=== PATIENT | female | born 1950 | race Caucasian/White ===

== ENCOUNTER 2016-06-01 10:36 | Emergency (ER) | payer MEDICARE, OTHER ==
[~2016-06-01] VITALS: Ht 154.9 cm; Wt 149.7 kg
[~2016-06-01 10:36] MED LIST: AC80CT PO; ASPI-198 PO; FAMO10TA71 PO; FURO20TA4 PO; GUAI118L76 PO; LRT10T PO; MULT-608 PO; NAPR220C11 PO; OMEG-12 PO; OSTEO BI-FLEX1 EACH PO; VALS1TAB48 PO
[2016-06-01 11:42] LABS: BASOPHILS % (AUTO) 0 % (0-10); EOSINOPHILS # (AUTO) 0.1 10^3/uL (0.0-0.3); EOSINOPHILS % (AUTO) 1 % (0-10); LYMPHOCYTES # (AUTO) 2.7 X 10^3 (1.0-4.0); LYMPHOCYTES % (AUTO) 28 % (12-44); MEAN CORPUSCULAR HEMOGLOBIN 30 PG (25-34); MEAN CORPUSCULAR HGB CONC 33 G/DL (32-36); MEAN CORPUSCULAR VOLUME 91 FL (80-99); MEAN PLATELET VOLUME 10.8 FL (7.4-10.4); MONOCYTES # (AUTO) 1.1 X 10^3 (0.0-1.0); MONOCYTES % (AUTO) 12 % (0-12); NEUTROPHILS # (AUTO) 5.7 X 10^3 (1.8-7.8); NEUTROPHILS % (AUTO) 59 % (42-75); PLATELET COUNT 255 10^3/uL (130-400); RED BLOOD COUNT 4.04 10^6/uL (4.35-5.85); RED CELL DISTRIBUTION WIDTH 13.8 % (10.0-14.5); WHITE BLOOD COUNT 9.7 10^3/uL (4.3-11.0)
[2016-06-01 11:53] LABS: BILIRUBIN,TOTAL 0.4 MG/DL (0.1-1.0); CALCIUM 9.2 MG/DL (8.5-10.1); CREATININE SERUM 1.14 MG/DL (0.60-1.30); TOTAL PROTEIN 7.9 G/DL (6.4-8.2)
--- NOTE | 2016-06-01 12:12 | Diagnostic Imaging Report ---
INDICATION: Cough, congestion, fever, diaphoresis. DISCUSSION: Two views of the chest were obtained, comparison 06/23/2011. Mild accentuated thoracic kyphosis is stable. Age-related degenerative changes are noted throughout the thoracic spine. Stable normal heart size. Mild S-shaped scoliosis of the thoracic spine is stable. No focal consolidation, pleural fluid, or pneumothorax. The lungs remain mildly hyperinflated. IMPRESSION: 1. No acute cardiopulmonary process. Dictated by: Dictated on workstation # [id number]
[2016-06-01] MEDS ORDERED: methylPREDNISolone 125 MG (Solu-MEDROL) VIAL IV STA (12:21)
[2016-06-01] MEDS ORDERED: LEVO500T2 PO (12:25)
[2016-06-01] MEDS ORDERED: D-ME118S7 PO (12:25)
[2016-06-01] MEDS ORDERED: METH4TAB PO (12:25)
[2016-06-01] MEDS ORDERED: ALB0.5V IH (12:25)
--- NOTE | 2016-06-01 12:26 | ED Respiratory ---
General Chief Complaint: Cough/Cold/Flu Symptoms Stated Complaint: COUGHING BLOOD Nursing Triage Note: COUGH SINCE 05/25, GRADUALLY WORSENING. C/O DYSPSNEA WITH LYING SUPINE. STATES SHE HAD FEVER EARLIER TODAY AND COUGHED UP BRIGHT RED BLOOD TODAY. Source: patient History of Present Illness Time seen by provider: 10:55 Initial Comments C/O PRODUCTIVE COUGH WITH COLORED SPUTUM--HAD BLOOD TINGED SPUTUM TODAY STATES IT HURTS TO BREATHE AND FEELS SHORT OF BREATH WHEN LYING DOWN HAS HAD SUBJECTIVE FEVER OFF AND ON FOR 4-5 DAYS C/O SWEATS AND CHILLS C/O BILATERAL EAR PAIN HAS HAD NASAL CONGESTION AND BLOODY SINUS DRAINAGE C/O SORE THROAT STATES SHE HAS COUGHED SO HARD SHE VOMITS ALL FAMILY MEMBERS ILL WITH SAME, BUT NOT THIS BAD PCP: DR. CRUZ Allergies and Home Medications Allergies Coded Allergies: No Known Allergies (Unverified Allergy, Unknown, 06/01/16) latex (Verified Allergy, Unknown, 06/01/16) Home Medications Acetaminophen 80 Mg/Tab Tablet 2 TAB PO Q6HR PRN (Reported) Albuterol Sulfate 2.5 Mg/0.5 Ml Vial.neb #1 2.5 MG IH Q4H Prescribed by: JACKIE JOSHUA on 06/01/16 1225 Aspirin/Calcium Carbonate/Mag 325 Mg Tablet 325 MG PO (Reported) D-Methorphan Hb/Prometh HCl 118 Ml Syrup #120 1-2 TSP PO Q4H Prescribed by: JACKIE JOSHUA on 06/01/16 1225 Famotidine 10 Mg Tablet 1 EACH PO BID (Reported) Furosemide 20 Mg Tablet 1 EACH PO DAILY (Reported) Gluc/Brian-Msm#1/C/Luis/Dmitry/Bor 1 Each Tablet 2 EACH PO DAILY (Reported) Hctz/Valsartan 1 Tab Tablet 1 EACH PO DAILY (Reported) Levofloxacin 500 Mg Tablet #10 500 MG PO DAILY Prescribed by: JACKIE JOSHUA on 06/01/16 1225 Loratadine 10 Mg Box 1 EACH PO DAILY (Reported) Methylprednisolone 4 Mg Tab.ds.pk #1 4 MG PO UD Prescribed by: JACKIE JOSHUA on 06/01/16 1225 Multivitamins 1 Tab Tablet 1 TAB PO (Reported) Naproxen Sodium 220 Mg Capsule 220 MG PO DAILY (Reported) [place]-3/Dha/Epa/Fish Oil 1 Each Capsule.dr 1 EACH PO (Reported) Constitutional: see HPI chills diaphoresis fever EENTM: ear pain nose congestion see HPI throat pain Respiratory: see HPI cough dyspnea on exertion hemoptysis orthopnea phlegm short of breath wheezing Cardiovascular: see HPI chest pain edema (CHRONIC /STABLE)No palpitations, No vascular heart diseas Gastrointestinal: see HPI vomiting Genitourinary: no symptoms reported Musculoskeletal: no symptoms reported Skin: no symptoms reported Psychiatric/Neurological: No Symptoms Reported Hematologic/Lymphatic: No Symptoms Reported Immunological/Allergic: no symptoms reported Past Mmtjzch-Xykmgi-Ojvvry Hx Patient Social History Alcohol Use: Denies Use Recreational Drug Use: No Smoking Status: Never a Smoker 2nd Hand Smoke Exposure: Yes Recent Foreign Travel: No Contact w/Someone Who Travel: No Recent Infectious Disease Expo: No Recent Hopitalizations: No Physical Abuse Screen: No Sexual Abuse: No Immunizations Up To Date Date of Influenza Vaccine: Feb 29, 2016 Surgeries HX Surgeries: Yes (D&C) Surgeries: Orthopedic Respiratory Hx Respiratory Disorders: Yes (CPAP HS) Respiratory Disorders: Sleep Apnea Cardiovascular Hx Cardiac Disorders: Yes Cardiac Disorders: Chronic Edema/Swelling, Hypertension Neurological Hx Neurological Disorders: Yes Reproductive System Hx Reproductive Disorders: No Sexually Transmitted Disease: No Genitourinary Hx Genitourinary Disorders: Yes (INCONTINENCE) Gastrointestinal Hx Gastrointestinal Disorders: Yes (DIVERTICULITIS) Gastrointestinal Disorders: Diverticulosis Musculoskeletal Hx Musculoskeletal Disorders: Yes (ARTHRITIS IN KNEES) Musculoskeletal Disorders: Arthritis Endocrine Hx Endocrine Disorders: No HEENT HX ENT Disorders: No Cancer Hx Cancer: No Psychosocial Hx Psychiatric Problems: No Integumentary HX Skin/Integumentary Disorder: No Blood Transfusions Hx Blood Disorders: No Physical Exam Vital Signs Vital Sign - Last 12Hours 06/01/16 06/01/16 10:52 12:36 Pulse 84 Resp 22 B/P 136/99 Pulse Ox 97 O2 Delivery Room Air Capillary Refill : Less Than 3 Seconds General Appearance: WD/WN no apparent distress obese HEENT: PERRL/EOMI other (NASAL MUCOSAL EDEMA. NO SINUS TENDERNESS. 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 nml as tested no motor/sensory deficits alert normal mood/affect oriented x 3 Skin: normal color warm/dry Progress/Results/Core Measures Results/Orders Lab Results Laboratory Tests Test 06/01/16 11:20 06/01/16 12:10 Range/Units Alanine Aminotransferase (ALT/SGPT) 20 0-55 U/L Albumin 4.0 3.2-4.5 G/DL Alkaline Phosphatase 73 40-136 U/L Anion Gap 10 5-14 MMOL/L Aspartate Amino Transf (AST/SGOT) 20 5-34 U/L BUN/Creatinine Ratio 17 Basophils # (Auto) 0.0 0.0-0.1 10^3/uL Basophils (%) (Auto) 0 0-10 % Blood Urea Nitrogen 19 H 7-18 MG/DL Calcium Level 9.2 8.5-10.1 MG/DL Carbon Dioxide Level 23 21-32 MMOL/L Chloride Level 105 98-107 MMOL/L Creatinine 1.14 0.60-1.30 MG/DL Eosinophils # (Auto) 0.1 0.0-0.3 10^3/uL Eosinophils (%) (Auto) 1 0-10 % Estimat Glomerular Filtration Rate 48 Glucose Level 122 H 70-105 MG/DL Hematocrit 37 35-52 % Hemoglobin 12.2 11.5-16.0 G/DL Lymphocytes # (Auto) 2.7 1.0-4.0 X 10^3 Lymphocytes (%) (Auto) 28 12-44 % Mean Corpuscular Hemoglobin 30 25-34 PG Mean Corpuscular Hemoglobin Concent 33 32-36 G/DL Mean Corpuscular Volume 91 80-99 FL Mean Platelet Volume 10.8 H 7.4-10.4 FL Monocytes # (Auto) 1.1 H 0.0-1.0 X 10^3 Monocytes (%) (Auto) 12 0-12 % Neutrophils # (Auto) 5.7 1.8-7.8 X 10^3 Neutrophils (%) (Auto) 59 42-75 % Platelet Count 255 130-400 10^3/uL Potassium Level 4.0 3.6-5.0 MMOL/L Red Blood Count 4.04 L 4.35-5.85 10^6/uL Red Cell Distribution Width 13.8 10.0-14.5 % Sodium Level 138 135-145 MMOL/L Total Bilirubin 0.4 0.1-1.0 MG/DL Total Protein 7.9 6.4-8.2 G/DL White Blood Count 9.7 4.3-11.0 10^3/uL Lactic Acid Level 1.6 0.5-2.0 MMOL/L Micro Results Microbiology 06/01/16 Blood Culture - Preliminary, Resulted No growth 06/01/16 Blood Culture - Preliminary, Resulted No growth 06/01/16 Gram Stain - Final, Resulted 06/01/16 Sputum Culture - Preliminary, Resulted Staphylococcus Aureus 06/01/16 Influenza Types A,B Antigen (ME[facility]I) - Final, Complete My Orders Orders-JACKIE JOSHUA DO Influenza A And B Antigens (06/01/16 11:12) Saline Lock/Iv-Start (06/01/16 11:36) Monitor-Rhythm Ecg Trace Only (06/01/16 11:36) Cbc With Automated Diff (06/01/16 11:36) Comprehensive Metabolic Panel (06/01/16 11:36) Blood Culture (06/01/16 11:36) Chest Pa/Lat (2 View) (06/01/16 11:36) Lactic Acid Analyzer (06/01/16 11:36) Albuterol/Ipra Inhalation Soln (Duoneb I (06/01/16 12:30) Dexamethasone Injection (Decadron Inject (06/01/16 12:30) Rt Request For Service (06/01/16 12:21) Ceftriaxone Injection (Rocephin Injectio (06/01/16 12:30) Methylprednisolone Sod Succ (Solu-Medrol (06/01/16 12:21) Svn Sm Volume Nebulizer Rt-Rfs (06/01/16 12:21) Breathing Machine Home Use-Dme (06/01/16 12:25) Sputum Culture (06/01/16 12:50) Vital Signs/I&O Vital Sign - Last 12Hours 06/01/16 06/01/16 06/01/16 10:52 12:36 13:05 Pulse 84 70 Resp 22 18 B/P 136/99 Pulse Ox 97 93 95 O2 Delivery Room Air Blood Pressure Mean: 111 Diagnostic Imaging Comments CXR--NO ACUTE PROCESS, PER RADIOLOGIST REPORT @ 1215 Reviewed: Reviewed by Me Departure Impression Impression: Primary Impression: Bronchitis Additional Impression: Sinusitis Disposition: HOME, SELF-CARE Condition: Stable Departure-Patient Inst. Referrals: HERNAN CRUZ MD (PCP/Family) Primary Care Physician Patient Instructions: Acute Bronchitis, Adult (DC), Sinusitis, Adult (DC) Add. Discharge Instructions: LOTS OF CLEAR LIQUIDS TYLENOL AND MOTRIN NEEDED FOR PAIN OR FEVER FOLLOW UP WITH YOUR DR IN 3-4 DAYS IF NO BETTER RETURN TO ER IF WORSE All discharge instructions reviewed with patient and/or family. Voiced understanding. Scripts Methylprednisolone (Medrol)4 Mg Tab.ds.pk4 Mg PO UD #1 PKG Prov:JACKIE JOSHUA DO 06/01/16 D-Methorphan Hb/Prometh HCl (Promethazine-Dm Syrup)118 Ml Syrup1-2 Tsp PO Q4H Cough #120 ML Prov:JACKIE JOSHUA DO 06/01/16 Levofloxacin (Levaquin)500 Mg [id number] Mg PO DAILY INFECTION #10 TAB Prov:JACKIE JOSHUA DO 06/01/16 Albuterol Sulfate 2.5 Mg/0.5 Ml Vial.neb2.5 Mg IH Q4H BREATHING #1 INHALER Prov:JACKIE JOSHUA DO 06/01/16 JACKIE JOSHUA DO Jun 01, 2016 12:25
[2016-06-01] MEDS ORDERED: RT-ALBUTEROL/IPRATROPIUM 3 ML (DUONEB) VIAL INH ONE (12:30)
[2016-06-01] MEDS ORDERED: cefTRIAXone INJECTION 1,000 MG in NORMAL SALINE (BAXTER MINI) 50 ML IV ONE (12:30)
[2016-06-01] MEDS ORDERED: DEXAMETHASONE 4 MG/ML SDV (DECADRON) IH ONE (12:30)
[2016-06-01 13:05] VITALS: BP 131/62
== END 2016-06-01 13:51 | disposition home or self-care (01) ==
LOC: EDUNIT# 10:36 → ER 10:38
DX: J20.9 Acute bronchitis, unspecified (principal); J01.90 Acute sinusitis, unspecified; I10 Essential (primary) hypertension; Z79.899 Other long term (current) drug therapy
CPT/HCPCS: 36415; 71020; 80053; 83605; 85025; 87040; 87070; 87186; 87205; 87804

== ENCOUNTER → 2016-08-03 | Outpatient (CLI) | payer MEDICARE, OTHER ==
[~2016-08-03] MED LIST changes: +ALB0.5V IH; +D-ME118S7 PO; +LEVO500T2 PO; +METH4TAB PO
--- NOTE | 2016-08-04 20:01 | Diagnostic Imaging Report ---
Digital mammogram bilateral screening The study was compared to the prior exams of 05/28/15, 05/10/14, and 05/09/13. At this time, there are no current complaints. The current study was also evaluated with a Computer Aided Detection (CAD) system. FINDINGS: There are scattered fibroglandular densities in both breasts which could obscure a lesion. Overall, there does not appear to have been any significant change when compared to the prior exam. No primary or secondary sign of malignancy is noted. IMPRESSION: There is no radiographic evidence for malignancy. ACR BI-RADS Category 1: Negative. Result letter will be mailed to the patient. Note: At least 10% of breast cancer is not imaged by mammography. Dictated by: Dictated on workstation # [id number]
== END ==
LOC: RAD 09:37
PROVIDERS: ATTEND Internal Medicine
DX: Z12.31 Encounter for screening mammogram for malignant neoplasm of breast (principal)
CPT/HCPCS: 77067

== ENCOUNTER 2016-12-03 13:43 | Inpatient (IN) | payer MEDICARE, OTHER ==
[~2016-12-03] VITALS: Ht 157.5 cm; Wt 141.5 kg
[2016-12-03] MEDS ORDERED: ONDANSETRON 4 MG (ZOFRAN) ORAL DISSOLVE TAB SL STA (15:20)
[2016-12-03 15:42] LABS: BASOPHILS % (AUTO) 0 % (0-10); EOSINOPHILS % (AUTO) 0 % (0-10); LYMPHOCYTES # (AUTO) 1.6 X 10^3 (1.0-4.0); LYMPHOCYTES % (AUTO) 12 % (12-44); MEAN CORPUSCULAR HEMOGLOBIN 30 PG (25-34); MEAN CORPUSCULAR HGB CONC 33 G/DL (32-36); MEAN CORPUSCULAR VOLUME 93 FL (80-99); MEAN PLATELET VOLUME 10.5 FL (7.4-10.4); MONOCYTES # (AUTO) 0.5 X 10^3 (0.0-1.0); MONOCYTES % (AUTO) 4 % (0-12); NEUTROPHILS # (AUTO) 11.1 X 10^3 (1.8-7.8); NEUTROPHILS % (AUTO) 83 % (42-75); PLATELET COUNT 283 10^3/uL (130-400); RED BLOOD COUNT 4.05 10^6/uL (4.35-5.85); RED CELL DISTRIBUTION WIDTH 14.1 % (10.0-14.5); WHITE BLOOD COUNT 13.3 10^3/uL (4.3-11.0)
[2016-12-03 16:02] LABS: ALBUMIN 4.1 GM/DL (3.2-4.5); BILIRUBIN,TOTAL 0.5 MG/DL (0.1-1.0); CALCIUM 9.8 MG/DL (8.5-10.1); CREATININE SERUM 1.07 MG/DL (0.60-1.30); POTASSIUM 4.5 MMOL/L (3.6-5.0); TOTAL PROTEIN 8.2 GM/DL (6.4-8.2)
[2016-12-03 16:22] LABS: BILIRUBIN,URINE NEGATIVE (NEGATIVE); KETONES,URINE NEGATIVE (NEGATIVE); LEUKOCYTE ESTERASE ,URINE NEGATIVE (NEGATIVE); NITRITE,URINE NEGATIVE (NEGATIVE); PH,URINE 6 (5-9); PROTEIN,URINE NEGATIVE (NEGATIVE); UROBILINOGEN,URINE NORMAL (NORMAL)
[2016-12-03] MEDS ORDERED: NS 100 ML (IVPB) BAG IV ONE (16:30)
[2016-12-03] MEDS ORDERED: IOHEXOL 350 MG/ML 100 ML (OMNIPAQUE 350) VIAL IV ONE (16:30)
[2016-12-03 16:35] LABS: WBC,URINE RARE /HPF
[2016-12-03] MEDS: CATHETER FLUSH 10 ML SYR IV PRN (16:35)
[2016-12-03] MEDS ORDERED: LACTATED RINGERS 1,000 ML IV ONE ×3 (17:11→20:58)
--- NOTE | 2016-12-03 17:12 | Diagnostic Imaging Report ---
PROCEDURE: CT abdomen and pelvis with contrast. TECHNIQUE: Multiple contiguous axial images were obtained through the abdomen and pelvis after administration of intravenous contrast. INDICATION: Abdominal pain. Nausea. CONTRAST: 100 mL of Omnipaque 350 is administered intravenously. FINDINGS: The lung bases demonstrate small posteromedial fat-containing diaphragmatic hernia with no pulmonary consolidation. Minimal scarring in the left lung base is seen. The liver demonstrates a 7 mm right hepatic lobe nonspecific hypodensity too small to accurately characterize. Calcified gallstone is seen with no evidence of cholecystitis. The spleen, the adrenal glands, and the pancreas appear unremarkable. The kidneys have symmetric enhancement and contrast excretion. There is no hydronephrosis. The abdominal aorta is normal in caliber. No paraaortic significantly enlarged lymph nodes are seen. There is a supraumbilical hernia containing a small bowel loop associated with stranding in the fat and stranding in the adjacent small bowel mesentery concerning for hernia strangulation. The abdominal wall defect at the level of the hernia is 3.4 x 3.6 cm in size. There is no bowel obstruction. There is diverticulosis with no evidence of diverticulitis. There is a short outpouching seen from the cecum which could represent a particularly short appendix or a diverticulum. There is no significant free fluid or fluid collection in the abdomen or pelvis. The uterus and adnexa appear grossly unremarkable. There is mild thickening of the urinary bladder wall which may relate to cystitis. Correlate clinically. The osseous structures demonstrate degenerative changes with left convexity scoliosis. IMPRESSION: 1. There is periumbilical hernia containing small bowel loops with fatty stranding and thickening in the wall of the small bowel concerning for strangulation. Mild fatty stranding in the mesentery also extends to the adjacent mesentery in both a non-herniating bowel loop. 2. Diverticulosis. No evidence of diverticulitis. 3. Cholelithiasis. Findings were discussed with ER nurse practitioner, Nicole Alonzo at time of dictation. Dictated by: Dictated on workstation # [id number]
--- NOTE | 2016-12-03 17:31 | Consultation ---
History of Present Illness History of Present Illness Patient Consulted On(ernestina/time) 12/03/16 17:26 Time Seen by Provider: 17:03 History of Present Illness Pt is a 66 yo female who had increasing abdominal pain. She states she has been seeing Dr. Greene "a while for this"; but it has never been this bad. She describes 10 out of 10 pain, that is sharp and crampy. Located around umbilical region and radiating to the LLQ. Associated with nausea and vomiting. She does not think she had a fever at home. She tried to take a sip of milk at 11am but vomited that right back up. Pt states that moving, bending over or picking stuff up makes the pain worse. She denies chest pain and does not have more SOB than normal. She does have CPAP at home. Allergies and Home Medications Allergies Coded Allergies: No Known Allergies (Unverified Allergy, Unknown, 06/01/16) latex (Verified Allergy, Unknown, 06/01/16) Home Medications Acetaminophen 80 Mg/Tab Tablet, 2 TAB PO Q6HR PRN, (Reported) Albuterol Sulfate 2.5 Mg/0.5 Ml Vial.neb, 2.5 MG IH Q4H, #1 Prescribed by: JACKIE JOSHUA on 06/01/16 1225 Aspirin/Calcium Carbonate/Mag 325 Mg Tablet, 325 MG PO, (Reported) D-Methorphan Hb/Prometh HCl 118 Ml Syrup, 1-2 TSP PO Q4H, #120 Prescribed by: JACKIE JOSHUA on 06/01/16 1225 Famotidine 10 Mg Tablet, 1 EACH PO BID, (Reported) Furosemide 20 Mg Tablet, 1 EACH PO DAILY, (Reported) Gluc/Brian-Msm#1/C/Luis/Dmitry/Bor 1 Each Tablet, 2 EACH PO DAILY, (Reported) Hctz/Valsartan 1 Tab Tablet, 1 EACH PO DAILY, (Reported) Levofloxacin 500 Mg Tablet, 500 MG PO DAILY, #10 Prescribed by: JACKIE JOSHUA on 06/01/16 1225 Loratadine 10 Mg Box, 1 EACH PO DAILY, (Reported) Methylprednisolone 4 Mg Tab.ds.pk, 4 MG PO UD, #1 Prescribed by: JACKIE JOSHUA on 06/01/16 1225 Multivitamins 1 Tab Tablet, 1 TAB PO, (Reported) Naproxen Sodium 220 Mg Capsule, 220 MG PO DAILY, (Reported) [place]-3/Dha/Epa/Fish Oil 1 Each Capsule.dr, 1 EACH PO, (Reported) Past Wmuobcz-Djaxup-Epvxig Hx Patient Social History Alcohol Use: Denies Use Recreational Drug Use: No Smoking Status: Never a Smoker 2nd Hand Smoke Exposure: Yes Recent Foreign Travel: No Contact w/Someone Who Travel: No Recent Infectious Disease Expo: No Recent Hopitalizations: No Immunizations Up To Date Date of Influenza Vaccine: Feb 29, 2016 Surgeries HX Surgeries: Yes (D&C) Surgeries: Orthopedic Respiratory Hx Respiratory Disorders: Yes (CPAP HS) Respiratory Disorders: Sleep Apnea Cardiovascular Hx Cardiac Disorders: Yes Cardiac Disorders: Chronic Edema/Swelling, Hypertension Neurological Hx Neurological Disorders: No Reproductive System Hx Reproductive Disorders: No Sexually Transmitted Disease: No Genitourinary Hx Genitourinary Disorders: Yes (INCONTINENCE) Gastrointestinal Hx Gastrointestinal Disorders: Yes (DIVERTICULITIS) Gastrointestinal Disorders: Diverticulosis Musculoskeletal Hx Musculoskeletal Disorders: Yes (ARTHRITIS IN KNEES) Musculoskeletal Disorders: Arthritis Endocrine Hx Endocrine Disorders: No HEENT HX ENT Disorders: No Cancer Hx Cancer: No Psychosocial Hx Psychiatric Problems: No Integumentary HX Skin/Integumentary Disorder: No Blood Transfusions Hx Blood Disorders: No Family Medical History Significant Family History: Heart Disease (Father has pacemaker), Cancer ( mother of ovarian cancer), Hypertension (parents and sisters) Review of Systems-General Constitutional: chills, diaphoresis, weakness EENTM: No blurred vision, No epistaxis, No hearing loss, No mouth swelling, No throat swelling Respiratory: No cough, dyspnea on exertion, No hemoptysis, No phlegm, short of breath Cardiovascular: No chest pain, edema, No Hx of Intervention Gastrointestinal: abdominal pain, constipation, No hematemesis, No melena, nausea, vomiting Genitourinary: No dysuria, No frequency, No hematuria : No Musculoskeletal: gout, joint pain, joint swelling, muscle stiffness, muscle cramps Skin: dryness, other (chronic ulcers on lower extremities) Psychiatric/Neurological: Denies Anxiety, Denies Depressed, Denies Pre- Existing Deficit, Denies Seizure, Denies Tremors Other pt denies any heat or cold intolerance, no abnormal bruising or bleeding Physical Exam-General Problems Physical Exam Vital Signs Vital Sign - Last 12Hours 12/03/16 14:49 Temp 97.8 Pulse 74 Resp 18 B/P (MAP) 145/84 Pulse Ox 96 Capillary Refill : Less Than 3 Seconds General Appearance: WD/WN, moderate distress, obese Eyes: Bilateral Eye EOMI, Bilateral Eye PERRL HEENT: pharynx normal, No scleral icterus (R), No scleral icterus (L), No pale conjunctivae (R), No pale conjunctivae (L) Neck: non-tender, full range of motion, supple, normal inspection Respiratory: chest non-tender, lungs clear, normal breath sounds, no respiratory distress, no accessory muscle use Cardiovascular: regular rate, rhythm, no gallop, no murmur, systolic murmur ( grade II/) Gastrointestinal: soft, no organomegaly, hernia (incarcerated ventral hernia) Rectal: deferred Back: no CVA tenderness, no vertebral tenderness Extremities: no calf tenderness, other (venous stasis changes bilateral lower extremity, decreased range of motion, ulcer on right leg) Neurologic/Psychiatric: director of front office II-XII nml as tested, no motor/sensory deficits, normal mood/affect, oriented x 3 Skin: normal color (except legs as noted above), warm/dry Lymphatic: no adenopathy (neck, axilla or groin.) Data Review Labs Laboratory Tests 12/03/16 15:25: White Blood Count 13.3H, Red Blood Count 4.05L, Hemoglobin 12.3, Hematocrit 38, Mean Corpuscular Volume 93, Mean Corpuscular Hemoglobin 30, Mean Corpuscular Hemoglobin Concent 33, Red Cell Distribution Width 14.1, Platelet Count 283, Mean Platelet Volume 10.5H, Neutrophils (%) (Auto) 83H, Lymphocytes (%) (Auto) 12, Monocytes (%) (Auto) 4, Eosinophils (%) (Auto) 0, Basophils (%) (Auto) 0, Neutrophils # (Auto) 11.1H, Lymphocytes # (Auto) 1.6, Monocytes # (Auto) 0.5, Eosinophils # (Auto) 0.0, Basophils # (Auto) 0.0, Sodium Level 141, Potassium Level 4.5, Chloride Level 105, Carbon Dioxide Level 26, Anion Gap 10, Blood Urea Nitrogen 25H, Creatinine 1.07, Estimat Glomerular Filtration Rate 51, BUN/ Creatinine Ratio 23, Glucose Level 126H, Calcium Level 9.8, Total Bilirubin 0.5 , Aspartate Amino Transf (AST/SGOT) 17, Alanine Aminotransferase (ALT/SGPT) 18, Alkaline Phosphatase 88, Total Protein 8.2, Albumin 4.1, Amylase Level 52, Lipase 48 12/03/16 16:12: Urine Color YELLOW, Urine Clarity SLIGHTLY CLOUDY, Urine pH 6, Urine Specific [place] 1.015L, Urine Protein NEGATIVE, Urine Glucose (UA) NEGATIVE, Urine Ketones NEGATIVE, Urine Nitrite NEGATIVE, Urine Bilirubin NEGATIVE, Urine Urobilinogen NORMAL, Urine Leukocyte Esterase NEGATIVE, Urine RBC (Auto) 1+H, Urine RBC 0-2, Urine WBC RARE, Urine Squamous Epithelial Cells 5-10, Urine Crystals NONE, Urine Bacteria FEWH, Urine Casts NONE, Urine Mucus NEGATIVE, Urine Culture Indicated NO Assessment/Plan Assessment/Plan Assessment/Plan 1. Incarcerated Ventral Herniarraphy, R/O strangulated 2. Morbid Obesity 3. Sleep apnea 4. 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 To OR for laparoscopic ventral herniarraphy, possible mesh, possible open. Discussed the risks and complications with pt; including but not limited to pain, bleeding , infection, scar, damage to bowel and need for further procedure. All questions answered to her satisfaction. Will keep her overnight and discharge her in the morning. ANGIE HENDRICKSON DO Dec 03, 2016 17:31
--- NOTE | 2016-12-03 17:45 | ED Abdominal Pain ---
General Chief Complaint: Abdominal/GI Problems Stated Complaint: CHILLS/SWEATS/N/V/SOB Nursing Triage Note: AMB TO ROOM C/O ABD PAIN ON AND OFF FOR A MONTH DR CRUZ THINKS SHE MAY HAVE HERNIA. Sepsis Screen: No Definite Risk History of Present Illness Time Seen By Provider: 14:40 Initial Comments Evaluation for willam-umbilical and left lower quadrant pain. This is been intermittent over the last month, she has seen Dr. Cruz for this and there were concerns over possible hernia. Earlier this morning her pain became worse and she presented to the emergency room for evaluation. She reports having a small cup of milk at 1100, but she vomited immediately after. She has otherwise been nothing by mouth since 2200 yesterday Timing/Duration: Getting Worse, Intermittent Severity/Quality: Moderate Location: LLQ, Periumbilical Radiation: No Radiation Activities at Onset: None Modifying Factors: Improves With Lying down, Improves With Resting Associated Symptoms: Nausea/Vomiting Allergies and Home Medications Allergies Coded Allergies: latex (Verified Allergy, Unknown, 12/03/16) Home Medications Acetaminophen 80 Mg/Tab Tablet, 2 TAB PO Q6HR PRN, (Reported) Albuterol Sulfate 2.5 Mg/0.5 Ml Vial.neb, 2.5 MG IH Q4H, #1 Prescribed by: JACKIE JOSHUA on 06/01/16 1225 Aspirin/Calcium Carbonate/Mag 325 Mg Tablet, 325 MG PO, (Reported) D-Methorphan Hb/Prometh HCl 118 Ml Syrup, 1-2 TSP PO Q4H, #120 Prescribed by: JACKIE JOSHUA on 06/01/16 1225 Famotidine 10 Mg Tablet, 1 EACH PO BID, (Reported) Furosemide 20 Mg Tablet, 1 EACH PO DAILY, (Reported) Gluc/Brian-Msm#1/C/Luis/Dmitry/Bor 1 Each Tablet, 2 EACH PO DAILY, (Reported) Hctz/Valsartan 1 Tab Tablet, 1 EACH PO DAILY, (Reported) Levofloxacin 500 Mg Tablet, 500 MG PO DAILY, #10 Prescribed by: JACKIE JOSHUA on 06/01/16 1225 Loratadine 10 Mg Box, 1 EACH PO DAILY, (Reported) Methylprednisolone 4 Mg Tab.ds.pk, 4 MG PO UD, #1 Prescribed by: JACKIE JOSHUA on 06/01/16 1225 Multivitamins 1 Tab Tablet, 1 TAB PO, (Reported) Naproxen Sodium 220 Mg Capsule, 220 MG PO DAILY, (Reported) Spivey-3/Dha/Epa/Fish Oil 1 Each Capsule.dr, 1 EACH PO, (Reported) Review of Systems Constitutional: no symptoms reported, see HPI EENTM: No Symptoms Reported, See HPI Respiratory: No Symptoms Reported, See HPI Cardiovascular: No Symptoms Reported, See HPI Gastrointestinal: See HPI, Abdominal Pain, Nausea, Poor Appetite, Poor Fluid Intake, Vomiting, Other (hernia) Genitourinary: No Symptoms Reported, See HPI Musculoskeletal: no symptoms reported, see HPI Skin: no symptoms reported, see HPI Psychiatric/Neurological: No Symptoms Reported, See HPI Endocrine: No Symptoms Reported, See HPI Hematologic/Lymphatic: No Symptoms Reported, See HPI All Other Systems Reviewed Negative Unless Noted: Yes Past Ybhywkv-Qdxovk-Hyvlrf Hx Patient Social History Alcohol Use: Denies Use Recreational Drug Use: No Smoking Status: Never a Smoker 2nd Hand Smoke Exposure: Yes Recent Foreign Travel: No Contact w/Someone Who Travel: No Recent Infectious Disease Expo: No Recent Hopitalizations: No Immunizations Up To Date Date of Influenza Vaccine: Feb 29, 2016 Surgeries HX Surgeries: Yes (D&C) Surgeries: Orthopedic Respiratory Hx Respiratory Disorders: Yes (CPAP HS) Respiratory Disorders: Sleep Apnea Cardiovascular Hx Cardiac Disorders: Yes Cardiac Disorders: Chronic Edema/Swelling, Hypertension Neurological Hx Neurological Disorders: Yes Reproductive System Hx Reproductive Disorders: No Sexually Transmitted Disease: No Genitourinary Hx Genitourinary Disorders: Yes (INCONTINENCE) Gastrointestinal Hx Gastrointestinal Disorders: Yes (DIVERTICULITIS) Gastrointestinal Disorders: Diverticulosis Musculoskeletal Hx Musculoskeletal Disorders: Yes (ARTHRITIS IN KNEES) Musculoskeletal Disorders: Arthritis Endocrine Hx Endocrine Disorders: No HEENT HX ENT Disorders: No Cancer Hx Cancer: No Psychosocial Hx Psychiatric Problems: No Integumentary HX Skin/Integumentary Disorder: No Blood Transfusions Hx Blood Disorders: No Reviewed Nursing Assessment Reviewed/Agree w Nursing PMH: Yes Physical Exam Vital Signs VS - Last 72 Hours, by Label 12/03/16 14:49 Temp 97.8 Pulse 74 Resp 18 B/P (MAP) 145/84 Pulse Ox 96 Capillary Refill : Less Than 3 Seconds General Appearance: WD/WN, no apparent distress HEENT: PERRL/EOMI, normal ENT inspection, TMs normal, pharynx normal Neck: non-tender, full range of motion, supple, normal inspection Respiratory: chest non-tender, lungs clear, normal breath sounds Cardiovascular: normal peripheral pulses, regular rate, rhythm, no JVD, systolic murmur, other (2+ pitting edema bilateral lower extremities) Gastrointestinal: soft, abnormal bowel sounds (hypoactive), distended, tenderness (periumbilical and left lower quadrant), other (marked abdominal obesity) Extremities: no calf tenderness, inflammation, pedal edema, slow capillary refill Neurologic/Psychiatric: no motor/sensory deficits, alert, normal mood/affect, oriented x 3 Skin: normal color, warm/dry, other (he has a tick bite on the left anterior shoulder, no erythema, tenderness or induration. Patient reports it was been present for approximately one month. ) Lymphatic: no adenopathy Progress/Results/Core Measures Results/Orders Lab Results Laboratory Tests Test 12/03/16 15:25 12/03/16 16:12 Range/Units White Blood Count 13.3 H 4.3-11.0 10^3/uL Red Blood Count 4.05 L 4.35-5.85 10^6/uL Hemoglobin 12.3 11.5-16.0 G/DL Hematocrit 38 35-52 % Mean Corpuscular Volume 93 80-99 FL Mean Corpuscular Hemoglobin 30 25-34 PG Mean Corpuscular Hemoglobin Concent 33 32-36 G/DL Red Cell Distribution Width 14.1 10.0-14.5 % Platelet Count 283 130-400 10^3/uL Mean Platelet Volume 10.5 H 7.4-10.4 FL Neutrophils (%) (Auto) 83 H 42-75 % Lymphocytes (%) (Auto) 12 12-44 % Monocytes (%) (Auto) 4 0-12 % Eosinophils (%) (Auto) 0 0-10 % Basophils (%) (Auto) 0 0-10 % Neutrophils # (Auto) 11.1 H 1.8-7.8 X 10^3 Lymphocytes # (Auto) 1.6 1.0-4.0 X 10^3 Monocytes # (Auto) 0.5 0.0-1.0 X 10^3 Eosinophils # (Auto) 0.0 0.0-0.3 10^3/uL Basophils # (Auto) 0.0 0.0-0.1 10^3/uL Sodium Level 141 135-145 MMOL/L Potassium Level 4.5 3.6-5.0 MMOL/L Chloride Level 105 98-107 MMOL/L Carbon Dioxide Level 26 21-32 MMOL/L Anion Gap 10 5-14 MMOL/L Blood Urea Nitrogen 25 H 7-18 MG/DL Creatinine 1.07 0.60-1.30 MG/DL Estimat Glomerular Filtration Rate 51 BUN/Creatinine Ratio 23 Glucose Level 126 H 70-105 MG/DL Calcium Level 9.8 8.5-10.1 MG/DL Total Bilirubin 0.5 0.1-1.0 MG/DL Aspartate Amino Transf (AST/SGOT) 17 5-34 U/L Alanine Aminotransferase (ALT/SGPT) 18 0-55 U/L Alkaline Phosphatase 88 40-136 U/L Total Protein 8.2 6.4-8.2 GM/DL Albumin 4.1 3.2-4.5 GM/DL Amylase Level 52 25-125 U/L Lipase 48 8-78 U/L Urine Color YELLOW Urine Clarity SLIGHTLY CLOUDY Urine pH 6 5-9 Urine Specific [place] 1.015 L 1.016-1.022 Urine Protein NEGATIVE NEGATIVE Urine Glucose (UA) NEGATIVE NEGATIVE Urine Ketones NEGATIVE NEGATIVE Urine Nitrite NEGATIVE NEGATIVE Urine Bilirubin NEGATIVE NEGATIVE Urine Urobilinogen NORMAL NORMAL MG/DL Urine Leukocyte Esterase NEGATIVE NEGATIVE Urine RBC (Auto) 1+ H NEGATIVE Urine RBC 0-2 /HPF Urine WBC RARE /HPF Urine Squamous Epithelial Cells 5-10 /HPF Urine Crystals NONE /LPF Urine Bacteria FEW H /HPF Urine Casts NONE /LPF Urine Mucus NEGATIVE /LPF Urine Culture Indicated NO My Orders Orders - NICOLE MCGARRY Amylase (12/03/16 14:58) Cbc With Automated Diff (12/03/16 14:58) Comprehensive Metabolic Panel (12/03/16 14:58) Lipase (12/03/16 14:58) Ua Culture If Indicated (12/03/16 14:58) Tramadol Tablet (Ultram Tablet) (12/03/16 15:20) Ondansetron Oral Dissolve Tab (Zofran (12/03/16 15:20) Ct Abdomen/Pelvis W (12/03/16 16:15) Iohexol Injection (Omnipaque 350 Mg/Ml 1 (12/03/16 16:30) Sodium Chloride Flush (Catheter Flush Sy (12/03/16 16:30) Ns (Ivpb) (Sodium Chloride 0.9% Ivpb Bag (12/03/16 16:30) Saline Lock/Iv-Start (12/03/16 17:11) Lactated Ringers (Lr 1000 Ml Iv Solution (12/03/16 17:11) Ekg Tracing (12/03/16 17:11) Medications Given in ED Current Medications Medications Dose Ordered Sig/Leann Route Start Time Stop Time Status Last Admin Dose Admin Iohexol 100 ml ONCE ONCE IV 12/03/16 16:30 12/03/16 16:31 DC 12/03/16 16:35 100 ML Lactated Ringer's 1,000 ml @ 0 mls/hr Q0M ONCE IV 12/03/16 17:11 12/03/16 17:13 DC 12/03/16 17:30 1,000 MLS/HR Sodium Chloride 10 ml NEEDED PRN IV 12/03/16 16:30 12/03/16 16:35 10 ML Sodium Chloride 100 ml ONCE ONCE IV 12/03/16 16:30 12/03/16 16:31 DC 12/03/16 16:35 80 ML Vital Signs/I&O Vital Sign - Last 12Hours 12/03/16 14:49 Temp 97.8 Pulse 74 Resp 18 B/P (MAP) 145/84 Pulse Ox 96 Blood Pressure Mean: 104 Progress Note : Time: 14:40 Progress Note Initial evaluation completed. Recommended lab workup and reevaluation. 1520 patient complaining of abdominal pain and nausea, tramadol 50 mg by mouth for pain and Zofran 4 mg by mouth for nausea 1615 WBC elevated at 13.3, all other labs essentially normal. Discussed this result with the patient with recommendation for CT of abdomen and pelvis. We'll reevaluate after these have been completed. 1655 consult by phone with Dr. Chino regarding patient's CT findings. Will come to the emergency department for evaluation of patient. [address] Chino, recommended surgical repair of the strangulate hernia. Agent agreed with this treatment plan will obtain EKG and start lactated Ringer's 1 L IV. ECG Initial ECG Impression Date: Dec 03, 2016 Initial ECG Impression Time: 17:25 Initial ECG Rate: 79 Initial ECG Rhythm: Normal Sinus Initial ECG Intervals: Normal Initial ECG Intervals DE 152, QRS the 100, QTc 412, QTc 473. [place] P 40, QRS 36, T 64. Initial ECG Impression: Normal Initial ECG Comparisson: Unchanged Comment EKG reviewed with Dr. Marcos agreed with interpretation. Diagnostic Imaging Diagonstic Imaging: CT Plain Films/CT/US/NM/MRI: abdomen, pelvis Comments NAME: ALLA COULTER [facility] REC#: [id number] PT STATUS: REG ER : 1950 PHYSICIAN: NICOLE MCGARRY ADMIT DATE: 12/03/16/ER Draft Date of Exam:12/03/16 CT ABDOMEN/PELVIS W PROCEDURE: CT abdomen and pelvis with contrast. TECHNIQUE: Multiple contiguous axial images were obtained through the abdomen and pelvis after administration of intravenous contrast. INDICATION: Abdominal pain. Nausea. CONTRAST: 100 mL of Omnipaque 350 is administered intravenously. FINDINGS: The lung bases demonstrate small posteromedial fat-containing diaphragmatic hernia with no pulmonary consolidation. Minimal scarring in the left lung base is seen. The liver demonstrates a 7 mm right hepatic lobe nonspecific hypodensity too small to accurately characterize. Calcified gallstone is seen with no evidence of cholecystitis. The spleen, the adrenal glands, and the pancreas appear unremarkable. The kidneys have symmetric enhancement and contrast excretion. There is no hydronephrosis. The abdominal aorta is normal in caliber. No paraaortic significantly enlarged lymph nodes are seen. There is a supraumbilical hernia containing a small bowel loop associated with stranding in the fat and stranding in the adjacent small bowel mesentery concerning for hernia strangulation. The abdominal wall defect at the level of the hernia is 3.4 x 3.6 cm in size. There is no bowel obstruction. There is diverticulosis with no evidence of diverticulitis. There is a short outpouching seen from the cecum which could represent a particularly short appendix or a diverticulum. There is no significant free fluid or fluid collection in the abdomen or pelvis. The uterus and adnexa appear grossly unremarkable. There is mild thickening of the urinary bladder wall which may relate to cystitis. Correlate clinically. The osseous structures demonstrate degenerative changes with left convexity scoliosis. IMPRESSION: 1. There is periumbilical hernia containing small bowel loops with fatty stranding and thickening in the wall of the small bowel concerning for strangulation. Mild fatty stranding in the mesentery also extends to the adjacent mesentery in the non-herniating bowel loop. 2. Diverticulosis. No evidence of diverticulitis. 3. Cholelithiasis. Findings were discussed with ER nurse practitioner, Nicole Mcgarry at time of dictation. Dictated on workstation # [id number] Dict: 12/03/16 1652 Trans: 12/03/16 1711 [facility] [id number] Reviewed: Reviewed by Me (and discussed with Dr. Chino.), Discussed w/ Radiologist Departure Impression Impression: Primary Impression: Strangulated umbilical hernia Additional Impression: Abdominal wall pain Disposition: ADMITTED INPATIENT Condition: Stable Decision to Admit Reason: Admit from ER (General) Decision to Admit/Date: Dec 03, 2016 Time/Decision to Admit Time: 17:00 Departure-Patient Inst. Referrals: HERNAN CRUZ MD (PCP/Family) Primary Care Physician Copy Copies To 1: HERNAN CRUZ MD, AMY ARNP Dec 03, 2016 17:45
[2016-12-03 18:28] VITALS: BP 173/77
[2016-12-03] MEDS ORDERED: ONDANSETRON 4 MG/2 ML (SDV) Z0FRAN ONE ×2 (18:56→20:39)
[2016-12-03] MEDS ORDERED: LIDOCAINE 2% 20 ML (XYLOCAINE) VIAL ONE (18:56)
[2016-12-03] MEDS ORDERED: proPOfol 200 MG/20 ML (DIPRIVAN) VIAL IV ONE (18:56)
[2016-12-03] MEDS ORDERED: LIDOCAINE 1% INJ 20 ML (XYLOCAINE) VIAL ONE (18:56)
[2016-12-03] MEDS ORDERED: DEXAMETHASONE PF 10 MG/ML (DECADRON) VIAL ONE (18:56)
[2016-12-03] MEDS ORDERED: SUCCINYLCHOLINE INJ 100 MG/5 ML SYR ONE (18:56)
[2016-12-03] MEDS ORDERED: fentaNYL INJECTION 100 MCG/2 ML AMP ONE (18:57)
[2016-12-03] MEDS ORDERED: MIDAZOLAM 2 MG/2 ML (VERSED) VIAL ONE (18:57)
[2016-12-03] MEDS ORDERED: LACTATED RINGERS 1,000 ML IV PRN (19:16)
[2016-12-03] MEDS ORDERED: ceFAZolin 1,000 MG (ANCEF) VIAL IV ONE (20:00)
[2016-12-03] MEDS ORDERED: HYDROmorphone (DILAUDID) 2 MG/ML VIAL ONE (20:38)
[2016-12-03] MEDS ORDERED: morphine INJ 10 MG/ML 1ML (SYR OR VIAL) ONE (20:39)
[2016-12-03] MEDS ORDERED: GLYCOPYRROLATE 0.2 MG/ML (ROBINUL) 2 ML VIAL ONE (20:58)
[2016-12-03] MEDS ORDERED: DESFLURANE (SUPRANE) 15 ML INHAL SOLN ONE (20:58)
[2016-12-03] MEDS ORDERED: NEOSTIGMINE (BLOXIVERZ ) 1 MG/1ML 10 ML VIAL ONE (20:58)
--- NOTE | 2016-12-03 21:09 | Progress Note-Post Operative ---
Post-Operative Progess Note Surgeon (s)/Oven Loader (s) Surgeon ANGIE HENDRICKSON DO Oven Loader: Xi Pre-Operative Diagnosis Incarcerated Ventral Hernia, Sleep Apnea, MO,HTN Post-Operative Diagnosis Strangulated Ventral Hernia small bowel Sleep apnea MO HTN Procedure & Operative Findings Date of Procedure 12/03/16 Procedure Performed/Findings 1. Small Bowel Resection 2. Ventral Herniarraphy with mesh placement, open with laparoscopic assistance Anesthesia Type GET Estimated Blood Loss Estimated blood loss (mL): 50ml Specimens/Packing Specimens Removed Portion of small intestine Hernia Sac ANGIE HENDRICKSON DO Dec 03, 2016 21:09
[2016-12-03] MEDS ORDERED: ONDANSETRON 4 MG/2 ML (SDV) Z0FRAN IVP PRN ×2 (21:15→21:30)
[2016-12-03] MEDS ORDERED: MEPERIDINE (DEMEROL) INJ 50 MG/ML IVP PRN (21:30)
[2016-12-03] MEDS: morphine INJ 10 MG/ML 1ML (SYR OR VIAL) IVP PRN ×4 (21:30→22:44)
[2016-12-03] MEDS ORDERED: PROMETHAZINE INJ 25 MG/ML (PHENERGAN) AMP IVP PRN (21:30)
[2016-12-03] MEDS ORDERED: HYDROmorphone (DILAUDID) 2 MG/ML VIAL IVP PRN (21:30)
[2016-12-03] MEDS ORDERED: morphine INJ 4 MG/ML 1 ML (VIAL/SYRINGE) ONE (22:36)
[2016-12-03 22:37] VITALS: BP 166/72
[2016-12-03] MEDS: LACTATED RINGERS 1,000 ML IV SCH (22:38)
[2016-12-03] MEDS: ceFAZolin 2 GM/50 ML NS 50 ML IV SCH (22:44)
[2016-12-04] VITALS (8 sets, daily range): BP systolic 106–151; BP diastolic 54–67
[2016-12-04] MEDS ORDERED: morphine INJ 4 MG/ML 1 ML (VIAL/SYRINGE) ONE (00:26)
[2016-12-04] MEDS: morphine INJ 10 MG/ML 1ML (SYR OR VIAL) IVP PRN ×5 (00:33→15:06)
[2016-12-04] MEDS: ceFAZolin 2 GM/50 ML NS 50 ML IV SCH (04:59)
[2016-12-04] MEDS: LACTATED RINGERS 1,000 ML IV SCH (05:50)
[2016-12-04] MEDS: CATHETER FLUSH 10 ML SYR IV PRN (08:40)
[2016-12-04] MEDS: PANTOPRAZOLE 40 MG/10 ML (PROTONIX) VIAL IVP SCH (08:40)
--- NOTE | 2016-12-04 10:03 | Progress Note ---
Subjective Time Seen by Provider: 09:56 Subjective/Events-last exam Patient resting in bed. Even respirations. No distress. Patient reports some pain. She states she feels her stomach rumbling but denies any BM or flatus. She states that at about 5 am she thought she was going to pass flatus but ended up belching. Objective Exam Vital Signs Date Time Temp Pulse Resp B/P (MAP) Pulse Ox O2 Delivery O2 Flow Rate FiO2 12/04/16 07:32 98.2 63 20 106/54 98 NIV CPAP 12/04/16 06:41 Nasal Cannula 2.00 12/04/16 04:10 97.7 60 18 119/60 95 Nasal Cannula 2.00 12/04/16 02:53 58 20 151/67 95 NIV CPAP 12/04/16 00:18 97.4 58 18 149/66 93 Nasal Cannula 2.00 12/03/16 22:37 97.0 54 18 166/72 97 Simple Mask 2.00 12/03/16 18:28 97.5 86 22 173/77 98 Room Air 12/03/16 17:57 97.8 74 18 96 12/03/16 14:49 97.8 74 18 145/84 96 I & O 12/04/16 06:59 Intake Total 3250 ml Output Total 200 ml Balance 3050 ml Capillary Refill : Less Than 3 Seconds General Appearance: No Apparent Distress, Obese Neck: Full Range of Motion, Non Tender Respiratory: Chest Non Tender, No Accessory Muscle Use, No Respiratory Distress Cardiovascular: Regular Rate, Rhythm Gastrointestinal: soft, tenderness (generalized abd pain. ), other (marked abdominal obesity. Midline incision with patricia. Wound edges well aligned. No drainage noted. No dehinsence. ) Extremity: No Calf Tenderness, Pedal Edema (+1) Neurologic/Psychiatric: Alert, Oriented x3, Normal Mood/Affect Skin: Normal Color, Warm/Dry Results Lab Laboratory Tests 12/03/16 15:25: White Blood Count 13.3H, Red Blood Count 4.05L, Hemoglobin 12.3, Hematocrit 38, Mean Corpuscular Volume 93, Mean Corpuscular Hemoglobin 30, Mean Corpuscular Hemoglobin Concent 33, Red Cell Distribution Width 14.1, Platelet Count 283, Mean Platelet Volume 10.5H, Neutrophils (%) (Auto) 83H, Lymphocytes (%) (Auto) 12, Monocytes (%) (Auto) 4, Eosinophils (%) (Auto) 0, Basophils (%) (Auto) 0, Neutrophils # (Auto) 11.1H, Lymphocytes # (Auto) 1.6, Monocytes # (Auto) 0.5, Eosinophils # (Auto) 0.0, Basophils # (Auto) 0.0, Sodium Level 141, Potassium Level 4.5, Chloride Level 105, Carbon Dioxide Level 26, Anion Gap 10, Blood Urea Nitrogen 25H, Creatinine 1.07, Estimat Glomerular Filtration Rate 51, BUN/ Creatinine Ratio 23, Glucose Level 126H, Calcium Level 9.8, Total Bilirubin 0.5 , Aspartate Amino Transf (AST/SGOT) 17, Alanine Aminotransferase (ALT/SGPT) 18, Alkaline Phosphatase 88, Total Protein 8.2, Albumin 4.1, Amylase Level 52, Lipase 48 12/03/16 16:12: Urine Color YELLOW, Urine Clarity SLIGHTLY CLOUDY, Urine pH 6, Urine Specific [place] 1.015L, Urine Protein NEGATIVE, Urine Glucose (UA) NEGATIVE, Urine Ketones NEGATIVE, Urine Nitrite NEGATIVE, Urine Bilirubin NEGATIVE, Urine Urobilinogen NORMAL, Urine Leukocyte Esterase NEGATIVE, Urine RBC (Auto) 1+H, Urine RBC 0-2, Urine WBC RARE, Urine Squamous Epithelial Cells 5-10, Urine Crystals NONE, Urine Bacteria FEWH, Urine Casts NONE, Urine Mucus NEGATIVE, Urine Culture Indicated NO Assessment/Plan Assessment/Plan Assessment/Plan 1. S/P Small Bowel Resection, Ventral Herniarraphy with mesh placement, open with laparoscopic assistance 2. Morbid Obesity 3. Sleep apnea 4. HTN Pain control. Patient on clear liquids. Waiting for flatus or bowel movement. Physical Therapy. Will continue to monitor patient. Layne- patient pain controlled. Tolerating some liquids. Not getting up much yet. Denies n/v fever sweats chills shortness of breath or chest pain. general no acute distress heart reg lungs nonlabored abdomen soft incisions c/d/i ext nontender normal mood affect alert and oriented s/p small bowel resection open/laparoscopic assisted ventral hernia repair tolerating clears pain control IS increase activity dvt prophylaxis scd and ambulation PT to assist with ambulation await bowel function Clinical Quality Measures DVT/VTE Risk/Contraindication: Risk Factor Score Per Nursin RFS Level Per Nursing on Admit: 4+=Very High NWAGJONATHAN JANSEN APRN Dec 04, 2016 10:03 JAYE LAYNE DO Dec 04, 2016 17:00
--- NOTE | 2016-12-04 10:26 | Discharge Inst-Simple/Standard ---
SUSANNAJONATHAN Luong APRN 12/04/16 1026: Discharge Inst-Standard Discharge Medications New, Converted or Re-Newed RX: RX on Chart Patient Instructions/Follow Up Plan of Care/Instructions/FU: Follow up with Lulú in 2 weeks. Follow up with PCP in one week. Take medication as directed Start with clear liquid diet and advance as tolerated. Activity as Tolerated: No Discharge Diet: Liquid Diet Other Inst to Patient Follow up Appt: Make appointment for 2 weeks. Instructions: No lifting greater than 10 pounds. No strenuous activity. May shower in 24 hours, no tub bath or soaking. Use incentive spirometer at home as directed. No Smoking Skin/Wound Care: May remove bandages. Keep incisions clean and dry. Symptoms to Report: Appetite Changes, Extremity Discoloration, Numbness/Tingling, Swelling Increased , Bleeding Excessive, Eyesight Changes, Pain Increased, Urine Color Change, Constipation(Persistent), Fever over 101 degree F, Pain/Pressure in chest, Urinating Difficulty, Cough Up/Vomit Blood, Heart Beat Irreg/Pounding, Pain/ Pressure in jaw, Vaginal Bleeding Increase, Cramps in feet or legs, Lightheadedness, Pain/Pressure in shoulder, Diarrhea(Persistent), Memory Changes Suddenly, Questions/Concerns, Weight gain consecutive days, Dizziness/ Fainting, Nausea/Vomiting, Shortness of Breath, Weight gain over 2 pounds If questions or concerns contact your physician Or seek help at emergency department. Planned Outpatient Orders/Ref. Pneu Vac Indicated: Yes ANGIE HENDRICKSON DO 12/07/16 1408: Discharge Inst-Standard Discharge Medications New, Converted or Re-Newed RX: RX Given to Pt/Family Patient Instructions/Follow Up Discharge Diet: Regular Diet JONATHAN MULLINS APRN Dec 04, 2016 10:26 ANGIE HENDRICKSON DO Dec 07, 2016 14:08
[2016-12-04] MEDS ORDERED: DOCU-143 PO ×2 (10:32)
[2016-12-04] MEDS ORDERED: HYDR-3812 PO ×2 (10:32)
--- NOTE | 2016-12-04 11:34 | Physical Therapy Evaluation ---
PT Evaluation-General Medical Diagnosis Admission Date Dec 03, 2016 at 18:09 Medical Diagnosis: small bowel obstruction Onset Date: Dec 03, 2016 Therapy Diagnosis Therapy Diagnosis: abn gait; weakness Height/Weight Height (Feet): 5 Height (Inches): 2.00 Weight (Pounds): 312 Weight (Ounces): 0.0 Precautions Precautions/Isolations: Fall Prevention, Standard Precautions Referral Physician: Lulú Reason for Referral: Evaluation/Treatment (ambulation) Medical History Pertinent Medical History: Arthritis, HTN Additional Medical History obesity Current History Admitted with fever and chills; found to have SBO; post surgery with bowel resection. Reviewed History: Yes Social History Home: Single Level Current Living Status: Other Family (elderly father) Entry Into Home: Stairs With Railing PT Steps Into Home: 3 Prior/Core FIM Prior Level of Function Functional [place] Measure 0=Not Assessed/NA 4=Minimal Assistance 1=Total Assistance 5=Supervision or Setup 2=Maximal Assistance 6=Modified [place] 3=Moderate Assistance 7=Complete [place] Pt ambulates with B canes due to arthritis in her knees. Able to care for herself. PT Evaluation-Current Subjective Reports she is sore where her incision is. Agrees to get out of bed. Objective Patient Orientation: Person, Place, Time, Situation Problem Solving: Good ROM/Strength ROM Lower Extremities WFL Strenght Lower Extremities WFL Integumentary/Posture Integumentary abdominal incision, covered; Bowel Incontinence: No Bladder Incontinence: No Posture normal/symmetrical; tends to bend forward in standing due to incisional soreness but able to come to full uprighrt. Neuromuscular (Tone, Coordination, Reflexes) intact Sensory Vision: Wears Glasses Hearing: Functional Hand Dominance: Right Sensation Right Lower Extremit: Intact Sensation Left Lower Extremity: Intact Transfers Functional [place] Measure 0=Not Assessed/NA 4=Minimal Assistance 1=Total Assistance 5=Supervision or Setup 2=Maximal Assistance 6=Modified [place] 3=Moderate Assistance 7=Complete [place] Transfers (B, C, W/C) (FIM): 3 Supine to/from Sit: 3 Sit to/from Stand: 4 Needs asssit to lift trunk up from bed due to abdominal soreness; able to stand with light lift and skilled cues for sequencing. Gait Mode of Locomotion: Walk Anticipated Mode of Locomotion: Walk Gait (FIM): 2 Distance (FIM): 1=up to 49 ft Distance: 45 ft Gait Level of Assist: 4 (CGA-SBA) Gait Assistive Device: FWW Comments/Gait Description slow gait with decreased step length. Balance Sitting Static: Normal Standing Static: Fair Standing Dynamic: Fair Treatment GAit outside of room and into the restroom. Toileted; needed max chad tiwth willam care. ABle to stand at sink to wash her hands. Up in chair post treatment with needs met. Assessment/Needs Presents post Small bowel resection with residual abdominal soreness. She will beneift from skilled PT intervention to promote gait and transfers to progress her to returning home as soon as she is mod indep and able to care for herself. Eval of moderate intensity; pt comorbidities: lives with elderly dad who is unable to assist with her care, HTN, morbid obesity and recent surgery. Exam: assist with bed mobility, assist with transfers and assist with gait. Evolving due to surgery yesterday. 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 Supervisor [employer] Goals Time Frame: Dec 11, 2016 Transfers (B,C,W/C) (FIM): 6 Gait (FIM): 6 Gait distance (FIM): 3=150 ft Gait Assistive Device: FWW PT Plan Problem List Problem List: Activity Tolerance, Functional Strength, Safety, Gait, Transfer, Bed Mobility Treatment/Plan Treatment Plan: Continue Plan of Care Treatment Plan: Bed Mobility, Education, Functional Activity Delfino, Functional Strength, Gait, Safety, Therapeutic Exercise, Transfers Treatment Duration: Dec 11, 2016 Frequency: 6 times per week Estimated Hrs Per Day: .5 hour per day (/prn) Patient and/or Family Agrees t: Yes Safety Risks/Education Patient Education: Transfer Techniques, Safety Issues Teaching Recipient: Patient Teaching Methods: Demonstration, Discussion Response to Teaching: Reinforcement Needed Time/GCodes Time In: 1050 Time Out: 1125 Total Billed Treatment Time: 35 Total Billed Treatment visit EVM 15 FA 20 NEAL HARLEY PT Dec 04, 2016 11:34
--- NOTE | 2016-12-04 11:57 | Anesthesia-General Post-Op ---
General Patient Condition Mental Status/LOC: Same as Preop Cardiovascular: Satisfactory Nausea/Vomiting: Absent Respiratory: Satisfactory Pain: Controlled Complications: Absent Post Op Complications Complications None Follow Up Care/Instructions Patient Instructions None needed. Anesthesia/Patient Condition Patient Condition Patient is doing well, no complaints, stable vital signs, no apparent adverse anesthesia problems. No complications reported per nursing. NANY RICO CRNA Dec 04, 2016 11:57
[2016-12-04] MEDS: HYDROcodone/APAP 5 MG/325 MG (LORTAB) TAB PO PRN (17:09)
[2016-12-05] VITALS: BP 122/58
[2016-12-05] MEDS: HYDROcodone/APAP 5 MG/325 MG (LORTAB) TAB PO PRN ×5 (00:37→22:29)
[2016-12-05 04:00] VITALS: BP 109/56
--- NOTE | 2016-12-05 07:02 | Progress Note ---
Subjective Date Seen by Provider: Dec 05, 2016 Time Seen by Provider: 06:58 Subjective/Events-last exam Pain better controlled. No flatus or bm. Using incentive spirometer. Had one emesis yesterday after lunch. No nausea at this time. Denies fever sweats chills shortness of breath or chest pain. Objective Exam Vital Signs Date Time Temp Pulse Resp B/P (MAP) Pulse Ox O2 Delivery O2 Flow Rate FiO2 12/05/16 04:00 97.3 60 22 109/56 95 NIV CPAP 12/05/16 00:00 98.3 54 22 122/58 95 NIV CPAP 12/04/16 19:26 98.6 69 18 119/56 95 Room Air 12/04/16 17:44 99.2 12/04/16 16:17 99.2 51 18 143/63 96 Room Air 12/04/16 15:40 97.4 12/04/16 15:06 97.4 12/04/16 12:00 97.4 70 20 118/57 92 Room Air 12/04/16 09:00 97.4 70 20 118/57 92 Room Air 2.00 2.00 12/04/16 07:32 98.2 63 20 106/54 98 NIV CPAP I & O 12/05/16 07:00 Intake Total 2328 ml Output Total 500 ml Balance 1828 ml Capillary Refill : Less Than 3 Seconds General Appearance: No Apparent Distress, Obese Neck: Full Range of Motion, Non Tender Respiratory: Chest Non Tender, No Accessory Muscle Use, No Respiratory Distress Cardiovascular: Regular Rate, Rhythm Gastrointestinal: soft, tenderness (incisional), other (marked abdominal obesity. Midline incision with patricia. Wound edges well aligned. No drainage noted. No erythema) Extremity: No Calf Tenderness Neurologic/Psychiatric: Alert, Oriented x3, Normal Mood/Affect Skin: Normal Color, Warm/Dry Assessment/Plan Assessment/Plan Assessment/Plan 1. S/P Small Bowel Resection, Ventral Herniarraphy with mesh placement, open with laparoscopic assistance 2. Morbid Obesity 3. Sleep apnea 4. HTN pain control IS increase activity dvt prophylaxis scd and ambulation PT to assist with ambulation await bowel function and then can dc home Clinical Quality Measures DVT/VTE Risk/Contraindication: Risk Factor Score Per Nursin RFS Level Per Nursing on Admit: 4+=Very High JAYE FELTON DO Dec 05, 2016 07:02
[2016-12-05] MEDS: PANTOPRAZOLE 40 MG/10 ML (PROTONIX) VIAL IVP SCH (07:57)
[2016-12-05] MEDS: morphine INJ 10 MG/ML 1ML (SYR OR VIAL) IVP PRN (07:58)
[2016-12-05 08:00] VITALS: BP 103/58
[2016-12-05 12:00] VITALS: BP 122/56
--- NOTE | 2016-12-05 12:03 | Physical Therapy Daily Note ---
PT Daily Note-Current Subjective Pt sitting in recliner upon arrival. Pt agrees to walk for PT. Pain Numeric Pain Scale: 5-Moderate Pain Location: Incisional Location Body Site: Abdomen Pain Description: Ache, Tightness Mental Status Patient Orientation: Person, Place, Time, Situation Attachments: Other-See Comments (Ab Brace/Support) Transfers Functional [place] Measure 0=Not Assessed/NA 4=Minimal Assistance 1=Total Assistance 5=Supervision or Setup 2=Maximal Assistance 6=Modified [place] 3=Moderate Assistance 7=Complete IndependenceIRFPAI Quality Coding Scale 6 Independent with activity with or without an assistive device 5 Patient requires set up or clean up by helper. Patient completes activity by themselves 4 Supervision or touching assist (CGA). [place] provide cues , steadying assist 3 The helper provides less than half the effort to complete the activity 2 The helper provides more than half the effort to complete the activity 1 Dependent. The helper does all the effort to complete an activity 7 Patient refused to complete or attempt activity 9 The patient did not perform the activity before the current illness or injury 88 Not attempted due to Medical conditions or safety concerns Scootin Sit to/from Stand: 4 Weight Bearing Weight Bearing Restriction: Full Weight Bearing Location Restriction: LE Bilateral Gait Training Distance (FIM): 3=150 ft Distance: 150' Gait Level of Assist: 4 Gait Persons Needed: 1 Gait Assistive Device: FWW Pt walks slow but steady, no LOB. Pt little anxious about knees giving out while ambulating though. Treatments Pt transfers to standing from recliner using FWW at CGA-Min A. Pt ambulates in hallway using FWW at CGA. Pt returns to room to use restroom for possible BM. Pt wants to continue to try for BM so Pt is left on toilet with call light and nursing notified of pt's location. Pt has all needs met at end of tx. Assessment Current Status: Good Progress Pt is walking farther and transferring better today. PT Trim Sawyer Goals Trim Sawyer Goals PT Trim Sawyer Goals Time Frame: Dec 11, 2016 Transfers (B,C,W/C) (FIM): 6 Gait (FIM): 6 Gait distance (FIM): 3=150 ft Gait Assistive Device: FWW PT Plan Problem List Problem List: Activity Tolerance, Functional Strength, Safety, Balance, Gait, Transfer Treatment/Plan Treatment Plan: Continue Plan of Care Treatment Plan: Bed Mobility, Education, Functional Activity Delfino, Functional Strength, Gait, Safety, Therapeutic Exercise, Transfers Treatment Duration: Dec 11, 2016 Frequency: 6 times per week Estimated Hrs Per Day: .5 hour per day (/prn) Patient and/or Family Agrees t: Yes Safety Risks/Education Patient Education: Gait Training, Transfer Techniques, Correct Positioning, Safety Issues Teaching Recipient: Patient Teaching Methods: Discussion Response to Teaching: Verbalize Understanding Time/GCodes Time In: 1010 Time Out: 1035 Total Billed Treatment Time: 25 Total Billed Treatment visit, GT (15m) & FA (10m) NAHOMY GUILLEN [employer] Dec 05, 2016 12:03
[2016-12-05 16:59] VITALS: BP 139/71
[2016-12-05 20:06] VITALS: BP 132/60
--- NOTE | 2016-12-05 22:41 | OPERATIVE REPORT ---
PROCEDURE PHYSICIAN: ANGIE CHINO DATE OF PROCEDURE: 12/03/2016 PREOPERATIVE DIAGNOSES: 1. Incarcerated ventral hernia. 2. Morbid obesity. 3. Sleep apnea. 4. Hypertension. POSTOPERATIVE DIAGNOSES: 1. Ischemic necrotic small bowel. 2. Incarcerated ventral hernia. 3. Morbid obesity. 4. Sleep apnea. 5. Hypertension. PROCEDURES: 1. Small bowel resection with primary anastomosis. 2. Ventral hernia repair with mesh placement. SURGEON: Dr. Chino TRANSPORTATION DISPATCH MANAGER: Dr. Layne. ANESTHESIA: General endotracheal tube. SPECIMEN: 1. Hernia sac. 2. Portion of bowel. BLOOD LOSS: Less than 50 mL FLUIDS: Per anesthesia. POSTOPERATIVE CONDITION: Stable. INDICATION FOR THE PROCEDURE: The patient is a 66-year-old female who came in with complaints of abdominal pain stating she had been told she had a hernia and if it ever got bad to come in. She had an elevated white count and had severe pain. CAT scan was performed which showed incarcerated that was worrisome for strangulation. FINDINGS: The patient had an approximately 12 to 14 inch piece of ischemic small bowel and at least a 5 cm ventral hernia. PROCEDURE NOTE: After informed consent was obtained, the patient was brought to the operating room, placed on the table in supine position. She was sterilely prepped and draped in normal fashion. Local lidocaine used to infiltrate the skin left upper quadrant and then made an incision with a number 11 blade, carried down through skin into subcutaneous tissue, then deepened down the subcutaneous tissue with Bovie electrocautery down to the fascia. The fascia incised with Bovie electrocautery. Then bluntly dissected the muscle out of the way. Encounter the peritoneum, grasped this with a hemostat and then cut the peritoneum with Metzenbaum scissors. Then placed an 11 mm trocar port under direct visualization, created pneumoperitoneum and placed 2 more ports in normal fashion. One left lower quadrant and one in the right mid abdomen out towards the flank area. Upon entering noted adhesions, all look like omentum stuck to the abdominal wall in the hernia sac but just below this and in the abdominal cavity was a piece of what looked like necrotic bowel. Using LigaSure and a grasper started taking the omentum out of the hernia sac making sure there was no more bowel in there because there had been bowel seen on the CAT scan. No bowel was left in the hernia sac just omentum. Removed all this omentum by gently pulling it out as well as using the LigaSure to clamp, coagulate and transecting, and come across this to be able to pull this out. The necrotic bowel must have fallen out once we created the pneumoperitoneum. At this point, because we knew we were going to have to resect this portion of small bowel, made a small incision from about 2 inches above the umbilicus to about 1 inch below with a number 15 blade, carried down through skin into subcutaneous tissue and deepened down through the subcutaneous tissue with Bovie electrocautery down to the fascia and then around the hernia sac then cut the hernia sac off and then opened the fascia little more. I had previously grasped the portion of bowel with the grasper and then used a grasper to push up to the opening. Able to now visualize the necrotic bowel. Pulled all of the necrotic bowel through the abdominal incision and then placed hemostat through the mesentery to a portion of good intestine. Used a JORGE A 55, clamped across the superior and then used another one to clamp across the distal end, transected and fired and then cut the small intestine off of the mesentery with the LigaSure clamping, coagulating and transecting. In a stepwise fashion come all the way across the mesentery. This piece of intestine was then passed off the table. Placed blue towels to protect the incision and then cut off corners of the small intestine and placed JORGE A 55 one piece on either side and then connected the antimesenteric port of the small intestine. Clamped and fired thereby transecting creating a [id number] functional anastomosis. Used a 3-0 silk suture to throw a crotch stitch. Then used a TA 55 to come across the open enterotomy, clamped and fired and then cut this off with a knife to close the anastomosis. Then used a 3-0 Silk pop-off to close the mesenteric defect. I copiously irrigated this with normal saline. Opened the fascia a little bit more to be able to drop this back in and we dropped it back in. I then elected to place a 4 x 4 inch x 6 inches 3-D echo Ventralight mesh into the abdomen and then closed the fascia with a number 1 Double-stranded PDS suture running from the superior portion to the inferior portion and tying to itself. Then created pneumoperitoneum. Placed a Deepak-Analisa needle into the abdomen and grasped one end of the mesh to pull this up to the abdominal wall and then insufflated the balloon. This mesh was then aligned in the north to south cephalad to caudad position and then started tacking with secure strap at the 3, 6, 9 and 12 o'clock positions and then in between this in 1 cm increments and then in the middle up to hold the mesh up. Then removed the balloon. Mesh appeared to be in good place. Irrigated the abdomen with a little bit of saline and then suctioned this out. The anastomosis had pinked up nicely. We felt a good anastomosis in between. The anastomosis looked good, it was pinking up and at this point then removed the 11 mm trocar port and closed this with a [id number] 0 Vicryl by using the Deepak-Robbins to close from the outside, watched it close. I able to grasp the suture through the [id number], this closed nicely. No leaking from the midline or from this incision and then the 2 small 5 mm ports were removed. All incisions were then copiously irrigated with normal saline, dried and then hemostasis obtained. Closed all incisions, the 2 small 5 mm incisions, the left lower quadrant incision, the midline incision with patricia. The patient was then transferred to the ICU for recovery in stable condition. Sponge, needle and instrument counts correct at the end of the case. Dr. Layne assisted in the case. He helped place ports, made incisions, identify anatomy, help with the anastomosis and with closing of the incisions. Job ID: [id number] Dictated Date: 12/03/2016 22:23:23 Apron Cleaner Date: 12/05/2016 21:29:07 / davide
[2016-12-06] VITALS: BP 130/60
[2016-12-06] MEDS: HYDROcodone/APAP 5 MG/325 MG (LORTAB) TAB PO PRN ×3 (06:51→18:49)
[2016-12-06 07:07] LABS: MEAN PLATELET VOLUME 11.2 FL (7.4-10.4); RED BLOOD COUNT 3.53 10^6/uL (4.35-5.85); RED CELL DISTRIBUTION WIDTH 14.1 % (10.0-14.5)
[2016-12-06 07:48] LABS: ANION GAP 10 MMOL/L (5-14); BLOOD UREA NITROGEN 20 MG/DL (7-18); BUN/CREATININE RATIO 24; CALCIUM 9.2 MG/DL (8.5-10.1); CARBON DIOXIDE 25 MMOL/L (21-32); CHLORIDE 103 MMOL/L (98-107); CREATININE SERUM 0.85 MG/DL (0.60-1.30); GFR ESTIMATED > 60; GLUCOSE 108 MG/DL (70-105); POTASSIUM 3.9 MMOL/L (3.6-5.0); SODIUM 138 MMOL/L (135-145)
[2016-12-06 08:00] VITALS: BP 105/52
[2016-12-06] MEDS: PANTOPRAZOLE 40 MG/10 ML (PROTONIX) VIAL IVP SCH (08:40)
[2016-12-06] MEDS: CATHETER FLUSH 10 ML SYR IV PRN (08:40)
[2016-12-06] MEDS: MUPIROCIN 2% OINT 22 GM (BACTROBAN) TUBE NSEACH SCH ×2 (10:02→20:27)
--- NOTE | 2016-12-06 13:01 | Progress Note ---
Subjective Date Seen by Provider: Dec 06, 2016 Time Seen by Provider: 11:08 Subjective/Events-last exam patient sitting in chair. She states her pain is better controlled. She states she does have significant difficulty getting up out of chair and out of bed. She is able to walk minimal distances she states. Patient has not had any flatus or bowel movement at this time but feels rumbling like she needs to go. She denies any fever sweats chills shortness of breath or chest pain. Objective Exam Vital Signs Date Time Temp Pulse Resp B/P (MAP) Pulse Ox O2 Delivery O2 Flow Rate FiO2 12/06/16 09:06 Room Air 12/06/16 08:00 98.1 75 20 105/52 94 NIV CPAP 12/06/16 00:00 99.8 76 20 130/60 94 NIV CPAP 12/05/16 21:00 Room Air 12/05/16 20:06 98.6 79 16 132/60 94 Room Air 12/05/16 16:59 97.3 71 16 139/71 100 Room Air 12/05/16 14:45 Room Air I & O 12/06/16 07:00 Intake Total 1810 ml Output Total 2600 ml Balance -790 ml Capillary Refill : Less Than 3 Seconds General Appearance: No Apparent Distress, Obese Neck: Full Range of Motion, Non Tender Respiratory: Chest Non Tender, No Accessory Muscle Use, No Respiratory Distress Cardiovascular: Regular Rate, Rhythm Gastrointestinal: soft, tenderness (incisional), other (marked abdominal obesity. Midline incision with patricia. Wound edges well aligned. No drainage noted. No erythema) Extremity: No Calf Tenderness Neurologic/Psychiatric: Alert, Oriented x3, Normal Mood/Affect Skin: Normal Color, Warm/Dry Results Lab Laboratory Tests 12/06/16 06:23: White Blood Count 10.0, Red Blood Count 3.53L, Hemoglobin 10.5L, Hematocrit 33L , Mean Corpuscular Volume 94, Mean Corpuscular Hemoglobin 30, Mean Corpuscular Hemoglobin Concent 32, Red Cell Distribution Width 14.1, Platelet Count 267, Mean Platelet Volume 11.2H, Sodium Level 138, Potassium Level 3.9, Chloride Level 103, Carbon Dioxide Level 25, Anion Gap 10, Blood Urea Nitrogen 20H, Creatinine 0.85, Estimat Glomerular Filtration Rate > 60, BUN/Creatinine Ratio 24, Glucose Level 108H, Calcium Level 9.2 Microbiology 12/03/16 MRSA Screen - Final, Complete Assessment/Plan Assessment/Plan Assessment/Plan 1. S/P Small Bowel Resection, Ventral Herniarraphy with mesh placement, open with laparoscopic assistance 2. Morbid Obesity 3. Sleep apnea 4. HTN pain control IS increase activity dvt prophylaxis scd and ambulation PT to assist with ambulation await bowel function patient requesting inpatient rehabilitation we'll ask for inpatient rehabilitation evaluation Clinical Quality Measures DVT/VTE Risk/Contraindication: Risk Factor Score Per Nursin RFS Level Per Nursing on Admit: 4+=Very High JAYE FELTON DO Dec 06, 2016 13:01
[2016-12-06 16:59] VITALS: BP 114/66
[2016-12-07 00:15] VITALS: BP 120/56
[2016-12-07] MEDS: HYDROcodone/APAP 5 MG/325 MG (LORTAB) TAB PO PRN ×5 (00:30→22:26)
[2016-12-07 08:00] VITALS: BP 141/84
[2016-12-07] MEDS: MUPIROCIN 2% OINT 22 GM (BACTROBAN) TUBE NSEACH SCH ×2 (09:23→20:13)
[2016-12-07] MEDS: PANTOPRAZOLE 40 MG/10 ML (PROTONIX) VIAL IVP SCH (09:23)
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
--- NOTE | 2016-12-07 10:55 | Physical Therapy Daily Note ---
PT Daily Note-Current Subjective Patient states she continues to be unable to pass gas. Agrees to PT. Patient states she has been up with nursing in hallway to increase bowel sounds. Pain Numeric Pain Scale: 3 Location: Incisional, Lower Location Body Site: Abdomen Pain Description: Pressure, Acute Mental Status Patient Orientation: Normal For Age Transfers Functional [place] Measure 0=Not Assessed/NA 4=Minimal Assistance 1=Total Assistance 5=Supervision or Setup 2=Maximal Assistance 6=Modified [place] 3=Moderate Assistance 7=Complete IndependenceIRFPAI Quality Coding Scale 6 Independent with activity with or without an assistive device 5 Patient requires set up or clean up by helper. Patient completes activity by themselves 4 Supervision or touching assist (CGA). [place] provide cues , steadying assist 3 The helper provides less than half the effort to complete the activity 2 The helper provides more than half the effort to complete the activity 1 Dependent. The helper does all the effort to complete an activity 7 Patient refused to complete or attempt activity 9 The patient did not perform the activity before the current illness or injury 88 Not attempted due to Medical conditions or safety concerns Transfers (B, C, W/C) (FIM): 5 Scootin Sit to/from Stand: 5 Gait Training Gait (FIM): 5 Distance (FIM): 3=150 ft Distance: 175' Gait Level of Assist: 5 Gait Assistive Device: FWW very slow, reciprocal pattern with slight hip flexed posture in FWW (patient uses bilateral canes with ambulation PLOF) Exercises Seated Therapy Exercises: Ankle pumps, Long arc quads, Hip flexion Seated Reps: 15 Assessment Patient tolerated treatment well and remains up in recliner. Patient is improving with treatment plan. Exercises and gait utilized to facilitate improvement in functional mobility to return to home at maximum LOF safely. PT Rn Perioperative Goals Rn Perioperative Goals PT Rn Perioperative Goals Time Frame: Dec 11, 2016 Transfers (B,C,W/C) (FIM): 6 Gait (FIM): 6 Gait distance (FIM): 3=150 ft Gait Assistive Device: FWW PT Plan Treatment/Plan Treatment Plan: Continue Plan of Care Treatment Plan: Bed Mobility, Education, Functional Activity Delfino, Functional Strength, Gait, Safety, Therapeutic Exercise, Transfers Treatment Duration: Dec 11, 2016 Frequency: 6 times per week Estimated Hrs Per Day: .5 hour per day (/prn) Patient and/or Family Agrees t: Yes Time/GCodes Time In: 1016 Time Out: 1039 Total Billed Treatment Time: 23 Total Billed Treatment 1 visit EX 8 min GT 15 min ZULAY TRAN PT Dec 07, 2016 10:55
--- NOTE | 2016-12-07 13:46 | Occupational Therapy Eval ---
OT Evaluation-General/PLF Medical Diagnosis Admission Date Dec 03, 2016 at 18:09 Medical Diagnosis: small bowel obstruction Onset Date: Dec 03, 2016 Therapy Diagnosis Therapy Diagnosis: decreased self care skills Height/Weight Height (Feet): 5 Height (Inches): 2.00 Weight (Pounds): 312 Weight (Ounces): 0.0 Precautions Precautions/Isolations: Fall Prevention, Standard Precautions Safety Interventions: None Weight Bear Status Weight Bearing Restriction: Full Weight Bearing Location Restriction: LE Bilateral Referral Physician: Lulú Medical History Pertinent Medical History: Arthritis, HTN Additional Medical History sleep apnea, chronic edema, diverticulitis, Current History Admitted with fever and chills; found to have SBO; post surgery with bowel resection. Reviewed History: Yes Social History Home: Single Level Current Living Status: Other Family (elderly father) Entry Into Home: Stairs With Railing Steps Into Home: 3 ADL-Prior Level of Function ADL PLOF Comments Pt reports being independent with self care and mobility prior to admission. Pt states she has arthritis in knees and has some difficulty donning socks, so she often just wears slip on shoes. Uses two canes for ambulation. Pt states she lives with her elderly father so she needs to be independent when she goes home. DME/Equipment: Bath Chair, Grab Bars, Shower, Tall Toilet Drive Self: Yes OT Current Status Subjective Pt sitting in chair, agrees to therapy. Pt reports 5/10 abdominal pain. Mental Status/Objective Patient Orientation: Person, Place, Time, Situation Current Glasses/Contacts: Yes Hand Dominance: Right Upper Extremity ROM Grossly WFL Upper Extremity Coordination Intact ADL-Treatment ADL-Current Pt sit to stand from chair with supervision. Pt performed gait in room with FWW , slow pace but no LOB noted. Transfer to [facility] over toilet with supervision. Pt able to pull pants down/up, but pt states she is unable to complete thorough hygiene; requires assist for this. Pt stood at sink to wash hands without assistance. Pt completed oral care with mouth wash while standing at sink. Pt returned to chair, sitting with needs met and family present after session. Functional [place] Measure 0=Not Assessed/NA 4=Minimal Assistance 1=Total Assistance 5=Supervision or Setup 2=Maximal Assistance 6=Modified [place] 3=Moderate Assistance 7=Complete IndependenceIRFPAI Quality Coding Scale 6 Independent with activity with or without an assistive device 5 Patient requires set up or clean up by helper. Patient completes activity by themselves 4 Supervision or touching assist (CGA). [place] provide cues , steadying assist 3 The helper provides less than half the effort to complete the activity 2 The helper provides more than half the effort to complete the activity 1 Dependent. The helper does all the effort to complete an activity 7 Patient refused to complete or attempt activity 9 The patient did not perform the activity before the current illness or injury 88 Not attempted due to Medical conditions or safety concerns Grooming (FIM): 5 Toilet/Commode Transfer (FIM): 5 Education OT Patient Education: Rehab process Teaching Recipient: Patient Teaching Methods: Discussion Response to Teaching: Verbalize Understanding OT Short Term Goals Short Term Goals 1=Demonstrate adherence to instructed precautions during ADL tasks. 2=Patient will verbalize/demonstrate understanding of assistive devices/ modifications for ADL. 3=Patient will improve strength/tolerance for activity to enable patient to perform ADL's. OT Data Analysis Assistant Goals Mcc Goals Time Frame: Dec 14, 2016 Grooming(FIM): 6 Bathing(FIM): 5 Upper Body Dressing(FIM): 6 Toileting(FIM): 6 Toilet/Commode Transfer(FIM): 6 Additional Goals: 1-Demonstrate ADL Tasks, 2-Verbalize Understanding, 3- ImproveStrength/Delfino 1=Demonstrate adherence to instructed precautions during ADL tasks. 2=Patient will verbalize/demonstrate understanding of assistive devices/ modifications for ADL. 3=Patient will improve strength/tolerance for activity to enable patient to perform ADL's. OT Education/Plan Problem List/Assessment Assessment: Decreased Activ Tolerance, Decreased UE Strength, Dependent Transfers, Impaired Self-Care Skills Pt to benefit from skilled OT intervention for ADL training, transfers, adaptive equipment education as needed and home safety education to maximize level of function and allow safe return home. Discharge Recommendations Plan/Recommendations: Continue POC Treatment Plan/Plan of Care Treatment,Training & Education: Yes Patient would benefit from OT for education, treatment and training to promote independence in ADL's, mobility, safety and/or upper extremity function for ADL' s. Plan of Care: ADL Retraining, Functional Mobility, UE Funct Exercise/Act Treatment Duration: Dec 14, 2016 Frequency: 5 times per week Estimated Hrs Per Day: .25 hour per day Rehab Potential: Good Time/GCodes Start Time: 13:05 Stop Time: 13:34 Total Time Billed (hr/min): 29 Billed Treatment Time 1 visit, EVL(15minutes), ADL(14minutes) MARILIN SOTO OT Dec 07, 2016 13:46
--- NOTE | 2016-12-07 14:00 | Progress Note ---
Subjective Time Seen by Provider: 13:41 Subjective/Events-last exam Pt seen and examined, states she finally had very small BM. Hungry and wants more than clears. States her arthritis is flaring up, can't walk very far; but did walk a little. Review of Systems General: No Chills, No Night Sweats Cardiovascular: No: Chest Pain Gastrointestinal: Abdominal Pain, No: Nausea, Vomiting Objective Exam Vital Signs Date Time Temp Pulse Resp B/P (MAP) Pulse Ox O2 Delivery O2 Flow Rate FiO2 12/07/16 11:05 Nasal Cannula 2.00 12/07/16 08:45 95 Room Air 12/07/16 08:00 98.6 83 20 141/84 95 Room Air 12/07/16 00:15 98.9 79 20 120/56 96 NIV CPAP 12/06/16 21:00 Room Air 12/06/16 16:59 98.5 89 20 114/66 99 NIV CPAP I & O 12/07/16 07:00 Intake Total 1800 ml Output Total 700 ml Balance 1100 ml Capillary Refill : Less Than 3 Seconds General Appearance: No Apparent Distress, Obese Neck: Non Tender Respiratory: Lungs Clear, No Accessory Muscle Use, No Respiratory Distress Cardiovascular: Regular Rate, Rhythm Gastrointestinal: soft, tenderness (incisional), other (marked abdominal obesity. Midline incision with patricia. Wound edges well aligned. No drainage noted. No erythema) Extremity: No Calf Tenderness Skin: Other (has rash at site of tape on abdomen, looks like it is due to the tape - it is in shape of square.) Results Lab Microbiology 12/03/16 MRSA Screen - Final, Complete Assessment/Plan Assessment/Plan Assessment/Plan 1. S/P Small Bowel Resection, Ventral Herniarraphy with mesh placement, open with laparoscopic assistance 2. Morbid Obesity 3. Sleep apnea 4. HTN Continue pain control, start regular diet Encourage IS and ambulation (with assist if needed) dvt prophylaxis scd and ambulation SW trying to get patient either inpatient rehabilitation or SNF placement Clinical Quality Measures DVT/VTE Risk/Contraindication: Risk Factor Score Per Nursin RFS Level Per Nursing on Admit: 4+=Very High ANGIE HENDRICKSON DO Dec 07, 2016 14:00
--- NOTE | 2016-12-07 14:04 | Discharge Inst-Skilled Nursing ---
Discharge Inst-Skilled NF Chief Complaint Weakness Patient Instructions Patient Problems: S/P Small Bowel resection Morbid obesity Sleep apnea Goal: Return home Consult/Follow Up/Orders Skilled NF Admit to: [facility] Certification (SNF) I certify that SNF services are required to be given on an inpatient basis because of the above named patient's need for care home care on a continuing basis for the conditions(s) for which he/she was receiving inpatient hospital services prior to his/her transfer to the SNF. Fdc Facility Order: Nursing Services, Case Management Coordinator-Evaluate & Treat, Physical Therapy-Evaluate & Treat Discharge Diet: Regular Diet Daily Activity as Tolerated: Yes New & Resume Previous Orders Jeovany Chino Dec 07, 2016 14:03 Pneu Vac Indicated: Yes JEOVANY CHINO DO Dec 07, 2016 14:04
[2016-12-07 15:50] VITALS: BP 122/82
[2016-12-08 00:12] VITALS: BP 118/75
[2016-12-08] MEDS: HYDROcodone/APAP 5 MG/325 MG (LORTAB) TAB PO PRN ×3 (02:45→11:30)
--- OUTSIDE RECORDS SUMMARY | 2016-12-08 04:18 | XMS REPORT | Continuity of Care Document ---
Author Author [facility] Organization [facility] Address Unknown Phone Unavailable Allergies Active Description Code Type Severity Reaction Onset Reported/Identified Relationship to Patient Clinical Status Yes No Known Allergies [id number] Drug Allergy Unknown N/A 06/01/2016 Yes latex [id number] Drug Allergy Unknown N/A 12/03/2016 Medications Problems [...] 06/01/2016 JACKIE JOSHUA DO Ot Z79.899 OTHER LONGTERM (CURRENT) DRUG THERAPY 06/03/2016 JACKIE JOSHUA DO Ot I10 ESSENTIAL (PRIMARY) HYPERTENSION 06/03/2016 JACKIE JOSHUA DO Ot J01.90 ACUTE SINUSITIS, UNSPECIFIED 06/03/2016 JACKIE JOSHUA DO Ot J20.9 ACUTE BRONCHITIS, UNSPECIFIED 06/03/2016 JACKIE JOSHUA DO Ot R04.2 HEMOPTYSIS 06/03/2016 JACKIE JOSHUA DO Ot 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 06/07/2016 JACKIE JOSHUA DO Ot I10 ESSENTIAL (PRIMARY) HYPERTENSION 06/07/2016 JACKIE JOSHUA DO Ot J01.90 ACUTE SINUSITIS, UNSPECIFIED 06/07/2016 JACKIE JOSHUA DO Ot J20.9 ACUTE BRONCHITIS, UNSPECIFIED 06/07/2016 JACKIE JOSHUA DO Ot R04.2 HEMOPTYSIS 06/07/2016 JACKIE JOSHUA DO Ot Z79.899 OTHER LONGTERM (CURRENT) DRUG THERAPY 08/03/2016 Ot V76.12 OTH [...] V72.63 PRE-PROCEDURAL LABORATORY EXAMINATION 08/03/2016 Ot V72.81 [id number] CARDIOVASCULAR 08/03/2016 Ot V74.8 SCREEN-BACTERIAL DIS NEC [...] Procedures Code Description Performed By Performed On [id number] EXCISION OF SMALL INTESTINE, OPEN APPROA 12/03/2016 [id number] SUPPLEMENT ABDOMINAL WALL WITH SYNTH SUB 12/03/2016 Results Test Result Range Influenza virus A and B antigen detection - 06/01/16 11:20 FLU RESULT NEGATIVE FOR INFLUENZA A AND B ANTIGENS BY [facility] Complete blood count (CBC) with automated white [...] PLUS NORMAL ARTURO NRG Bacterial sputum culture [id number] NR Bacterial susceptibility panel - 06/01/16 12:30 [...] Status Pt. Type Provider Facility Loc./Unit Complaint [id number] 06/01/2016 10:38:00 2016 13:51:00 DIS Emergency JOSIANE JACKIE BENITEZ [facility] ER COUGHING BLOOD [id number] 05/10/2014 12:44:00 2013 23:59:59 CLS Outpatient OSMEL HILTON DO [facility] RAD ROUTINE [id number] 02/12/2014 20:14:00 2013 07:45:00 DIS Outpatient RICHARD RODRIGUEZ [facility] SLEEP SLEEP APNEA [id number] 05/09/2013 10:43:00 2012 23:59:59 CLS Outpatient OSMEL HILTNO DO [facility] RAD SCREENING [id number] 10/03/2012 21:09:00 2012 07:05:00 DIS Outpatient TOM, SHERLYN J RPA-C [facility] SLEEP LOBITO [id number] 12/03/2016 18:09:00 ACT Inpatient KAIDANIEL BENITEZANGIE [facility] 4TH CHILLS/SWEATS/N/V/SOB [id number] 08/03/2016 09:37:00 ACT Outpatient HERNAN CRUZ MD [facility] RAD SCREENING [id number] 06/21/2015 10:44:00 ACT Outpatient HERNAN CRUZ MD [facility] CARD [place] [id number] 05/28/2015 14:42:00 ACT Outpatient OSMEL HILTON DO [facility] RAD ROUTINE MAMMOGRAM SCREENING [id number] 05/28/2015 14:42:00 Document Registration [id number] 05/18/2012 10:18:00 Document Registration [id number] 09/30/2011 09:37:00 Document Registration [id number] 07/21/2011 05:46:00 Document Registration [id number] 07/20/2011 11:58:00 Document Registration [id number] 07/13/2011 08:22:00 Document Registration [id number] 06/23/2011 16:21:00 Document Registration [id number] 05/12/2011 08:42:00 Document Registration [id number] 04/14/2011 11:14:00 Document Registration [id number] 05/09/2010 10:04:00 Document Registration
--- OUTSIDE RECORDS SUMMARY | 2016-12-08 04:42 | XMS REPORT | Continuity of Care Document ---
Author Author [facility] Organization [facility] Address Unknown Phone Unavailable Allergies Active Description Code Type Severity Reaction Onset Reported/Identified Relationship to Patient Clinical Status Yes No Known Allergies [id number] Drug Allergy Unknown N/A 06/01/2016 Yes latex [id number] Drug Allergy Unknown N/A 12/03/2016 Medications Problems [...] 06/01/2016 JACKIE JOSHUA DO Ot Z79.899 OTHER FCI (CURRENT) DRUG THERAPY 06/03/2016 JACKIE JOSHUA DO Ot I10 ESSENTIAL (PRIMARY) HYPERTENSION 06/03/2016 JACKIE JOSHUA DO Ot J01.90 ACUTE SINUSITIS, UNSPECIFIED 06/03/2016 JACKIE JOSHUA DO Ot J20.9 ACUTE BRONCHITIS, UNSPECIFIED 06/03/2016 JACKIE JOSHUA DO Ot R04.2 HEMOPTYSIS 06/03/2016 JACKIE JOSHUA DO Ot 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 06/07/2016 JACKIE JOSHUA DO Ot I10 ESSENTIAL (PRIMARY) HYPERTENSION 06/07/2016 JACKIE JOSHUA DO Ot J01.90 ACUTE SINUSITIS, UNSPECIFIED 06/07/2016 JACKIE JOSHUA DO Ot J20.9 ACUTE BRONCHITIS, UNSPECIFIED 06/07/2016 JACKIE JOSHUA DO Ot R04.2 HEMOPTYSIS 06/07/2016 JACKIE JOSHUA DO Ot Z79.899 OTHER FCI (CURRENT) DRUG THERAPY 08/03/2016 Ot V76.12 OTH [...] V72.63 PRE-PROCEDURAL LABORATORY EXAMINATION 08/03/2016 Ot V72.81 [id number] CARDIOVASCULAR 08/03/2016 Ot V74.8 SCREEN-BACTERIAL DIS NEC 08/03/2016 Ot 574.20 CHOLELITHIASIS NOS 08/03/2016 Ot 789.00 ABDOMINAL PAIN, UNSPECIFIED SITE 08/03/2016 Ot V76.12 OTH SCREEN MAMMO-MALIGN NEOPLASM OF [place]ET[place] 08/03/2016 OSMEL HILTON DO Ot V76.12 OTH SCREEN MAMMO-MALIGN NEOPLASM OF [place] 08/03/2016 OSMEL HILTNO DO Ot 611.71 MASTODYNIA 08/03/2016 OSMEL HILTON [...] Procedures Code Description Performed By Performed On [id number] EXCISION OF SMALL INTESTINE, OPEN APPROA 12/03/2016 [id number] SUPPLEMENT ABDOMINAL WALL WITH SYNTH SUB 12/03/2016 Results Test Result Range Influenza virus A and B antigen detection - 06/01/16 11:20 FLU RESULT NEGATIVE FOR INFLUENZA A AND B ANTIGENS BY [facility] Complete blood count (CBC) with automated white [...] PLUS NORMAL ARTURO NRG Bacterial sputum culture [id number] NR Bacterial susceptibility panel - 06/01/16 12:30 [...] Status Pt. Type Provider Facility Loc./Unit Complaint [id number] 06/01/2016 10:38:00 2016 13:51:00 DIS Emergency JOSIANE JACKIE BENITEZ [facility] ER COUGHING BLOOD [id number] 05/10/2014 12:44:00 2013 23:59:59 CLS Outpatient OSMEL HILTON DO [facility] RAD ROUTINE [id number] 02/12/2014 20:14:00 2013 07:45:00 DIS Outpatient RICHARD RODRIGUEZ [facility] SLEEP SLEEP APNEA [id number] 05/09/2013 10:43:00 2012 23:59:59 CLS Outpatient OSMEL HILTON DO [facility] RAD SCREENING [id number] 10/03/2012 21:09:00 2012 07:05:00 DIS Outpatient TOM, SHERLYN J RPA-C [facility] SLEEP LOBITO [id number] 12/03/2016 18:09:00 ACT Inpatient KAIDANIEL BENITEZANGIE [facility] 4TH CHILLS/SWEATS/N/V/SOB [id number] 08/03/2016 09:37:00 ACT Outpatient HERNAN CRUZ MD [facility] RAD SCREENING [id number] 06/21/2015 10:44:00 ACT Outpatient HERNAN CRUZ MD [facility] CARD [place] [id number] 05/28/2015 14:42:00 ACT Outpatient OSMEL HILTON DO [facility] RAD ROUTINE MAMMOGRAM SCREENING [id number] 05/28/2015 14:42:00 Document Registration [id number] 05/18/2012 10:18:00 Document Registration [id number] 09/30/2011 09:37:00 Document Registration [id number] 07/21/2011 05:46:00 Document Registration [id number] 07/20/2011 11:58:00 Document Registration [id number] 07/13/2011 08:22:00 Document Registration [id number] 06/23/2011 16:21:00 Document Registration [id number] 05/12/2011 08:42:00 Document Registration [id number] 04/14/2011 11:14:00 Document Registration [id number] 05/09/2010 10:04:00 Document Registration
[2016-12-08 08:00] VITALS: BP 118/75
[2016-12-08] MEDS: MUPIROCIN 2% OINT 22 GM (BACTROBAN) TUBE NSEACH SCH (08:59)
[2016-12-08] MEDS ORDERED: PANTOPRAZOLE 40 MG (PROTONIX) TAB PO SCH (09:00)
--- NOTE | 2016-12-08 09:27 | Physical Therapy Progress Note ---
Therapy Progress Note PT in to see patient. Patient reports she is transferring to [place] for continued care/therapies to safely return to home. Patient declined PT due to energy conservation. PT respects patient request. DC at this time to [place]. 1 visit ZULAY TRAN PT Dec 08, 2016 09:27
[2016-12-08 13:30] VITALS: BP 118/75
--- OUTSIDE RECORDS SUMMARY | 2016-12-09 09:27 | XMS REPORT | Continuity of Care Document ---
Author Author [facility] Organization [facility] Address Unknown Phone Unavailable Allergies Active Description Code Type Severity Reaction Onset Reported/Identified Relationship to Patient Clinical Status Yes No Known Allergies [id number] Drug Allergy Unknown N/A 06/01/2016 Yes latex [id number] Drug Allergy Unknown N/A 12/03/2016 Medications Problems [...] OSMEL HILTON DO Ot V76.12 06/21/2015 OSMEL HILOTN DO Ot 611.71 06/21/2015 OSMEL HILTON DO [...] 06/01/2016 JACKIE JOSHUA DO Ot Z79.899 OTHER LONG-TERM (CURRENT) DRUG THERAPY 06/03/2016 JACKIE JOSHUA DO Ot I10 ESSENTIAL (PRIMARY) HYPERTENSION 06/03/2016 JACKIE JOSHUA DO Ot J01.90 ACUTE SINUSITIS, UNSPECIFIED 06/03/2016 JACKIE JOSHUA DO Ot J20.9 ACUTE BRONCHITIS, UNSPECIFIED 06/03/2016 JACKIE JOSHUA DO Ot R04.2 HEMOPTYSIS 06/03/2016 JACKIE JOSHUA DO Ot 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 06/07/2016 JACKIE JOSHUA DO Ot I10 ESSENTIAL (PRIMARY) HYPERTENSION 06/07/2016 JACKIE JOSHUA DO Ot J01.90 ACUTE SINUSITIS, UNSPECIFIED 06/07/2016 JACKIE JOSHUA DO Ot J20.9 ACUTE BRONCHITIS, UNSPECIFIED 06/07/2016 JACKIE JOSHUA DO Ot R04.2 HEMOPTYSIS 06/07/2016 JACKIE JOSHUA DO Ot Z79.899 OTHER LONG-TERM (CURRENT) DRUG THERAPY 08/03/2016 Ot V76.12 OTH [...] V72.63 PRE-PROCEDURAL LABORATORY EXAMINATION 08/03/2016 Ot V72.81 [id number] CARDIOVASCULAR 08/03/2016 Ot V74.8 SCREEN-BACTERIAL DIS NEC 08/03/2016 Ot 574.20 CHOLELITHIASIS NOS 08/03/2016 Ot 789.00 ABDOMINAL PAIN, UNSPECIFIED SITE 08/03/2016 Ot V76.12 OTH SCREEN MAMMO-MALIGN NEOPLASM OF [place] 08/03/2016 OMSEL HILTON DO Ot V76.12 OTH SCREEN MAMMO-MALIGN [...] Procedures Code Description Performed By Performed On [id number] EXCISION OF SMALL INTESTINE, OPEN APPROA 12/03/2016 [id number] SUPPLEMENT ABDOMINAL WALL WITH SYNTH SUB 12/03/2016 Results Test Result Range Influenza virus A and B antigen detection - 06/01/16 11:20 FLU RESULT NEGATIVE FOR INFLUENZA A AND B ANTIGENS BY [facility] Complete blood count (CBC) with automated [...] PLUS NORMAL ARTURO NRG Bacterial sputum culture [id number] NR Bacterial susceptibility panel - 06/01/16 12:30 [...] Status Pt. Type Provider Facility Loc./Unit Complaint [id number] 06/01/2016 10:38:00 2016 13:51:00 DIS Emergency JOSIANE JACKIE BENITEZ [facility] ER COUGHING BLOOD [id number] 05/10/2014 12:44:00 2013 23:59:59 CLS Outpatient OSMEL HILTON DO [facility] RAD ROUTINE [id number] 02/12/2014 20:14:00 2013 07:45:00 DIS Outpatient RICHARD RODRIGUEZ [facility] SLEEP SLEEP APNEA [id number] 05/09/2013 10:43:00 2012 23:59:59 CLS Outpatient OSMEL HILTON DO [facility] RAD SCREENING [id number] 10/03/2012 21:09:00 2012 07:05:00 DIS Outpatient TOM, SHERLYN J RPA-C [facility] SLEEP LOBITO [id number] 12/03/2016 18:09:00 ACT Inpatient KAIDANIEL BENITEZANGIE [facility] 4TH CHILLS/SWEATS/N/V/SOB [id number] 08/03/2016 09:37:00 ACT Outpatient HERNAN CRUZ MD [facility] RAD SCREENING [id number] 06/21/2015 10:44:00 ACT Outpatient HERNAN CRUZ MD [facility] CARD [place] [id number] 05/28/2015 14:42:00 ACT Outpatient OSMEL HILTON DO [facility] RAD ROUTINE MAMMOGRAM SCREENING [id number] 05/28/2015 14:42:00 Document Registration [id number] 05/18/2012 10:18:00 Document Registration [id number] 09/30/2011 09:37:00 Document Registration [id number] 07/21/2011 05:46:00 Document Registration [id number] 07/20/2011 11:58:00 Document Registration [id number] 07/13/2011 08:22:00 Document Registration [id number] 06/23/2011 16:21:00 Document Registration [id number] 05/12/2011 08:42:00 Document Registration [id number] 04/14/2011 11:14:00 Document Registration [id number] 05/09/2010 10:04:00 Document Registration
--- NOTE | 2016-12-09 14:05 | Physician Query Clarification ---
PQ-Further Specificity Admission/Discharge Admission Date: Dec 04, 2016 at 08:46 Discharge Date: Dec 08, 2016 at 13:01 The medical record reflects the following clinical scenario: History/Risk Factors: MOB Clinical Findings: Ventral hernia, ischemic small bowel, PATH: small bowel with acute serositis, serosal adhesions and ischemic changes Treatment: repair ventral hernia and excision small intestine Question: Can you further specify the ischemic small bowel per the clinical indicators above? Please document below. 1.Acute focal ischemic small bowel 2. Acute diffuse ischemic small bowel 3. Chronic ischemic small bowel 4. Other, with explanation of the clinical findings. 5. Clinically undetermined, no explanation for the clinical findings. PHYSICIAN RESPONSE Can you specify per above: 1 In responding to this query, please exercise your independent professional judgment. The purpose of this communication is to more accurately reflect the complexity of your patients condition. The fact that a question is asked does not imply that any particular answer is desired or expected. Thank you for your timely response to this clarification. Requestors name: Kirsten THIS PHYSICIAN QUERY FORM IS A PERMANENT PART OF THE MEDICAL RECORD KIRSTEN TUTTLE Dec 09, 2016 14:05 ANGIE HENDRICKSON DO Dec 16, 2016 11:45
== END 2016-12-08 13:01 | DRG 329 ==
LOC: EDUNIT# 13:43 → ER 13:45 → SDC 17:36 → UNDOADMIN 18:09 → 4TH 18:09 → ICU 12-04 20:11 → UNDODISIN 12-08 13:01
PROVIDERS: ADMIT Surgery; ATTEND Surgery
PROC: 0DB80ZZ Excision of Small Intestine, Open Approach (ICD-10-PCS; 2016-12-03)
PROC: 0WUF0JZ Supplement Abdominal Wall with Synthetic Substitute, Open Approach (ICD-10-PCS; principal; 2016-12-03 19:16)
DX: K43.6 Other and unspecified ventral hernia with obstruction, without gangrene (principal); K55.011 Focal (segmental) acute (reversible) ischemia of small intestine; E66.01 Morbid (severe) obesity due to excess calories; Z68.43 Body mass index [BMI] 50.0-59.9, adult; L97.919 Non-pressure chronic ulcer of unspecified part of right lower leg with unspecified severity; L97.929 Non-pressure chronic ulcer of unspecified part of left lower leg with unspecified severity; G47.30 Sleep apnea, unspecified; I10 Essential (primary) hypertension; R60.0 Localized edema; R32 Unspecified urinary incontinence; K57.90 Diverticulosis of intestine, part unspecified, without perforation or abscess without bleeding; M17.0 Bilateral primary osteoarthritis of knee; M10.9 Gout, unspecified; I87.8 Other specified disorders of veins
CPT/HCPCS: 36415; 74177; 80048; 80053; 81000; 82150; 83690; 85025; 85027; 87081; 88302; 88307; 93005; 94664; 96360

== ENCOUNTER 2016-12-15 04:37 | Emergency (ER) | payer MEDICARE, OTHER ==
[~2016-12-15] VITALS: Ht 157.5 cm; Wt 141.5 kg
[~2016-12-15 04:37] MED LIST changes: +DOCU-143 PO; +HYDR-3812 PO
--- NOTE | 2016-12-15 04:56 | ED GI ---
General Chief Complaint: Abdominal/GI Problems Stated Complaint: NO BOWEL SOUNDS Nursing Triage Note: BROUGHT IN BY [facility] FOR C/O CONSTIPATION, DECREASED BOWEL SOUNDS PER [facility] STAFF. S/P BOWEL RESECTION Sepsis Screen: No Definite Risk Source of Information: Patient, EMS Exam Limitations: No Limitations History of Present Illness Time Seen By Provider: 04:49 Initial Comments Patient presents the ER from [facility] where she was receiving rehabilitation by EMS. She is here with a chief complaint of the nursing reports she had no bowel sounds and is had difficulty having a bowel movement in the 6 days since discharge from the hospital. The patient approximately 12 days ago was seen for a small bowel incarceration and small bowel resection and subsequent lead done by Dr. Hendrickson, General Surgery. A mesh was placed at the time and the patient was allowed to go to rehabilitation 6 days ago. Since she was at rehabilitation she says she has had nothing but tiny low bits of watery stool. She is been put on Colace once a day. She has been taking hydrocodone as needed for her abdominal pain. Tonight she says she was having some abdominal pain while trying to readjust herself in bed she felt a popping tearing sensation in her area of her ventral hernia repair with mesh. She states her pain is under control she received hydrocodone proximately 2:00 this morning. Prior to that her pain was controlled mostly with Tylenol. She is not having any nausea fevers chills or diaphoresis. She denies diabetes. She states that she was told to keep the oksana in until after seen the surgeon in follow-up but she was never told when the follow-up appointment was going to be. Allergies and Home Medications Allergies Coded Allergies: latex (Verified Allergy, Unknown, 12/03/16) Home Medications Albuterol Sulfate 2.5 Mg/0.5 Ml Vial.neb, 2.5 MG IH Q4H, #1 Prescribed by: JACKIE JOSHUA on 06/01/16 1225 Docusate Sodium 100 Mg Capsule, 100 MG PO DAILY, #60 Prescribed by: JONATHAN ROSADO on 12/04/16 1032 Famotidine 10 Mg Tablet, 1 EACH PO BID, (Reported) Furosemide 20 Mg Tablet, 1 EACH PO DAILY, (Reported) Gluc/Brian-Msm#1/C/Luis/Dmitry/Bor 1 Each Tablet, 2 EACH PO DAILY, (Reported) Hctz/Valsartan 1 Tab Tablet, 1 EACH PO DAILY, (Reported) Hydrocodone/Acetaminophen 1 Each Tablet, 1 EA PO Q4-6HR PRN for PAIN-MODERATE TO SEVERE, #30 Ref 0 Prescribed by: JONATHAN MASON NWAGW on 12/04/16 1032 Loratadine 10 Mg Box, 1 EACH PO DAILY, (Reported) Multivitamins 1 Tab Tablet, 1 TAB PO, (Reported) Na Phos,M-B/Na Phos,Di-Ba 133 Ml Enema, 133 ML RC DAILY for 7 Days, #7 Ref 0 Prescribed by: JENNI GAMEZ on 12/15/16 0620 [place]-3/Dha/Epa/Fish Oil 1 Each Capsule.dr, 1 EACH PO, (Reported) Polyethylene Glycol 3350 17 Gm Powd.pack, 17 GM PO TID for 7 Days, #1 Ref 0 Prescribed by: JENNI GAMEZ on 12/15/16 0620 Review of Systems Constitutional: No chills, No diaphoresis, No fever, No malaise Respiratory: Denies Cough, Denies Shortness of Air Cardiovascular: Denies Chest Pain, Denies Edema Gastrointestinal: See HPI, Denies Abdomen Distended, Abdominal Pain, Constipated, Denies Diarrhea, Denies Nausea, Denies Poor Appetite, Denies Vomiting Genitourinary: Denies Burning, Denies Discharge Musculoskeletal: back pain, No joint pain Skin: see HPI, No pruritus, No rash Psychiatric/Neurological: Denies Headache, Denies Numbness Past Ksdoroz-Tbtnox-Adywea Hx Patient Social History Alcohol Use: Denies Use Recreational Drug Use: No Smoking Status: Never a Smoker 2nd Hand Smoke Exposure: No Recent Foreign Travel: No Contact w/Someone Who Travel: No Recent Infectious Disease Expo: No Recent Hopitalizations: Yes Immunizations Up To Date Tetanus Booster (TDap): Unknown Date of Influenza Vaccine: Feb 29, 2016 Seasonal Allergies Seasonal Allergies: No Surgeries HX Surgeries: Yes (D&C) Surgeries: Bowel Surgery, Orthopedic Respiratory Hx Respiratory Disorders: Yes (CPAP HS) Respiratory Disorders: Sleep Apnea Cardiovascular Hx Cardiac Disorders: Yes Cardiac Disorders: Chronic Edema/Swelling, Hypertension Neurological Hx Neurological Disorders: No Reproductive System : No Hx Reproductive Disorders: No Sexually Transmitted Disease: No 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 Genitourinary Hx Genitourinary Disorders: Yes (INCONTINENCE) Gastrointestinal Hx Gastrointestinal Disorders: Yes (DIVERTICULITIS) Gastrointestinal Disorders: Obstructive Bowel, Diverticulosis Musculoskeletal Hx Musculoskeletal Disorders: Yes (ARTHRITIS IN KNEES) Musculoskeletal Disorders: Arthritis Endocrine Hx Endocrine Disorders: No HEENT HX ENT Disorders: No Cancer Hx Cancer: No Psychosocial Hx Psychiatric Problems: No Integumentary HX Skin/Integumentary Disorder: No Blood Transfusions Hx Blood Disorders: No Family Medical History Significant Family History: Heart Disease, Cancer, Hypertension Family Medial History: Arthritis 19 FATHER 19 MOTHER G8 SISTER Cardiovascular disease 19 FATHER Neoplasm 19 MOTHER Physical Exam Vital Signs VS - Last 72 Hours, by Label 12/15/16 04:45 Temp 99.3 Pulse 79 Resp 18 B/P (MAP) 144/86 Pulse Ox 94 O2 Delivery Room Air Capillary Refill : Less Than 3 Seconds General Appearance: WD/WN, no apparent distress, obese HEENT: PERRL/EOMI, pharynx normal Respiratory: lungs clear, normal breath sounds Cardiovascular: normal peripheral pulses, regular rate, rhythm Gastrointestinal: normal bowel sounds, soft, tenderness (over healing wounds.) Extremities: no pedal edema, normal capillary refill Neurologic/Psychiatric: alert, oriented x 3 Skin: other (Oksana of her laparoscopic and open surgical wounds with skin intact dry and well approximated. There is increased pinkness and stretching at the site where the oksana penetrate the skin. There is no drainage or palpable seroma. The tenderness is only mild to palpation.) Suture Removal/Wound Recheck : Suture Removal/Wound Recheck: Oksana removed by MD Suarez 18 oksana Progress/Results/Core Measures Results/Orders Lab Results Laboratory Tests Test 12/15/16 04:50 Range/Units White Blood Count 9.9 4.3-11.0 10^3/uL Red Blood Count 3.57 L 4.35-5.85 10^6/uL Hemoglobin 10.5 L 11.5-16.0 G/DL Hematocrit 33 L 35-52 % Mean Corpuscular Volume 92 80-99 FL Mean Corpuscular Hemoglobin 29 25-34 PG Mean Corpuscular Hemoglobin Concent 32 32-36 G/DL Red Cell Distribution Width 13.2 10.0-14.5 % Platelet Count 369 130-400 10^3/uL Mean Platelet Volume 10.0 7.4-10.4 FL Neutrophils (%) (Auto) 61 42-75 % Lymphocytes (%) (Auto) 25 12-44 % Monocytes (%) (Auto) 10 0-12 % Eosinophils (%) (Auto) 4 0-10 % Basophils (%) (Auto) 1 0-10 % Neutrophils # (Auto) 6.0 1.8-7.8 X 10^3 Lymphocytes # (Auto) 2.4 1.0-4.0 X 10^3 Monocytes # (Auto) 1.0 0.0-1.0 X 10^3 Eosinophils # (Auto) 0.4 H 0.0-0.3 10^3/uL Basophils # (Auto) 0.1 0.0-0.1 10^3/uL Sodium Level 139 135-145 MMOL/L Potassium Level 4.0 3.6-5.0 MMOL/L Chloride Level 103 98-107 MMOL/L Carbon Dioxide Level 24 21-32 MMOL/L Anion Gap 12 5-14 MMOL/L Blood Urea Nitrogen 15 7-18 MG/DL Creatinine 0.97 0.60-1.30 MG/DL Estimat Glomerular Filtration Rate 57 BUN/Creatinine Ratio 15 Glucose Level 111 H 70-105 MG/DL Calcium Level 9.6 8.5-10.1 MG/DL Total Bilirubin 0.4 0.1-1.0 MG/DL Aspartate Amino Transf (AST/SGOT) 20 5-34 U/L Alanine Aminotransferase (ALT/SGPT) 16 0-55 U/L Alkaline Phosphatase 73 40-136 U/L Total Protein 7.8 6.4-8.2 GM/DL Albumin 3.7 3.2-4.5 GM/DL My Orders Orders - JENNI GAMEZ Ct Abdomen/Pelvis Wo (12/15/16 04:56) Saline Lock/Iv-Start (12/15/16 04:56) Cbc With Automated Diff (12/15/16 04:56) Comprehensive Metabolic Panel (12/15/16 04:56) Vital Signs/I&O Vital Sign - Last 12Hours 12/15/16 04:45 Temp 99.3 Pulse 79 Resp 18 B/P (MAP) 144/86 Pulse Ox 94 O2 Delivery Room Air Blood Pressure Mean: 105 Progress Note #1: Time: 05:36 Progress Note [place] are now in 12 days they're pink raised and the skin is well approximated dry and intact at the wounds. We will remove 18 oksana today. We' ll get CAT scans she felt a popping sensation just to make sure the anastomosis looks okay. We'll obtain some basic lab white count and kidney function. If everything else in the abdomen looks okay would let her follow up outpatient with surgeon. Progress Note #2: Time: 06:15 Progress Note Reviewed the stat read read and feel that this is most likely in the periumbilical space a seroma as it is not terribly red or painful. There is no drainage or discharge. Skin is well approximated and there is no evidence of infection on lab. She is doing well and there is no evidence of an acute abdomen given she has bowel sounds heard well over the epigastric region. We will allow her to go back with a aggressive bowel regimen and insists she has follow-up this week with her general surgeon and in one to 2 weeks with the PCP. Diagnostic Imaging Diagonstic Imaging: CT Plain Films/CT/US/NM/MRI: abdomen (pelvis without contrast) Comments There is a small fat-containing ventral hernia with what appears to be mesh underlying it. There is a small pocket of probably postsurgical repair. There is no air in the peritoneum nor is there any free fluid or fat stranding around the anastomosis. The anastomosis appears to be intact without any evidence of leaking or obstruction. Stat read reads postoperative changes noted within the mid abdomen with infiltration of the mesenteric fat and free fluid/mesenteric edema. There are few prominent small bowel loops noted in the left pelvis which may be postoperative however additional follow-up is recommended to assess stability. There is also heterogenous thickening in the anterior abdominal wall at the periumbilical collection in the subcutaneous fat measuring 5.4 C by 4 cm with associated air-fluid level noted. This may reflect postoperative change, infectious process/abscess, loop of herniated bowel. Reviewed: Reviewed [place] Hawk Study, Reviewed by Me Departure Impression Impression: Primary Impression: Abdominal wall pain Additional Impression: Constipation due to opioid therapy Disposition: 01 HOME, SELF-CARE Condition: Stable Departure-Patient Inst. Decision time for Depature: 06:17 Referrals: HERNAN CRUZ MD (PCP/Family) Primary Care Physician Patient Instructions: Constipation, Adult (DC) Add. Discharge Instructions: You described constipation secondary to opiate use. Is okay to continue use opiates, however if your pain is mild you may try something like ibuprofen or Tylenol. You May also try applying heat to the site where you're having discomfort. Until you have copious loose stools I would recommend you take MiraLAX 3 times daily by mouth and a fleets enema daily. Follow up with your PCP in the next 1-2 weeks to help manage this. You should also follow up with the surgeon this week. If you're having new or worsening symptoms such as increasing pain, nausea and vomiting, constipation that will not resolve or fever he should return to the ER or see your primary care physician which ever is appropriate. All discharge instructions reviewed with patient and/or family. Voiced understanding. Scripts Mickey Harmon/Doyle Harmon (Fleet Enema) 133 Ml Enema 133 ML RC DAILY for 7 Days, #7 EA 0 Refills Prov: JENNI GAMEZ 12/15/16 Polyethylene Glycol 3350 (Miralax) 17 Gm Powd.pack 17 GM PO TID for 7 Days, #1 EACH 0 Refills Prov: JENNI GAMEZ 12/15/16 Copy Copies To 1: ANGIE HENDRICKSON DO; HERNAN CRUZ MD Copies To 2: HERNAN CRUZ MD, TITUS J Dec 15, 2016 04:56
[2016-12-15 05:03] LABS: BASOPHILS # (AUTO) 0.1 10^3/uL (0.0-0.1); BASOPHILS % (AUTO) 1 % (0-10); EOSINOPHILS # (AUTO) 0.4 10^3/uL (0.0-0.3); EOSINOPHILS % (AUTO) 4 % (0-10); LYMPHOCYTES # (AUTO) 2.4 X 10^3 (1.0-4.0); LYMPHOCYTES % (AUTO) 25 % (12-44); MEAN CORPUSCULAR HEMOGLOBIN 29 PG (25-34); MEAN CORPUSCULAR HGB CONC 32 G/DL (32-36); MEAN CORPUSCULAR VOLUME 92 FL (80-99); MONOCYTES % (AUTO) 10 % (0-12); NEUTROPHILS % (AUTO) 61 % (42-75); PLATELET COUNT 369 10^3/uL (130-400); RED BLOOD COUNT 3.57 10^6/uL (4.35-5.85); RED CELL DISTRIBUTION WIDTH 13.2 % (10.0-14.5); WHITE BLOOD COUNT 9.9 10^3/uL (4.3-11.0)
[2016-12-15 05:18] LABS: ALBUMIN 3.7 GM/DL (3.2-4.5); BILIRUBIN,TOTAL 0.4 MG/DL (0.1-1.0); CALCIUM 9.6 MG/DL (8.5-10.1); CREATININE SERUM 0.97 MG/DL (0.60-1.30); TOTAL PROTEIN 7.8 GM/DL (6.4-8.2)
[2016-12-15] MEDS ORDERED: NA P133E22 RC (06:20)
[2016-12-15] MEDS ORDERED: POLY17PO6 PO (06:20)
--- NOTE | 2016-12-15 07:37 | Diagnostic Imaging Report ---
PROCEDURE: CT abdomen and pelvis without contrast. TECHNIQUE: Multiple contiguous axial images were obtained through the abdomen and pelvis without the use of intravenous contrast. INDICATION: No bowel sounds COMPARISON STUDY: CT scan from November the . FINDINGS: Minimal atelectasis is present in the left lung base. Mild calcification of the mitral valve annulus is present. Mild fatty infiltration of the liver with liver being upper normal in size. A gallstone is present within the gallbladder without duct dilatation or visible inflammatory changes. The spleen, pancreas, adrenal glands, and kidneys appear normal. Postoperative changes are seen with a bowel anastomosis near the umbilicus. Recent midline incision is present with a 5.5 x 3.8 x 6 cm fluid collection in the deep subcutaneous tissues just above the abdominal wall. Some air is present within this. There is a very thin wall around this. This could be a postoperative hematoma or early abscess formation. Less likely this would be herniation. In the left midabdomen there are some slightly prominent small bowel loops probably due to the recent surgery. Urinary bladder appears normal. The uterus is atrophied. No loculated intra-abdominal fluid collections are present. There is no free air. Some diverticula are present. IMPRESSION: 1. Postoperative changes are seen in the abdomen with bowel anastomosis. Mild inflammatory changes are present. 2. There is a fluid collection in the deep subcutaneous tissues with air within this. This could be postoperative changes. Early abscess is also a possibility. 3. Diverticulosis. 4. Cholelithiasis. 5. Fatty infiltration of the liver. Dictated by: Dictated on workstation # [id number]
[2016-12-15 08:20] VITALS: BP 144/86
== END 2016-12-15 08:20 | disposition home or self-care (01) ==
LOC: EDUNIT# 04:37 → ER 04:39
DX: K59.03 Drug induced constipation (principal); T40.2X5A Adverse effect of other opioids, initial encounter; G47.30 Sleep apnea, unspecified; I10 Essential (primary) hypertension; M17.0 Bilateral primary osteoarthritis of knee; Z87.19 Personal history of other diseases of the digestive system; Z82.49 Family history of ischemic heart disease and other diseases of the circulatory system
CPT/HCPCS: 36415; 74176; 80053; 85025

== ENCOUNTER → 2017-03-11 | Outpatient (CLI) | payer MEDICARE, OTHER ==
[~2017-03-11] MED LIST changes: +CATHETER FLUSH 10 ML SYR IV PRN; +IOHEXOL 350 MG/ML 100 ML (OMNIPAQUE 350) VIAL IV ONE; +NA P133E22 RC; +NS 100 ML (IVPB) BAG IV ONE; +POLY17PO6 PO
[2017-03-11 11:46] LABS: CREATININE SERUM 1.04 MG/DL (0.60-1.30)
--- NOTE | 2017-03-11 13:35 | Diagnostic Imaging Report ---
PROCEDURE: CT abdomen and pelvis with contrast. TECHNIQUE: Multiple contiguous axial images were obtained through the abdomen and pelvis after administration of intravenous contrast. INDICATION: Abdominal pain. History of bowel resection. CONTRAST: 100 mL of Omnipaque 350 administered intravenously. COMPARISON: 12/15/2016. FINDINGS: The lung bases demonstrate minimal left basilar atelectasis. The liver is fairly homogeneous with no focal lesion seen. There is a calcified gallstone with no evidence of cholecystitis. The stone is 7 mm in size. The spleen is not enlarged. The adrenal glands and the pancreas appear unremarkable. Tiny hiatal hernia is seen. There are numerous diverticula noted in the sigmoid colon. No evidence of diverticulitis. There is no bowel obstruction. The periumbilical region demonstrates a nonopacified bowel loop adjacent to the region with no obvious hernia recurrence seen. Slight soft tissue thickening in the periumbilical region is favored to be related to scarring. This could be better evaluated with a study performed with oral contrast if needed. The kidneys have symmetric enhancement and contrast excretion. There is no hydronephrosis. The urinary bladder appears unremarkable. The uterus and adnexa appear grossly unremarkable. No significant free fluid or fluid collection in the abdomen or pelvis. Osseous structures demonstrate prominent degenerative changes and mild scoliotic curvature in the thoracolumbar spine. IMPRESSION: 1. Diverticulosis. No diverticulitis. 2. Suggestion of prior hernia repair in the periumbilical region with soft tissue thickening in the periumbilical area presumably related to scarring. Dictated by: Dictated on workstation # [id number]
== END ==
LOC: RAD 10:54
PROVIDERS: ATTEND Surgery
DX: K57.30 Diverticulosis of large intestine without perforation or abscess without bleeding (principal)
CPT/HCPCS: 36415; 74177; 82565; 84520

== ENCOUNTER → 2017-09-24 | Outpatient (CLI) | payer MEDICARE, OTHER ==
[~2017-09-24] MED LIST changes: +ACHD5005 PO; -CATHETER FLUSH 10 ML SYR IV PRN; -HYDR-3812 PO; -IOHEXOL 350 MG/ML 100 ML (OMNIPAQUE 350) VIAL IV ONE; -NS 100 ML (IVPB) BAG IV ONE
--- NOTE | 2017-09-24 18:03 | Diagnostic Imaging Report ---
INDICATION: Routine screening. COMPARISON: Prior study of 08/13/2016 and 05/28/2015. TECHNIQUE: Bilateral 3D digital tomographic views were obtained with twidoxia and reviewed on a [employer] workstation. In addition, CAD (computer-aided detection) was utilized. FINDINGS: Scattered fibroglandular densities are identified, bilaterally, primarily in the retroareolar regions. Benign calcifications are identified in the right breast. There are benign nodules in the right breast. No spiculated mass or malignant appearing microcalcifications are seen. The axillae are unremarkable. IMPRESSION: BI-RADS category 2 No mammographic features suspicious for malignancy are identified. ACR BI-RADS Category 2: Benign findings. Result letter will be mailed to the patient. Note: At least 10% of breast cancer is not imaged by mammography. Dictated by: Dictated on workstation # [id number]
== END ==
LOC: RAD 11:16
PROVIDERS: ATTEND Nurse Practitioner
DX: Z12.31 Encounter for screening mammogram for malignant neoplasm of breast (principal)
CPT/HCPCS: 77067

== ENCOUNTER → 2017-11-05 | Outpatient (RCR) | payer MEDICARE, OTHER | END | disposition home or self-care (01) | LOC: CR3 10-06 16:57 | PROVIDERS: ATTEND Internal Medicine | DX: Z29.8 Encounter for other specified prophylactic measures (principal) ==

== ENCOUNTER → 2017-12-10 | Outpatient (RCR) | payer MEDICARE, OTHER | END | disposition home or self-care (01) | LOC: CR3 11-10 15:11 | PROVIDERS: ATTEND Internal Medicine | DX: Z29.8 Encounter for other specified prophylactic measures (principal) ==

== ENCOUNTER 2017-12-24 17:02 | Outpatient (RCR) | payer MEDICARE, OTHER | END 2018-01-12 | disposition home or self-care (01) | LOC: CR3 17:02 | PROVIDERS: ATTEND Internal Medicine | DX: Z29.8 Encounter for other specified prophylactic measures (principal) ==

== ENCOUNTER 2018-03-02 14:08 | Outpatient (RCR) | payer MEDICARE, OTHER | END 2018-03-04 | disposition home or self-care (01) | LOC: CR3 14:08 | PROVIDERS: ATTEND Internal Medicine | DX: Z29.8 Encounter for other specified prophylactic measures (principal) ==

== ENCOUNTER 2018-03-28 17:00 | Outpatient (RCR) | payer MEDICARE, OTHER | END 2018-04-27 | disposition home or self-care (01) | LOC: CR3 17:00 | PROVIDERS: ATTEND Internal Medicine | DX: Z29.8 Encounter for other specified prophylactic measures (principal) ==

== ENCOUNTER → 2018-09-26 | Outpatient (CLI) | payer MEDICARE, OTHER ==
--- NOTE | 2018-09-26 12:15 | Diagnostic Imaging Report ---
INDICATION: Screening. COMPARISON: 09/24/2017, 08/03/2016, and 05/28/2015. TECHNIQUE: Bilateral CC and MLO 3D mammography was performed. The current study was also evaluated with a Computer Aided Detection (CAD) system. FINDINGS: There are scattered fibroglandular densities bilaterally. There are a few benign type calcifications. There is no dominant mass, spiculated lesion, or suspicious calcifications identified. The skin, nipples, and axillae are unremarkable. IMPRESSION: Benign findings. ACR BI-RADS Category 2: Benign findings. Result letter will be mailed to the patient. Note: At least 10% of breast cancer is not imaged by mammography. Dictated by: Dictated on workstation # [id number]
== END ==
LOC: RAD 08:40
PROVIDERS: ATTEND Nurse Practitioner
DX: Z12.31 Encounter for screening mammogram for malignant neoplasm of breast (principal)
CPT/HCPCS: 77067

== ENCOUNTER → 2019-01-31 | Outpatient (CLI) | payer MEDICARE, OTHER ==
[~2019-01-31] MED LIST changes: -D-ME118S7 PO; +HOLD METFORMIN - RECEIVED CONTRAST 20 ML VIAL IV SCH; +IOHEXOL 350 MG/ML 100 ML (OMNIPAQUE 350) VIAL IV ONE; +NS 100 ML (IVPB) BAG IV ONE; +PROM118S4 PO
--- NOTE | 2019-01-31 09:47 | Diagnostic Imaging Report ---
PROCEDURE: CT abdomen and pelvis with contrast. TECHNIQUE: Multiple contiguous axial images were obtained through the abdomen and pelvis after administration of intravenous contrast. Auto Exposure Controls were utilized during the CT exam to meet ALARA standards for radiation dose reduction. INDICATION: Abdominal hernia evaluation. Constipation. COMPARISON: 03/11/2017. FINDINGS: The heart is unremarkable. The included lung bases are clear. A small Bochdalek hernia is seen on the left. There has been interval periumbilical hernia recurrence containing fat and a loop of small bowel. No evidence of bowel obstruction or strangulation is seen. The bowel loops are nondilated. Diverticulosis is seen without evidence of acute diverticulitis. There is no free fluid or free air. There is hepatic steatosis. Too small to characterize foci of hypo-attenuation are seen scattered in the liver, similar to the prior exam. No enhancing hepatic lesions are seen. The portal vein is patent. A small gallstone is seen in the gallbladder lumen. No CT evidence of acute cholecystitis. No intra or extrahepatic biliary dilation. The spleen, pancreas, adrenal glands, and kidneys have a normal appearance. There is no pathologically enlarged mesenteric or retroperitoneal adenopathy. There is scattered calcified aortic and iliac atherosclerotic plaque without aneurysm. There is grade 1 anterolisthesis of L4 on L5 with a left-sided pars defect at L4. The ureters and bladder are grossly normal. There is no free air, loculated collection, or adenopathy in the pelvis. IMPRESSION: 1. Recurrence of a periumbilical hernia which contains fat and a loop of small bowel. No evidence of bowel obstruction or strangulation. 2. Hepatic steatosis. 3. Cholelithiasis without CT evidence of acute cholecystitis. 4. Grade 1 anterolisthesis of L4 on L5 with a left-sided pars defect at L4. Dictated by: Dictated on workstation # [id number]
== END ==
LOC: RAD 08:22
PROVIDERS: ATTEND Internal Medicine
DX: K42.9 Umbilical hernia without obstruction or gangrene (principal); K76.0 Fatty (change of) liver, not elsewhere classified; K80.20 Calculus of gallbladder without cholecystitis without obstruction; M43.16 Spondylolisthesis, lumbar region
CPT/HCPCS: 74177

== ENCOUNTER 2019-02-09 05:41 | Outpatient (CLI) | payer MEDICARE, OTHER ==
[~2019-02-09] VITALS: Ht 157.5 cm; Wt 138.3 kg
[~2019-02-09 05:41] MED LIST changes: -HOLD METFORMIN - RECEIVED CONTRAST 20 ML VIAL IV SCH; -IOHEXOL 350 MG/ML 100 ML (OMNIPAQUE 350) VIAL IV ONE; -NS 100 ML (IVPB) BAG IV ONE
[2019-02-09] MEDS ORDERED: LOSA1TAB20 PO (08:38)
[2019-02-09] MEDS ORDERED: FAMO20TA5 PO (08:38)
[2019-02-09] MEDS ORDERED: MULT-974 PO (08:44)
[2019-02-09] MEDS ORDERED: OMEG100032 PO (08:44)
[2019-02-09] MEDS ORDERED: GLUC-174 PO (08:44)
[2019-02-09] MEDS ORDERED: LORA10TA7 PO (08:44)
== END 2019-02-09 08:50 | disposition home or self-care (01) ==
LOC: PREOP 05:41
PROVIDERS: ATTEND Surgery
DX: Z01.818 Encounter for other preprocedural examination (principal)

== ENCOUNTER 2019-02-15 08:59 | Inpatient (IN) | payer MEDICARE, OTHER ==
--- NOTE | 2019-02-09 15:06 | NUR ---
MED REC WAS UPDATED IN PREOP, I COMPARED THE PRESCRIPTION MEDICATION REPORTED WITH THE EXT MED HX AND FOUND NO DISCREPANCIES. OTC MEDS REPORTED: OSTEO BI FLEX 2 DAILY MTV DAILY FISH OIL DAILY LORATADINE DAILY I DID NOT CALL AND RE-INTERVIEW THE PATIENT AT THIS TIME.
[~2019-02-15] VITALS: Ht 157 cm; Wt 139.0 kg
[2019-02-15] VITALS (11 sets, daily range): BP systolic 140–153; BP diastolic 70–87
[~2019-02-15 08:59] MED LIST changes: +FAMO20TA5 PO; +GLUC-174 PO; +LORA10TA7 PO; +LOSA1TAB20 PO; +MULT-974 PO; +OMEG100032 PO
[2019-02-15] MEDS ORDERED: BUP/EPI 0.25% 1:200,000 (MARCAINE) 10 ML VIAL IJ ONE (09:03)
[2019-02-15] MEDS: LACTATED RINGERS 1,000 ML IV PRN ×2 (09:40→11:08)
[2019-02-15] MEDS ORDERED: FAMOTIDINE 20MG/2ML IV (PEPCID) ONE (09:40)
[2019-02-15] MEDS ORDERED: ceFAZolin 2 GM/50 ML NS 50 ML ONE (09:41)
[2019-02-15] MEDS ORDERED: fentaNYL INJECTION 100 MCG/2 ML AMP ONE (09:45)
[2019-02-15] MEDS ORDERED: ONDANSETRON 4 MG/2 ML (SDV) Z0FRAN ONE ×2 (09:45→12:59)
[2019-02-15] MEDS ORDERED: DEXAMETHASONE 10 MG/ML (DECADRON) 1 ML VIAL ONE (09:45)
[2019-02-15] MEDS ORDERED: SEVOFLURANE (ULTANE) 15 ML INHAL SOLN ONE ×7 (09:45→12:16)
[2019-02-15] MEDS ORDERED: LIDOCAINE PF 2% 5 ML (XYLOCAINE) VIAL ONE (09:45)
[2019-02-15] MEDS ORDERED: MIDAZOLAM 2 MG/2 ML (VERSED) VIAL ONE (09:45)
[2019-02-15] MEDS ORDERED: proPOfol 200 MG/20 ML (DIPRIVAN) VIAL IV ONE (09:45)
[2019-02-15] MEDS ORDERED: ROCURONIUM 10 MG/ML 5 ML SYRINGE IV ONE (09:45)
[2019-02-15] MEDS ORDERED: SUCCINYLCHOLINE INJ 100 MG/5 ML SYR ONE ×2 (09:47→10:07)
[2019-02-15] MEDS ORDERED: NEOSTIGMINE 3 MG/3 ML VIAL ONE (09:52)
[2019-02-15] MEDS ORDERED: GLYCOPYRROLATE 0.2 MG/ML (ROBINUL) 2 ML VIAL ONE (09:52)
[2019-02-15 09:54] LABS: BASOPHILS % (AUTO) 0 % (0-10); EOSINOPHILS # (AUTO) 0.1 10^3/uL (0.0-0.3); EOSINOPHILS % (AUTO) 1 % (0-10); HEMATOCRIT 37 % (35-52); HEMOGLOBIN 11.9 G/DL (11.5-16.0); LYMPHOCYTES # (AUTO) 1.4 X 10^3 (1.0-4.0); LYMPHOCYTES % (AUTO) 18 % (12-44); MEAN CORPUSCULAR HEMOGLOBIN 30 PG (25-34); MEAN CORPUSCULAR HGB CONC 33 G/DL (32-36); MEAN CORPUSCULAR VOLUME 91 FL (80-99); MEAN PLATELET VOLUME 10.7 FL (7.4-10.4); MONOCYTES # (AUTO) 0.7 X 10^3 (0.0-1.0); MONOCYTES % (AUTO) 9 % (0-12); NEUTROPHILS # (AUTO) 5.6 X 10^3 (1.8-7.8); NEUTROPHILS % (AUTO) 71 % (42-75); PLATELET COUNT 257 10^3/uL (130-400); RED CELL DISTRIBUTION WIDTH 13.3 % (10.0-14.5); WHITE BLOOD COUNT 7.8 10^3/uL (4.3-11.0)
[2019-02-15] MEDS ORDERED: FAMOTIDINE 20MG/2ML IV (PEPCID) IVP ONE (10:00)
[2019-02-15] MEDS ORDERED: ceFAZolin 2 GM/50 ML NS 50 ML IV ONE (10:15)
--- NOTE | 2019-02-15 10:16 | Progress Note-Pre Operative ---
Pre-Operative Progress Note H&P Reviewed The H&P was reviewed, patient examined and no changes noted. Time Seen by Provider: 10:15 Date H&P Reviewed: Feb 15, 2019 Time H&P Reviewed: 10:14 Pre-Operative Diagnosis: Incarcerated Incisional/Ventral Hernia - recurrent ANGIE HENDRICKSON DO Feb 15, 2019 10:16
[2019-02-15] MEDS ORDERED: ASPI-586 PO (10:24)
[2019-02-15] MEDS ORDERED: ACET-2267 PO (10:24)
[2019-02-15] MEDS ORDERED: ACET325C5 PO (10:24)
[2019-02-15] MEDS ORDERED: FLUT9.9S NS (10:24)
[2019-02-15] MEDS ORDERED: LACTATED RINGERS 1,000 ML IV ONE (12:16)
--- NOTE | 2019-02-15 12:26 | Progress Note-Post Operative ---
Post-Operative Progess Note Surgeon (s)/Line Controller (s) Surgeon ANGIE HENDRICKSON DO Line Controller: Xi Pre-Operative Diagnosis Incarcerated Incisional/Ventral Hernia - recurrent Post-Operative Diagnosis same Procedure & Operative Findings Date of Procedure 02/15/19 Procedure Performed/Findings Open Ventral Herniarraphy with mesh placement, lap placement of mesh REmoval of old mesh Anesthesia Type GET Estimated Blood Loss Estimated blood loss (mL): scant Specimens/Packing Specimens Removed hernia sac and old mesh ANGIE HENDRICKSON DO Feb 15, 2019 12:26
[2019-02-15] MEDS ORDERED: morphine INJ 10 MG/ML 1ML (SYR OR VIAL) IVP PRN (12:30)
[2019-02-15] MEDS ORDERED: morphine INJ 10 MG/ML 1ML (SYR OR VIAL) ONE (12:45)
[2019-02-15] MEDS ORDERED: KETOROLAC 30 MG/ML VIAL ONE (12:59)
[2019-02-15] MEDS ORDERED: MEPERIDINE (DEMEROL) INJ 50 MG/ML IVP ONE (13:00)
[2019-02-15] MEDS ORDERED: HYDROmorphone 2 MG/ML VIAL (DILAUDID) IV ONE (13:00)
[2019-02-15] MEDS ORDERED: ONDANSETRON 4 MG/2 ML (SDV) Z0FRAN IVP PRN (13:00)
[2019-02-15] MEDS ORDERED: KETOROLAC 30 MG/ML VIAL IVP ONE (13:00)
[2019-02-15] MEDS ORDERED: morphine INJ 10 MG/ML 1ML (SYR OR VIAL) IVP ONE (13:00)
[2019-02-15] MEDS ORDERED: morphine INJ 4 MG/ML 1 ML (VIAL/SYRINGE) IV PRN (13:30)
[2019-02-15] MEDS: fentaNYL INJECTION 100 MCG/2 ML AMP IVP ONE (13:32)
--- NOTE | 2019-02-15 14:34 | Anesthesia-General Post-Op ---
General Patient Condition Mental Status/LOC: Same as Preop Cardiovascular: Satisfactory Nausea/Vomiting: Absent Respiratory: Satisfactory Pain: Controlled Complications: Absent Post Op Complications Complications None Follow Up Care/Instructions Patient Instructions None needed. Anesthesia/Patient Condition Patient Condition Patient is doing well, no complaints, stable vital signs, no apparent adverse anesthesia problems. No complications reported per nursing. YAMEL ANTONIO CRNA Feb 15, 2019 14:34
[2019-02-15] MEDS: ACETAMINOPHEN 500 MG TAB (TYLENOL) PO SCH ×2 (14:48→19:37)
[2019-02-15] MEDS: LACTATED RINGERS 1,000 ML IV SCH ×2 (14:49→22:40)
[2019-02-15] MEDS: ENOXAPARIN 60 MG/0.6 ML (LOVENOX) SYR SC SCH (15:52)
[2019-02-15 16:32] LABS: CALCIUM 9.2 MG/DL (8.5-10.1); CREATININE SERUM 1.05 MG/DL (0.60-1.30); POTASSIUM 4.2 MMOL/L (3.6-5.0)
--- NOTE | 2019-02-15 22:15 | OPERATIVE REPORT ---
DATE OF SERVICE: PREOPERATIVE DIAGNOSIS: Incarcerated incisional ventral hernia, recurrent, mesh failure. POSTOPERATIVE DIAGNOSIS: Incarcerated incisional ventral hernia, recurrent, mesh failure. PROCEDURES: 1. Laparoscopic-assisted open ventral incisional herniorrhaphy with mesh placement. 2. Removal of mesh. SURGEON: Angie Chino DO CASINO ATTENDANT: Dr. Layne. ANESTHESIA: General endotracheal tube. SPECIMEN: Hernia sac and old mesh. BLOOD LOSS: Scant. FLUIDS: Per anesthesia. POSTOPERATIVE CONDITION: Stable. INDICATION FOR PROCEDURE: The patient is a 68-year-old female who unfortunately gained about 70 pounds, this was after her last hernia repair. Prior to the first hernia repair she had lost about 80 pounds. She started having abdominal pain and noticed a bulge in her umbilicus. She had a CT performed and had found incarcerated recurrent ventral incisional hernia with intestine stuck in the opening. She was very concerned because she had similar symptoms with her first hernia repair and at that time they found bowel within the incarcerated hernia. FINDINGS: The patient had incarcerated hernia and mesh had pulled away from the opening. A picture was taken. PROCEDURE NOTE: After informed consent was obtained, the patient was brought to the operating room, placed on the table in the supine position. She was sterilely prepped and draped in normal fashion. Local lidocaine was used to infiltrate the skin in left upper quadrant, made incision with #11 blade, carried down through skin and subcutaneous tissue, deepened down to subcutaneous tissue with Bovie electrocautery down to fascia. Fascia incised with Bovie electrocautery, bluntly spread the muscle apart, went through the posterior fascia bluntly and then made an incision with Bovie electrocautery, and able to bluntly enter the abdomen, swept a finger around, placed 11 mm trocar port under direct visualization. Created pneumoperitoneum and then placed 2 more ports, one in the left lower quadrant and one in the right mid abdomen under direct visualization using local lidocaine, 11 blade for stab incision and VersaStep system, all done under direct visualization. After all ports were placed we started taking down the adhesions, took picture of these adhesions. Once the patient actually relaxed with anesthesia, most of the intestine fell out of the hernia. There were still some adhesions of the omentum stuck in the hernia and small bowel stuck on abdominal wall. This was carefully taken down with the LigaSure. Once all this was freed up, able to see the hernia defect, took a picture of this and then elected to open so that we would be able to close the hernia defect. While we opened, we removed the hernia sac as well as then cut out the old mesh with Bovie electrocautery, able to peel it away from the abdominal wall as well as used Bovie electrocautery and went through. The old mesh was completely removed. We measured the defect. The defect measured 4 cm x 4 cm. We elected to place a 15 x 20 Phasix mesh, put 2-0 Vicryl sutures on the superior and inferior portion, put the mesh into the abdominal cavity and then closed the hernia defect with a #1 double stranded PDS suture running from superior portion to inferior portion tying to itself, then recreated pneumoperitoneum. Placed the camera back in, made stab incision at 20 cm, brought the pneumoperitoneum down to only 8 mm and able to grasp the superior and inferior sutures and bring them through the abdominal wall held with hemostat, unfolded the mesh and then started tacking using 2 SecureStrap tackers to completely tack all the way around the outside of the edge and then in the middle. Mesh stayed up very nicely, took a picture of this and then closed the left upper quadrant incision with a 0 Vicryl [id number] suture using the Tyree to do the [id number] suture and the camera to watch. Once this was done, then copiously irrigated all incisions with normal saline. Closed the 2 small 5-mm incisions with patricia as well as closed the left upper quadrant incision, the midline incision with patricia. Area was cleaned and dried, pressure dressing placed as well as an abdominal binder. The patient tolerated the procedure well. Sponge, instrument and needle count correct at the end of the case. Dr. Layne assisted in this case helping to make incisions, close incisions, identify anatomy and help tacking. Job ID: [id number] DocumentID: [id number] Dictated Date: 02/15/2019 12:43:55 Radiophone Operator Date: 02/15/2019 20:54:41 Dictated By: ANGIE CHINO DO MTDPaxton
[2019-02-16] VITALS (8 sets, daily range): BP systolic 113–175; BP diastolic 70–95
[2019-02-16] MEDS: LACTATED RINGERS 1,000 ML IV SCH ×3 (05:12→20:31)
[2019-02-16] MEDS: ENOXAPARIN 60 MG/0.6 ML (LOVENOX) SYR SC SCH ×2 (05:12→16:44)
[2019-02-16] MEDS: ACETAMINOPHEN 500 MG TAB (TYLENOL) PO SCH ×3 (05:14→19:49)
--- NOTE | 2019-02-16 09:26 | Progress Note - Surgery ---
Subjective Time Seen by a Provider: 09:18 Subjective/Events-last exam Pt seen and examined, states she is getting "stopped up" and wants to restart her allergy meds. Denies flatus or BM, is getting up to urinate. Complains of some knee pain and states the abdominal incision hurts more than last time. She is also hungry and wants to get more than liquids. Review of Systems General: No Chills, No Night Sweats Pulmonary: No Dyspnea, No Cough Cardiovascular: No: Chest Pain, Palpitations Gastrointestinal: No: Nausea, Vomiting Objective Exam Vital Signs Date Time Temp Pulse Resp B/P (MAP) Pulse Ox O2 Delivery O2 Flow Rate FiO2 02/16/19 04:47 36.8 67 20 119/72 (88) 95 NIV CPAP 02/16/19 00:08 36.9 76 20 113/70 (84) 92 Room Air 02/15/19 21:00 Room Air 02/15/19 16:19 Room Air 02/15/19 16:00 Room Air 02/15/19 14:55 Room Air 02/15/19 14:15 Room Air 02/15/19 14:10 36.4 16 145/76 (99) 96 Room Air 02/15/19 14:00 16 142/74 (96) 96 02/15/19 13:50 16 140/70 (93) 100 OxyMask 3 02/15/19 13:40 Room Air 02/15/19 13:40 16 146/72 (96) 100 OxyMask 3 02/15/19 13:30 16 142/87 (105) 100 OxyMask 5 02/15/19 13:25 OxyMask 5 02/15/19 13:20 16 142/87 (105) 100 OxyMask 5 02/15/19 13:10 16 149/79 (102) 100 OxyMask 5 02/15/19 13:10 16 148/70 (96) 23 5 02/15/19 13:10 OxyMask 10 02/15/19 13:00 16 153/76 (101) 100 OxyMask 13 02/15/19 12:55 OxyMask 10 02/15/19 12:50 20 145/85 (105) 100 OxyMask 10 02/15/19 12:40 36.1 20 140/85 (103) 100 OxyMask 10 02/15/19 12:40 OxyMask 10 I & O 02/16/19 07:00 Intake Total 2320 ml Balance 2320 ml Capillary Refill : General Appearance: Anxious, Obese HEENT: PERRL/EOMI Respiratory: Chest Non Tender, Lungs Clear, Normal Breath Sounds Gastrointestinal: soft, tenderness (at midline incision), other (incision clean, dry and intact) Results Lab Laboratory Tests 02/15/19 09:43: White Blood Count 7.8, Red Blood Count 4.02L, Hemoglobin 11.9, Hematocrit 37, Mean Corpuscular Volume 91, Mean Corpuscular Hemoglobin 30, Mean Corpuscular Hemoglobin Concent 33, Red Cell Distribution Width 13.3, Platelet Count 257, Mean Platelet Volume 10.7H, Neutrophils (%) (Auto) 71, Lymphocytes (%) (Auto) 18, Monocytes (%) (Auto) 9, Eosinophils (%) (Auto) 1, Basophils (%) (Auto) 0, Neutrophils # (Auto) 5.6, Lymphocytes # (Auto) 1.4, Monocytes # (Auto) 0.7, Eosinophils # (Auto) 0.1, Basophils # (Auto) 0.0 02/15/19 16:05: Sodium Level 138, Potassium Level 4.2, Chloride Level 104, Carbon Dioxide Level 27, Anion Gap 7, Blood Urea Nitrogen 23H, Creatinine 1.05, Estimat Glomerular Filtration Rate 52, BUN/Creatinine Ratio 22, Glucose Level 134H, Calcium Level 9.2 Assessment/Plan Assessment/Plan Assessment/Plan S/P Open Ventral Hernia repair Plan is to increase diet, restart home meds, encourage ambulation and IS use. Will add oral pain med. Clinical Quality Measures DVT/VTE Risk/Contraindication: Risk Factor Score Per Nursin RFS Level Per Nursing on Admit: 4+=Very High ANGIE HENDRICKSON DO Feb 16, 2019 09:26
[2019-02-16] MEDS: HYDROcodone/APAP 10 MG/325 MG (LORTAB) TAB PO PRN ×2 (12:19→18:55)
[2019-02-16] MEDS ORDERED: ENOXAPARIN 40 MG/0.4 ML (LOVENOX) SYR SC SCH (12:30)
[2019-02-16] MEDS: LORATADINE (CLARITIN) 10 MG TAB PO SCH (19:48)
[2019-02-16] MEDS: LOSARTAN 50 MG (COZAAR) TAB PO SCH (19:48)
[2019-02-16] MEDS: HYDROCHLOROTHIAZIDE 12.5 MG (HCTZ) CAP PO SCH (19:48)
[2019-02-16] MEDS: FAMOTIDINE 20 MG (PEPCID) TABLET PO SCH (19:48)
[2019-02-17] MEDS: HYDROcodone/APAP 10 MG/325 MG (LORTAB) TAB PO PRN ×3 (03:00→21:08)
[2019-02-17] MEDS: LACTATED RINGERS 1,000 ML IV SCH ×3 (03:38→20:26)
[2019-02-17] MEDS: ACETAMINOPHEN 500 MG TAB (TYLENOL) PO SCH ×3 (03:39→21:08)
[2019-02-17 04:00] VITALS: BP 140/77
[2019-02-17] MEDS: ENOXAPARIN 60 MG/0.6 ML (LOVENOX) SYR SC SCH ×2 (05:20→17:56)
[2019-02-17] MEDS: OMEGA 3 (FISH OIL) 1000 MG CAP PO SCH (07:23)
[2019-02-17] MEDS: MULTIVIT W/MINERALS TAB (THERAGRAN M) PO SCH (07:23)
[2019-02-17 08:00] VITALS: BP 173/98
[2019-02-17] MEDS: FAMOTIDINE 20 MG (PEPCID) TABLET PO SCH ×2 (09:57→21:08)
[2019-02-17] MEDS: LOSARTAN 50 MG (COZAAR) TAB PO SCH (09:57)
[2019-02-17] MEDS: HYDROCHLOROTHIAZIDE 12.5 MG (HCTZ) CAP PO SCH (09:57)
[2019-02-17] MEDS: LORATADINE (CLARITIN) 10 MG TAB PO SCH (09:57)
--- NOTE | 2019-02-17 11:09 | Progress Note - Surgery ---
Subjective Time Seen by a Provider: 09:52 Subjective/Events-last exam Pt seen and examined, worried that she cannot move around very well and no one can help her at home. She just started on soft diet this am, no nausea or emesis. States she has not had a BM, very minimal flatus. Events of last night noted. Review of Systems General: Chills, Malaise Pulmonary: No Dyspnea, No Cough Cardiovascular: No: Chest Pain, Palpitations Gastrointestinal: Abdominal Pain (mostly at incision) Objective Exam Vital Signs Date Time Temp Pulse Resp B/P (MAP) Pulse Ox O2 Delivery O2 Flow Rate FiO2 02/17/19 08:00 37.0 86 20 173/98 (123) 97 Room Air 02/17/19 04:00 37.3 73 20 140/77 (98) 95 NIV CPAP 02/16/19 23:47 37.2 86 20 140/94 (109) 96 NIV CPAP 02/16/19 21:00 Room Air 02/16/19 20:00 37.2 94 18 175/92 (119) 96 Room Air 02/16/19 16:30 142/78 (99) 02/16/19 16:00 36.3 78 20 172/95 (120) 97 Room Air 02/16/19 12:00 37.6 70 19 148/89 (108) 97 Room Air I & O 02/17/19 07:00 Intake Total 2590 ml Balance 2590 ml Capillary Refill : General Appearance: Anxious, Obese HEENT: PERRL/EOMI Respiratory: Chest Non Tender, Lungs Clear, Normal Breath Sounds Gastrointestinal: soft, tenderness (at midline incision), other (incision clean, dry and intact) Results Lab Microbiology 02/15/19 MRSA Screen - Final, Complete MRSA not isolated Assessment/Plan Assessment/Plan Assessment/Plan S/P Open Ventral Hernia repair Plan is to increase diet, restart home meds, Pt told she must ambulate and use IS. Cont oral pain med. Will have PT/OT work with her and try and increase her strength so she can go home sometime this weekend. Clinical Quality Measures DVT/VTE Risk/Contraindication: Risk Factor Score Per Nursin RFS Level Per Nursing on Admit: 4+=Very High ANGIE HENDRICKSON DO Feb 17, 2019 11:09
[2019-02-17] MEDS ORDERED: HYDR-3820 PO (11:13)
--- NOTE | 2019-02-17 11:15 | Discharge Inst-Surgical ---
Discharge Inst-Surgical Depart Medication/Instructions New, Converted or Re-Newed RX: RX Given to Pt/Family Patient Instructions Follow up Appt: Make appointment for 1 week. [phone] Instructions: No lifting greater than 20 pounds. No strenuous activity. May shower in 24 hours, no tub bath or soaking. Use incentive spirometer at home as directed. No Smoking Skin/Wound Care: May remove bandages in am. You need to leave the Dermabond on incision it will fall off on it's own. Symptoms to Report: Appetite Changes, Extremity Discoloration, Numbness/Tingling, Swelling Increased, Bleeding Excessive, Eyesight Changes, Pain Increased, Urine Color Change, Constipation(Persistent), Fever over 101 degree F, Pain/Pressure in chest, Urinating Difficulty, Cough Up/Vomit Blood, Heart Beat Irreg/Pounding, Pain/Pressure in jaw, Cramps in feet or legs, Lightheadedness, Pain/Pressure in shoulder, Diarrhea(Persistent), Memory Changes Suddenly, Questions/Concerns, Weight gain consecutive days, Dizziness/Fainting, Nausea/Vomiting, Shortness of Breath, Weight gain over 2 pounds If questions or concerns contact your physician Or seek help at emergency department. Activity Activity as Tolerated: Yes Wear abdominal binder if it helps. Activity Instructions: Avoid Stress to Incision Driving Instructions: No Driving/Refer to Dr. Gutierrez Discharge Diet: No Restrictions Diet After 24 Hours: Clear Liquid if Nauseous If Any Problems/Questions/Issu: Contact Your Physician, Go to Emergency Room Skin/Wound Care Infection Signs and Symptoms: Increased Redness, Foul Odor of Wound, Increased Drainage, Skin Itchy or Has a Rash, Increased Swelling, Temperature Above 101 F Bathing Instructions: Shower Stitches/[place]/Dermabond Dis: Care of ANGIE Chan DO Feb 17, 2019 11:15
[2019-02-17 12:05] VITALS: BP 173/98
--- NOTE | 2019-02-17 12:49 | Physical Therapy Evaluation ---
PT Evaluation-General Medical Diagnosis Admission Date Feb 15, 2019 at 12:26 Medical Diagnosis: recurrent ventral hernia Onset Date: Feb 15, 2019 Therapy Diagnosis Therapy Diagnosis: debility Height/Weight Height (Feet): 5 Height (Inches): 2.00 Weight (Pounds): 305 Weight (Ounces): 0.0 Precautions Precautions/Isolations: Fall Prevention, Standard Precautions Referral Physician: Lulú Reason for Referral: Evaluation/Treatment Medical History Pertinent Medical History: Arthritis, HTN Additional Medical History morbid obesity Current History s/p ventral hernia repair Reviewed History: Yes Social History Home: Single Level Current Living Status: Other Family Entry Into Home: Ramp Prior/Core FIM Prior Level of Function Therapy Code Descriptions/Definitions Functional [place] Measure: 0=Not Assessed/NA 4=Minimal Assistance 1=Total Assistance 5=Supervision or Setup 2=Maximal Assistance 6=Modified [place] 3=Moderate Assistance 7=Complete [place] Therapy Quality Codes: 6 Independent with activity with or without an assistive device 5 Patient requires set up or clean up by helper. Patient completes activity by themselves 4 Supervision or touching assist (CGA). [place] provide cues , steadying assist 3 The helper provides less than half the effort to complete the activity 2 The helper provides more than half the effort to complete the activity 1 Dependent. The helper does all the effort to complete an activity 7 Patient refused to complete or attempt activity 9 The patient did not perform the activity before the current illness or injury 88 Not attempted due to Medical conditions or safety concerns Functional Abilities and Goals: Independent: Patient completed the activities by him/herself, with or without an assistive device, with no assistance from a helper. Needed Some Help: Patient needed partial assistance from another person to complete activities. Dependent: A helper completed the activities for the patient. Unknown: Not Applicable: Bed Mobility: 6 Transfers (B,C,W/C) (FIM): 6 Gait: 6 Indoor Mobility (Ambulation): Independent Stairs: Not [place] Prior Devices Use: Walker PT Evaluation-Current Subjective Patient agrees to PT. She reports she is up with nursing in hallway ambulating yesterday. Patient also states she is not ready to go home because her father is demanding and she will have to wait on him. Pain Numeric Pain Scale: 8 Location: Lower Location Body Site: Abdomen Pain Description: Acute Objective Patient Orientation: Normal For Age Problem Solving: Fair ROM/Strength ROM Lower Extremities bilateral LE WFL Strength Lower Extremities 4/5 grossly bilateral LE Integumentary/Posture Integumentary refer to nursing notes Bowel Incontinence: No Bladder Incontinence: No Posture trunk flexed posture due to pain Neuromuscular (Tone, Coordination, Reflexes) grossly intact Sensory Vision: Wears Glasses Hearing: Functional Sensation Right Lower Extremit: Intact Sensation Left Lower Extremity: Intact Transfers Therapy Code Descriptions/Definitions Functional [place] Measure: 0=Not Assessed/NA 4=Minimal Assistance 1=Total Assistance 5=Supervision or Setup 2=Maximal Assistance 6=Modified [place] 3=Moderate Assistance 7=Complete [place] Transfers (B, C, W/C) (FIM): 6 Scootin Rollin Supine to/from Sit: 6 Sit to/from Stand: 6 Gait Mode of Locomotion: Walk Anticipated Mode of Locomotion: Walk Gait (FIM): 6 Distance (FIM): 3=150 ft Distance: 250' Gait Level of Assist: 6 Gait Assistive Device: FWW Comments/Gait Description slow, steady, functional (patient has been instructed to ambulate PRN in hallway modified independent with FWW) Balance Sitting Static: Normal Sitting Dynamic: Normal Standing Static: Normal Standing Dynamic: Normal Assessment/Needs 68 y.o. female, will be seen short term by skilled PT to address functional mobility to ensure safe return to home. Rehab Potential: Fair PT Short Term Goals Short Term Goals Time Frame: Feb 21, 2019 Transfers (B,C,W/C) (FIM): 6 Gait (FIM): 6 Distance (FIM): 3=150 ft Gait Level of Assist: 6 Gait Assistive Device: FWW PT Plan Problem List Problem List: Other (self motivation) Treatment/Plan Treatment Plan: Continue Plan of Care Treatment Plan: Education, Functional Activity Delfino, Functional Strength, Gait, Safety, Therapeutic Exercise Treatment Duration: Feb 21, 2019 Frequency: 5 times per week Estimated Hrs Per Day: .25 hour per day Patient and/or Family Agrees t: Yes Time/GCodes Time In: 1140 Time Out: 1158 Total Billed Treatment Time: 18 Total Billed Treatment 1 visit EVModC 18 min ZULAY TRAN PT Feb 17, 2019 12:49
--- NOTE | 2019-02-17 14:55 | NUR ---
Pastoral care visit.
[2019-02-17 16:00] VITALS: BP 170/97
[2019-02-18] VITALS: BP 162/85
[2019-02-18] MEDS: LACTATED RINGERS 1,000 ML IV SCH ×3 (04:26→23:46)
[2019-02-18] MEDS: ACETAMINOPHEN 500 MG TAB (TYLENOL) PO SCH ×4 (04:30→21:24)
[2019-02-18] MEDS: ENOXAPARIN 60 MG/0.6 ML (LOVENOX) SYR SC SCH ×2 (05:44→17:33)
[2019-02-18] MEDS: OMEGA 3 (FISH OIL) 1000 MG CAP PO SCH (05:53)
[2019-02-18] MEDS: HYDROcodone/APAP 10 MG/325 MG (LORTAB) TAB PO PRN ×3 (05:53→21:30)
[2019-02-18] MEDS: MULTIVIT W/MINERALS TAB (THERAGRAN M) PO SCH (05:53)
--- NOTE | 2019-02-18 06:56 | Progress Note ---
Subjective Date Seen by a Provider: Feb 18, 2019 Time Seen by a Provider: 06:00 Subjective/Events-last exam doing ok. ambulating slightly better. difficult ambulation due to morbid obesity. passing flatus. tolerating diet. pain controlled. Objective Exam Vital Signs Date Time Temp Pulse Resp B/P (MAP) Pulse Ox O2 Delivery O2 Flow Rate FiO2 02/18/19 00:00 36.6 87 16 162/85 (110) 97 Room Air 02/17/19 21:00 Room Air 02/17/19 16:00 37.4 95 18 170/97 (121) 93 Room Air 02/17/19 12:05 37.0 86 20 173/98 97 Room Air 3.00 02/17/19 09:00 Room Air 02/17/19 08:00 37.0 86 20 173/98 (123) 97 Room Air I & O 02/18/19 07:00 Intake Total 2268 ml Balance 2268 ml Capillary Refill : General Appearance: No Apparent Distress HEENT: PERRL/EOMI Neck: Full Range of Motion Respiratory: Decreased Breath Sounds Cardiovascular: Regular Rate, Rhythm Gastrointestinal: normal bowel sounds, soft, other (wound clean/dry) Extremity: Normal Capillary Refill Neurologic/Psychiatric: Alert, Oriented x3 Skin: Normal Color Lymphatic: No Adenopathy Results Lab Microbiology 02/15/19 MRSA Screen - Final, Complete MRSA not isolated Assessment/Plan Assessment/Plan Assess & Plan/Chief Complaint s/p repair recurrent ventral abd inc hernia with mesh. increase ambulation. OOB to chair. miralax for constipation. Clinical Quality Measures DVT/VTE Risk/Contraindication: Risk Factor Score Per Nursin RFS Level Per Nursing on Admit: 4+=Very High MARIA D THRASHER MD Feb 18, 2019 06:56
[2019-02-18 08:00] VITALS: BP 156/92
[2019-02-18] MEDS: LOSARTAN 50 MG (COZAAR) TAB PO SCH (08:20)
[2019-02-18] MEDS: FAMOTIDINE 20 MG (PEPCID) TABLET PO SCH ×2 (08:20→21:21)
[2019-02-18] MEDS: LORATADINE (CLARITIN) 10 MG TAB PO SCH (08:21)
[2019-02-18] MEDS: HYDROCHLOROTHIAZIDE 12.5 MG (HCTZ) CAP PO SCH (08:21)
[2019-02-18] MEDS: POLYETHYLENE GLYCOL 17 GM (MIRALAX) PACK PO PRN ×2 (08:22→21:22)
--- NOTE | 2019-02-18 09:31 | Consultation-Cardiology ---
HPI-Cardiology Cardiology Consultation Date of Consultation 02/18/19 Date of Admission Time Seen by Provider: 06:00 Indication: Chest pain HPI 68-year-old lady with history of hypertension, family history of heart disease, underwent ventral hernia surgery, 2 days ago had an episode of chest pain described it as dull in nature in the left side radiating to the neck. No shortness of breath. No syncope or near syncopal episodes. No claudications Home Medications & Allergies Allergies: Coded Allergies: latex (Verified Allergy, Unknown, 02/15/19) Home Medication List Reviewed: Yes KPA-[id number]-Kdypow Hx Patient Social History Marital Status: Alcohol Use: Denies Use Recreational Drug Use: No Smoking Status: Never a Smoker 2nd Hand Smoke Exposure: No Recent Foreign Travel: No Recent Infectious Disease Expo: No Recent Hopitalizations: No Immunizations Up To Date Tetanus Booster (TDap): Unknown Date of Influenza Vaccine: Feb 28, 2018 Past Medical History Discussed below Family Medical History Significant Family History: Heart Disease, Cancer, Hypertension Family History: Arthritis 19 FATHER 19 MOTHER G8 SISTER Cardiovascular disease 19 FATHER Neoplasm 19 MOTHER Review of Systems-General Review of Systems Constitutional: no symptoms reported, see HPI EENTM: see HPI, no symptoms reported Respiratory: no symptoms reported, see HPI Cardiovascular: see HPI, chest pain; No edema, No Hx of Intervention, No palpitations, No syncope, No vascular heart diseas, No other Gastrointestinal: see HPI, abdominal pain Genitourinary: no symptoms reported, see HPI Musculoskeletal: no symptoms reported, see HPI Skin: no symptoms reported, see HPI Psychiatric/Neurological: No Symptoms Reported, See HPI Physical Exam Physical Exam Vital Signs Vital Signs - First Documented 02/15/19 09:15 Temp 37.1 Pulse 85 Resp 18 B/P (MAP) 152/82 (105) Pulse Ox 94 O2 Delivery Room Air Capillary Refill : Height, Weight, BMI Height: 5'2.00" Weight: 305lbs. 0.0oz. [id number]; 56.39 BMI Method:Stated General Appearance: No Apparent Distress Eyes: Bilateral Eye Normal Inspection, Bilateral Eye PERRL, Bilateral Eye EOMI HEENT: PERRL/EOMI Neck: Full Range of Motion Respiratory: Decreased Breath Sounds Cardiovascular: Regular Rate, Rhythm, Normal Peripheral Pulses, Systolic Murmur Gastrointestinal: Normal Bowel Sounds, No Organomegaly, No Pulsatile Mass, Non Tender, Soft Back: Normal Inspection, No CVA Tenderness, No Vertebral Tenderness Extremity: Normal Capillary Refill Neurologic/Psychiatric: Alert, Oriented x3 Skin: Normal Color Lymphatic: No Adenopathy A/P-Cardiology Admission Diagnosis Chest pain Palpitation Hypertension Ventral hernia repair Assessment/Plan Chest pain nonspecific etiology, atypical in presentation, EKG did not show any acute abnormality, currently chest pain-free. Continue to monitor, will need for stress test as an outpatient Hypertension, poor control, add low-dose beta blockers and monitor tolerance and response Palpitation, feeling irregular heartbeat, adding low-dose beta blockers, monitor tolerance and response Status post ventral hernia repair surgery done in February [address] Chino. Managed by surgical team. Clinical Quality Measures DVT/VTE Risk/Contraindication: Risk Factor Score Per Nursin RFS Level Per Nursing on Admit: 4+=Very High EDWARD SWENSON MD Feb 18, 2019 09:31
--- NOTE | 2019-02-18 10:07 | Physical Therapy Daily Note ---
PT Daily Note-Current Subjective Patient reports she has been up in hallway ambulating. Mental Status Patient Orientation: Normal For Age Transfers Therapy Code Descriptions/Definitions Functional [place] Measure: 0=Not Assessed/NA 4=Minimal Assistance 1=Total Assistance 5=Supervision or Setup 2=Maximal Assistance 6=Modified [place] 3=Moderate Assistance 7=Complete [place] Therapy Quality Codes: 6 Independent with activity with or without an assistive device 5 Patient requires set up or clean up by helper. Patient completes activity by themselves 4 Supervision or touching assist (CGA). [place] provide cues , steadying assist 3 The helper provides less than half the effort to complete the activity 2 The helper provides more than half the effort to complete the activity 1 Dependent. The helper does all the effort to complete an activity 7 Patient refused to complete or attempt activity 9 The patient did not perform the activity before the current illness or injury 88 Not attempted due to Medical conditions or safety concerns Transfers (B, C, W/C) (FIM): 6 Scootin Sit to/from Stand: 6 Gait Training Gait (FIM): 6 Distance (FIM): 3=150 ft Distance: 250' Gait Level of Assist: 6 Gait Assistive Device: FWW very slow, functional gait sequence Assessment Current Status: Excellent Progress PT Short Term Goals Short Term Goals Time Frame: Feb 21, 2019 Transfers (B,C,W/C) (FIM): 6 Gait (FIM): 6 Distance (FIM): 3=150 ft Gait Level of Assist: 6 Gait Assistive Device: FWW PT Plan Treatment/Plan Treatment Plan: Continue Plan of Care Treatment Plan: Education, Functional Activity Delfino, Functional Strength, Gait, Safety, Therapeutic Exercise Treatment Duration: Feb 21, 2019 Frequency: 5 times per week Estimated Hrs Per Day: .25 hour per day Patient and/or Family Agrees t: Yes Time/GCodes Time In: 920 Time Out: 934 Total Billed Treatment Time: 14 Total Billed Treatment 1 visit FA 14 min ZULAY TRAN PT Feb 18, 2019 10:07
--- NOTE | 2019-02-18 14:09 | NUR ---
REPORT GIVEN TO PRADEEP REN
--- NOTE | 2019-02-18 14:10 | NUR ---
Report received from Aury FERNÁNDEZ. Patient sitting in chair in room, call light within reach. Will assume care of patient at this time.
[2019-02-18 16:00] VITALS: BP 154/87
[2019-02-19 00:33] VITALS: BP 170/91
[2019-02-19] MEDS: ACETAMINOPHEN 500 MG TAB (TYLENOL) PO SCH ×2 (05:28→13:19)
[2019-02-19] MEDS: OMEGA 3 (FISH OIL) 1000 MG CAP PO SCH (06:06)
[2019-02-19] MEDS: HYDROcodone/APAP 10 MG/325 MG (LORTAB) TAB PO PRN ×2 (06:06→14:46)
[2019-02-19] MEDS: MULTIVIT W/MINERALS TAB (THERAGRAN M) PO SCH (06:06)
[2019-02-19] MEDS: ENOXAPARIN 60 MG/0.6 ML (LOVENOX) SYR SC SCH (06:06)
[2019-02-19] MEDS: LACTATED RINGERS 1,000 ML IV SCH (06:07)
[2019-02-19 08:00] VITALS: BP 130/78
[2019-02-19] MEDS: LORATADINE (CLARITIN) 10 MG TAB PO SCH (09:58)
[2019-02-19] MEDS: HYDROCHLOROTHIAZIDE 12.5 MG (HCTZ) CAP PO SCH (09:59)
[2019-02-19] MEDS: LOSARTAN 50 MG (COZAAR) TAB PO SCH (09:59)
[2019-02-19] MEDS: FAMOTIDINE 20 MG (PEPCID) TABLET PO SCH (09:59)
--- NOTE | 2019-02-19 10:20 | Cardiology Progress Note ---
Subjective Date Seen by Provider: Feb 19, 2019 Time Seen by Provider: 10:19 Subjective/Events-last exam Patient is sitting in a chair, feeling better. No new complaint. Denied any chest pain or shortness of breath. No palpitation Review of Systems General: No Chills, No Night Sweats, No Fatigue, No Malaise, No Appetite, No Other HEENT: No Head Aches, No Visual Changes, No Eye Pain, No Ear Pain, No Dysphasia, No Sinus Congestion, No Post Nasal Drip, No Sore Throat, No Other Pulmonary: No Dyspnea, No Cough, No Pleuritic Chest Pain, No Other Cardiovascular: No: Chest Pain, Palpitations, Orthopnea, Paroxysmal Noc. Dyspnea, Edema, Lt Headedness, Other Objective-Cardiology Exam Last Set of Vital Signs Vital Signs 02/17/19 02/19/19 02/19/19 12:05 08:00 08:04 Temp 36.5 Pulse 81 Resp 18 B/P (MAP) 130/78 (95) Pulse Ox 97 O2 Delivery Room Air O2 Flow Rate 3.00 Capillary Refill : I&O Intake and Output 02/19/19 00:00 Intake Total 2310 ml Balance 2310 ml Intake Oral 2310 ml # Voids 5 General: Alert, Oriented X3, Cooperative HEENT: Atraumatic, PERRLA Neck: Supple, No JVD, No Thyromegaly Lungs: Clear to Auscultation, Normal Air Movement Heart: Regular Rate, Normal S1, Normal S2, No Murmurs Abdomen: Normal Bowel Sounds, Soft, No Tenderness, No Hepatosplenomegaly, No Masses Extremities: No Clubbing, No Cyanosis, No Edema, Normal Pulses, No Tenderness/Swelling Skin: No Rashes, No Breakdown, No Significant Lesion Neuro: Normal Gait, Normal Speech, Strength at 5/5 X4 Ext, Normal Tone, Sens ation Intact Psych/Mental Status: Mental Status NL, Mood NL A/P-Cardiology Admission Diagnosis Chest pain Palpitation Hypertension Ventral hernia repair Assessment/Plan Chest pain nonspecific etiology, atypical in presentation, EKG did not show any acute abnormality, currently chest pain-free. Continue to monitor, will need for stress test as an outpatient Hypertension, better control at this time. Continue to monitor blood pressure, continue on current medication Palpitation, feeling irregular heartbeat, adding low-dose beta blockers, monitor tolerance and response Status post ventral hernia repair surgery done in February [address] Chino. Managed by surgical team. Clinical Quality Measures DVT/VTE Risk/Contraindication: Risk Factor Score Per Nursin RFS Level Per Nursing on Admit: 4+=Very High EDWARD SWENSON MD Feb 19, 2019 10:20
--- NOTE | 2019-02-19 11:18 | Progress Note ---
Subjective Date Seen by a Provider: Feb 19, 2019 Time Seen by a Provider: 10:30 Subjective/Events-last exam Patient seen with Dr. Beth. Patient reports doing ok. Still complains of episodes of abdominal pain. No N/V. Tolerating diet. Passing gas but no BM yet. No fever/chills. Ambulating. Objective Exam Vital Signs Date Time Temp Pulse Resp B/P (MAP) Pulse Ox O2 Delivery O2 Flow Rate FiO2 02/19/19 08:04 Room Air 02/19/19 08:00 36.5 81 18 130/78 (95) 97 Room Air 02/19/19 00:33 36.0 75 20 170/91 (117) 95 Room Air 02/18/19 19:50 Room Air 02/18/19 16:00 36.9 74 18 154/87 (109) 95 Room Air I & O 02/19/19 07:00 Intake Total 2310 ml Balance 2310 ml Capillary Refill : General Appearance: No Apparent Distress, WD/WN, Obese Neck: Normal Inspection, Supple Respiratory: Normal Breath Sounds, No Accessory Muscle Use, No Respiratory Distress Cardiovascular: Regular Rate, Rhythm, No Edema Gastrointestinal: normal bowel sounds, soft, tenderness Extremity: Normal Capillary Refill, Normal Inspection, Normal Range of Motion Neurologic/Psychiatric: Alert, Oriented x3 Skin: Normal Color, Warm/Dry, Other (Incisions C/D/I) Results Lab Microbiology 02/15/19 MRSA Screen - Final, Complete MRSA not isolated Assessment/Plan Assessment/Plan Assess & Plan/Chief Complaint s/p repair recurrent ventral abd inc hernia with mesh. increase ambulation. OOB to chair. Continue miralax for constipation. Advance to regular diet. May DC home and to continue miralax and stool softners. Clinical Quality Measures DVT/VTE Risk/Contraindication: Risk Factor Score Per Nursin RFS Level Per Nursing on Admit: 4+=Very High BREN AHUMADA PLASTIC SEWER Feb 19, 2019 11:18
== END 2019-02-19 16:00 | disposition home or self-care (01) | DRG 354 ==
LOC: SDC 08:59 → 4TH 12:26 → UNDODISIN 02-17 12:05
PROVIDERS: ADMIT Surgery; ATTEND Surgery
PROC: 0WPF0JZ Removal of Synthetic Substitute from Abdominal Wall, Open Approach (ICD-10-PCS; 2019-02-15)
PROC: 0WUF0JZ Supplement Abdominal Wall with Synthetic Substitute, Open Approach (ICD-10-PCS; principal; 2019-02-15 10:24)
DX: K43.0 Incisional hernia with obstruction, without gangrene (principal); E66.01 Morbid (severe) obesity due to excess calories; Z68.43 Body mass index [BMI] 50.0-59.9, adult; I10 Essential (primary) hypertension; K59.00 Constipation, unspecified; R07.89 Other chest pain
CPT/HCPCS: 36415; 80048; 85025; 87081; 88302; 94664

== ENCOUNTER → 2020-10-16 | Outpatient (CLI) | payer MEDICARE, OTHER ==
[~2020-10-16] MED LIST changes: +ACET-2267 PO; +ACET325C7 PO; +ACHYD1T PO; +ASPI-586 PO; +FLUT9.9S NS; -PROM118S4 PO; +PROM118S5 PO
== END ==
LOC: WOUNDCARE 14:08
PROVIDERS: ATTEND Surgery
DX: I89.0 Lymphedema, not elsewhere classified (principal); I87.332 Chronic venous hypertension (idiopathic) with ulcer and inflammation of left lower extremity; L97.222 Non-pressure chronic ulcer of left calf with fat layer exposed; I70.242 Atherosclerosis of native arteries of left leg with ulceration of calf; E66.01 Morbid (severe) obesity due to excess calories; R73.09 Other abnormal glucose; Z68.44 Body mass index [BMI] 60.0-69.9, adult
CPT/HCPCS: 99214

== ENCOUNTER → 2020-10-16 | Outpatient (CLI) | payer MEDICARE, OTHER ==
[2020-10-16 16:38] LABS: POTASSIUM 4.3 MMOL/L (3.6-5.0)
[2020-10-16 16:39] LABS: CALCIUM 10.2 MG/DL (8.5-10.1)
[2020-10-16 16:40] LABS: BASOPHILS # (AUTO) 0.1 10^3/uL (0.0-0.1); BASOPHILS % (AUTO) 1 % (0-10); EOSINOPHILS # (AUTO) 0.1 10^3/uL (0.0-0.3); EOSINOPHILS % (AUTO) 1 % (0-10); HEMATOCRIT 37 % (35-52); HEMOGLOBIN 11.8 g/dL (11.5-16.0); LYMPHOCYTES % (AUTO) 20 % (12-44); MEAN CORPUSCULAR HEMOGLOBIN 30 pg (25-34); MEAN CORPUSCULAR HGB CONC 32 g/dL (32-36); MEAN CORPUSCULAR VOLUME 94 fL (80-99); MEAN PLATELET VOLUME 10.7 fL (9.0-12.2); MONOCYTES # (AUTO) 0.8 10^3/uL (0.0-1.0); MONOCYTES % (AUTO) 8 % (0-12); NEUTROPHILS # (AUTO) 6.8 10^3/uL (1.8-7.8); NEUTROPHILS % (AUTO) 70 % (42-75); PLATELET COUNT 275 10^3/uL (130-400); TOTAL PROTEIN 8.4 GM/DL (6.4-8.2); WHITE BLOOD COUNT 9.8 10^3/uL (4.3-11.0)
[2020-10-16 16:42] LABS: BILIRUBIN,TOTAL 0.3 MG/DL (0.1-1.0)
[2020-10-16 16:44] LABS: CREATININE SERUM 0.95 MG/DL (0.60-1.30)
== END ==
LOC: LAB 15:53
PROVIDERS: ATTEND Surgery
DX: L97.222 Non-pressure chronic ulcer of left calf with fat layer exposed (principal); R73.09 Other abnormal glucose
CPT/HCPCS: 36415; 80053; 83036; 85025

== ENCOUNTER → 2020-10-24 | Outpatient (CLI) | payer MEDICARE, OTHER | LOC: WOUNDCARE 14:31 | PROVIDERS: ATTEND Surgery | DX: I89.0 Lymphedema, not elsewhere classified (principal); E66.01 Morbid (severe) obesity due to excess calories; I87.332 Chronic venous hypertension (idiopathic) with ulcer and inflammation of left lower extremity; L97.222 Non-pressure chronic ulcer of left calf with fat layer exposed; I96 Gangrene, not elsewhere classified | CPT/HCPCS: 99213 ==

== ENCOUNTER → 2020-11-08 | Outpatient (CLI) | payer MEDICARE, OTHER | LOC: WOUNDCARE 13:03 | PROVIDERS: ATTEND Orthopaedic Surgery Hand Surgery | DX: I89.0 Lymphedema, not elsewhere classified (principal); E66.01 Morbid (severe) obesity due to excess calories; I87.332 Chronic venous hypertension (idiopathic) with ulcer and inflammation of left lower extremity; L97.222 Non-pressure chronic ulcer of left calf with fat layer exposed; I96 Gangrene, not elsewhere classified | CPT/HCPCS: 11042; 97597; G0463 ==

== ENCOUNTER → 2020-11-14 | Outpatient (CLI) | payer MEDICARE, OTHER | LOC: WOUNDCARE 12:53 | PROVIDERS: ATTEND Surgery | DX: I89.0 Lymphedema, not elsewhere classified (principal); E66.01 Morbid (severe) obesity due to excess calories; I87.332 Chronic venous hypertension (idiopathic) with ulcer and inflammation of left lower extremity; L97.222 Non-pressure chronic ulcer of left calf with fat layer exposed; I70.242 Atherosclerosis of native arteries of left leg with ulceration of calf; I96 Gangrene, not elsewhere classified | CPT/HCPCS: 99213 ==

== ENCOUNTER → 2020-11-21 | Outpatient (CLI) | payer MEDICARE, OTHER | LOC: WOUNDCARE 14:42 | PROVIDERS: ATTEND Surgery | DX: I89.0 Lymphedema, not elsewhere classified (principal); I96 Gangrene, not elsewhere classified; I87.331 Chronic venous hypertension (idiopathic) with ulcer and inflammation of right lower extremity; L97.222 Non-pressure chronic ulcer of left calf with fat layer exposed; I70.242 Atherosclerosis of native arteries of left leg with ulceration of calf; E66.01 Morbid (severe) obesity due to excess calories; Z68.44 Body mass index [BMI] 60.0-69.9, adult | CPT/HCPCS: 99213 ==

== ENCOUNTER → 2020-12-05 | Outpatient (CLI) | payer MEDICARE, OTHER | LOC: WOUNDCARE 14:36 | PROVIDERS: ATTEND Surgery | DX: I89.0 Lymphedema, not elsewhere classified (principal); E66.01 Morbid (severe) obesity due to excess calories; I87.332 Chronic venous hypertension (idiopathic) with ulcer and inflammation of left lower extremity; L97.222 Non-pressure chronic ulcer of left calf with fat layer exposed; I70.242 Atherosclerosis of native arteries of left leg with ulceration of calf; I96 Gangrene, not elsewhere classified | CPT/HCPCS: 99213 ==

== ENCOUNTER → 2020-12-13 | Outpatient (CLI) | payer MEDICARE, OTHER | LOC: WOUNDCARE 10:05 | PROVIDERS: ATTEND Surgery | DX: I89.0 Lymphedema, not elsewhere classified (principal); E66.01 Morbid (severe) obesity due to excess calories; I87.332 Chronic venous hypertension (idiopathic) with ulcer and inflammation of left lower extremity; L97.222 Non-pressure chronic ulcer of left calf with fat layer exposed; I70.242 Atherosclerosis of native arteries of left leg with ulceration of calf; I96 Gangrene, not elsewhere classified | CPT/HCPCS: 99213 ==

== ENCOUNTER → 2020-12-19 | Outpatient (CLI) | payer MEDICARE, OTHER | LOC: WOUNDCARE 14:31 | PROVIDERS: ATTEND Surgery | DX: I89.0 Lymphedema, not elsewhere classified (principal); L97.222 Non-pressure chronic ulcer of left calf with fat layer exposed; I87.332 Chronic venous hypertension (idiopathic) with ulcer and inflammation of left lower extremity; I70.242 Atherosclerosis of native arteries of left leg with ulceration of calf; E66.01 Morbid (severe) obesity due to excess calories; Z68.44 Body mass index [BMI] 60.0-69.9, adult | CPT/HCPCS: 11042; A6197; G0463 ==

== ENCOUNTER → 2020-12-26 | Outpatient (CLI) | payer MEDICARE, OTHER | LOC: WOUNDCARE 14:37 | PROVIDERS: ATTEND Surgery | DX: I89.0 Lymphedema, not elsewhere classified (principal); E66.01 Morbid (severe) obesity due to excess calories; I87.332 Chronic venous hypertension (idiopathic) with ulcer and inflammation of left lower extremity; L97.222 Non-pressure chronic ulcer of left calf with fat layer exposed; I96 Gangrene, not elsewhere classified | CPT/HCPCS: 11042; G0463 ==

== ENCOUNTER → 2021-01-03 | Outpatient (CLI) | payer MEDICARE, OTHER | LOC: WOUNDCARE 13:43 | PROVIDERS: ATTEND Orthopaedic Surgery Hand Surgery | DX: I89.0 Lymphedema, not elsewhere classified (principal); E66.01 Morbid (severe) obesity due to excess calories; I87.332 Chronic venous hypertension (idiopathic) with ulcer and inflammation of left lower extremity; L97.222 Non-pressure chronic ulcer of left calf with fat layer exposed; I96 Gangrene, not elsewhere classified | CPT/HCPCS: 11042; G0463 ==

== ENCOUNTER → 2021-01-16 | Outpatient (CLI) | payer MEDICARE, OTHER | LOC: WOUNDCARE 13:32 | PROVIDERS: ATTEND Surgery | DX: I89.0 Lymphedema, not elsewhere classified (principal); I87.332 Chronic venous hypertension (idiopathic) with ulcer and inflammation of left lower extremity; E66.01 Morbid (severe) obesity due to excess calories; L97.222 Non-pressure chronic ulcer of left calf with fat layer exposed; Z68.44 Body mass index [BMI] 60.0-69.9, adult | CPT/HCPCS: 99212 ==

== ENCOUNTER 2021-01-31 14:26 | Outpatient (RCR) | payer MEDICARE, OTHER | END 2021-02-07 10:15 | disposition home or self-care (01) | PROVIDERS: ATTEND Family Medicine | DX: I89.0 Lymphedema, not elsewhere classified (principal); R53.1 Weakness; I10 Essential (primary) hypertension; E66.01 Morbid (severe) obesity due to excess calories; I87.332 Chronic venous hypertension (idiopathic) with ulcer and inflammation of left lower extremity; L97.222 Non-pressure chronic ulcer of left calf with fat layer exposed; I70.242 Atherosclerosis of native arteries of left leg with ulceration of calf ==

== ENCOUNTER 2021-02-05 14:23 | Emergency (ER) | payer MEDICARE, OTHER ==
[~2021-02-05] VITALS: Ht 157.5 cm; Wt 145.0 kg
--- NOTE | 2021-02-05 14:43 | ED Abdominal Pain ---
General Stated Complaint: ABD PAIN,HERNIA Source of Information: Patient Exam Limitations: No Limitations History of Present Illness Date Seen by Provider: Feb 05, 2021 Time Seen by Provider: 14:40 Initial Comments To ER with right-sided periumbilical abdominal pain associated with a bulge at that location. History of strangulated ventral hernia. No vomiting. Pain is rated at 6 out of 10. States that she has been passing flatus today. History of ventral hernia surgical repair with [place] [address] Hendrickson. Timing/Duration: 1-2 Days Severity/Quality: Moderate Location: Generalized Abdomen Radiation: No Radiation Activities at Onset: None Associated Symptoms: Denies Symptoms Allergies and Home Medications Allergies Coded Allergies: latex (Verified Allergy, Unknown, 02/15/19) Patient Home Medication List Home Medication List Reviewed: Yes Acetaminophen (Tylenol) 325 Mg Capsule, 650 MG PO PRN, (Reported) Entered as Reported by: JAYDON OLVERA on 02/15/19 1024 Acetaminophen (Tylenol Extra Strength) 500 Mg Tablet, 500 MG PO PRN, (Reported) Entered as Reported by: JAYDON OLVERA on 02/15/19 1024 Aspirin (Aspir 81) 81 Mg Tablet.dr, 324 MG PO DAILY, (Reported) Entered as Reported by: JAYDON OLVERA on 02/15/19 1024 Famotidine (Famotidine) 20 Mg Tablet, 20 MG PO BID, (Reported) Entered as Reported by: ADAM MURILLO on 02/09/19 0838 Fluticasone Propionate (Flonase Allergy Relief) 9.9 Ml Center Sandwich.susp, 2 SPRAY NS DAILY, (Reported) Entered as Reported by: JAYDON OLVERA on 02/15/19 1024 Gluc/Brian-MSM#1/C/Luis/Dmitry/Bor (Osteo Bi-Flex Caplet) 1 Each Tablet, 1 TAB PO BID, (Reported) Entered as Reported by: ADAM MURILLO on 02/09/19 0844 Hydrocodone Bit/Acetaminophen (HYDROcodone/APAP 10/325 TABLET) 1 Each Tablet, 1 EA PO Q6HR PRN for PAIN-MODERATE Prescribed by: ANGIE HENDRICKSON on 02/17/19 1113 Loratadine (Loratadine) 10 Mg Tablet, 10 MG PO DAILY, (Reported) Entered as Reported by: ADAM MURILLO on 9/12/19 0844 Losartan/Hydrochlorothiazide (Losartan-Hctz 50-12.5 mg Tab) 1 Each Tablet, 1 TAB PO DAILY, (Reported) Entered as Reported by: ADAM MURILLO on 02/09/19837 Multivitamin (Multi-Vitamin Daily) 1 Each Tablet, 1 TAB PO DAILY, (Reported) Entered as Reported by: ADAM MURILLO on 02/09/19843 Parkman-3/Dha/Epa/Fish Oil (Fish Oil 1,000 mg Softgel) 1,000 Mg Capsule, 1,000 MG PO DAILY, (Reported) Entered as Reported by: ADAM MURILLO on 02/09/19843 Review of Systems Review of Systems Constitutional: see HPI EENTM: No Symptoms Reported Respiratory: No Symptoms Reported Cardiovascular: No Symptoms Reported Gastrointestinal: See HPI, Abdominal Pain; Denies Constipated, Denies Diarrhea, Denies Nausea Genitourinary: No Symptoms Reported Musculoskeletal: no symptoms reported Skin: no symptoms reported Psychiatric/Neurological: No Symptoms Reported Endocrine: No Symptoms Reported Hematologic/Lymphatic: No Symptoms Reported Past Uukgafm-Iictfu-Rnsgek Hx Immunizations Up To Date Tetanus Booster (TDap): Unknown Seasonal Allergies Seasonal Allergies: No Past Medical History Surgeries: Yes (D&C, hernia sx) Bowel Surgery, Orthopedic Respiratory: Yes Sleep Apnea Currently Using CPAP: Yes Cardiac: Yes Chronic Edema/Swelling, Hypertension Neurological: No Reproductive Disorders: No 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 History: 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 Sexually Transmitted Disease: No Genitourinary: No Gastrointestinal: Yes (DIVERTICULITIS) Abdominal Hernia, Obstructive Bowel, Diverticulosis Musculoskeletal: Yes (ARTHRITIS IN KNEES) Arthritis Endocrine: No HEENT: No Cancer: No Psychosocial: No Integumentary: No Blood Disorders: Yes (DVT'S) Family Medical History Arthritis 19 FATHER 19 MOTHER G8 SISTER Cardiovascular disease 19 FATHER Neoplasm 19 MOTHER Heart Disease, Cancer, Hypertension Physical Exam Vital Signs Vital Signs - First Documented 02/05/21 14:30 Temp 36.2 Pulse 90 Resp 20 B/P (MAP) 164/84 (110) Capillary Refill : Height/Weight/BMI Height: 5'2.00" Weight: 305lbs. 0.0oz. 138.564569wj; 56.39 BMI Method:Stated General Appearance: WD/WN, no apparent distress, obese Neck: non-tender, full range of motion Respiratory: no respiratory distress, no accessory muscle use Gastrointestinal: normal bowel sounds, soft, tenderness Extremities: normal range of motion, non-tender Neurologic/Psychiatric: alert, normal mood/affect, oriented x 3 Skin: normal color, warm/dry Progress/Results/Core Measures Results/Orders Lab Results Laboratory Tests Test 02/05/21 14:50 02/05/21 15:20 Range/Units White Blood Count 8.1 4.3-11.0 10^3/uL Red Blood Count 3.90 3.80-5.11 10^6/uL Hemoglobin 12.0 11.5-16.0 g/dL Hematocrit 37 35-52 % Mean Corpuscular Volume 94 80-99 fL Mean Corpuscular Hemoglobin 31 25-34 pg Mean Corpuscular Hemoglobin Concent 33 32-36 g/dL Red Cell Distribution Width 13.5 10.0-14.5 % Platelet Count 280 130-400 10^3/uL Mean Platelet Volume 10.0 9.0-12.2 fL Immature Granulocyte % (Auto) 0 % Neutrophils (%) (Auto) 71 42-75 % Lymphocytes (%) (Auto) 21 12-44 % Monocytes (%) (Auto) 7 0-12 % Eosinophils (%) (Auto) 1 0-10 % Basophils (%) (Auto) 1 0-10 % Neutrophils # (Auto) 5.7 1.8-7.8 X 10^3 Lymphocytes # (Auto) 1.7 1.0-4.0 X 10^3 Monocytes # (Auto) 0.6 0.0-1.0 X 10^3 Eosinophils # (Auto) 0.1 0.0-0.3 10^3/uL Basophils # (Auto) 0.1 0.0-0.1 10^3/uL Immature Granulocyte # (Auto) 0.0 0.0-0.1 10^3/uL Sodium Level 138 135-145 MMOL/L Potassium Level 4.3 3.6-5.0 MMOL/L Chloride Level 103 98-107 MMOL/L Carbon Dioxide Level 24 21-32 MMOL/L Anion Gap 11 5-14 MMOL/L Blood Urea Nitrogen 23 H 7-18 MG/DL Creatinine 1.00 0.60-1.30 MG/DL Estimat Glomerular Filtration Rate 55 BUN/Creatinine Ratio 23 Glucose Level 123 H 70-105 MG/DL Calcium Level 9.8 8.5-10.1 MG/DL Corrected Calcium 9.7 8.5-10.1 MG/DL Total Bilirubin 0.6 0.1-1.0 MG/DL Aspartate Amino Transf (AST/SGOT) 18 5-34 U/L Alanine Aminotransferase (ALT/SGPT) 17 0-55 U/L Alkaline Phosphatase 92 40-136 U/L Total Protein 8.4 H 6.4-8.2 GM/DL Albumin 4.1 3.2-4.5 GM/DL Urine Color YELLOW Urine Clarity CLEAR Urine pH 6.5 5-9 Urine Specific [place] 1.020 1.016-1.022 Urine Protein NEGATIVE NEGATIVE Urine Glucose (UA) NEGATIVE NEGATIVE Urine Ketones NEGATIVE NEGATIVE Urine Nitrite NEGATIVE NEGATIVE Urine Bilirubin NEGATIVE NEGATIVE Urine Urobilinogen 0.2 < = 1.0 MG/DL Urine Leukocyte Esterase 1+ H NEGATIVE Urine RBC (Auto) 1+ H NEGATIVE Urine RBC 2-5 H /HPF Urine WBC 5-10 H /HPF Urine Squamous Epithelial Cells 10-25 H /HPF Urine Crystals NONE /LPF Urine Bacteria MODERATE H /HPF Urine Casts NONE /LPF Urine Mucus NEGATIVE /LPF Urine Culture Indicated YES My Orders Orders - SOLA EATON APRN Cbc With Automated Diff (02/05/21 14:31) Comprehensive Metabolic Panel (02/05/21 14:31) Ua Culture If Indicated (02/05/21 14:31) Ed Iv/Invasive Line Start (02/05/21 14:31) Ct Abdomen/Pelvis W (02/05/21 15:27) Iohexol Injection (Omnipaque 350 Mg/Ml 1 (02/05/21 15:45) Received Contrast (Hold Metformin- Contr (02/05/21 15:45) Sodium Chloride Flush (Catheter Flush Sy (02/05/21 15:45) Ns (Ivpb) (Sodium Chloride 0.9% Ivpb Bag (02/05/21 15:45) Diatrizoate Meglum/Sodium 37% (Gastrogra (02/05/21 15:45) Urine Culture (02/05/21 15:20) Fentanyl Inj (Sublimaze Injection) (02/05/21 16:30) Medications Given in ED Current Medications Medications Dose Ordered Sig/Leann Route Start Time Stop Time Status Last Admin Dose Admin Diatrizoate Meglum/ Diatrizoate Sod 120 ml ONCE ONCE PO 02/05/21 15:45 02/05/21 15:46 DC 02/05/21 15:57 40 ML Fentanyl Citrate 50 mcg ONCE ONCE IVP 02/05/21 16:30 02/05/21 16:31 DC 02/05/21 16:41 50 MCG Iohexol 100 ml ONCE ONCE IV 02/05/21 15:45 02/05/21 15:46 DC 02/05/21 15:57 100 ML Sodium Chloride 10 ml NEEDED PRN IV 02/05/21 15:45 02/05/21 15:57 10 ML Sodium Chloride 100 ml ONCE ONCE IV 02/05/21 15:45 02/05/21 15:46 DC 02/05/21 15:57 80 ML Vital Signs/I&O 02/05/21 14:30 Temp 36.2 Pulse 90 Resp 20 B/P (MAP) 164/84 (110) Departure Communication (Admissions) 1629-spoke with Dr. Hendrickson about CT findings of possible early obstruction though not complete, there is contrast in the colon so this is not a complete obstruction. Recommends clear liquid diet, go home and follow-up outpatient. No vomiting here, pain is controlled. NAME: ALLA COULTER [facility] REC#: [id number] PT STATUS: REG ER : 1950 PHYSICIAN: SOLA EATON APRN ADMIT DATE: 02/05/21/ER Draft Date of Exam:02/05/21 CT ABDOMEN/PELVIS W PROCEDURE: CT abdomen and pelvis with contrast. TECHNIQUE: Multiple contiguous axial images were obtained through the abdomen and pelvis after administration of intravenous contrast. Auto Exposure Controls were utilized during the CT exam to meet ALARA standards for radiation dose reduction. All CT scans use one or more of the following dose optimizing techniques: automated exposure control, MA and/or KvP adjustment based on patient size and exam type or iterative reconstruction. DATE: February 05, 2021. COMPARISON: CT abdomen and pelvis January 31, 2019. INDICATION: 70-year-old female, abdominal pain. FINDINGS: There is a small fat-containing left posterior diaphragmatic hernia. There is very mild atelectasis in the lung bases. The heart is not enlarged. There is no pericardial effusion. There is diffuse fatty infiltration of the liver. The liver is normal in size and contour. There is a 4 mm low-attenuation lesion in the right lobe of the liver on axial image 19, too small to characterize. The main, right and left portal veins are patent. There is cholelithiasis without evidence of acute cholecystitis. The main pancreatic duct is not abnormally dilated. Unremarkable appearance of the pancreatic parenchyma. The spleen is normal in size. The adrenal glands are unremarkable. Unremarkable appearance of the renal parenchyma. The urinary collecting systems are not distended. There is no identified renal or ureteral stone. The urinary bladder is underdistended and grossly unremarkable in appearance. There is diverticulosis without evidence of acute diverticulitis. There is no evidence to suggest acute appendicitis. There is no free intraperitoneal air. There is an anterior abdominal wall periumbilical hernia containing segment of small bowel with mild dilation of the small bowel segment up to 3.5 cm in diameter within the abdominal cavity. There is narrowing of the small bowel caliber at its superior injury site into the hernia and less notable narrowing at the more inferior aspect of the hernia as the bowel exits the hernia. There is contrast extension into the colon. There is no free intraperineal air. There is no drainable fluid collection. There is a small amount of fluid within the hernia and stranding in the region of the hernia. There are atherosclerotic calcifications. There is no identified abnormally enlarged lymph node in the abdomen or pelvis meeting CT size criteria for adenopathy. 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 There are multilevel degenerative changes of the spine. There is scoliosis. There is grade 1 anterolisthesis of L4 on L5. IMPRESSION: CT abdomen and pelvis: 1. Anterior abdominal wall hernia near the level of the umbilicus with small bowel extending into the hernia defect. There is narrowing of the bowel lumen as it enters the hernia and mild dilation of the small bowel just proximal to the hernia. There is also a small amount of fluid within the hernia sac and mild inflammatory stranding. Findings may relate to a low-grade small bowel obstruction relating to the hernia. There is passage of contrast into the colon and lack of a complete obstruction. 2. Diffuse fatty infiltration of the liver. 3. Cholelithiasis without evidence of acute cholecystitis. Dictated on workstation # [id number] Dict: 02/05/21 1602 Trans: 02/05/21 1614 [id number] Interpreted by: SHARAD EVANS MD Electronically signed by: [id number] 100 mcg of fentanyl I was able to reduce the ventral hernia. Abdominal binder was placed and she was discharged home. Impression Primary Impression: Recurrent ventral hernia Disposition: HOME, SELF-CARE Condition: Stable Departure-Patient Inst. Decision time for Depature: 16:24 Referrals: ANNA NAVA MD (PCP/Family) Primary Care Physician ANGIE HENDRICKSON DO Patient Instructions: No Instuctions Given Add. Discharge Instructions: 1. Clear liquid diet for 24 hours. Return to ER for any worsening. See Dr Hendrickson tomorrow at 2:45 pm. Copy Copies To 1: ANNA NAVA MD; ANGIE HENDRICKSON PETER J BLEACHER OPERATOR Feb 05, 2021 14:42
[2021-02-05 15:04] LABS: BASOPHILS # (AUTO) 0.1 10^3/uL (0.0-0.1); BASOPHILS % (AUTO) 1 % (0-10); EOSINOPHILS # (AUTO) 0.1 10^3/uL (0.0-0.3); EOSINOPHILS % (AUTO) 1 % (0-10); HEMATOCRIT 37 % (35-52); LYMPHOCYTES # (AUTO) 1.7 X 10^3 (1.0-4.0); LYMPHOCYTES % (AUTO) 21 % (12-44); MEAN CORPUSCULAR HEMOGLOBIN 31 pg (25-34); MEAN CORPUSCULAR HGB CONC 33 g/dL (32-36); MEAN CORPUSCULAR VOLUME 94 fL (80-99); MONOCYTES # (AUTO) 0.6 X 10^3 (0.0-1.0); MONOCYTES % (AUTO) 7 % (0-12); NEUTROPHILS # (AUTO) 5.7 X 10^3 (1.8-7.8); NEUTROPHILS % (AUTO) 71 % (42-75); PLATELET COUNT 280 10^3/uL (130-400); WHITE BLOOD COUNT 8.1 10^3/uL (4.3-11.0)
[2021-02-05 15:15] LABS: ALBUMIN 4.1 GM/DL (3.2-4.5); POTASSIUM 4.3 MMOL/L (3.6-5.0)
[2021-02-05 15:16] LABS: CALCIUM 9.8 MG/DL (8.5-10.1)
[2021-02-05 15:17] LABS: TOTAL PROTEIN 8.4 GM/DL (6.4-8.2)
[2021-02-05 15:19] LABS: BILIRUBIN,TOTAL 0.6 MG/DL (0.1-1.0)
[2021-02-05 15:34] LABS: BILIRUBIN,URINE NEGATIVE (NEGATIVE); CLARITY,URINE CLEAR; COLOR,URINE YELLOW; GLUCOSE, URINE (UA) NEGATIVE (NEGATIVE); KETONES,URINE NEGATIVE (NEGATIVE); LEUKOCYTE ESTERASE ,URINE 1+ (NEGATIVE); NITRITE,URINE NEGATIVE (NEGATIVE); PH,URINE 6.5 (5-9); PROTEIN,URINE NEGATIVE (NEGATIVE)
[2021-02-05 15:42] LABS: BACTERIA,URINE MODERATE /HPF
[2021-02-05] MEDS ORDERED: CATHETER FLUSH 10 ML SYR IV PRN (15:45)
[2021-02-05] MEDS ORDERED: IOHEXOL 350 MG/ML 100 ML (OMNIPAQUE 350) VIAL IV ONE (15:45)
[2021-02-05] MEDS ORDERED: NS 100 ML (IVPB) BAG IV ONE (15:45)
[2021-02-05] MEDS ORDERED: HOLD METFORMIN - RECEIVED CONTRAST 20 ML VIAL IV SCH (15:45)
[2021-02-05] MEDS ORDERED: DIATRIZOATE MEGLUM/SODIUM 37% 120 ML (GASTROGRAFIN) PO ONE (15:45)
--- NOTE | 2021-02-05 16:14 | Diagnostic Imaging Report ---
PROCEDURE: CT abdomen and pelvis with contrast. TECHNIQUE: Multiple contiguous axial images were obtained through the abdomen and pelvis after administration of intravenous contrast. Auto Exposure Controls were utilized during the CT exam to meet ALARA standards for radiation dose reduction. All CT scans use one or more of the following dose optimizing techniques: automated exposure control, MA and/or KvP adjustment based on patient size and exam type or iterative reconstruction. DATE: February 05, 2021. COMPARISON: CT abdomen and pelvis January 31, 2019. INDICATION: 70-year-old female, abdominal pain. FINDINGS: There is a small fat-containing left posterior diaphragmatic hernia. There is very mild atelectasis in the lung bases. The heart is not enlarged. There is no pericardial effusion. There is diffuse fatty infiltration of the liver. The liver is normal in size and contour. There is a 4 mm low-attenuation lesion in the right lobe of the liver on axial image 19, too small to characterize. The main, right and left portal veins are patent. There is cholelithiasis without evidence of acute cholecystitis. The main pancreatic duct is not abnormally dilated. Unremarkable appearance of the pancreatic parenchyma. The spleen is normal in size. The adrenal glands are unremarkable. Unremarkable appearance of the renal parenchyma. The urinary collecting systems are not distended. There is no identified renal or ureteral stone. The urinary bladder is underdistended and grossly unremarkable in appearance. There is diverticulosis without evidence of acute diverticulitis. There is no evidence to suggest acute appendicitis. There is no free intraperitoneal air. There is an anterior abdominal wall periumbilical hernia containing segment of small bowel with mild dilation of the small bowel segment up to 3.5 cm in diameter within the abdominal cavity. There is narrowing of the small bowel caliber at its superior injury site into the hernia and less notable narrowing at the more inferior aspect of the hernia as the bowel exits the hernia. There is contrast extension into the colon. There is no free intraperineal air. There is no drainable fluid collection. There is a small amount of fluid within the hernia and stranding in the region of the hernia. There are atherosclerotic calcifications. There is no identified abnormally enlarged lymph node in the abdomen or pelvis meeting CT size criteria for adenopathy. 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 There are multilevel degenerative changes of the spine. There is scoliosis. There is grade 1 anterolisthesis of L4 on L5. IMPRESSION: CT abdomen and pelvis: 1. Anterior abdominal wall hernia near the level of the umbilicus with small bowel extending into the hernia defect. There is narrowing of the bowel lumen as it enters the hernia and mild dilation of the small bowel just proximal to the hernia. There is also a small amount of fluid within the hernia sac and mild inflammatory stranding. Findings may relate to a low-grade small bowel obstruction relating to the hernia. There is passage of contrast into the colon and lack of a complete obstruction. 2. Diffuse fatty infiltration of the liver. 3. Cholelithiasis without evidence of acute cholecystitis. Dictated by: Dictated on workstation # [id number]
[2021-02-05] MEDS ORDERED: fentaNYL INJ 100 MCG/2 ML AMP IVP ONE ×2 (16:30→17:15)
[2021-02-05 17:20] VITALS: BP 187/95
== END 2021-02-05 17:29 | disposition home or self-care (01) ==
LOC: EDUNIT# 14:23 → ER 14:25
DX: K43.2 Incisional hernia without obstruction or gangrene (principal); I10 Essential (primary) hypertension; G47.30 Sleep apnea, unspecified; E66.9 Obesity, unspecified; Z68.43 Body mass index [BMI] 50.0-59.9, adult; Z99.89 Dependence on other enabling machines and devices; Z79.899 Other long term (current) drug therapy
CPT/HCPCS: 36415; 74177; 80053; 81000; 85025; 87088; 96374

== ENCOUNTER 2021-02-12 05:36 | Outpatient (CLI) | payer MEDICARE, OTHER ==
[~2021-02-12] VITALS: Ht 152 cm; Wt 145.0 kg
[2021-02-12] MEDS ORDERED: FURO20TA4 PO (15:00)
[2021-02-12] MEDS ORDERED: MAGN400T39 PO (15:00)
== END 2021-02-12 15:26 | disposition home or self-care (01) ==
LOC: PREOP 05:36
PROVIDERS: ATTEND Surgery
DX: Z01.818 Encounter for other preprocedural examination (principal)

== ENCOUNTER 2021-02-19 08:08 | Day surgery (SDC) | payer MEDICARE, OTHER ==
[~2021-02-19] VITALS: Ht 152 cm; Wt 145.0 kg
[2021-02-19] VITALS (14 sets, daily range): BP systolic 132–162; BP diastolic 62–93
[~2021-02-19 08:08] MED LIST changes: +MAGN400T39 PO
[2021-02-19] MEDS ORDERED: fentaNYL INJ 100 MCG/2 ML AMP ONE (08:41)
[2021-02-19] MEDS ORDERED: MIDAZOLAM 2 MG/2 ML (VERSED) VIAL ONE (08:41)
[2021-02-19] MEDS ORDERED: ceFAZolin 2 GM IV Premixed 0 ML ONE (08:47)
[2021-02-19] MEDS ORDERED: LIDOCAINE/EPI 1%-1:200,000 (XYLOCAINE) 30 ML VIAL ONE (08:57)
[2021-02-19] MEDS: LACTATED RINGERS 1,000 ML IV PRN ×2 (09:00→11:03)
[2021-02-19] MEDS ORDERED: ceFAZolin 2 GM IV Premixed 50 ML IV ONE (09:00)
[2021-02-19] MEDS ORDERED: CLINDAMYCIN 900 MG/50 ML IVPB 50 ML IV ONE ×2 (09:30→09:45)
--- NOTE | 2021-02-19 09:30 | Progress Note-Pre Operative ---
Pre-Operative Progress Note H&P Reviewed The H&P was reviewed, patient examined and no changes noted. Time Seen by Provider: 09:28 Date H&P Reviewed: Feb 19, 2021 Time H&P Reviewed: : Pre-Operative Diagnosis: Incarcerated Recurrent Incisional/Ventral hernia ANGIE HENDRICKSON DO Feb 19, 2021 09:30
[2021-02-19] MEDS ORDERED: LIDOCAINE PF 2% 5 ML (XYLOCAINE) VIAL ONE (10:08)
[2021-02-19] MEDS ORDERED: SEVOFLURANE (ULTANE) 15 ML INHAL SOLN ONE ×2 (10:09→11:04)
[2021-02-19] MEDS ORDERED: proPOfol 200 MG/20 ML (DIPRIVAN) VIAL IV ONE (10:09)
[2021-02-19] MEDS ORDERED: ROCURONIUM 10 MG/ML 5 ML SYRINGE IV ONE (10:09)
[2021-02-19] MEDS ORDERED: SUCCINYLCHOLINE INJ 100 MG/5 ML SYR/VIAL ONE (10:09)
--- NOTE | 2021-02-19 11:24 | Progress Note-Post Operative ---
Post-Operative Progess Note Surgeon (s)/Sulfuric Acid Plant Supervisor (s) Surgeon ANGIE HENDRICKSON DO Sulfuric Acid Plant Supervisor: Xi Pre-Operative Diagnosis Incarcerated Recurrent Incisional/Ventral hernia Post-Operative Diagnosis Same with incarcerated small bowel Procedure & Operative Findings Date of Procedure 02/19/21 Procedure Performed/Findings PROCEDURE: Laparoscopic Ventral/Incisional hernia repair with mesh. COMPLICATIONS: None. INDICATIONS: The patient is a 70, female with a recurrent ventral/incisional hernia, which has continued to increase in size and cause discomfort. The patient was explained the risk and benefits of the procedure and wished to proceed with the procedure. Consent was signed on the chart. DESCRIPTION OF PROCEDURE: The patient was taken into the operating suite, prepped and draped in sterile fashion. Surgical pause was performed. Local anesthetic was infiltrated in left upper quadrant. A #11 blade scalpel was used to make a small skin incision. Cautery was used to dissect down to the fascia, which was then scored and divided the muscle, went through the posterior sheath and a balloon trocar was inserted into the abdomen. The abdomen was then insufflated. She had adhesions in the midline from previous surgery and then could see small bowel stuck in the hernia defect. A 5 mm trocar was placed in the right lower quadrant and then another 5 mm trocar was placed in left lower quadrant. Started by carefully reducing the small bowel from the hernia; it came out with a little bit of fluid but the bowel did not look compromised at all. It was stuck on the edge of defect and was carefully taken down with Ligasure. Able to get it completely off and then took down the rest of the adhesions with the ligasure. It looked like the previous mesh had split and the defect had opened up again. Appeared to have good scar-plate and did not think we could get it closed without opening; but, felt like the 6 inch ventra-light mesh would cover the area well and therefore not need to close the defect. Echo Ventralight mesh was then inserted in the abdomen grabbed through a stab incision that came out through middle of the defect. The balloon was inflated on the mesh. Circumferential tacks were placed with a SecureStrap Tacker. The balloon was then removed and inner crown was created as well. The mesh was tacked with pressure being decreased. The 12 mm fascial defect was then closed using 0 Vicryl figure of eight stitch. The abdomen was then desufflated, the trocars were removed. The skin was then closed using 4-0 Monocryl in a running subcuticular fashion. The abdomen was washed and dried and Skin Affix was placed over the incisions. The patient tolerated procedure well without any complications. She was taken to recovery room in stable condition. Dr. Layne assisted on this case helping to make incisions, close incisions, identify anatomy and hold anatomy out of the way. Anesthesia Type GET Estimated Blood Loss Estimated blood loss (mL): Scant Specimens/Packing Specimens Removed none ANGIE HENDRICKSON DO Feb 19, 2021 11:24
--- NOTE | 2021-02-19 11:26 | Anesthesia-General Post-Op ---
General Patient Condition Mental Status/LOC: Same as Preop Cardiovascular: Satisfactory Nausea/Vomiting: Absent Respiratory: Satisfactory Pain: Controlled Complications: Absent Post Op Complications Complications None Follow Up Care/Instructions Patient Instructions None needed. Anesthesia/Patient Condition Patient Condition Patient is doing well, no complaints, stable vital signs, no apparent adverse anesthesia problems. No complications reported per nursing. NANY RICO CRNA Feb 19, 2021 11:26
[2021-02-19] MEDS ORDERED: morphine INJ 10 MG/ML 1ML (SYR OR VIAL) IVP ONE (11:30)
[2021-02-19] MEDS ORDERED: MEPERIDINE (DEMEROL) INJ 50 MG/ML IVP ONE (11:30)
[2021-02-19] MEDS ORDERED: fentaNYL INJ 100 MCG/2 ML AMP IVP ONE (11:30)
[2021-02-19] MEDS ORDERED: ONDANSETRON 4 MG/2 ML (SDV) Z0FRAN IVP PRN ×2 (11:30→13:15)
[2021-02-19] MEDS ORDERED: morphine INJ 10 MG/ML 1ML (SYR OR VIAL) ONE (11:34)
[2021-02-19] MEDS ORDERED: HYDROcodone/APAP 5 MG/325 MG (LORTAB) TAB ONE (12:24)
[2021-02-19] MEDS ORDERED: HYDROcodone/APAP 5 MG/325 MG (LORTAB) TAB PO ONE (12:30)
[2021-02-19] MEDS ORDERED: morphine INJ 4 MG/ML 1 ML (VIAL/SYRINGE) IVP PRN (13:15)
[2021-02-19] MEDS ORDERED: LACTATED RINGERS 1,000 ML IV SCH (13:15)
[2021-02-19] MEDS: KETOROLAC 30 MG/ML VIAL IVP PRN (19:53)
[2021-02-20] VITALS: BP 129/80
[2021-02-20 04:00] VITALS: BP 134/81
[2021-02-20] MEDS: KETOROLAC 30 MG/ML VIAL IVP PRN ×2 (07:52→13:45)
[2021-02-20 08:05] VITALS: BP 123/60
--- NOTE | 2021-02-20 08:08 | Progress Note - Surgery ---
LIZ GARCIA 02/20/21 0808: Subjective Date Seen by a Provider: Feb 20, 2021 Time Seen by a Provider: 07:25 Subjective/Events-last exam Patient is a 70 y/o female 1 day s/p ventral hernia repair. Patient reports her pain is at a 12/10 this morning. She says it is sharp stabbing pain in her abd omen. Patient also reports chest pain, shoulder pain, and a headache. She says she asked for pain medicine sometime around 0500 but hadn't received it yet. Patient has not had a bowel movement. Review of Systems General: No Chills, No Fatigue HEENT: Head Aches; No Visual Changes Pulmonary: No Dyspnea, No Cough Cardiovascular: Chest Pain (Left sided); No: Palpitations Gastrointestinal: Nausea, Abdominal Pain; No: Vomiting Musculoskeletal: neck pain, shoulder pain Neurological: No: Weakness, Confusion Focused Exam Respiratory: Lungs Clear, Normal Breath Sounds, No Accessory Muscle Use, No Respiratory Distress Cardiovascular: Regular Rate, Rhythm, No Murmur, Normal Peripheral Pulses Capillary Refill: Less Than 3 Seconds Peripheral Pulses: 2+ Radial Pulses (R), 2+ Radial Pulses (L) Skin: normal color, warm/dry Objective Exam Vital Signs Date Time Temp Pulse Resp B/P (MAP) Pulse Ox O2 Delivery O2 Flow Rate FiO2 02/20/21 04:00 36.4 84 20 134/81 (98) 92 Room Air 02/20/21 00:00 36.0 73 22 129/80 (96) 98 Room Air 02/19/21 19:45 Room Air 02/19/21 19:32 36.6 66 20 132/62 (85) 98 Room Air 02/19/21 15:53 36.4 67 20 135/62 (86) 96 Room Air 02/19/21 15:00 Room Air 02/19/21 14:40 36.0 72 20 149/82 96 Room Air 02/19/21 14:10 35.9 66 20 150/84 98 Room Air 02/19/21 13:40 35.9 73 20 156/93 98 Room Air 02/19/21 13:10 35.9 67 20 150/87 95 Room Air 02/19/21 12:40 35.9 71 20 143/87 95 Room Air 02/19/21 12:10 35.9 70 18 132/72 98 Room Air 02/19/21 12:10 36.4 20 148/82 (104) 100 Room Air 02/19/21 12:10 Room Air 02/19/21 12:05 Room Air 02/19/21 12:00 22 147/83 (104) 100 OxyMask 4 02/19/21 11:50 OxyMask 5 02/19/21 11:50 16 144/83 (103) 100 OxyMask 5 02/19/21 11:40 14 142/78 (99) 100 OxyMask 5 02/19/21 11:35 OxyMask 5 02/19/21 11:30 16 151/83 (105) 100 OxyMask 5 02/19/21 11:23 OxyMask 6 02/19/21 11:23 36.5 16 162/88 (112) 97 OxyMask 6 02/19/21 09:00 36.4 86 22 149/78 (101) 97 Room Air I & O 02/20/21 07:00 Intake Total 2070 ml Balance 2070 ml Capillary Refill : Less Than 3 Seconds General Appearance: Anxious, Moderate Distress (Pain reports pain), Obese HEENT: PERRL/EOMI Neck: Other (Submandibular tenderness, no palpable lymph nodes) Respiratory: Lungs Clear, Normal Breath Sounds, No Accessory Muscle Use, No R espiratory Distress Cardiovascular: Regular Rate, Rhythm, No Murmur, Normal Peripheral Pulses Peripheral Pulses: 2+ Radial Pulses (R), 2+ Radial Pulses (L) Gastrointestinal: tenderness (Sharp stabbing pain) Extremity: Normal Capillary Refill Neurologic/Psychiatric: Alert, Oriented x3 Skin: Normal Color, Warm/Dry Lymphatic: No Adenopathy (head and neck) Assessment/Plan Assessment/Plan Assessment/Plan 1. s/p Ventral hernia repair 1. Monitor pain and provide pain medicine as needed. Encourage ICS and ambulation as tolerated. JEOVANY CHINO DO 02/20/21 1159: Subjective Time Seen by a Provider: 11:14 Subjective/Events-last exam Pt seen and examined, states min-mod abdominal pain and is still having some of the same chest pain as yesterday. She is tolerating liquids and asking to eat more. Review of Systems General: No Chills, No Fatigue HEENT: Head Aches Pulmonary: No Dyspnea, No Cough Cardiovascular: Chest Pain (Left sided); No: Palpitations Gastrointestinal: Nausea; No: Vomiting Musculoskeletal: neck pain, shoulder pain Objective Exam General Appearance: No Apparent Distress, Anxious, Obese Respiratory: Lungs Clear, Normal Breath Sounds, No Accessory Muscle Use, No Respiratory Distress Cardiovascular: Regular Rate, Rhythm, No Murmur Gastrointestinal: tenderness (Sharp stabbing pain), other (incisions c/d/i) Neurologic/Psychiatric: Alert, Oriented x3 Assessment/Plan Assessment/Plan Assessment/Plan 1. s/p Ventral hernia repair 2, Decreased mobility 1. Monitor pain and provide pain medicine as needed. Encourage ICS and ambulation as tolerated. 2. Pt admitted to get PT/OT consults and assess for inpt rehab or outpt homecare; could not be done yesterday because pt had had anesthesia. Supervisory-Addendum Brief Verification & Attestation Participated in pt care: history, MDM, physical Personally performed: exam, history, MDM, supervision of care Care discussed with: Medical Student Procedures: n/a Verification and Attestation of Medical Student E/M Service A medical student performed and documented this service. I then reviewed and verified all information documented by the medical student and made modifications to such information, when appropriate. I personally performed a physical exam, medical decision making and then discussed any differences between the notes and made revisions as necessary to create one note. Jeovany Chino , 02/20/21 , 12:03 LIZ GARCIA Feb 20, 2021 08:08 JEOVANY CHINO DO Feb 20, 2021 11:59
[2021-02-20] MEDS ORDERED: PANTOPRAZOLE 40 MG (PROTONIX) VIAL IVP SCH (09:00)
--- NOTE | 2021-02-20 10:24 | Physical Therapy Evaluation ---
PT Evaluation-General Medical Diagnosis Admission Date February 19, 2021 Medical Diagnosis: incisional ventral hernia Onset Date: Feb 19, 2021 Therapy Diagnosis Therapy Diagnosis: debility/weakness Height/Weight Height (Feet): 5 Height (Inches): 2.00 Weight (Pounds): 305 Weight (Ounces): 0.0 Precautions Precautions/Isolations: Standard Precautions Referral Physician: Lulú Reason for Referral: Evaluation/Treatment Medical History Pertinent Medical History: Arthritis, HTN Additional Medical History morbid obesity Current History s/p incisional ventral hernia repair Reviewed History: Yes Social History Home: [facility] Current Living Status: Alone Entry Into Home: Ramp Prior Prior Level of Function SCALE: Activities may be completed with or without assistive devices. 3-Vyloqgdngm-vpqqmiv completes the activity by him/herself with no assistance from a helper. 5-Set-up or Clean-up Assistance-helper sets up or cleans up; patient completes activity. [place] assists only prior to or following the activity. 4-Supervision or Touching Assistance-helper provides verbal cues and/or touching/steadying and/or contact guard assistance as patient completes activity. Assistance may be provided throughout the activity or intermittently. 3-Partial/Moderate Assistance-helper does LESS THAN HALF the effort. [place] lifts, holds or supports trunk or limbs, but provides less than half the effort. 2-Substantial/Maximal Assistance-helper does MORE THAN HALF the effort. [place] lifts or holds trunk or limbs and provides more than half the effort. 1-Vyrxduymt-hbbybx does ALL the effort. Patient does none of the effort to complete the activity. Or, the assistance of 2 or more helpers is required for the patient to complete the activity. If activity was not attempted, code reason: 7-Patient Refused. 9-Not Applicable-not attempted and the patient did not perform the activity be fore the current illness, exacerbation or injury. 10-Not Attempted due to Environmental Limitations-(lack of equipment, weather restraints, etc.). 88-Not Attempted due to Medical Conditions or Safety Concerns. Bed Mobility: 6 Transfers (B,C,W/C): 6 Gait: 6 Stairs: 9 Indoor Mobility (Ambulation): Independent Stairs: Not Applicalbe Prior Devices Use: Walker PT Evaluation-Current Subjective Patient agrees to PT. Pain Numeric Pain Scale: 10-Worst Possible Pain Location: Lower Location Body Site: Abdomen Pain Description: Pressure, Acute Objective Patient Orientation: Normal For Age ROM/Strength ROM Lower Extremities bilateral LE limited due to morbid obesity Strength Lower Extremities 3+/5 bilateral LE grossly Integumentary/Posture Integumentary refer to nursing notes Posture trunk flexed posture in stand Neuromuscular (Tone, Coordination, Reflexes) grossly intact Sensory Vision: Wears Glasses Hearing: Functional Transfers Lying to Sitting/Side of Bed(Q: 3 Sit to Stand (QC): 3 Chair/Kgs-tt-Rbwdt Xfer(QC): 3 Gait Does the Patient Walk?: Yes Mode of Locomotion: Walk Anticipated Mode of Locomotion: Walk Walk 10 feet (QC): 4 Walk 50 ft with 2 Turns(QC): 88 Walk 150 ft (QC): 88 Distance: 30' Gait Assistive Device: FWW Comments/Gait Description slow, steady gait sequence Balance Sitting Static: Normal Sitting Dynamic: Normal Standing Static: Fair Standing Dynamic: Fair Assessment/Needs 70 y.o. female, will benefit from skilled PT to address functional strength and mobility to improve current LOF to safely return to home at maximum LOF. Rehab Potential: Fair PT Courtroom Deputy Or Calendar Clerk Goals Care Home Goals PT Courtroom Deputy Or Calendar Clerk Goals Time Frame: Mar 08, 2021 Roll Left & Right (QC): 5 Sit to Lying (QC): 5 Lying-Sitting on Side/Bed(QC): 5 Sit to Stand (QC): 5 Chair/Bay-xc-Jzzvj Xfer(QC): 5 Toilet Transfer (QC): 5 Does the Patient Walk: Yes Walk 10 feet (QC): 5 Walk 50ft with 2 Turns (QC): 5 Walk 150 ft (QC): 5 PT Plan Problem List Problem List: Activity Tolerance, Functional Strength, Transfer, Bed Mobility Treatment/Plan Treatment Plan: Continue Plan of Care Treatment Plan: Bed Mobility, Education, Functional Activity Delfino, Functional Strength, Gait, Safety, Therapeutic Exercise, Transfers Treatment Duration: Mar 08, 2021 Frequency: 6 times per week Estimated Hrs Per Day: .25 hour per day Patient and/or Family Agrees t: Yes Time/GCodes Time In: 821 Time Out: 841 Total Billed Treatment Time: 20 Total Billed Treatment 1 visit EVModC 20 min ZULAY TRAN PT Feb 20, 2021 10:24
[2021-02-20 11:31] VITALS: BP 133/70
[2021-02-20] MEDS ORDERED: FLUT9.9S NS (13:19)
[2021-02-20] MEDS ORDERED: ASPI-789 PO (13:19)
[2021-02-20] MEDS ORDERED: ASPI-1238 PO (13:19)
[2021-02-20 13:40] LABS: ALANINE AMINOTRANSFERASE 24 U/L (0-55); ALBUMIN 3.7 GM/DL (3.2-4.5); ALKALINE PHOSPHATASE 82 U/L (40-136); BILIRUBIN,TOTAL 0.8 MG/DL (0.1-1.0); BUN/CREATININE RATIO 15; CARBON DIOXIDE 21 MMOL/L (21-32); CHLORIDE 102 MMOL/L (98-107); CREATININE SERUM 1.25 MG/DL (0.60-1.30); GFR ESTIMATED 42; GLUCOSE 121 MG/DL (70-105); POTASSIUM 4.2 MMOL/L (3.6-5.0); SODIUM 136 MMOL/L (135-145); TOTAL PROTEIN 7.6 GM/DL (6.4-8.2)
--- NOTE | 2021-02-20 13:48 | Discharge Inst-Surgical ---
Discharge Inst-Surgical Depart Medication/Instructions New, Converted or Re-Newed RX: Other (continue home meds) Patient Instructions Follow up Appt: Make appointment for 1 week. [phone] Instructions: No lifting greater than 20 pounds. No strenuous activity. May shower in 24 hours, no tub bath or soaking. Use incentive spirometer at home as directed. No Smoking Skin/Wound Care: May remove bandages in am. You need to leave the Dermabond on incision it will fall off on it's own. Symptoms to Report: Appetite Changes, Extremity Discoloration, Numbness/Tingling, Swelling Increased, Bleeding Excessive, Eyesight Changes, Pain Increased, Urine Color Change, Constipation(Persistent), Fever over 101 degree F, Pain/Pressure in chest, Urinating Difficulty, Cough Up/Vomit Blood, Heart Beat Irreg/Pounding, Pain/Pressure in jaw, Cramps in feet or legs, Lightheadedness, Pain/Pressure in shoulder, Diarrhea(Persistent), Memory Changes Suddenly, Questions/Concerns, Weight gain consecutive days, Dizziness/Fainting, Nausea/Vomiting, Shortness of Breath, Weight gain over 2 pounds If questions or concerns contact your physician Or seek help at emergency department. Activity Activity as Tolerated: Yes Activity Instructions: Avoid Stress to Incision Driving Instructions: No Driving/Refer to Dr. Gutierrez Discharge Diet: No Restrictions Diet After 24 Hours: Clear Liquid if Nauseous If Any Problems/Questions/Issu: Contact Your Physician, Go to Emergency Room Skin/Wound Care Infection Signs and Symptoms: Increased Redness, Foul Odor of Wound, Increased Drainage, Skin Itchy or Has a Rash, Increased Swelling, Temperature Above 101 F Bathing Instructions: Shower Stitches/[place]/Dermabond Dis: ANGIE Gómez DO Feb 20, 2021 13:48
== END 2021-02-20 14:25 ==
LOC: SDC 08:08 → 4TH 14:40 → SDC 02-20 14:25
PROVIDERS: ATTEND Surgery
DX: K43.0 Incisional hernia with obstruction, without gangrene (principal); I10 Essential (primary) hypertension; I82.409 Acute embolism and thrombosis of unspecified deep veins of unspecified lower extremity; G47.33 Obstructive sleep apnea (adult) (pediatric); E66.01 Morbid (severe) obesity due to excess calories; G62.9 Polyneuropathy, unspecified; Z99.89 Dependence on other enabling machines and devices; Z79.899 Other long term (current) drug therapy; Z90.89 Acquired absence of other organs; Z68.44 Body mass index [BMI] 60.0-69.9, adult
CPT/HCPCS: 49657; 80053; 84484; 87081; 93005; 93306; 97162; C1781; 36415

== ENCOUNTER 2021-02-20 12:08 | Inpatient (IN) | payer MEDICARE, OTHER ==
[~2021-02-20] VITALS: Ht 152 cm; Wt 150.0 kg
[2021-02-20] MEDS ORDERED: guaiFENesin/CODEINE (ROBITUSSIN AC) 10ML UDC PO PRN (12:45)
[2021-02-20] MEDS ORDERED: BISACODYL 10 MG SUPP (DULCOLAX) PR PRN (12:45)
[2021-02-20] MEDS ORDERED: LOPERAMIDE 2 MG (IMODIUM) TABLET PO PRN (12:45)
[2021-02-20] MEDS ORDERED: diphenhydrAMINE 25 MG TAB (BENADRYL) PO PRN (12:45)
[2021-02-20] MEDS ORDERED: ONDANSETRON 4 MG (ZOFRAN) ORAL DISSOLVE TAB PO PRN (12:45)
[2021-02-20] MEDS ORDERED: LACTULOSE SYRUP 10GM/15ML (ENULOSE) 30ML UDC PO PRN (12:45)
[2021-02-20] MEDS ORDERED: ALPRAZolam 0.25 MG (XANAX) TAB PO PRN (12:45)
[2021-02-20] MEDS ORDERED: FLEET ENEMA ADULT 1 EA BTL PR PRN (12:45)
[2021-02-20] MEDS ORDERED: MELATONIN 3 MG TABLET PO PRN (12:45)
[2021-02-20] MEDS ORDERED: DOCUSATE SODIUM 100 MG (COLACE) CAP PO PRN (12:45)
[2021-02-20] MEDS ORDERED: ACETAMINOPHEN 500 MG TAB (TYLENOL) PO PRN (13:00)
[2021-02-20] MEDS ORDERED: ASPI-1238 PO (13:19)
[2021-02-20] MEDS ORDERED: ASPI-789 PO (13:19)
[2021-02-20] MEDS ORDERED: FLUT9.9S NS (13:19)
[2021-02-20 14:30] VITALS: BP 116/64
--- NOTE | 2021-02-20 15:49 | Physical Therapy Evaluation ---
PT Evaluation-General Medical Diagnosis Admission Date Feb 20, 2021 at 14:10 Medical Diagnosis: incisional ventral hernia Onset Date: Feb 19, 2021 Therapy Diagnosis Therapy Diagnosis: impaired mobility, strength, endurance Height/Weight Height (Feet): 5 Height (Inches): 2.00 Weight (Pounds): 305 Weight (Ounces): 0.0 Precautions Precautions/Isolations: Fall Prevention, Standard Precautions, Pressure Ulcer Referral Physician: Yari Vick DO Medical History Pertinent Medical History: Arthritis, HTN Additional Medical History morbid obesity Reviewed History: Yes Social History Home: Multilevel (has basement) Current Living Status: Alone Entry Into Home: Ramp Patient states she doesn't have to go down to the basement. Prior Prior Level of Function SCALE: Activities may be completed with or without assistive devices. 6-Rzdnahbboi-aqosiif completes the activity by him/herself with no assistance from a helper. 5-Set-up or Clean-up Assistance-helper sets up or cleans up; patient completes activity. [place] assists only prior to or following the activity. 4-Supervision or Touching Assistance-helper provides verbal cues and/or touching/steadying and/or contact guard assistance as patient completes activity. Assistance may be provided throughout the activity or intermittently. 3-Partial/Moderate Assistance-helper does LESS THAN HALF the effort. [place] lifts, holds or supports trunk or limbs, but provides less than half the effort. 2-Substantial/Maximal Assistance-helper does MORE THAN HALF the effort. [place] lifts or holds trunk or limbs and provides more than half the effort. 7-Ezazjeiyx-udwpcc does ALL the effort. Patient does none of the effort to comp lete the activity. Or, the assistance of 2 or more helpers is required for the patient to complete the activity. If activity was not attempted, code reason: 7-Patient Refused. 9-Not Applicable-not attempted and the patient did not perform the activity before the current illness, exacerbation or injury. 10-Not Attempted due to Environmental Limitations-(lack of equipment, weather restraints, etc.). 88-Not Attempted due to Medical Conditions or Safety Concerns. Bed Mobility: 6 Transfers (B,C,W/C): 6 Gait: 6 Indoor Mobility (Ambulation): Independent Prior Devices Use: Walker PT Evaluation-Current Subjective Patient in recliner pre tx, agrees to PT, has 9/10 abdominal pain, nurse has already given pain meds. Pt/Family Goals to be independent at home Objective Patient Orientation: Person, Place, Situation ROM/Strength ROM Lower Extremities limited bilaterally Strength Lower Extremities BLE gross 3+/5 Sensory Vision: Wears Glasses Hearing: Functional Transfers Roll Left & Right (QC): 3 Sit to Lying (QC): 1 Lying to Sitting/Side of Bed(Q: 1 Sit to Stand (QC): 3 Chair/Aqi-dz-Brlmr Xfer(QC): 4 Toilet Transfer (QC): 4 Car Transfer (QC): 88 Patient performs bed mobility with mod assist, supine <-> sit dependent (assist of 2), sit <-> stand min assist, transfers CGA. Patient cannot do a car transfer at this time due to pain. Gait Does the Patient Walk?: Yes Mode of Locomotion: Walk Anticipated Mode of Locomotion: Walk Walk 10 feet (QC): 4 Walk 50 ft with 2 Turns(QC): 4 Walk 150 ft (QC): 88 Walking 10ft/uneven surface-QC: 4 Distance: 50', 80' Gait Assistive Device: FWW Comments/Gait Description Patient can ambulate 80' with a rolling walker with CGA (including 50' with at least 2 turns of 90 degrees and 10' over an uneven surface). Patient has antalgic ambulation, very slow, poor foot clearance Wheelchair Training Does the Pt Use a Wheelchair?: Yes Wheel 50 ft with 2 turns (QC): 1 Wheel 150 ft (QC): 1 Type of Wheelchair: Manual Stairs 1 Step (curb) (QC): 88 4 Steps (QC): 88 12 Steps (QC): 88 Balance Sitting Static: Fair Sitting Dynamic: Fair Standing Static: Fair Standing Dynamic: Fair Picking up an Object (QC): 88 Treatment PT performed bed mobility and transfers, ambulation, worked on trunk stability and strengthening while she ate a late lunch, standing and positioning during bathing and dressing, OT worked on eating, bathing, dressing, UE positioning and safety during activity. Assessment/Needs Patient in recliner post tx with nurse call, phone, tray, all needs met. Patient has impaired mobility, strength, endurance. Patient has a lot of abdominal pain that limits movement. Rehab Potential: Fair PT Short Term Goals Short Term Goals Time Frame: Feb 27, 2021 Roll Left & Right: 3 Sit to lyin Lying to sitting on side of be: 3 Sit to stand: 4 Chair/shj-tq-mzxjg transfer: 4 Walk 10 feet: 4 Walk 50 feet with two turns: 4 Walk 150 feet: 4 PT Half-Way Goals Apiculturist Goals PT Apiculturist Goals Time Frame: Mar 13, 2021 Roll Left & Right (QC): 5 Sit to Lying (QC): 3 (Leobardo) Lying-Sitting on Side/Bed(QC): 3 (Leobardo) Sit to Stand (QC): 4 (SBA) Chair/Jyy-rb-Codru Xfer(QC): 4 (SBA) Toilet Transfer (QC): 4 (SBA) Car Transfer (QC): 3 (Leobardo) Does the Patient Walk: Yes Walk 10 feet (QC): 4 (SBA) Walk 50ft with 2 Turns (QC): 4 (SBA) Walk 150 ft (QC): 4 (SBA) Walking 10ft on Uneven Surface: 4 (SBA) 1 Step (curb) (QC): 4 (CGA) 4 Steps (QC): 88 12 Steps (QC): 88 Picking up an Object (QC): 88 Wheel 50 feet with 2 turns (QC: 9 Wheel 150 feet: 9 PT Plan Problem List Problem List: Activity Tolerance, Functional Strength, Safety, Balance, Gait, Transfer, Bed Mobility, ROM Treatment/Plan Treatment Plan: Continue Plan of Care Treatment Plan: Bed Mobility, Education, Functional Activity Delfino, Functional Strength, Group Therapy, Gait, Safety, Therapeutic Exercise, Transfers Treatment Duration: Mar 13, 2021 Frequency: At least 5 of 7 days/Wk (IRF) Estimated Hrs Per Day: 1.5 hours per day Patient and/or Family Agrees t: Yes Safety Risks/Education Patient Education: Gait Training, Transfer Techniques, Correct Positioning, W/C Management, Safety Issues Teaching Recipient: Patient Teaching Methods: Demonstration, Discussion Response to Teaching: Reinforcement Needed Discharge Recommendations Plan Patient will perform bed mobility and transfer training, balance and endurance training ,functional strengthening, stair training, gait training, and education, to improve functional mobility and independence at home. Therapy Discharge Recommendati: Scheduled Assistance, Home & Family, Post Acute PT Time/GCodes Time In: 1410 Time Out: 1550 Total Billed Treatment Time: 90 Total Billed Treatment 1 visit EVM 10' FA 80' PT eval from [id number], OT eval from [id number], co-treat from [id number] VICENTA ESTES PT Feb 20, 2021 15:49
--- NOTE | 2021-02-20 15:56 | Occupational Therapy Eval ---
OT Evaluation-General/PLF Medical Diagnosis Admission Date Feb 20, 2021 at 14:10 Medical Diagnosis: ventral hernia repair Onset Date: Feb 19, 2021 Therapy Diagnosis Therapy Diagnosis: Impaired adls, iadls, balance, endurance, rom, strength, Height/Weight Height (Feet): 5 Height (Inches): 2.00 Weight (Pounds): 305 Weight (Ounces): 0.0 Precautions Precautions/Isolations: Fall Prevention, Standard Precautions, Pressure Ulcer Weight Bear Status Weight Bearing Restriction: Weight Bearing/Tolerated Referral Referral Reason: Evaluation/Treatment Medical History Pertinent Medical History: Arthritis, HTN Additional Medical History morbid obesity Current History Pt post op day 1: incisional ventral hernia repair. She reports being mod I with adls and Iadls prior to admission. She uses a dressing stick, Long handle sponge, systems mgr, and 2 canes during functional tasks such as LB dressing/washing and getting clothes out of the washer. She has a walk in shower with seat, a taller toilet, and grab bars throughout bathroom. She still drives and was using a walker at baseline. She gets groceries delivered or will use an electric scooter at the grocery store. Reviewed History: Yes Social History Home: Single Level Current Living Status: Alone Entry Into Home: Ramp ADL-Prior Level of Function SCALE: Activities may be completed with or without assistive devices. 7-Akpqfksjhv-paeehac completes the activity by him/herself with no assistance from a helper. 5-Set-up or Clean-up Assistance-helper sets up or cleans up; patient completes activity. [place] assists only prior to or following the activity. 4-Supervision or Touching Assistance-helper provides verbal cues and/or touching/steadying and/or contact guard assistance as patient completes activity. Assistance may be provided throughout the activity or intermittently. 3-Partial/Moderate Assistance-helper does LESS THAN HALF the effort. [place] lifts, holds or supports trunk or limbs, but provides less than half the effort. 2-Substantial/Maximal Assistance-helper does MORE THAN HALF the effort. [place] lifts or holds trunk or limbs and provides more than half the effort. 9-Egwmhwpfj-tkfiuo does ALL the effort. Patient does none of the effort to complete the activity. Or, the assistance of 2 or more helpers is required for the patient to complete the activity. If activity was not attempted, code reason: 7-Patient Refused. 9-Not Applicable-not attempted and the patient did not perform the activity before the current illness, exacerbation or injury. 10-Not Attempted due to Environmental Limitations-(lack of equipment, weather restraints, etc.). 88-Not Attempted due to Medical Conditions or Safety Concerns. Self Care: Independent Functional Cognition: Independent DME/Equipment: Bath Chair, Grab Bars, Toilet/[address] Self: Yes OT Current Status Subjective Pt reports pain as 9/10. RN notified. Pt reports pain meds given prior to transf er to ARU. Appearance Pt left sitting in chair, all needs within reach at end of treatment. Mental Status/Objective Patient Orientation: Person, Place, Time, Situation Attachments: IV Current Glasses/Contacts: Yes Hearing Aids: No Dentures/Partials: No Hand Dominance: Right Upper Extremity ROM pt only able to perform ~90 degrees shoulder flexion due to pain/pulling at incision. Elbow range limited by body habitus. Upper Extremity Strength not tested secondary to pain. ADL-Treatment Eating (QC): 6 Oral Hygiene (QC): 5 Shower/Bathe Self (QC): 3 Upper Body Dressing (QC): 10 Lower Body Dressing (QC): 2 On/Off Footwear (QC): 2 Toileting Hygiene (QC): 3 Pt sitting in chair at OT arrival, agreeable to eval. Co-treat with physical therapy secondary to intense pain, poor activity tolerance/endurance, increased fall risk, and reduced balance in standing. Sponge bath performed seated at sink due to inability to tolerate full shower at this time. Pt reports using a LHS at baseline, thus one provided for patient to wash below knees. Assist needed to wash under abdominal pannus as pt leaning back on chair. [facility] as no appropriate size clothing available at this time. Pt reports using her 2 canes to assist with donning LB clothing, including socks. Good effort exhibited from patient yet still needed mod a to perform. MIn a for balance and max a to pull up over hips secondary to pain in abdomen when reaching posteriorly. Pt would benefit from education/instruction on use of sock aid and systems mgr for LB dressing. Pt moves slowly through all tasks due to pain. Anticipate improved performance as pain subsides. Education OT Patient Education: Correct positioning, Energy conservation, Modified ADL techniques, Progress toward Goal/Update tx plan, Purpose of tx/functional activities, Rehab process, Safety issues, Transfer techniques, Use of adapted equipment Teaching Recipient: Patient Teaching Methods: Demonstration, Discussion Response to Teaching: Verbalize Understanding, Return Demonstration OT Short Term Goals Short Term Goals Time Frame: Feb 28, 2021 Eatin Oral hygiene: 6 Toileting hygiene: 3 Shower/bathe self: 4 Upper body dressin Lower body dressin Putting on/taking off footwear: 3 OT Custodial Goals Custodial Goals Time Frame: Mar 12, 2021 Eating (QC): 6 Oral Hygiene (QC): 6 Toileting Hygiene (QC): 5 Shower/Bathe Self (QC): 5 Upper Body Dressing (QC): 5 Lower Body Dressing (QC): 5 On/Off Footwear (QC): 5 1=Demonstrate adherence to instructed precautions during ADL tasks. 2=Patient will verbalize/demonstrate understanding of assistive devices/modifications for ADL. 3=Patient will improve strength/tolerance for activity to enable patient to perform ADL's. OT Education/Plan Problem List/Assessment Assessment: Decreased Activ Tolerance, Decreased Safety Aware, Decreased UE Strength, Impaired Bed Mobility, Impaired Funct Balance, Impaired I ADL's, Impaired Self-Care Skills, Restricted Funct UE ROM Discharge Recommendations Plan/Recommendations: Continue POC Target Placement ongoing assessment, anticipate home health pending progress Treatment Plan/Plan of Care Treatment,Training & Education: Yes Patient would benefit from OT for education, treatment and training to promote independence in ADL's, mobility, safety and/or upper extremity function for ADL's. Plan of Care: ADL Retraining, Functional Mobility, Group Exercise/Act as Ind, UE Funct Exercise/Act, W/C Management Training Treatment Duration: Mar 12, 2021 Frequency: At least 5 of 7 days/Wk (IRF) Estimated Hrs Per Day: 1.5 hours per day Agreement: Yes Rehab Potential: Fair Time/GCodes Start Time: 14:20 Stop Time: 15:50 Total Time Billed (hr/min): 90 Billed Treatment Time 1 visit EVM (10 min) ADL x3 (45 min) FA x2 (35 min) PT eval from [id number], OT eval from [id number], co-treat from [id number] Suki Riley OT Feb 20, 2021 15:56
--- NOTE | 2021-02-20 16:22 | Consultation-Cardiology ---
HPI-Cardiology Cardiology Consultation: Date of Consultation 02/20/2021 Date of Admission 02/19/2021 Attending Physician Yari Vick DO Admitting Physician Ely Baez MD Consulting Physician TYREE MENDOZA JR, MD HPI: Time Seen by a Provider: 16:17 Chief Complaint: Reason for consultation: Chest pain. I had the pleasure of seeing Paula on the inpatient rehabilitation unit at [facility] in [place], [place] this afternoon. Yesterday she presented to the hospital for outpatient elective abdominal hernia surgery. The surgery was uneventful but following the procedure, she was complaining of midsternal chest discomfort with radiation to her left shoulder. An electrocardiogram was performed at that time that did not show any acute changes. The RN in the postsurgical unit called me yesterday afternoon and notified me of the consult but did not explain to me that the patient was having chest pain. Nonetheless, the patient states that she had chest pain for several hours yesterday afternoon until she was given pain medication and then the chest discomfort resolved. Thi s morning she had another episode of chest discomfort which resolved after a couple of hours after pain medication. She does not recall having this sort of chest discomfort in the past. This made her feel more short of breath than her baseline dyspnea on exertion. She has chronic ankle edema with previous nonhealing wounds that recently healed with the help of the wound center. She denies paroxysmal nocturnal dyspnea, orthopnea, palpitations, lightheadedness, or syncope. She lives at home alone. Certain portions of this document may have been dictated utilizing voice recognition technology. Inherent to this technology, typographical and grammatical errors may exist. As much as I am diligent to identify and correct these mistakes, some errors may remain in the document. Review of Systems-Cardiology Review of Systems Other comments Review of 10 organ systems is as per the history of present illness, otherwise negative. FBX-Bqjcuf-Ykombj Hx Patient Social History 2nd Hand Smoke Exposure: No Immunizations Up To Date Tetanus Booster (TDap): Unknown Date of Influenza Vaccine: Feb 29, 2020 Past Medical History PMH As described under Assessment. Family Medical History Family Medical History: Both parents had heart disease but later in life. Family History: Arthritis 19 FATHER 19 MOTHER G8 SISTER Cardiovascular disease 19 FATHER Neoplasm 19 MOTHER Allergies and Home Medications Allergies Coded Allergies: amoxicillin (Verified Allergy, Severe, Anaphylaxis, 02/12/21) adhesive tape (Verified Allergy, Unknown, Rash, 02/12/21) latex (Verified Allergy, Unknown, 02/12/21) Patient Home Medication List Home Medication List Reviewed: Yes Acetaminophen (Tylenol Extra Strength) 500 Mg Tablet, 500-1,000 MG PO Q8H PRN for PAIN-MILD (1-4), (Reported) Entered as Reported by: JAYDON OLVERA on 02/15/19 1024 Aspirin (Aspirin EC) 81 Mg Tablet.dr, 324 MG PO DAILY, (Reported) Entered as Reported by: NAYELI MALDONADO on 02/20/21 1319 Aspirin/Acetaminophen/Caffeine (Excedrin Migraine Caplet) 1 Each Tablet, 2 EACH PO Q6-8HR PRN for Headache, (Reported) Entered as Reported by: NAYELI MALDONADO on 02/20/21 1319 Fluticasone Propionate (Flonase Allergy Relief) 9.9 Ml [place].susp, 2 SPRAY NS DAILY PRN for CONGESTION, (Reported) Entered as Reported by: NAYELI MALDONADO on 02/20/21 1319 Furosemide (Furosemide) 20 Mg Tablet, 20 MG PO DAILY, (Reported) Entered as Reported by: JENIFER JANSEN on 02/12/21 1500 Gluc/Brian-MSM#1/C/Luis/Dmitry/Bor (Osteo Bi-Flex Caplet) 1 Each Tablet, 2 TAB PO DAILY, (Reported) Entered as Reported by: ADAM MURILLO on 02/09/19 0844 Loratadine (Loratadine) 10 Mg Tablet, 10 MG PO DAILY, (Reported) Entered as Reported by: ADAM MURILLO on 02/09/19 0844 Losartan/Hydrochlorothiazide (Losartan-Hctz 50-12.5 mg Tab) 1 Each Tablet, 1 EA PO DAILY, (Reported) Entered as Reported by: ADAM MURILLO on 02/09/19 0838 Magnesium Oxide (Magnesium) 400 Mg Tablet, 400 MG PO DAILY, (Reported) Entered as Reported by: JENIFER JANSEN on 02/12/21 1500 Multivitamin (Multi-Vitamin Daily) 1 Each Tablet, 1 TAB PO 1200, (Reported) Entered as Reported by: ADAM MURILLO on 02/09/19 0844 [place]-3/Dha/Epa/Fish Oil (Fish Oil 1,000 mg Softgel) 1,000 Mg Capsule, 1,000 MG PO TIDWM, (Reported) Entered as Reported by: ADAM MURILLO on 02/09/19 0844 Discontinued Medications Fluticasone Propionate (Flonase Allergy Relief) 9.9 Ml [place].susp, 2 SPRAY NS DAILY, (Reported) Discontinued Reason: Duplicate Order Entered as Reported by: JAYDNO OLVERA on 02/15/19 1024 Exam Vital Signs Vital Signs Date Time Temp Pulse Resp B/P (MAP) Pulse Ox O2 Delivery O2 Flow Rate FiO2 02/20/21 14:30 36.9 80 18 116/64 (81) 93 Room Air Physical Exam General: Alert. No acute distress. Well nourished and appears stated age. She is morbidly obese. Eye: Extraocular movements are intact. Conjunctivae are clear. There are no xanthelasma. HENT: Normocephalic. Atraumatic. Carotid pulsations 2/2 without bruits. Neck: Jugular venous pressure does not appear elevated. No thyromegaly appreciated. Respiratory: Lungs are clear to auscultation. Respirations are non-labored. Breath sounds are equal. Symmetrical chest wall expansion. Cardiovascular: Normal rate. Regular rhythm. No murmur. No gallop. Point of maximal impulse is not appear displaced. Good pulses equal in all extremities. Trace bilateral pretibial edema with chronic venous stasis changes and some previous, healed wounds. Gastrointestinal: Soft. Normal bowel sounds. Skin: Skin turgor is normal. There is no pallor. Musculoskeletal: No kyphosis or scoliosis appreciated. Neurologic: Alert and oriented to person, place, time. Cranial nerves 3-12 appear grossly intact. The patient has good motor tone strength in the upper and lower extremities bilaterally. Psychiatric: Cooperative. Appropriate mood & affect. ECG Impression ECG Comment Sinus rhythm with possible old anterior myocardial infarction. Diagnosis/Problems Diagnosis/Problems (1) Chest pain Assessment & Plan: Exact etiology unclear. I suspect this may have been related to her gastrointestinal surgery yesterday. She had no ischemic changes on her resting electrocardiogram while she was having chest pain. Her echocardiogram shows an overall normal ejection fraction. After having at least several hours of chest pain yesterday and again this morning, her troponin level was undetectable. I recommend she resume low strength aspirin which she was taking at home. I will also obtain a fasting lipid profile for the morning. At some point, we may want to consider an ischemic evaluation but this does not necessarily need to be done while she is in the hospital. I will also place her on a proton pump inhibitor in the event that some of her chest discomfort could be related to gastroesophageal reflux disease. If she has ongoing chest discomfort, we may need to alter this plan. (2) Abnormal ECG Assessment & Plan: Her electrocardiogram shows a possible old anterior myocardial infarction. Some of this could be related to lead placement given her morbid obesity. However, in light of the chest discomfort, I will consider an ischemic evaluation after discharge. (3) Primary hypertension Assessment & Plan: I recommend resuming her regular outpatient antihypertensive medications. (4) Morbid obesity Assessment & Plan: She really needs to work on weight loss. This is most likely contributing to her chronic lower extremity venous insufficiency which then results in venous stasis ulcers. TYREE MENDOZA JR, MD Feb 20, 2021 16:22
[2021-02-20] MEDS ORDERED: PANTOPRAZOLE 40 MG (PROTONIX) TAB PO ONE (16:30)
[2021-02-20] MEDS ORDERED: ASPIRIN E.C. 81 MG (ECOTRIN) TAB PO ONE (16:30)
[2021-02-20] MEDS ORDERED: NON-FORMULARY MEDICATION 1 EA EA (Aspirin/Acetaminophen/Caffeine (Excedrin Migraine Caplet PO PRN (17:30)
[2021-02-20] MEDS ORDERED: FLUTICASONE NASAL SPRAY (FLONASE) 16 GM BTL NS PRN (17:45)
[2021-02-20] MEDS: ENOXAPARIN 40 MG/0.4 ML (LOVENOX) SYR SC SCH (17:58)
--- NOTE | 2021-02-20 18:22 | PM&R Post Admission Assessment ---
PM&R HP Date of Visit: Feb 20, 2021 Time of Visit: 15:00 History of Present Illness Chief complaint: Debility following ventral hernia repair by Dr. Chino uncomplicated History of present illness: This is a 70-year-old white female who has a history of morbid obesity BMI of 63 and chronic debility due to osteoarthritis and uses 2 canes to ambulate and is modified independent at home prior level of functioning who presents to the inpatient rehab unit due to significant decline in independence since ventral hernia repair by Dr. Chino. She does not use oxy gen at home she does use a CPAP machine. At this current time she reports abdominal pain from the hernia repair. She has not had a bowel movement for 4 days. Check meds and labs. Dr. Baez his primary care provider. Past Nysfpex-Vzvxtk-Iofuiv Hx Past Med/Social Hx: Reviewed Nursing Past Med/Soc Hx, Reviewed and Corrections made Patient Social History Marrital Status: single Employed/Student: retired Alcohol Use: Denies Use Smoking Status: Never a Smoker 2nd Hand Smoke Exposure: No Recent Hopitalizations: No Immunizations Up To Date Tetanus Booster (TDap): Unknown Date of Influenza Vaccine: Feb 29, 2020 Seasonal Allergies Seasonal Allergies: Yes Past Medical History Surgeries: Bowel Surgery, Orthopedic, Tonsillectomy Respiratory: Sleep Apnea Currently Using CPAP: Yes Cardiac: Chronic Edema/Swelling, Heart Murmur, Hypertension Reproductive: No Sexually Transmitted Disease: No Menopausal Gastrointestinal: Abdominal Hernia, Obstructive Bowel, Diverticulosis Musculoskeletal: Arthritis HEENT: Cataract History of Blood Disorders: Yes (DVT'S) Family History Arthritis 19 FATHER 19 MOTHER G8 SISTER Cardiovascular disease 19 FATHER Neoplasm 19 MOTHER Heart Disease, Cancer, Hypertension Prior Level of Function Bed Mobility: 6 Transfers: 6 Gait: 6 Indoor Mobility (Ambulation): Independent Prior Devices Use: Walker Self Care: Independent Functional Cognition: Independent Drive Self: Yes Current Level of Fuctioning Roll Left to Right: 3 Sit to Lyin Lying to Sitting/Side of Bed: 1 Sit to Stand: 3 Chair/Cvd-vj-Cjvrf Xfer: 4 Car Transfer: 88 Does the Patient Walk: Yes Mode of Locomotion: Walk Anticipated Mode of Locomotion: Walk Walk 10 feet: 4 Walk 50 ft with 2 Turns: 4 Walk 150 ft: 88 Walking 10ft on uneven surface: 4 Gait Assistive Device: FWW Does the Pt Use a Wheelchair: Yes Wheel 50 ft with 2 turns: 1 Wheel 150 ft: 1 Type of Wheelchair: Manual 1 Step (curb): 88 4 Steps: 88 12 Steps: 88 Picking up an Object: 88 Eatin Oral Hygiene: 5 Shower/Bathe Self: 3 Upper Body Dressin Lower Body Dressin On/Off Footwear: 2 Toileting Hygiene: 3 PM&R Allergy/Meds/Data Review Allergies Coded Allergies: amoxicillin (Verified Allergy, Severe, Anaphylaxis, 02/12/21) adhesive tape (Verified Allergy, Unknown, Rash, 02/12/21) latex (Verified Allergy, Unknown, 02/12/21) Home Medications Scheduled Aspirin (Aspirin EC), 324 MG PO DAILY, (Reported) Furosemide (Furosemide), 20 MG PO DAILY, (Reported) Gluc/Brian-MSM#1/C/Luis/Dmitry/Bor (Osteo Bi-Flex Caplet), 2 TAB PO DAILY, (Reported) Loratadine (Loratadine), 10 MG PO DAILY, (Reported) Losartan/Hydrochlorothiazide (Losartan-Hctz 50-12.5 mg Tab), 1 EA PO DAILY, (Reported) Magnesium Oxide (Magnesium), 400 MG PO DAILY, (Reported) Multivitamin (Multi-Vitamin Daily), 1 TAB PO 1200, (Reported) [place]-3/Dha/Epa/Fish Oil (Fish Oil 1,000 mg Softgel), 1,000 MG PO TIDWM, (Reported) Scheduled PRN Acetaminophen (Tylenol Extra Strength), 500-1,000 MG PO Q8H PRN for PAIN-MILD (1-4), (Reported) Aspirin/Acetaminophen/Caffeine (Excedrin Migraine Caplet), 2 EACH PO Q6-8HR PRN for Headache, (Reported) Fluticasone Propionate (Flonase Allergy Relief), 2 SPRAY NS DAILY PRN for CONGESTION, (Reported) Discontinued Medications Fluticasone Propionate (Flonase Allergy Relief), 2 SPRAY NS DAILY, (Reported) Discontinued Reason: Duplicate Order Current Medications Current Medications Reviewed Review of Systems Constitutional: see HPI, malaise, weakness EENTM: no symptoms reported Respiratory: short of breath Cardiovascular: no symptoms reported Gastrointestinal: abdominal pain, constipation, loss of appetite Genitourinary: no symptoms reported Musculoskeletal: back pain, joint pain Skin: no symptoms reported Psychiatric/Neurological: Depressed All Other Systems Reviewed Negative Unless Noted: Yes Physical Exam Physical Exam Vital Signs Vital Signs - First Documented 02/20/21 14:30 Temp 36.9 Pulse 80 Resp 18 B/P (MAP) 116/64 (81) Pulse Ox 93 O2 Delivery Room Air Capillary Refill : Height, Weight, BMI Height: 5'2.00" Weight: 305lbs. 0.0oz. 138.978760gy; 62.75 BMI Method:Stated General Appearance: No Apparent Distress, WD/WN, Chronically ill, Obese Eyes: Bilateral Eye Normal Inspection, Bilateral Eye PERRL HEENT: PERRL/EOMI, Normal ENT Inspection, Pharynx Normal Neck: Full Range of Motion, Normal Inspection, Non Tender, Supple, Carotid Bruit Respiratory: Chest Non Tender, Lungs Clear, Normal Breath Sounds, No Accessory Muscle Use, No Respiratory Distress Cardiovascular: Regular Rate, Rhythm, No Edema, No Gallop, No JVD, No Murmur, Normal Peripheral Pulses Gastrointestinal: Normal Bowel Sounds, No Organomegaly, No Pulsatile Mass, Soft, Tenderness (Postop) Back: Normal Inspection, No CVA Tenderness, No Vertebral Tenderness Extremity: Normal Capillary Refill, Normal Inspection, Normal Range of Motion, Non Tender, No Calf Tenderness, No Pedal Edema Neurologic/Psychiatric: Alert, Oriented x3, Normal Mood/Affect, cross roller II-XII Norm as Tested, Abnormal Gait, Depressed Affect, Motor Weakness (Generalized and lower extremities 3/5) Skin: Normal Color, Warm/Dry Lymphatic: No Adenopathy PM&R Medical Assessment & Plan REHAB/MEDICAL ASSESSMENT AND PLAN: REHAB IMPAIRMENT GROUP: Debility ETIOLOGIC DIAGNOSIS: Debility The comorbidities that impact the patients function and/or functional outcome by: Morbid obesity BMI 63, LOBITO on CPAP, ventral hernia repair pain limiting activity REHAB PLAN: The patient is being admitted to our comprehensive inpatient rehabilitation facility and can tolerate the intensity of service consisting of at least: 180 minutes of therapy a day, 5 out of 7 days a week Rehab treatment will consist of: PT and OT will focus on increasing independence with the use of more assistive devices in order to return back home to independent living The patient/family has a good understanding of our discharge process and will benefit from an interdisciplinary inpatient rehabilitation program. The patient has potential to make improvement and is in need of at least two of the following multidisciplinary therapies including but not limited to physical, occupational, speech, and prosthetics and orthotics. Additionally the patient will need services from respiratory, nutritional services, wound care, psychology, etc. (Customize this to each patient). Given the patients complex condition and risk of further medical complications, rehabilitation services cannot be safely or effectively provided at a lower level of care such as a alf facility. BARRIERS TO DISCHARGE: Morbid obesity with ventral hernia repair pain ESTIMATED LOS: 7 days DISPOSITION: Home RELEVANT CHANGES SINCE PREADMISSION SCREENING: I have compared the patients medical and functional status at the time of the preadmission screening and there are: No changes PROGNOSIS: Good REHABILITATION GOALS: 1. PT and OT will focus on increasing independence with the use of more assistive devices in order to return back home to independent living All the above goals were reviewed with the patient and he/she is in agreement. By signing this document, I acknowledge that I have personally performed a full physical examination on this patient within 24 hours of admission to this inpatient rehabilitation facility and have determined the patient to be able to tolerate the above course of treatment at an intensive level for a reasonable period of time. I will be completing a detailed individualized Plan of Care for this patient by day #4 of the patients stay based upon the Preadmission Screen, the Post-Admission Evaluation, and the therapy evaluations. Admission Dx/Comorbidities: (1) Debility ICD Codes: R53.81 - Other malaise (2) Primary hypertension Assessment & Plan: I recommend resuming her regular outpatient antihypertensive medications. ICD Codes: I10 - Essential (primary) hypertension (3) Morbid obesity Assessment & Plan: She really needs to work on weight loss. This is most likely contributing to her chronic lower extremity venous insufficiency which then results in venous stasis ulcers. ICD Codes: E66.01 - Morbid (severe) obesity due to excess calories (4) Recurrent ventral hernia ICD Codes: K43.2 - Incisional hernia without obstruction or gangrene (5) Ischemic necrosis of small bowel ICD Codes: K55.029 - Acute infarction of small intestine, extent unspecified Assessment/Plan Assessment and Plan Assess & Plan/Chief Complaint Assessment: Debility Ventral hernia repair postop day #1 Morbid obesity BMI 63 LOBITO on CPAP Hypertension Chronic knee pain Chronic debility Plan: Aggressive rehab Increase use of assistive devices Pain control Bowel regimen THEA GARLAND DO Feb 20, 2021 18:22
[2021-02-20] MEDS: OMEGA 3 (FISH OIL) 1000 MG CAP PO SCH (18:33)
[2021-02-20] MEDS: HYDROcodone/APAP 5 MG/325 MG (LORTAB) TAB PO PRN ×2 (18:34→22:36)
[2021-02-20 20:00] VITALS: BP 134/87
[2021-02-20] MEDS: polyethylene glycoL POWDER 17 GM (MIRALAX) PACK PO SCH (21:00)
[2021-02-20] MEDS: SENNA W/DOCUSATE (SENOKOT S) TABLET PO SCH (21:11)
[2021-02-20] MEDS: DOCUSATE SODIUM 100 MG (COLACE) CAP PO SCH (21:11)
[2021-02-21] MEDS: HYDROcodone/APAP 5 MG/325 MG (LORTAB) TAB PO PRN ×4 (04:11→18:11)
[2021-02-21 06:15] LABS: BASOPHILS % (AUTO) 0 % (0-10); EOSINOPHILS # (AUTO) 0.2 10^3/uL (0.0-0.3); EOSINOPHILS % (AUTO) 1 % (0-10); HEMATOCRIT 31 % (35-52); HEMOGLOBIN 10.2 g/dL (11.5-16.0); LYMPHOCYTES # (AUTO) 2.3 10^3/uL (1.0-4.0); LYMPHOCYTES % (AUTO) 18 % (12-44); MEAN CORPUSCULAR HEMOGLOBIN 31 pg (25-34); MEAN CORPUSCULAR HGB CONC 33 g/dL (32-36); MEAN CORPUSCULAR VOLUME 94 fL (80-99); MEAN PLATELET VOLUME 10.4 fL (9.0-12.2); MONOCYTES # (AUTO) 1.1 10^3/uL (0.0-1.0); MONOCYTES % (AUTO) 9 % (0-12); NEUTROPHILS # (AUTO) 9.3 10^3/uL (1.8-7.8); NEUTROPHILS % (AUTO) 72 % (42-75); PLATELET COUNT 243 10^3/uL (130-400)
[2021-02-21 06:34] LABS: ALBUMIN 3.5 GM/DL (3.2-4.5)
[2021-02-21 06:40] LABS: CREATININE SERUM 1.24 MG/DL (0.60-1.30)
--- NOTE | 2021-02-21 06:53 | PM&R Progress Note ---
Subjective HPI/CC On Admission Date Seen by Provider: Feb 21, 2021 Time Seen by Provider: 09:00 Subjective/Events-last exam 02/21/2021: Patient is settling in well Using CPAP at night No bowel movement and all laxatives given so may need Dulcolax suppository Getting wound care stockings for her Incontinent at times so we will try to get a bladder schedule Discontinue Hep-Lock in right hand Walking around pretty well Review of Systems General: Fatigue, Malaise Gastrointestinal: Abdominal Pain Objective Exam Vital Signs Vital Signs Date Time Temp Pulse Resp B/P (MAP) Pulse Ox O2 Delivery O2 Flow Rate FiO2 02/22/21 01:59 37.2 02/21/21 21:00 94 Room Air 02/21/21 20:00 74 20 122/57 (78) Capillary Refill : General Appearance: No Apparent Distress, WD/WN, Chronically ill, Obese HEENT: PERRL/EOMI, Normal ENT Inspection, Pharynx Normal Neck: Full Range of Motion, Normal Inspection, Non Tender, Supple, Carotid Bruit Respiratory: Chest Non Tender, Lungs Clear, Normal Breath Sounds, No Accessory Muscle Use, No Respiratory Distress Cardiovascular: Regular Rate, Rhythm, No Edema, No Gallop, No JVD, No Murmur, Normal Peripheral Pulses Gastrointestinal: Normal Bowel Sounds, No Organomegaly, No Pulsatile Mass, Soft, Tenderness (Postop) Back: Normal Inspection, No CVA Tenderness, No Vertebral Tenderness Extremity: Normal Capillary Refill, Normal Inspection, Normal Range of Motion, Non Tender, No Calf Tenderness, No Pedal Edema Neurologic/Psychiatric: Alert, Oriented x3, Normal Mood/Affect, special certificate dictator II-XII Norm as Tested, Abnormal Gait, Depressed Affect, Motor Weakness (Generalized and lower extremities 3/5) Skin: Normal Color, Warm/Dry Lymphatic: No Adenopathy Results/Procedures Lab Laboratory Tests 02/21/21 06:00 Patient resulted labs reviewed. FIM Transfers Therapy Code Descriptions/Definitions Functional [place] Measure: 0=Not Assessed/NA 4=Minimal Assistance 1=Total Assistance 5=Supervision or Setup 2=Maximal Assistance 6=Modified [place] 3=Moderate Assistance 7=Complete IndependenceSCALE: Activities may be completed with or without assistive devices. 1-Wizygstthk-efeyjbe completes the activity by him/herself with no assistance from a helper. 5-Set-up or Clean-up Assistance-helper sets up or cleans up; patient completes activity. [place] assists only prior to or following the activity. 4-Supervision or Touching Assistance-helper provides verbal cues and/or touching/steadying and/or contact guard assistance as patient completes act ivity. Assistance may be provided throughout the activity or intermittently. 3-Partial/Moderate Assistance-helper does LESS THAN HALF the effort. [place] lifts, holds or supports trunk or limbs, but provides less than half the effort. 2-Substantial/Maximal Assistance-helper does MORE THAN HALF the effort. [place] lifts or holds trunk or limbs and provides more than half the effort. 9-Tfxzcznfw-olyfec does ALL the effort. Patient does none of the effort to complete the activity. Or, the assistance of 2 or more helpers is required for the patient to complete the activity. If activity was not attempted, code reason: 7-Patient Refused. 9-Not Applicable-not attempted and the patient did not perform the activity before the current illness, exacerbation or injury. 10-Not Attempted due to Environmental Limitations-(lack of equipment, weather restraints, etc.). 88-Not Attempted due to Medical Conditions or Safety Concerns. Roll Left to Right (QC): 3 Sit to Lying (QC): 1 Sit to Stand (QC): 3 Chair/Gyj-jh-Dagrv Xfer(QC): 4 Car Transfer (QC): 88 Gait Training Does the Patient Walk?: Yes Walk 10 feet (QC): 4 Walk 50 ft with 2 Turns(QC): 4 Walk 150 ft (QC): 88 Walking 10ft/uneven surface-QC: 4 Gait Assistive Device: FWW Wheelchair Training Does the Pt Use a Wheelchair?: Yes Distance: SEE PT NOTES Wheel 50 ft with 2 turns (QC): 1 Wheel 150 ft (QC): 1 Type of Wheelchair: Manual Stair Training 1 Step (curb) (QC): 88 4 Steps (QC): 88 12 Steps (QC): 88 Balance Picking up an Object (QC): 88 ADL-Treatment Eating (QC): 6 Oral Hygiene (QC): 5 Shower/Bathe Self (QC): 3 Upper Body Dressing (QC): 10 Lower Body Dressing (QC): 2 On/Off Footwear (QC): 2 Toileting Hygiene (QC): 3 Assessment/Plan Assessment and Plan Assess & Plan/Chief Complaint Assessment: Debility Ventral hernia repair postop day #2 Morbid obesity BMI 63 LOBITO on CPAP Hypertension Chronic knee pain Chronic debility Plan: Aggressive rehab Increase use of assistive devices Pain control Bowel regimen 02/21/2021: Pain control Bowel regimen (1) Debility (2) Primary hypertension Assessment & Plan: I recommend resuming her regular outpatient antihypertensive medications. (3) Morbid obesity Assessment & Plan: She really needs to work on weight loss. This is most likely contributing to her chronic lower extremity venous insufficiency which then results in venous stasis ulcers. (4) Recurrent ventral hernia (5) Ischemic necrosis of small bowel THEA GARLAND DO Feb 21, 2021 06:53
--- NOTE | 2021-02-21 06:53 | Individualized Plan of Care ---
Individualized Plan of Care Rehab Nursing IPOC Order Admission Date Feb 20, 2021 at 14:10 Current Orders Orders Admission Order(Inpt,Obs,Sdc) (02/20/21 12:45) Vital Signs: Per Unit Policy ( ,16,00 (02/20/21 12:45) Kahlil Mendoza (02/20/21 12:45) Sequential Compression Device .admit (02/20/21 12:45) Patternmaker Helper-Inpt Rehab Con (02/20/21 12:45) Rehab Nursing Orders-Ipoc (02/20/21 12:45) Physical Therapy Rehab Orders (02/20/21 12:45) Occupational Therapy Rehab Ord (02/20/21 12:45) Speech Therapy Rehab Orders (02/20/21 12:45) Cbc With Automated Diff (02/21/21 06:00) Comprehensive Metabolic Panel (02/21/21 06:00) Precautions (Aru) (02/20/21 12:45) Rehab-Intensity Of Therapy (02/20/21 12:45) Initiate Admission Nursing Pro .admission (02/20/21 12:45) Alprazolam Tablet (Xanax Tablet) (02/20/21 12:45) Calcium Carbonate Chew Tablet (Antacid C (02/20/21 12:45) Diphenhydramine Tablet (Benadryl Tablet) (02/20/21 12:45) Docusate Sodium Capsule (Colace Capsule) (02/20/21 21:00) Docusate Sodium Capsule (Colace Capsule) (02/20/21 12:45) Bisacodyl Suppository (Dulcolax Supposit (02/20/21 12:45) Lactulose Oral Solution (Enulose Oral So (02/20/21 12:45) Na Phos/Na Biphos Enema (Fleet Enema Ash (02/20/21 12:45) Guaifenesin/Codeine Syrup (Robitussin Ac (02/20/21 12:45) Loperamide Tablet (Imodium Tablet) (02/20/21 12:45) Melatonin Tablet (Melatonin Tablet) (02/20/21 12:45) Polyethylene Glycol Powder Pkt (Miralax (02/20/21 21:00) Ondansetron Oral Dissolve Tab (Zofran (02/20/21 12:45) Senna S Tablet (Senokot S Tablet) (02/20/21 21:00) Initiate Admission Nursing Pro .admission (02/20/21 12:45) Hydrocodone/Apap 5/325 Tablet (Lortab 5 (02/20/21 13:00) Admission Arrival Bed Request (02/20/21 14:31) Follow-Up Appointment (02/20/21 16:16) Aspirin Enteric Coated Tablet (Ecotrin T (02/20/21 16:30) Lipid Panel (02/21/21 05:00) Pantoprazole Tablet (Protonix Tablet) (02/21/21 09:00) Pantoprazole Tablet (Protonix Tablet) (02/20/21 16:30) Enoxaparin Injection (Lovenox Injection) (02/20/21 16:30) Acetaminophen Tablet (Tylenol Tablet) (02/20/21 17:30) Aspirin Enteric Coated Tablet (Ecotrin T (02/21/21 09:00) Furosemide Tablet (Lasix Tablet) (02/21/21 09:00) Loratadine Tablet (Claritin Tablet) (02/21/21 09:00) Therapeutic Multivitamin Tab (Vitamins, (02/21/21 12:00) (Nf) Aspirin/Acetaminophen/Caffeine (Exc (02/20/21 17:30) Fluticasone Nasal Lena (Flonase Nasal S (02/20/21 17:45) (Nf) Gluc/Brian-Msm#1/C/Luis/Dmitry/Bor (Ost (02/21/21 09:00) Losartan Tablet (Cozaar Tablet) (02/21/21 09:00) Magnesium Oxide Tablet (Mag Ox Tablet) (02/21/21 08:00) [place] 3 Capsule (Fish Oil Capsule) (02/20/21 18:00) Dys3 Advanced/Ground Meat (02/20/21 Dinner) Dys3 Advanced/Ground Meat (02/21/21 Breakfast) Patient Visit (02/20/21 ) Pt Eval Moderate Complexity (02/20/21 ) Functional Activities, Ea 15 (02/20/21 ) Patient Visit (02/21/21 ) Functional Activities, Ea 15 (02/21/21 ) Gait Training, Ea 15 Min (02/21/21 ) Exercise Therap, Ea 15 Min (02/21/21 ) Patient Visit (02/21/21 ) Gait Training, Ea 15 Min (02/21/21 ) Functional Activities, Ea 15 (02/21/21 ) Rehab Nursing Orders: Ongoing Assess. of Function Status, Bladder Management, Bladder Scan, Bladder Training, Bowel Management, Bowel Training, Disease Management & Educaiton, DVT Prophylaxis, Fall Prevention, Fluid/Electrolyte/Nutrition Mgmt, Infection Prevention, Medication Management & Education, Management of Risks & Complications, Management of Skin Intergrity, Nutrition Management, Pain Management, Patient/Family Support, Safety Management Intensity of Therapy to be met Patient to be seen: Min.3h per day/5 of 7d PT IPOC Problem List: Activity Tolerance, Functional Strength, Safety, Balance, Gait, Transfer, Bed Mobility, ROM Treatment Plan: Continue Plan of Care Bed Mobility, Education, Functional Activity Delfino, Functional Strength, Group Therapy, Gait, Safety, Therapeutic Exercise, Transfers Treatment Duration: Mar 13, 2021 Frequency: At least 5 of 7 days/Wk (IRF) Estimated Hrs Per Day: 1.5 hours per day OT IPOC Problems: Decreased Activ Tolerance, Decreased Safety Aware, Decreased UE Strength, Impaired Bed Mobility, Impaired Funct Balance, Impaired I ADL's, Impaired Self-Care Skills, Restricted Funct UE ROM OT Treatment, Training and Edu: Yes Plan of Care: ADL Retraining, Functional Mobility, Group Exercise/Act as Ind, UE Funct Exercise/Act, W/C Management Training Treatment Duration: Mar 12, 2021 Frequency: At least 5 of 7 days/Wk (IRF) Estimated Hrs Per Day: 1.[address] IPOC Speech Therapy Treatment Plan: Discontinue ST Treatment Duration: Feb 21, 2021 Frequency: Modified Program (IRF) Estimated Hrs Per Day: Other Patternmaker Helper/Case Mgmt Patternmaker Helper/Case Managemen: Discharge Planning Dietitian/[place] Blindstitch Dietitian/[place] Blindstitch to monitor nutritional status and make changes and/or recommendations as needed and work with speech pathology on dietary upgrades as the occur. Physician IPOC Medical Issues being managed closely and that require the 24 hour availability of a physician: Patient with recent abdominal hernia repair with morbid obesity and sleep apnea will require close monitoring for decompensation following surgery Medical Issues: Bowel/Bladder Function, DVT Prophylaxis, Falls Precautions, Fluid/Electrolyte/Nutrition Balance, Infection Protection, Pain Management, Wound Care Brief Synthesis of Preadmission Screen, Post-Admission Evaluation, and Therapy Evaluations: PT and OT will focus on use of assistive devices to increase ambulatory function and independence in ADLs in order to return home Medical Prognosis: Good Anticipated Length of Stay: 7 days THEA GARLAND DO Feb 21, 2021 06:53
[2021-02-21 07:35] VITALS: BP 123/60
[2021-02-21] MEDS: polyethylene glycoL POWDER 17 GM (MIRALAX) PACK PO SCH ×2 (08:03→20:50)
[2021-02-21] MEDS: PANTOPRAZOLE 40 MG (PROTONIX) TAB PO SCH (08:03)
[2021-02-21] MEDS: OMEGA 3 (FISH OIL) 1000 MG CAP PO SCH ×3 (08:04→18:11)
[2021-02-21] MEDS: FUROSEMIDE 20 MG (LASIX) TAB PO SCH (08:04)
[2021-02-21] MEDS: DOCUSATE SODIUM 100 MG (COLACE) CAP PO SCH ×2 (08:04→20:50)
[2021-02-21] MEDS: MAGNESIUM OXIDE (MAG-OX)400 MG TAB PO SCH (08:04)
[2021-02-21] MEDS: ASPIRIN E.C. 81 MG (ECOTRIN) TAB PO SCH (08:04)
[2021-02-21] MEDS: LOSARTAN 50 MG (COZAAR) TAB PO SCH (08:04)
[2021-02-21] MEDS: LORATADINE (CLARITIN) 10 MG TAB PO SCH (08:04)
[2021-02-21] MEDS: SENNA W/DOCUSATE (SENOKOT S) TABLET PO SCH ×2 (08:04→20:50)
[2021-02-21] MEDS ORDERED: ASPIRIN E.C. 81 MG (ECOTRIN) TAB PO SCH (09:00)
--- NOTE | 2021-02-21 09:58 | Physical Therapy Daily Note ---
PT Daily Note-Current Subjective Pt in recliner upon arrival and agrees to tx. Pt states pain in abdomen but doesn't rate out of 10. Pt states RN gave pain meds prior to tx, mid-tx pt states pain is getting better. Mental Status Patient Orientation: Person, Place, Time, Situation Transfers SCALE: Activities may be completed with or without assistive devices. 9-Nzcibsphpw-soomwjb completes the activity by him/herself with no assistance from a helper. 5-Set-up or Clean-up Assistance-helper sets up or cleans up; patient completes activity. [place] assists only prior to or following the activity. 4-Supervision or Touching Assistance-helper provides verbal cues and/or touching/steadying and/or contact guard assistance as patient completes activity. Assistance may be provided throughout the activity or intermittently. 3-Partial/Moderate Assistance-helper does LESS THAN HALF the effort. [place] lifts, holds or supports trunk or limbs, but provides less than half the effort. 2-Substantial/Maximal Assistance-helper does MORE THAN HALF the effort. [place] lifts or holds trunk or limbs and provides more than half the effort. 4-Rwkorqdpv-quzprc does ALL the effort. Patient does none of the effort to complete the activity. Or, the assistance of 2 or more helpers is required for the patient to complete the activity. If activity was not attempted, code reason: 7-Patient Refused. 9-Not Applicable-not attempted and the patient did not perform the activity before the current illness, exacerbation or injury. 10-Not Attempted due to Environmental Limitations-(lack of equipment, weather restraints, etc.). 88-Not Attempted due to Medical Conditions or Safety Concerns. Sit to Stand (QC): 3 Sit to stand from recliner Leobardo, from chair in therapy gym pt required CGA. Gait Training Does the Patient Walk?: Yes Distance: 80' x2 Walk 10 feet (QC): 4 Walk 50 ft with 2 Turns(QC): 4 Gait Persons Needed: 1 Gait Assistive Device: FWW Pt amb w/ antalgic, shuffling gait. Wheelchair Training Does the Pt Use a Wheelchair?: No Exercises Supine Ex: Ankle pumps, Straight leg raise Supine Reps: 10 Seated Therapy Exercises: Ankle pumps, Sit to stand, Long arc quads, Hip flexion, Hip abd/add Seated Reps: 10 Treatments Pt sit to stand from recliner Leobardo, LIBRARY CIRCULATION TECHNICIAN adjust pt gown and ties back. Pt then amb 80' to therapy gym. Pt completes seated ex w/ RB as needed. Pt then completes standing toe touches w/ 3" cone x10. Pt amb back to room and sits in recliner. Pt completes supine ex in recliner w/ leg rest up. Pt remains in recliner w/ all needs met, call light in hand. Assessment Current Status: Fair Progress Pt requires frequent RB throughout tx and is limited by pain/weakness. PT Short Term Goals Short Term Goals Time Frame: Feb 27, 2021 Roll Left & Right: 3 Sit to lyin Lying to sitting on side of be: 3 Sit to stand: 4 Chair/iff-hv-anxqi transfer: 4 Walk 10 feet: 4 Walk 50 feet with two turns: 4 Walk 150 feet: 4 PT Prison Goals Prison Goals PT Supervisor Wet Room Goals Time Frame: Mar 13, 2021 Roll Left & Right (QC): 5 Sit to Lying (QC): 3 (Leobardo) Lying-Sitting on Side/Bed(QC): 3 (Leobardo) Sit to Stand (QC): 4 (SBA) Chair/Vxd-qz-Lvsph Xfer(QC): 4 (SBA) Toilet Transfer (QC): 4 (SBA) Car Transfer (QC): 3 (Leobardo) Does the Patient Walk: Yes Walk 10 feet (QC): 4 (SBA) Walk 50ft with 2 Turns (QC): 4 (SBA) Walk 150 ft (QC): 4 (SBA) Walking 10ft on Uneven Surface: 4 (SBA) 1 Step (curb) (QC): 4 (CGA) 4 Steps (QC): 88 12 Steps (QC): 88 Picking up an Object (QC): 88 Wheel 50 feet with 2 turns (QC: 9 Wheel 150 feet: 9 PT Plan Treatment/Plan Treatment Plan: Continue Plan of Care Treatment Plan: Bed Mobility, Education, Functional Activity Delfino, Functional Strength, Group Therapy, Gait, Safety, Therapeutic Exercise, Transfers Treatment Duration: Mar 13, 2021 Frequency: At least 5 of 7 days/Wk (IRF) Estimated Hrs Per Day: 1.5 hours per day Patient and/or Family Agrees t: Yes Time/GCodes Time In: 800 Time Out: 900 Total Billed Treatment Time: 60 Total Billed Treatment 1, GT x2, EX x2 KARLOS,[facility] LIBRARY CIRCULATION TECHNICIAN Feb 21, 2021 09:58
--- NOTE | 2021-02-21 12:24 | Occupational Ther Daily Note ---
OT Current Status-Daily Note Subjective Pt. relaxing in recliner. Pt. agrees to therapy. Pt c/o slight pain agrees to bathing. Mental Status/Objective Patient Orientation: Person, Place, Time, Situation Attachments: IV (removed by nursing prior to shower.) Due to procedure bandages Nursing was notified of showering and verbalized bandages getting wet/removal was approved. Nursing wanted to inspect after shower as well. ADL-Treatment 1st session ([id number]): Pt. supervision sit to stand from recliner to FWW, SBA for safety ambu. to bathroom with FWW. Pt. sat on commode over toilet, only able to urinate, Pt. able to cleanse self from front indicates can not reach back if BM produced. Pt. ambu from commode covered toilet to shower bench in shower using FWW with supervision. Pt. able to cleanse all parts by self seated on shower bench, used LH sponge to cleanse feet, back, and buttocks. Pt. used grabbars to odd shoe examiner shower to cleanse buttocks was supervision. Pt. seated to dry self UE, LE tops of legs, willam area, unable to dry feet, lower leg, or buttocks. Pt. able to don hospital gown and antiperspirant after set up. Pt. ambu to recliner to don underwear using LBD equipment and canes to manipulate clothing to knees, required multiple standing rest breaks to complete donning of underwear. Pt. edu on sock aid, verbalized/demo understanding stating the sock aid would make it easier right now. Pt. seated in recliner. Call light/phone in reach. All needs met in room. Therapy Code Descriptions/Definitions Functional [place] Measure: 0=Not Assessed/NA 4=Minimal Assistance 1=Total Assistance 5=Supervision or Setup 2=Maximal Assistance 6=Modified [place] 3=Moderate Assistance 7=Complete IndependenceSCALE: Activities may be completed with or without assistive devices. 5-Epxokdckaq-hhawssc completes the activity by him/herself with no assistance from a helper. 5-Set-up or Clean-up Assistance-helper sets up or cleans up; patient completes activity. [place] assists only prior to or following the activity. 4-Supervision or Touching Assistance-helper provides verbal cues and/or touching/steadying and/or contact guard assistance as patient completes activity. Assistance may be provided throughout the activity or intermittently. 3-Partial/Moderate Assistance-helper does LESS THAN HALF the effort. [place] l ifts, holds or supports trunk or limbs, but provides less than half the effort. 2-Substantial/Maximal Assistance-helper does MORE THAN HALF the effort. [place] lifts or holds trunk or limbs and provides more than half the effort. 5-Kqrriuyql-[place] does ALL the effort. Patient does none of the effort to complete the activity. Or, the assistance of 2 or more helpers is required for t he patient to complete the activity. If activity was not attempted, code reason: 7-Patient Refused. 9-Not Applicable-not attempted and the patient did not perform the activity before the current illness, exacerbation or injury. 10-Not Attempted due to Environmental Limitations-(lack of equipment, weather restraints, etc.). 88-Not Attempted due to Medical Conditions or Safety Concerns. Bathing Location: L Arm, R Arm, L Upper Leg, R Upper Leg, L Lower Leg (including foot), R Lower Leg (including foot), Chest, Abdomen, Buttocks, Perineal Area Shower/Bathe Self (QC): 3 Upper Body Dressing (QC): 5 (Pt still has not received upper clothing from home but has demonstrated ability to thread B UE through sleeves of hospital and leaving neck tied is able to bring over head.) Lower Body Dressing (QC): 4 (Supervision) On/Off Footwear: 3 (Edu of sock aid and Min A over heel. ) Toileting Hygiene (QC): 3 (If BM Pt. requires help) Toilet Transfer (QC): 5 Pt. states at home there is a walk in shower, has a seat, long handled sponge like the one therapy provided in room. Also states if constipation is not an issue there is a long handled wiping device to help cleanse buttocks after BM. Discussed and will provide toilet tongs for pt. Other Treatment (Session 2) [id number] Pt. states still hadn't received lunch nursing was notified. Pt. agrees to ROM demonstration, can only flex shoulders to ~165* before stating discomfort at surgery sites. Pt. able to perform B UE ex's shoul ramana abd/add with modification to not pull at sites, bicep flexion/extension, hand to touch opposite shoulder 10 reps 1 set no resistance. Pt. set up meal by self, left to enjoy before PT session. All needs met. Education OT Patient Education: Correct positioning, Exercise program, Use of adapted equipment Teaching Recipient: Patient Teaching Methods: Demonstration, Discussion Response to Teaching: Verbalize Understanding, Return Demonstration OT Short Term Goals Short Term Goals Time Frame: Feb 28, 2021 Eatin Oral hygiene: 6 Toileting hygiene: 3 Shower/bathe self: 4 Upper body dressin Lower body dressin Putting on/taking off footwear: 3 OT Assistant Accounting Manager Goals Custodial Goals Time Frame: Mar 12, 2021 Eating (QC): 6 Oral Hygiene (QC): 6 Toileting Hygiene (QC): 5 Shower/Bathe Self (QC): 5 Upper Body Dressing (QC): 5 Lower Body Dressing (QC): 5 On/Off Footwear (QC): 5 1=Demonstrate adherence to instructed precautions during ADL tasks. 2=Patient will verbalize/demonstrate understanding of assistive devices/modifications for ADL. 3=Patient will improve strength/tolerance for activity to enable patient to perform ADL's. OT Education/Plan Problem List/Assessment Assessment: Decreased Activ Tolerance, Decreased UE Strength, Impaired Self- Care Skills Discharge Recommendations Plan/Recommendations: Continue POC Treatment Plan/Plan of Care Patient would benefit from OT for education, treatment and training to promote independence in ADL's, mobility, safety and/or upper extremity function for ADL's. Plan of Care: ADL Retraining, Functional Mobility, Group Exercise/Act as Ind, UE Funct Exercise/Act, W/C Management Training Treatment Duration: Mar 12, 2021 Frequency: At least 5 of 7 days/Wk (IRF) Estimated Hrs Per Day: 1.5 hours per day Agreement: Yes Rehab Potential: Fair Time/GCodes Start Time: 11:00 (1300) Stop Time: 12:05 (1330) Total Time Billed (hr/min): 95 Billed Treatment Time (Session 1) 1 visit- ADL 4 (65 min) (Session 2) 1 visit- EX 1 (15 min), FA 1 (15 min) NEAL CASIANO Feb 21, 2021 12:24
[2021-02-21] MEDS: MULTIVIT W/MINERALS TAB (THERAGRAN M) PO SCH (13:24)
--- NOTE | 2021-02-21 14:08 | Physical Therapy Daily Note ---
PT Daily Note-Current Subjective Pt in recliner eating lunch upon arrival and agrees to tx. Mental Status Patient Orientation: Person, Place, Time, Situation Transfers SCALE: Activities may be completed with or without assistive devices. 0-Jxmxlfjcyw-wnyobhe completes the activity by him/herself with no assistance from a helper. 5-Set-up or Clean-up Assistance-helper sets up or cleans up; patient completes a ctivity. [place] assists only prior to or following the activity. 4-Supervision or Touching Assistance-helper provides verbal cues and/or touching/steadying and/or contact guard assistance as patient completes activity. Assistance may be provided throughout the activity or intermittently. 3-Partial/Moderate Assistance-helper does LESS THAN HALF the effort. [place] lifts, holds or supports trunk or limbs, but provides less than half the effort. 2-Substantial/Maximal Assistance-helper does MORE THAN HALF the effort. [place] lifts or holds trunk or limbs and provides more than half the effort. 2-Zwbkjtgsz-ttznhb does ALL the effort. Patient does none of the effort to complete the activity. Or, the assistance of 2 or more helpers is required for the patient to complete the activity. If activity was not attempted, code reason: 7-Patient Refused. 9-Not Applicable-not attempted and the patient did not perform the activity before the current illness, exacerbation or injury. 10-Not Attempted due to Environmental Limitations-(lack of equipment, weather restraints, etc.). 88-Not Attempted due to Medical Conditions or Safety Concerns. Sit to Stand (QC): 4 Gait Training Does the Patient Walk?: Yes Distance: 100' x2 Walk 10 feet (QC): 4 Walk 50 ft with 2 Turns(QC): 4 Gait Assistive Device: FWW Pt has slow, shuffling, antalgic gait. Treatments Pt sit to stand from recliner and holds static standing balance 5 mins w/o LOB and CGA. Pt then has seated RB, then sit to stand and amb 100', has seated RB, then another 100'. Pt returns to room and request to use BR. Pt enters BR and doffs pants CGA. Pt states she may need some time and that she will use the call light when finished. Pt stayed in BR post tx, RN notified. Pt left with all needs met. Assessment Current Status: Fair Progress Pt motivated to go home, but requires frequent RB PT Short Term Goals Short Term Goals Time Frame: Feb 27, 2021 Roll Left & Right: 3 Sit to lyin Lying to sitting on side of be: 3 Sit to stand: 4 Chair/exi-ts-evgdp transfer: 4 Walk 10 feet: 4 Walk 50 feet with two turns: 4 Walk 150 feet: 4 PT Jail Goals Jail Goals PT General Education Professor Goals Time Frame: Mar 13, 2021 Roll Left & Right (QC): 5 Sit to Lying (QC): 3 (Leobardo) Lying-Sitting on Side/Bed(QC): 3 (Leobardo) Sit to Stand (QC): 4 (SBA) Chair/Xkt-mf-Ivena Xfer(QC): 4 (SBA) Toilet Transfer (QC): 4 (SBA) Car Transfer (QC): 3 (Leobardo) Does the Patient Walk: Yes Walk 10 feet (QC): 4 (SBA) Walk 50ft with 2 Turns (QC): 4 (SBA) Walk 150 ft (QC): 4 (SBA) Walking 10ft on Uneven Surface: 4 (SBA) 1 Step (curb) (QC): 4 (CGA) 4 Steps (QC): 88 12 Steps (QC): 88 Picking up an Object (QC): 88 Wheel 50 feet with 2 turns (QC: 9 Wheel 150 feet: 9 PT Plan Treatment/Plan Treatment Plan: Continue Plan of Care Treatment Plan: Bed Mobility, Education, Functional Activity Delfino, Functional Strength, Group Therapy, Gait, Safety, Therapeutic Exercise, Transfers Treatment Duration: Mar 13, 2021 Frequency: At least 5 of 7 days/Wk (IRF) Estimated Hrs Per Day: 1.5 hours per day Patient and/or Family Agrees t: Yes Time/GCodes Time In: 1330 Time Out: 1400 Total Billed Treatment Time: 30 Total Billed Treatment 1, GT, MARCELA MOSLEY SVP GROUP DIRECTOR Feb 21, 2021 14:08
[2021-02-21] MEDS: ENOXAPARIN 40 MG/0.4 ML (LOVENOX) SYR SC SCH (16:09)
[2021-02-21] MEDS: ACETAMINOPHEN 500 MG TAB (TYLENOL) PO PRN (16:10)
--- NOTE | 2021-02-21 16:20 | Cardiology Progress Note ---
Progress Note-Cardiology Events since last exam Date Seen by Provider: Feb 21, 2021 Time Seen by Provider: 16:15 Events since last exam I am following her for chest pain. She denies any further chest pain. She denies dyspnea at rest. Her chronic lower extremity edema is unchanged. She denies palpitations or syncope. She is waiting to get her fitted compression stockings from home and then she will start using these while here in the hospital. Certain portions of this document may have been dictated utilizing voice recognition technology. Inherent to this technology, typographical and grammatical errors may exist. As much as I am diligent to identify and correct these mistakes, some errors may remain in the document. Vitals Last set of Vitals Signs Vital Signs 02/21/21 02/21/21 07:35 09:00 Temp 37.2 Pulse 73 Resp 16 B/P (MAP) 123/60 (81) Pulse Ox 94 O2 Delivery Room Air Labs Labs Laboratory Tests 02/21/21 06:00 Exam Vital Signs Vital Signs Date Time Temp Pulse Resp B/P (MAP) Pulse Ox O2 Delivery O2 Flow Rate FiO2 02/21/21 09:00 94 Room Air 02/21/21 07:35 37.2 73 16 123/60 (81) Physical Exam General: Alert. No acute distress. She is morbidly obese. Eye: No xanthelasma. HENT: Normocephalic. Neck: Jugular venous pressure does not appear elevated. Respiratory: Lungs are clear to auscultation but with decreased breath sounds. Respirations are non-labored. Breath sounds are equal. Symmetrical chest wall expansion. Cardiovascular: Normal rate. Regular rhythm. Distant S1/S2. No murmur. No gallop. 2+ bilateral pretibial edema with chronic venous stasis changes and old healed wounds. Gastrointestinal: Soft. Normal bowel sounds. Skin: Warm. Dry. Neurologic: Alert and oriented to person, place, time. Cranial nerves 3-11 grossly intact. Psychiatric: Cooperative. Appropriate mood & affect. Labs Laboratory Tests Test 02/21/21 06:00 Range/Units White Blood Count 13.0 H 4.3-11.0 10^3/uL Red Blood Count 3.33 L 3.80-5.11 10^6/uL Hemoglobin 10.2 L 11.5-16.0 g/dL Hematocrit 31 L 35-52 % Mean Corpuscular Volume 94 80-99 fL Mean Corpuscular Hemoglobin 31 25-34 pg Mean Corpuscular Hemoglobin Concent 33 32-36 g/dL Red Cell Distribution Width 13.2 10.0-14.5 % Platelet Count 243 130-400 10^3/uL Mean Platelet Volume 10.4 9.0-12.2 fL Immature Granulocyte % (Auto) 0 % Neutrophils (%) (Auto) 72 42-75 % Lymphocytes (%) (Auto) 18 12-44 % Monocytes (%) (Auto) 9 0-12 % Eosinophils (%) (Auto) 1 0-10 % Basophils (%) (Auto) 0 0-10 % Neutrophils # (Auto) 9.3 H 1.8-7.8 10^3/uL Lymphocytes # (Auto) 2.3 1.0-4.0 10^3/uL Monocytes # (Auto) 1.1 H 0.0-1.0 10^3/uL Eosinophils # (Auto) 0.2 0.0-0.3 10^3/uL Basophils # (Auto) 0.0 0.0-0.1 10^3/uL Immature Granulocyte # (Auto) 0.1 0.0-0.1 10^3/uL Sodium Level 133 L 135-145 MMOL/L Potassium Level 4.0 3.6-5.0 MMOL/L Chloride Level 101 98-107 MMOL/L Carbon Dioxide Level 22 21-32 MMOL/L Anion Gap 10 5-14 MMOL/L Blood Urea Nitrogen 21 H 7-18 MG/DL Creatinine 1.24 0.60-1.30 MG/DL Estimat Glomerular Filtration Rate 43 BUN/Creatinine Ratio 17 Glucose Level 116 H 70-105 MG/DL Calcium Level 9.0 8.5-10.1 MG/DL Corrected Calcium 9.4 8.5-10.1 MG/DL Total Bilirubin 1.0 0.1-1.0 MG/DL Aspartate Amino Transf (AST/SGOT) 18 5-34 U/L Alanine Aminotransferase (ALT/SGPT) 18 0-55 U/L Alkaline Phosphatase 80 40-136 U/L Total Protein 7.0 6.4-8.2 GM/DL Albumin 3.5 3.2-4.5 GM/DL Triglycerides Level 101 <150 MG/DL Cholesterol Level 124 < 200 MG/DL LDL Cholesterol Direct 68 1-129 MG/DL VLDL Cholesterol 20 5-40 MG/DL HDL Cholesterol 48 40-60 MG/DL Diagnosis/Problems Diagnosis/Problems (1) Chest pain Assessment & Plan: Exact etiology unclear. I suspect this may have been related to her gastrointestinal surgery on admission. She had no ischemic changes on her resting electrocardiogram while she was having chest pain. Her echocardiogram shows an overall normal ejection fraction. After having at least several hours of chest pain in the first 24 hours following admission, her troponin level was undetectable. I recommend she continue low strength aspirin which she was taking at home. Her cholesterol level is actually very good on no medication. I recommend she continue on the proton pump inhibitor. After she is discharged, I will plan to see her in the office in about 1 month and at that point in time, I will consider scheduling her for stress test. At this point in time, there do not appear to be any acute, active cardiac issues. As such, cardiology will sign off. Please call if you have other questions or concerns. (2) Abnormal ECG Assessment & Plan: Her electrocardiogram shows a possible old anterior myocardial infarction but without acute ischemic changes. Some of this could be related to lead placement given her morbid obesity. However, in light of the chest discomfort, I will consider an ischemic evaluation after discharge as outlined above. There is no urgent need to do this while she is in the hospital recovering from elective surgery. (3) Primary hypertension Assessment & Plan: Blood pressure is well controlled on losartan which she was taking at home. (4) Morbid obesity Assessment & Plan: She really needs to work on weight loss. This is most likely contributing to her chronic lower extremity and likely venous insufficiency which then results in venous stasis ulcers. TYREE MENDOZA JR, MD Feb 21, 2021 16:20
[2021-02-21 20:00] VITALS: BP 122/57
[2021-02-21] MEDS: CALCIUM CARBONATE 500 MG (TUMS) TAB.CHEW PO PRN (20:56)
[2021-02-22] MEDS: HYDROcodone/APAP 5 MG/325 MG (LORTAB) TAB PO PRN ×4 (01:29→21:48)
--- NOTE | 2021-02-22 07:54 | PM&R Progress Note ---
Subjective HPI/CC On Admission Date Seen by Provider: Feb 22, 2021 Time Seen by Provider: 12:30 Subjective/Events-last exam 02/22/2021: Patient doing really well Walking pretty well View CPAP last night Became dyspneic with exertion but O2 sat was maintained Wearing her new compression wraps 02/21/2021: Patient is settling in well Using CPAP at night No bowel movement and all laxatives given so may need Dulcolax suppository Getting wound care stockings for her Incontinent at times so we will try to get a bladder schedule Discontinue Hep-Lock in right hand Walking around pretty well Review of Systems General: Fatigue, Malaise Pulmonary: Dyspnea Gastrointestinal: Abdominal Pain Objective Exam Vital Signs Vital Signs Date Time Temp Pulse Resp B/P (MAP) Pulse Ox O2 Delivery O2 Flow Rate FiO2 02/22/21 08:41 37.1 60 20 134/61 (85) 98 Room Air Capillary Refill : General Appearance: No Apparent Distress, WD/WN, Chronically ill, Obese HEENT: PERRL/EOMI, Normal ENT Inspection, Pharynx Normal Neck: Full Range of Motion, Normal Inspection, Non Tender, Supple, Carotid Bruit Respiratory: Chest Non Tender, Lungs Clear, Normal Breath Sounds, No Accessory Muscle Use, No Respiratory Distress Cardiovascular: Regular Rate, Rhythm, No Edema, No Gallop, No JVD, No Murmur, Normal Peripheral Pulses Gastrointestinal: Normal Bowel Sounds, No Organomegaly, No Pulsatile Mass, Soft, Tenderness (Postop) Back: Normal Inspection, No CVA Tenderness, No Vertebral Tenderness Extremity: Normal Capillary Refill, Normal Inspection, Normal Range of Motion, Non Tender, No Calf Tenderness, No Pedal Edema Neurologic/Psychiatric: Alert, Oriented x3, Normal Mood/Affect, electrical transmission engineer II-XII Norm as Tested, Abnormal Gait, Depressed Affect, Motor Weakness (Generalized and lower extremities 3/5) Skin: Normal Color, Warm/Dry Lymphatic: No Adenopathy Results/Procedures Lab Patient resulted labs reviewed. FIM Transfers Therapy Code Descriptions/Definitions Functional [place] Measure: 0=Not Assessed/NA 4=Minimal Assistance 1=Total Assistance 5=Supervision or Setup 2=Maximal Assistance 6=Modified [place] 3=Moderate Assistance 7=Complete IndependenceSCALE: Activities may be completed with or without assistive devices. 1-Qtleivqepp-thmbqvb completes the activity by him/herself with no assistance from a helper. 5-Set-up or Clean-up Assistance-helper sets up or cleans up; patient completes activity. [place] assists only prior to or following the activity. 4-Supervision or Touching Assistance-helper provides verbal cues and/or touching/steadying and/or contact guard assistance as patient completes activity. Assistance may be provided throughout the activity or intermittently. 3-Partial/Moderate Assistance-helper does LESS THAN HALF the effort. [place] lifts, holds or supports trunk or limbs, but provides less than half the effort. 2-Substantial/Maximal Assistance-helper does MORE THAN HALF the effort. [place] lifts or holds trunk or limbs and provides more than half the effort. 8-Fxzwskmib-xakzoe does ALL the effort. Patient does none of the effort to complete the activity. Or, the assistance of 2 or more helpers is required for the patient to complete the activity. If activity was not attempted, code reason: 7-Patient Refused. 9-Not Applicable-not attempted and the patient did not perform the activity before the current illness, exacerbation or injury. 10-Not Attempted due to Environmental Limitations-(lack of equipment, weather restraints, etc.). 88-Not Attempted due to Medical Conditions or Safety Concerns. Roll Left to Right (QC): 3 Sit to Lying (QC): 1 Sit to Stand (QC): 4 Chair/Qfd-pv-Fgxol Xfer(QC): 4 Car Transfer (QC): 88 Gait Training Does the Patient Walk?: Yes Distance: 100' x2 Walk 10 feet (QC): 4 Walk 50 ft with 2 Turns(QC): 4 Walk 150 ft (QC): 88 Walking 10ft/uneven surface-QC: 4 Gait Persons Needed: 1 Gait Assistive Device: FWW Wheelchair Training Does the Pt Use a Wheelchair?: No Distance: SEE PT NOTES Wheel 50 ft with 2 turns (QC): 1 Wheel 150 ft (QC): 1 Type of Wheelchair: Manual Stair Training 1 Step (curb) (QC): 88 4 Steps (QC): 88 12 Steps (QC): 88 Balance Picking up an Object (QC): 88 ADL-Treatment Eating (QC): 6 Oral Hygiene (QC): 5 Bathing Location: L Arm, R Arm, L Upper Leg, R Upper Leg, L Lower Leg (including foot), R Lower Leg (including foot), Chest, Abdomen, Buttocks, Perineal Area Shower/Bathe Self (QC): 3 Upper Body Dressing (QC): 5 (Pt still has not received upper clothing from home but has demonstrated ability to thread B UE through sleeves of hospital and leaving neck tied is able to bring over head.) Lower Body Dressing (QC): 4 (Supervision) On/Off Footwear (QC): 3 (Edu of sock aid and Min A over heel. ) Toileting Hygiene (QC): 3 (If BM Pt. requires help) Toilet Transfer (QC): 5 Assessment/Plan Assessment and Plan Assess & Plan/Chief Complaint Assessment: Debility Ventral hernia repair postop day #2 Morbid obesity BMI 63 LOBITO on CPAP Hypertension Chronic knee pain Chronic debility Plan: Aggressive rehab Increase use of assistive devices Pain control Bowel regimen 02/21/2021: Pain control Bowel regimen 02/22/2021: Continue bowel regimen Pain control Aggressive therapy (1) Chest pain Assessment & Plan: Exact etiology unclear. I suspect this may have been related to her gastrointestinal surgery on admission. She had no ischemic changes on her resting electrocardiogram while she was having chest pain. Her echocardiogram shows an overall normal ejection fraction. After having at least several hours of chest pain in the first 24 hours following admission, her troponin level was undetectable. I recommend she continue low strength aspirin which she was taking at home. Her cholesterol level is actually very good on no medication. I recommend she continue on the proton pump inhibitor. After she is discharged, I will plan to see her in the office in about 1 month and at that point in time, I will consider scheduling her for stress test. At this point in time, there do not appear to be any acute, active cardiac issues. As such, cardiology will sign off. Please call if you have other questions or concerns. (2) Abnormal ECG Assessment & Plan: Her electrocardiogram shows a possible old anterior myocardial infarction but without acute ischemic changes. Some of this could be related to lead placement given her morbid obesity. However, in light of the chest discomfort, I will consider an ischemic evaluation after discharge as outlined above. There is no urgent need to do this while she is in the hospital recovering from elective surgery. (3) Primary hypertension Assessment & Plan: Blood pressure is well controlled on losartan which she was taking at home. (4) Morbid obesity Assessment & Plan: She really needs to work on weight loss. This is most likely contributing to her chronic lower extremity and likely venous insufficiency which then results in venous stasis ulcers. THEA GARLAND DO Feb 22, 2021 07:54
[2021-02-22 08:41] VITALS: BP 134/61
[2021-02-22] MEDS: FUROSEMIDE 20 MG (LASIX) TAB PO SCH (09:19)
[2021-02-22] MEDS: ASPIRIN E.C. 81 MG (ECOTRIN) TAB PO SCH (09:19)
[2021-02-22] MEDS: PANTOPRAZOLE 40 MG (PROTONIX) TAB PO SCH (09:19)
[2021-02-22] MEDS: LOSARTAN 50 MG (COZAAR) TAB PO SCH (09:19)
[2021-02-22] MEDS: OMEGA 3 (FISH OIL) 1000 MG CAP PO SCH ×3 (09:20→17:26)
[2021-02-22] MEDS: LORATADINE (CLARITIN) 10 MG TAB PO SCH (09:20)
[2021-02-22] MEDS: MAGNESIUM OXIDE (MAG-OX)400 MG TAB PO SCH (09:20)
[2021-02-22] MEDS: DOCUSATE SODIUM 100 MG (COLACE) CAP PO SCH ×2 (09:37→19:05)
[2021-02-22] MEDS: SENNA W/DOCUSATE (SENOKOT S) TABLET PO SCH ×2 (09:37→19:05)
[2021-02-22] MEDS: polyethylene glycoL POWDER 17 GM (MIRALAX) PACK PO SCH ×2 (09:39→19:05)
--- NOTE | 2021-02-22 09:39 | Physical Therapy Daily Note ---
PT Daily Note-Current Subjective Pt sitting in recliner upon arrival. Pt agrees to PT but asks for change in gown as her's has blood on it. Nurse brings new gown. Pain Location Body Site: Abdomen Pain Description: Ache Comment: Pain reported but not rated, more tightness than pain Mental Status Patient Orientation: Person, Place, Time, Situation Transfers SCALE: Activities may be completed with or without assistive devices. 6-Spribuedyd-hcfuggm completes the activity by him/herself with no assistance from a helper. 5-Set-up or Clean-up Assistance-helper sets up or cleans up; patient completes activity. [place] assists only prior to or following the activity. 4-Supervision or Touching Assistance-helper provides verbal cues and/or touching/steadying and/or contact guard assistance as patient completes activit y. Assistance may be provided throughout the activity or intermittently. 3-Partial/Moderate Assistance-helper does LESS THAN HALF the effort. [place] lifts, holds or supports trunk or limbs, but provides less than half the effort. 2-Substantial/Maximal Assistance-helper does MORE THAN HALF the effort. [place] lifts or holds trunk or limbs and provides more than half the effort. 6-Beqyrtnfa-uigmhd does ALL the effort. Patient does none of the effort to complete the activity. Or, the assistance of 2 or more helpers is required for the patient to complete the activity. If activity was not attempted, code reason: 7-Patient Refused. 9-Not Applicable-not attempted and the patient did not perform the activity before the current illness, exacerbation or injury. 10-Not Attempted due to Environmental Limitations-(lack of equipment, weather restraints, etc.). 88-Not Attempted due to Medical Conditions or Safety Concerns. Sit to Stand (QC): 4 Weight Bearing Full Weight Bearing Full Weight Bearing Gait Training Does the Patient Walk?: Yes Distance: 100' x2 Walk 10 feet (QC): 4 Walk 50 ft with 2 Turns(QC): 4 Walk 150 ft (QC): 4 Gait Persons Needed: 1 Gait Assistive Device: FWW Pt breathing labored and fatigues easily, takes RB during amb. Wheelchair Training Does the Pt Use a Wheelchair?: No Treatments TF to standing and don/doff gown to replace bloody one. Amb. in hallway, taking RB as needed. Pt returns to room to rest in recliner, B LE elevated and positioned to comfort. All needs met, call light in hand. Assessment Current Status: Good Progress Pt able to increase distance of amb. Fatigued and needs RB though. PT Short Term Goals Short Term Goals Time Frame: Feb 27, 2021 Roll Left & Right: 3 Sit to lyin Lying to sitting on side of be: 3 Sit to stand: 4 Chair/qyf-wo-cwzlp transfer: 4 Walk 10 feet: 4 Walk 50 feet with two turns: 4 Walk 150 feet: 4 PT [facility] Goals Supervisor [employer]ope Fabrication Goals PT Supervisor Wire Rope Fabrication Goals Time Frame: Mar 13, 2021 Roll Left & Right (QC): 5 Sit to Lying (QC): 3 (Leobardo) Lying-Sitting on Side/Bed(QC): 3 (Leobardo) Sit to Stand (QC): 4 (SBA) Chair/Xgv-jk-Dhltv Xfer(QC): 4 (SBA) Toilet Transfer (QC): 4 (SBA) Car Transfer (QC): 3 (Leobardo) Does the Patient Walk: Yes Walk 10 feet (QC): 4 (SBA) Walk 50ft with 2 Turns (QC): 4 (SBA) Walk 150 ft (QC): 4 (SBA) Walking 10ft on Uneven Surface: 4 (SBA) 1 Step (curb) (QC): 4 (CGA) 4 Steps (QC): 88 12 Steps (QC): 88 Picking up an Object (QC): 88 Wheel 50 feet with 2 turns (QC: 9 Wheel 150 feet: 9 PT Plan Problem List Problem List: Activity Tolerance, Functional Strength Treatment/Plan Treatment Plan: Continue Plan of Care Treatment Plan: Bed Mobility, Education, Functional Activity Delfino, Functional Strength, Group Therapy, Gait, Safety, Therapeutic Exercise, Transfers Treatment Duration: Mar 13, 2021 Frequency: At least 5 of 7 days/Wk (IRF) Estimated Hrs Per Day: 1.5 hours per day Patient and/or Family Agrees t: Yes Safety Risks/Education Patient Education: Gait Training, Transfer Techniques, Correct Positioning Teaching Recipient: Patient Teaching Methods: Discussion Response to Teaching: Verbalize Understanding Time/GCodes Time In: 820 Time Out: 855 Total Billed Treatment Time: 35 Total Billed Treatment 1, FA (15m) & GT (20m) NAHOMY GUILLEN SENIOR TECHNICAL ANALYST Feb 22, 2021 09:39
[2021-02-22] MEDS: MULTIVIT W/MINERALS TAB (THERAGRAN M) PO SCH (12:41)
[2021-02-22] MEDS: ACETAMINOPHEN 500 MG TAB (TYLENOL) PO PRN (12:42)
[2021-02-22] MEDS: ENOXAPARIN 40 MG/0.4 ML (LOVENOX) SYR SC SCH (17:26)
[2021-02-22 20:00] VITALS: BP 149/67
[2021-02-23] MEDS: HYDROcodone/APAP 5 MG/325 MG (LORTAB) TAB PO PRN ×2 (05:23→19:44)
--- NOTE | 2021-02-23 06:47 | PM&R Progress Note ---
Subjective HPI/CC On Admission Date Seen by Provider: Feb 23, 2021 Time Seen by Provider: 13:30 Subjective/Events-last exam 02/23/2021: Patient doing really well Bowels moving Times taken Voltaren gel will be tried BIOflex will be restarted her home med 02/22/2021: Patient doing really well Walking pretty well View CPAP last night Became dyspneic with exertion but O2 sat was maintained Wearing her new compression wraps 02/21/2021: Patient is settling in well Using CPAP at night No bowel movement and all laxatives given so may need Dulcolax suppository Getting wound care stockings for her Incontinent at times so we will try to get a bladder schedule Discontinue Hep-Lock in right hand Walking around pretty well Review of Systems General: Fatigue, Malaise Objective Exam Vital Signs Vital Signs Date Time Temp Pulse Resp B/P (MAP) Pulse Ox O2 Delivery O2 Flow Rate FiO2 02/23/21 21:13 94 Room Air 02/23/21 20:14 36.8 02/23/21 20:00 82 20 146/65 (92) Capillary Refill : General Appearance: No Apparent Distress, WD/WN, Chronically ill, Obese HEENT: PERRL/EOMI, Normal ENT Inspection, Pharynx Normal Neck: Full Range of Motion, Normal Inspection, Non Tender, Supple, Carotid Bruit Respiratory: Chest Non Tender, Lungs Clear, Normal Breath Sounds, No Accessory Muscle Use, No Respiratory Distress Cardiovascular: Regular Rate, Rhythm, No Edema, No Gallop, No JVD, No Murmur, Normal Peripheral Pulses Gastrointestinal: Normal Bowel Sounds, No Organomegaly, No Pulsatile Mass, Soft, Tenderness (Postop) Back: Normal Inspection, No CVA Tenderness, No Vertebral Tenderness Extremity: Normal Capillary Refill, Normal Inspection, Normal Range of Motion, Non Tender, No Calf Tenderness, No Pedal Edema Neurologic/Psychiatric: Alert, Oriented x3, Normal Mood/Affect, audio visual collections coordinator II-XII Norm as Tested, Abnormal Gait, Depressed Affect, Motor Weakness (Generalized and lower extremities 3/5) Skin: Normal Color, Warm/Dry Lymphatic: No Adenopathy Results/Procedures Lab Patient resulted labs reviewed. FIM Transfers Therapy Code Descriptions/Definitions Functional [place] Measure: 0=Not Assessed/NA 4=Minimal Assistance 1=Total Assistance 5=Supervision or Setup 2=Maximal Assistance 6=Modified [place] 3=Moderate Assistance 7=Complete IndependenceSCALE: Activities may be completed with or without assistive devices. 3-Jmgmlfdtle-ncpzqrf completes the activity by him/herself with no assistance from a helper. 5-Set-up or Clean-up Assistance-helper sets up or cleans up; patient completes activity. [place] assists only prior to or following the activity. 4-Supervision or Touching Assistance-helper provides verbal cues and/or touching/steadying and/or contact guard assistance as patient completes activity. Assistance may be provided throughout the activity or intermittently. 3-Partial/Moderate Assistance-helper does LESS THAN HALF the effort. [place] lifts, holds or supports trunk or limbs, but provides less than half the effort. 2-Substantial/Maximal Assistance-helper does MORE THAN HALF the effort. [place] lifts or holds trunk or limbs and provides more than half the effort. 9-Egedlvlgi-sbvtfl does ALL the effort. Patient does none of the effort to complete the activity. Or, the assistance of 2 or more helpers is required for the patient to complete the activity. If activity was not attempted, code reason: 7-Patient Refused. 9-Not Applicable-not attempted and the patient did not perform the activity before the current illness, exacerbation or injury. 10-Not Attempted due to Environmental Limitations-(lack of equipment, weather restraints, etc.). 88-Not Attempted due to Medical Conditions or Safety Concerns. Roll Left to Right (QC): 3 Sit to Lying (QC): 1 Sit to Stand (QC): 4 Chair/Epw-fw-Tofzc Xfer(QC): 4 Car Transfer (QC): 88 Gait Training Does the Patient Walk?: Yes Distance: 100' x2 Walk 10 feet (QC): 4 Walk 50 ft with 2 Turns(QC): 4 Walk 150 ft (QC): 4 Walking 10ft/uneven surface-QC: 4 Gait Persons Needed: 1 Gait Assistive Device: FWW Wheelchair Training Does the Pt Use a Wheelchair?: No Distance: SEE PT NOTES Wheel 50 ft with 2 turns (QC): 1 Wheel 150 ft (QC): 1 Type of Wheelchair: Manual Stair Training 1 Step (curb) (QC): 88 4 Steps (QC): 88 12 Steps (QC): 88 Balance Picking up an Object (QC): 88 ADL-Treatment Eating (QC): 6 Oral Hygiene (QC): 5 Bathing Location: L Arm, R Arm, L Upper Leg, R Upper Leg, L Lower Leg (including foot), R Lower Leg (including foot), Chest, Abdomen, Buttocks, Perineal Area Shower/Bathe Self (QC): 3 Upper Body Dressing (QC): 5 (Pt still has not received upper clothing from home but has demonstrated ability to thread B UE through sleeves of hospital and leaving neck tied is able to bring over head.) Lower Body Dressing (QC): 4 (Supervision) On/Off Footwear (QC): 3 (Edu of sock aid and Min A over heel. ) Toileting Hygiene (QC): 3 (If BM Pt. requires help) Toilet Transfer (QC): 5 Assessment/Plan Assessment and Plan Assess & Plan/Chief Complaint Assessment: Debility Ventral hernia repair postop day #2 Morbid obesity BMI 63 LOBITO on CPAP Hypertension Chronic knee pain Chronic debility Plan: Aggressive rehab Increase use of assistive devices Pain control Bowel regimen 02/21/2021: Pain control Bowel regimen 02/22/2021: Continue bowel regimen Pain control Aggressive therapy 02/23/2021: Supportive care Much improved status (1) Chest pain Assessment & Plan: Exact etiology unclear. I suspect this may have been related to her gastrointestinal surgery on admission. She had no ischemic changes on her resting electrocardiogram while she was having chest pain. Her echocardiogram shows an overall normal ejection fraction. After having at least several hours of chest pain in the first 24 hours following admission, her troponin level was undetectable. I recommend she continue low strength aspirin which she was taking at home. Her cholesterol level is actually very good on no medication. I recommend she continue on the proton pump inhibitor. After she is discharged, I will plan to see her in the office in about 1 month and at that point in time, I will consider scheduling her for stress test. At this point in time, there do not appear to be any acute, active cardiac issues. As such, cardiology will sign off. Please call if you have other questions or concerns. (2) Abnormal ECG Assessment & Plan: Her electrocardiogram shows a possible old anterior myocardial infarction but without acute ischemic changes. Some of this could be related to lead placement given her morbid obesity. However, in light of the chest discomfort, I will consider an ischemic evaluation after discharge as outlined above. There is no urgent need to do this while she is in the hospital recovering from elective surgery. (3) Primary hypertension Assessment & Plan: Blood pressure is well controlled on losartan which she was taking at home. (4) Morbid obesity Assessment & Plan: She really needs to work on weight loss. This is most likely contributing to her chronic lower extremity and likely venous insufficiency which then results in venous stasis ulcers. THEA GARLAND DO Feb 23, 2021 06:46
[2021-02-23 09:22] VITALS: BP 134/62
[2021-02-23] MEDS: SENNA W/DOCUSATE (SENOKOT S) TABLET PO SCH ×2 (09:27→20:01)
[2021-02-23] MEDS: DOCUSATE SODIUM 100 MG (COLACE) CAP PO SCH ×2 (09:27→20:01)
[2021-02-23] MEDS: OMEGA 3 (FISH OIL) 1000 MG CAP PO SCH ×3 (09:27→17:33)
[2021-02-23] MEDS: LORATADINE (CLARITIN) 10 MG TAB PO SCH (09:27)
[2021-02-23] MEDS: FUROSEMIDE 20 MG (LASIX) TAB PO SCH (09:27)
[2021-02-23] MEDS: MAGNESIUM OXIDE (MAG-OX)400 MG TAB PO SCH (09:27)
[2021-02-23] MEDS: LOSARTAN 50 MG (COZAAR) TAB PO SCH (09:27)
[2021-02-23] MEDS: PANTOPRAZOLE 40 MG (PROTONIX) TAB PO SCH (09:27)
[2021-02-23] MEDS: ASPIRIN E.C. 81 MG (ECOTRIN) TAB PO SCH (09:27)
[2021-02-23] MEDS: polyethylene glycoL POWDER 17 GM (MIRALAX) PACK PO SCH ×2 (09:27→20:01)
[2021-02-23] MEDS: ACETAMINOPHEN 500 MG TAB (TYLENOL) PO PRN (09:51)
[2021-02-23] MEDS: CALCIUM CARBONATE 500 MG (TUMS) TAB.CHEW PO PRN (10:00)
[2021-02-23] MEDS: MULTIVIT W/MINERALS TAB (THERAGRAN M) PO SCH (11:44)
[2021-02-23] MEDS: ENOXAPARIN 40 MG/0.4 ML (LOVENOX) SYR SC SCH (17:33)
[2021-02-23] MEDS ORDERED: PATIENT MAY USE OWN MED,SINGLE MED PO SCH (19:00)
[2021-02-23 20:00] VITALS: BP 146/65
[2021-02-24 05:57] LABS: BASOPHILS % (AUTO) 1 % (0-10); EOSINOPHILS # (AUTO) 0.2 10^3/uL (0.0-0.3); EOSINOPHILS % (AUTO) 2 % (0-10); HEMATOCRIT 29 % (35-52); HEMOGLOBIN 9.3 g/dL (11.5-16.0); LYMPHOCYTES # (AUTO) 2.2 10^3/uL (1.0-4.0); LYMPHOCYTES % (AUTO) 27 % (12-44); MEAN CORPUSCULAR HEMOGLOBIN 30 pg (25-34); MEAN CORPUSCULAR HGB CONC 32 g/dL (32-36); MEAN CORPUSCULAR VOLUME 94 fL (80-99); MEAN PLATELET VOLUME 10.7 fL (9.0-12.2); MONOCYTES # (AUTO) 0.9 10^3/uL (0.0-1.0); MONOCYTES % (AUTO) 10 % (0-12); NEUTROPHILS % (AUTO) 60 % (42-75); PLATELET COUNT 277 10^3/uL (130-400); WHITE BLOOD COUNT 8.3 10^3/uL (4.3-11.0)
[2021-02-24 06:25] LABS: BILIRUBIN,TOTAL 0.4 MG/DL (0.1-1.0); CALCIUM 9.5 MG/DL (8.5-10.1); CREATININE SERUM 1.14 MG/DL (0.60-1.30); POTASSIUM 4.5 MMOL/L (3.6-5.0); TOTAL PROTEIN 6.4 GM/DL (6.4-8.2)
[2021-02-24] MEDS: HYDROcodone/APAP 5 MG/325 MG (LORTAB) TAB PO PRN ×2 (06:27→20:46)
[2021-02-24 07:27] VITALS: BP 127/60
[2021-02-24] MEDS: PANTOPRAZOLE 40 MG (PROTONIX) TAB PO SCH (08:32)
[2021-02-24] MEDS: polyethylene glycoL POWDER 17 GM (MIRALAX) PACK PO SCH ×2 (08:32→20:47)
[2021-02-24] MEDS: ASPIRIN E.C. 81 MG (ECOTRIN) TAB PO SCH (08:32)
[2021-02-24] MEDS: LOSARTAN 50 MG (COZAAR) TAB PO SCH (08:32)
[2021-02-24] MEDS: OMEGA 3 (FISH OIL) 1000 MG CAP PO SCH ×3 (08:32→17:28)
[2021-02-24] MEDS: MAGNESIUM OXIDE (MAG-OX)400 MG TAB PO SCH (08:32)
[2021-02-24] MEDS: SENNA W/DOCUSATE (SENOKOT S) TABLET PO SCH ×2 (08:33→20:47)
[2021-02-24] MEDS: FUROSEMIDE 20 MG (LASIX) TAB PO SCH (08:33)
[2021-02-24] MEDS: DOCUSATE SODIUM 100 MG (COLACE) CAP PO SCH ×2 (08:33→20:47)
[2021-02-24] MEDS: LORATADINE (CLARITIN) 10 MG TAB PO SCH (08:33)
[2021-02-24] MEDS: ENOXAPARIN 60 MG/0.6 ML (LOVENOX) SYR SC SCH ×2 (09:12→20:47)
--- NOTE | 2021-02-24 09:53 | Physical Therapy Daily Note ---
PT Daily Note-Current Subjective Pt in recliner upon arrival w/ nursing in room. Pt states pain is better than before. Pt states she was sick yesterday. Mental Status Patient Orientation: Person, Place, Time, Situation Transfers SCALE: Activities may be completed with or without assistive devices. 0-Ceqqphvguc-roztvcm completes the activity by him/herself with no assistance from a helper. 5-Set-up or Clean-up Assistance-helper sets up or cleans up; patient completes activity. [place] assists only prior to or following the activity. 4-Supervision or Touching Assistance-helper provides verbal cues and/or touching/steadying and/or contact guard assistance as patient completes activity. Assistance may be provided throughout the activity or intermittently. 3-Partial/Moderate Assistance-helper does LESS THAN HALF the effort. [place] lifts, holds or supports trunk or limbs, but provides less than half the effort. 2-Substantial/Maximal Assistance-helper does MORE THAN HALF the effort. [place] lifts or holds trunk or limbs and provides more than half the effort. 7-Aepfepnwf-nxoxkw does ALL the effort. Patient does none of the effort to complete the activity. Or, the assistance of 2 or more helpers is required for the patient to complete the activity. If activity was not attempted, code reason: 7-Patient Refused. 9-Not Applicable-not attempted and the patient did not perform the activity before the current illness, exacerbation or injury. 10-Not Attempted due to Environmental Limitations-(lack of equipment, weather restraints, etc.). 88-Not Attempted due to Medical Conditions or Safety Concerns. Sit to Stand (QC): 4 Pt requires VC to push up from arms of chair for sit to stand and CGA. Weight Bearing Full Weight Bearing Full Weight Bearing Gait Training Does the Patient Walk?: Yes Distance: 200' x2 Walk 10 feet (QC): 4 Walk 50 ft with 2 Turns(QC): 4 Walk 150 ft (QC): 4 Gait Persons Needed: 1 Gait Assistive Device: FWW Pt has slow, shuffling gait pattern and requires frequent RB. Wheelchair Training Does the Pt Use a Wheelchair?: No Exercises Seated Therapy Exercises: Ankle pumps, Sit to stand, Long arc quads, Hip flexion, Hip abd/add, Glut set Seated Reps: 10 NuStep Minutes: 15 NuStep Workload: 3 Treatments Pt in recliner and completes sit to stand ex followed by seated RB. RN administers medications at this time. Pt then sit to stand and amb 200' to therapy gym. Pt completes NuStep for 15 minutes, first 8 minutes pt unable to flex L knee passed 15 degrees. Throughout NuStep, pt had greater ROM. Pt then completes seated ex and amb back to room. Pt request to use BR at this time. Pt able to doff/don pants and clean self CGA. Pt washes hands CGA and returns to recliner. Pt left with all needs met, call light in hand. Assessment Current Status: Good Progress Pt limited by pain and weakness. PT Short Term Goals Short Term Goals Time Frame: Feb 27, 2021 Roll Left & Right: 3 Sit to lyin Lying to sitting on side of be: 3 Sit to stand: 4 Chair/rgq-qf-gebxs transfer: 4 Walk 10 feet: 4 Walk 50 feet with two turns: 4 Walk 150 feet: 4 PT Chassis Inspector Goals Chassis Inspector Goals PT [facility] Goals Time Frame: Mar 13, 2021 Roll Left & Right (QC): 5 Sit to Lying (QC): 3 (Leobardo) Lying-Sitting on Side/Bed(QC): 3 (Leobardo) Sit to Stand (QC): 4 (SBA) Chair/Gdj-yd-Wqudw Xfer(QC): 4 (SBA) Toilet Transfer (QC): 4 (SBA) Car Transfer (QC): 3 (Leobardo) Does the Patient Walk: Yes Walk 10 feet (QC): 4 (SBA) Walk 50ft with 2 Turns (QC): 4 (SBA) Walk 150 ft (QC): 4 (SBA) Walking 10ft on Uneven Surface: 4 (SBA) 1 Step (curb) (QC): 4 (CGA) 4 Steps (QC): 88 12 Steps (QC): 88 Picking up an Object (QC): 88 Wheel 50 feet with 2 turns (QC: 9 Wheel 150 feet: 9 PT Plan Treatment/Plan Treatment Plan: Continue Plan of Care Treatment Plan: Bed Mobility, Education, Functional Activity Delfino, Functional Strength, Group Therapy, Gait, Safety, Therapeutic Exercise, Transfers Treatment Duration: Mar 13, 2021 Frequency: At least 5 of 7 days/Wk (IRF) Estimated Hrs Per Day: 1.5 hours per day Patient and/or Family Agrees t: Yes Time/GCodes Time In: 900 Time Out: 1030 Total Billed Treatment Time: 90 Total Billed Treatment 1, GT x2, EX x3, FA MARCELA EVERETT STAFFING CONSULTANT Feb 24, 2021 09:52
--- NOTE | 2021-02-24 10:28 | Occupational Ther Daily Note ---
OT Current Status-Daily Note Subjective Pt. alert in recliner. Pt agrees to therapy. No c/o pain at this time. Mental Status/Objective Patient Orientation: Person, Place, Time, Situation ADL-Treatment Pt. agrees to shower. Pt. required supervision to stand from recliner ambu using FWW to bathroom. Pt. used toilet in BM attempt, unable to. Pt was educated on LH tongs to reach and cleanse self after toileting. Pt. supervision to stand and ambu. using FWW to shower bench. Pt. able to cleanse all parts with wash cloth by self using LH sponge to reach lower legs, feet, back, and standing to cleanse buttocks. Pt. dried all parts using LH sponge modified with wash cloth to reach toes and behind knees. All clothes set up on FWW with towels placed on other side of curtain within Pt. reach. Pt. required refrigerator glazier to thread feet through holes of brief, pulled up to knees, stood to hike over hips. Pt. fastened bra in front and twisted it to proper position. Pt able to don shirt by self. Pt. performed oral care by self before leaving bathroom. Pt. ambu with supervision using FWW to recliner. Pt required assist to place lymphadema wraps on lower legs, pants and socks also placed. Pt. left in care of PT. All needs met in room. Therapy Code Descriptions/Definitions Functional [place] Measure: 0=Not Assessed/NA 4=Minimal Assistance 1=Total Assistance 5=Supervision or Setup 2=Maximal Assistance 6=Modified [place] 3=Moderate Assistance 7=Complete IndependenceSCALE: Activities may be completed with or without assistive devices. 0-Islbuddtjm-zafnrlk completes the activity by him/herself with no assistance from a helper. 5-Set-up or Clean-up Assistance-helper sets up or cleans up; patient completes activity. [place] assists only prior to or following the activity. 4-Supervision or Touching Assistance-helper provides verbal cues and/or touching/steadying and/or contact guard assistance as patient completes activity. Assistance may be provided throughout the activity or intermittently. 3-Partial/Moderate Assistance-helper does LESS THAN HALF the effort. [place] lifts, holds or supports trunk or limbs, but provides less than half the effort. 2-Substantial/Maximal Assistance-helper does MORE THAN HALF the effort. [place] lifts or holds trunk or limbs and provides more than half the effort. 3-Emwfzluth-snjjum does ALL the effort. Patient does none of the effort to complete the activity. Or, the assistance of 2 or more helpers is required for the patient to complete the activity. If activity was not attempted, code reason: 7-Patient Refused. 9-Not Applicable-not attempted and the patient did not perform the activity before the current illness, exacerbation or injury. 10-Not Attempted due to Environmental Limitations-(lack of equipment, weather restraints, etc.). 88-Not Attempted due to Medical Conditions or Safety Concerns. Oral Hygiene (QC): 6 Bathing Location: L Arm, R Arm, L Upper Leg, R Upper Leg, L Lower Leg (i ncluding foot), R Lower Leg (including foot), Chest, Abdomen, Buttocks, Perineal Area Shower/Bathe Self (QC): 6 Upper Body Dressing (QC): 5 Lower Body Dressing (QC): 3 On/Off Footwear: 1 Toileting Hygiene (QC): 5 Toilet Transfer (QC): 6 Education OT Patient Education: Correct positioning, Modified ADL techniques Teaching Recipient: Patient Teaching Methods: Demonstration, Discussion Response to Teaching: Verbalize Understanding, Return Demonstration OT Short Term Goals Short Term Goals Time Frame: Feb 28, 2021 Eatin Oral hygiene: 6 Toileting hygiene: 3 Shower/bathe self: 4 Upper body dressin Lower body dressin Putting on/taking off footwear: 3 OT Shelter Goals Shelter Goals Time Frame: Mar 12, 2021 Eating (QC): 6 Oral Hygiene (QC): 6 Toileting Hygiene (QC): 5 Shower/Bathe Self (QC): 5 Upper Body Dressing (QC): 5 Lower Body Dressing (QC): 5 On/Off Footwear (QC): 5 1=Demonstrate adherence to instructed precautions during ADL tasks. 2=Patient will verbalize/demonstrate understanding of assistive devices/m odifications for ADL. 3=Patient will improve strength/tolerance for activity to enable patient to perform ADL's. OT Education/Plan Problem List/Assessment Assessment: Decreased Activ Tolerance, Decreased UE Strength, Edema, Impaired Coordination, Impaired Self-Care Skills Discharge Recommendations Plan/Recommendations: Continue POC Treatment Plan/Plan of Care Patient would benefit from OT for education, treatment and training to promote independence in ADL's, mobility, safety and/or upper extremity function for ADL's. Plan of Care: ADL Retraining, Functional Mobility, Group Exercise/Act as Ind, UE Funct Exercise/Act, W/C Management Training Treatment Duration: Mar 12, 2021 Frequency: At least 5 of 7 days/Wk (IRF) Estimated Hrs Per Day: 1.5 hours per day Agreement: Yes Rehab Potential: Fair Time/GCodes Start Time: 07:30 Stop Time: 09:00 Total Time Billed (hr/min): 90 Billed Treatment Time 1 visit- ADL 6 NEAL CASIANO Feb 24, 2021 10:28
[2021-02-24] MEDS: ACETAMINOPHEN 500 MG TAB (TYLENOL) PO PRN (12:15)
[2021-02-24] MEDS: MULTIVIT W/MINERALS TAB (THERAGRAN M) PO SCH (12:15)
[2021-02-24 19:35] VITALS: BP 132/76
--- NOTE | 2021-02-24 21:02 | PM&R Progress Note ---
Subjective HPI/CC On Admission Date Seen by Provider: Feb 24, 2021 Time Seen by Provider: 09:15 Subjective/Events-last exam 02/24/2021: Patient doing really well Holding BIOflex due to hospital policy Dr. Chino will check hernia repair due to abdominal pain last night but now much improved 02/23/2021: Patient doing really well Bowels moving Times taken Voltaren gel will be tried BIOflex will be restarted her home med 02/22/2021: Patient doing really well Walking pretty well View CPAP last night Became dyspneic with exertion but O2 sat was maintained Wearing her new compression wraps 02/21/2021: Patient is settling in well Using CPAP at night No bowel movement and all laxatives given so may need Dulcolax suppository Getting wound care stockings for her Incontinent at times so we will try to get a bladder schedule Discontinue Hep-Lock in right hand Walking around pretty well Review of Systems General: Fatigue, Malaise Gastrointestinal: Abdominal Pain Neurological: Weakness, Incoordination Objective Exam Vital Signs Vital Signs Date Time Temp Pulse Resp B/P (MAP) Pulse Ox O2 Delivery O2 Flow Rate FiO2 02/24/21 20:10 98 Room Air 02/24/21 19:35 36.4 82 20 132/76 (94) Capillary Refill : General Appearance: No Apparent Distress, WD/WN, Chronically ill, Obese HEENT: PERRL/EOMI, Normal ENT Inspection, Pharynx Normal Neck: Full Range of Motion, Normal Inspection, Non Tender, Supple, Carotid Bruit Respiratory: Chest Non Tender, Lungs Clear, Normal Breath Sounds, No Accessory Muscle Use, No Respiratory Distress Cardiovascular: Regular Rate, Rhythm, No Edema, No Gallop, No JVD, No Murmur, Normal Peripheral Pulses Gastrointestinal: Normal Bowel Sounds, No Organomegaly, No Pulsatile Mass, Soft, Tenderness (Postop) Back: Normal Inspection, No CVA Tenderness, No Vertebral Tenderness Extremity: Normal Capillary Refill, Normal Inspection, Normal Range of Motion, Non Tender, No Calf Tenderness, No Pedal Edema Neurologic/Psychiatric: Alert, Oriented x3, Normal Mood/Affect, visual effects editor II-XII Norm as Tested, Abnormal Gait, Depressed Affect, Motor Weakness (Generalized and lower extremities 3/5) Skin: Normal Color, Warm/Dry Lymphatic: No Adenopathy Results/Procedures Lab Laboratory Tests 02/24/21 05:21 Patient resulted labs reviewed. FIM Transfers Therapy Code Descriptions/Definitions Functional [place] Measure: 0=Not Assessed/NA 4=Minimal Assistance 1=Total Assistance 5=Supervision or Setup 2=Maximal Assistance 6=Modified [place] 3=Moderate Assistance 7=Complete IndependenceSCALE: Activities may be completed with or without assistive devices. 0-Vdrvoeghny-acrldtw completes the activity by him/herself with no assistance from a helper. 5-Set-up or Clean-up Assistance-helper sets up or cleans up; patient completes activity. [place] assists only prior to or following the activity. 4-Supervision or Touching Assistance-helper provides verbal cues and/or touching/steadying and/or contact guard assistance as patient completes activity. Assistance may be provided throughout the activity or intermittently. 3-Partial/Moderate Assistance-helper does LESS THAN HALF the effort. [place] lifts, holds or supports trunk or limbs, but provides less than half the effort. 2-Substantial/Maximal Assistance-helper does MORE THAN HALF the effort. [place] lifts or holds trunk or limbs and provides more than half the effort. 6-Xchvbmhzp-wkiztj does ALL the effort. Patient does none of the effort to complete the activity. Or, the assistance of 2 or more helpers is required for the patient to complete the activity. If activity was not attempted, code reason: 7-Patient Refused. 9-Not Applicable-not attempted and the patient did not perform the activity before the current illness, exacerbation or injury. 10-Not Attempted due to Environmental Limitations-(lack of equipment, weather restraints, etc.). 88-Not Attempted due to Medical Conditions or Safety Concerns. Roll Left to Right (QC): 3 Sit to Lying (QC): 1 Sit to Stand (QC): 4 Chair/Qqp-hf-Mqwma Xfer(QC): 4 Car Transfer (QC): 88 Gait Training Does the Patient Walk?: Yes Distance: 200' x2 Walk 10 feet (QC): 4 Walk 50 ft with 2 Turns(QC): 4 Walk 150 ft (QC): 4 Walking 10ft/uneven surface-QC: 4 Gait Persons Needed: 1 Gait Assistive Device: FWW Wheelchair Training Does the Pt Use a Wheelchair?: No Distance: SEE PT NOTES Wheel 50 ft with 2 turns (QC): 1 Wheel 150 ft (QC): 1 Type of Wheelchair: Manual Stair Training 1 Step (curb) (QC): 88 4 Steps (QC): 88 12 Steps (QC): 88 Balance Picking up an Object (QC): 88 ADL-Treatment Eating (QC): 6 Oral Hygiene (QC): 6 Bathing Location: L Arm, R Arm, L Upper Leg, R Upper Leg, L Lower Leg (including foot), R Lower Leg (including foot), Chest, Abdomen, Buttocks, Perineal Area Shower/Bathe Self (QC): 6 Upper Body Dressing (QC): 5 Lower Body Dressing (QC): 3 On/Off Footwear (QC): 1 Toileting Hygiene (QC): 5 Toilet Transfer (QC): 6 Assessment/Plan Assessment and Plan Assess & Plan/Chief Complaint Assessment: Debility Ventral hernia repair postop day #2 Morbid obesity BMI 63 LOBITO on CPAP Hypertension Chronic knee pain Chronic debility Plan: Aggressive rehab Increase use of assistive devices Pain control Bowel regimen 02/21/2021: Pain control Bowel regimen 02/22/2021: Continue bowel regimen Pain control Aggressive therapy 02/23/2021: Supportive care Much improved status 02/24/2021: Supportive care Dr. Chino to evaluate hernia repair (1) Chest pain Assessment & Plan: Exact etiology unclear. I suspect this may have been related to her gastrointestinal surgery on admission. She had no ischemic changes on her resting electrocardiogram while she was having chest pain. Her echocardiogram shows an overall normal ejection fraction. After having at least several hours of chest pain in the first 24 hours following admission, her troponin level was undetectable. I recommend she continue low strength aspirin which she was taking at home. Her cholesterol level is actually very good on no medication. I recommend she continue on the proton pump inhibitor. After she is discharged, I will plan to see her in the office in about 1 month and at that point in time, I will consider scheduling her for stress test. At this point in time, there do not appear to be any acute, active cardiac issues. As such, cardiology will sign off. Please call if you have other questions or concerns. (2) Abnormal ECG Assessment & Plan: Her electrocardiogram shows a possible old anterior myocardial infarction but without acute ischemic changes. Some of this could be related to lead placement given her morbid obesity. However, in light of the chest discomfort, I will consider an ischemic evaluation after discharge as outlined above. There is no urgent need to do this while she is in the hospital recovering from elective surgery. (3) Primary hypertension Assessment & Plan: Blood pressure is well controlled on losartan which she was taking at home. (4) Morbid obesity Assessment & Plan: She really needs to work on weight loss. This is most li simone contributing to her chronic lower extremity and likely venous insufficiency which then results in venous stasis ulcers. THEA GARLAND DO Feb 24, 2021 21:02
[2021-02-25] MEDS: HYDROcodone/APAP 5 MG/325 MG (LORTAB) TAB PO PRN ×2 (04:46→10:07)
[2021-02-25 07:48] VITALS: BP 126/62
[2021-02-25] MEDS: polyethylene glycoL POWDER 17 GM (MIRALAX) PACK PO SCH ×2 (08:18→19:49)
[2021-02-25] MEDS: PANTOPRAZOLE 40 MG (PROTONIX) TAB PO SCH (08:18)
[2021-02-25] MEDS: LORATADINE (CLARITIN) 10 MG TAB PO SCH (08:18)
[2021-02-25] MEDS: OMEGA 3 (FISH OIL) 1000 MG CAP PO SCH ×3 (08:18→18:05)
[2021-02-25] MEDS: LOSARTAN 50 MG (COZAAR) TAB PO SCH (08:18)
[2021-02-25] MEDS: ENOXAPARIN 60 MG/0.6 ML (LOVENOX) SYR SC SCH ×2 (08:18→20:01)
[2021-02-25] MEDS: ASPIRIN E.C. 81 MG (ECOTRIN) TAB PO SCH (08:18)
[2021-02-25] MEDS: MAGNESIUM OXIDE (MAG-OX)400 MG TAB PO SCH (08:18)
[2021-02-25] MEDS: FUROSEMIDE 20 MG (LASIX) TAB PO SCH (08:18)
[2021-02-25] MEDS: SENNA W/DOCUSATE (SENOKOT S) TABLET PO SCH ×2 (08:18→19:49)
[2021-02-25] MEDS: DOCUSATE SODIUM 100 MG (COLACE) CAP PO SCH ×2 (08:18→19:49)
--- NOTE | 2021-02-25 10:15 | PM&R Progress Note ---
Subjective HPI/CC On Admission Date Seen by Provider: Feb 25, 2021 Time Seen by Provider: 09:45 Subjective/Events-last exam 02/25/2021: Patient doing really well Diclofenac gel is helpful Multiple bowel movements today Less abdominal pain Ribs are sore 02/24/2021: Patient doing really well Holding BIOflex due to hospital policy Dr. Chino will check hernia repair due to abdominal pain last night but now much improved 02/23/2021: Patient doing really well Bowels moving Times taken Voltaren gel will be tried BIOflex will be restarted her home med 02/22/2021: Patient doing really well Walking pretty well View CPAP last night Became dyspneic with exertion but O2 sat was maintained Wearing her new compression wraps 02/21/2021: Patient is settling in well Using CPAP at night No bowel movement and all laxatives given so may need Dulcolax suppository Getting wound care stockings for her Incontinent at times so we will try to get a bladder schedule Discontinue Hep-Lock in right hand Walking around pretty well Review of Systems General: Fatigue Gastrointestinal: Abdominal Pain Objective Exam Vital Signs Vital Signs Date Time Temp Pulse Resp B/P (MAP) Pulse Ox O2 Delivery O2 Flow Rate FiO2 02/25/21 21:28 95 Room Air 02/25/21 20:00 37.2 92 20 125/61 (82) Capillary Refill : General Appearance: No Apparent Distress, WD/WN, Chronically ill, Obese HEENT: PERRL/EOMI, Normal ENT Inspection, Pharynx Normal Neck: Full Range of Motion, Normal Inspection, Non Tender, Supple, Carotid Bruit Respiratory: Chest Non Tender, Lungs Clear, Normal Breath Sounds, No Accessory Muscle Use, No Respiratory Distress Cardiovascular: Regular Rate, Rhythm, No Edema, No Gallop, No JVD, No Murmur, Normal Peripheral Pulses Gastrointestinal: Normal Bowel Sounds, No Organomegaly, No Pulsatile Mass, Soft, Tenderness (Postop) Back: Normal Inspection, No CVA Tenderness, No Vertebral Tenderness Extremity: Normal Capillary Refill, Normal Inspection, Normal Range of Motion, Non Tender, No Calf Tenderness, No Pedal Edema Neurologic/Psychiatric: Alert, Oriented x3, Normal Mood/Affect, fixed route bus operator II-XII Norm as Tested, Abnormal Gait, Depressed Affect, Motor Weakness (Generalized and lower extremities 3/5) Skin: Normal Color, Warm/Dry Lymphatic: No Adenopathy Results/Procedures Lab Patient resulted labs reviewed. FIM Transfers Therapy Code Descriptions/Definitions Functional [place] Measure: 0=Not Assessed/NA 4=Minimal Assistance 1=Total Assistance 5=Supervision or Setup 2=Maximal Assistance 6=Modified [place] 3=Moderate Assistance 7=Complete IndependenceSCALE: Activities may be completed with or without assistive devices. 7-Fjpanfsbar-ibdohkh completes the activity by him/herself with no assistance from a helper. 5-Set-up or Clean-up Assistance-helper sets up or cleans up; patient completes activity. [place] assists only prior to or following the activity. 4-Supervision or Touching Assistance-helper provides verbal cues and/or touching/steadying and/or contact guard assistance as patient completes activity. Assistance may be provided throughout the activity or intermittently. 3-Partial/Moderate Assistance-helper does LESS THAN HALF the effort. [place] lifts, holds or supports trunk or limbs, but provides less than half the effort. 2-Substantial/Maximal Assistance-helper does MORE THAN HALF the effort. [place] lifts or holds trunk or limbs and provides more than half the effort. 7-Aihviueky-kcsfwb does ALL the effort. Patient does none of the effort to complete the activity. Or, the assistance of 2 or more helpers is required for the patient to complete the activity. If activity was not attempted, code reason: 7-Patient Refused. 9-Not Applicable-not attempted and the patient did not perform the activity before the current illness, exacerbation or injury. 10-Not Attempted due to Environmental Limitations-(lack of equipment, weather restraints, etc.). 88-Not Attempted due to Medical Conditions or Safety Concerns. Roll Left to Right (QC): 3 Sit to Lying (QC): 1 Sit to Stand (QC): 4 Chair/Amj-cb-Slwbp Xfer(QC): 4 Car Transfer (QC): 88 Gait Training Does the Patient Walk?: Yes Distance: 200' x2 Walk 10 feet (QC): 4 Walk 50 ft with 2 Turns(QC): 4 Walk 150 ft (QC): 4 Walking 10ft/uneven surface-QC: 4 Gait Persons Needed: 1 Gait Assistive Device: FWW Wheelchair Training Does the Pt Use a Wheelchair?: No Distance: SEE PT NOTES Wheel 50 ft with 2 turns (QC): 1 Wheel 150 ft (QC): 1 Type of Wheelchair: Manual Stair Training 1 Step (curb) (QC): 88 4 Steps (QC): 88 12 Steps (QC): 88 Balance Picking up an Object (QC): 88 ADL-Treatment Eating (QC): 6 Oral Hygiene (QC): 6 Bathing Location: L Arm, R Arm, L Upper Leg, R Upper Leg, L Lower Leg (including foot), R Lower Leg (including foot), Chest, Abdomen, Buttocks, Perineal Area Shower/Bathe Self (QC): 6 Upper Body Dressing (QC): 5 Lower Body Dressing (QC): 3 On/Off Footwear (QC): 1 Toileting Hygiene (QC): 5 Toilet Transfer (QC): 6 Assessment/Plan Assessment and Plan Assess & Plan/Chief Complaint Assessment: Debility Ventral hernia repair postop day #2 Morbid obesity BMI 63 LOBITO on CPAP Hypertension Chronic knee pain Chronic debility Plan: Aggressive rehab Increase use of assistive devices Pain control Bowel regimen 02/21/2021: Pain control Bowel regimen 02/22/2021: Continue bowel regimen Pain control Aggressive therapy 02/23/2021: Supportive care Much improved status 02/24/2021: Supportive care Dr. Chino to evaluate hernia repair 02/25/2021: Supportive care Aggressive therapy (1) Chest pain Assessment & Plan: Exact etiology unclear. I suspect this may have been related to her gastrointestinal surgery on admission. She had no ischemic changes on her resting electrocardiogram while she was having chest pain. Her echocardiogram shows an overall normal ejection fraction. After having at least several hours of chest pain in the first 24 hours following admission, her troponin level was undetectable. I recommend she continue low strength aspirin which she was taking at home. Her cholesterol level is actually very good on no medication. I recommend she continue on the proton pump inhibitor. After she is discharged, I will plan to see her in the office in about 1 month and at that point in time, I will consider scheduling her for stress test. At this point in time, there do not appear to be any acute, active cardiac issues. As such, cardiology will sign off. Please call if you have other questions or concerns. (2) Abnormal ECG Assessment & Plan: Her electrocardiogram shows a possible old anterior myocardial infarction but without acute ischemic changes. Some of this could be related to lead placement given her morbid obesity. However, in light of the chest discomfort, I will consider an ischemic evaluation after discharge as outlined above. There is no urgent need to do this while she is in the hospital recovering from elective surgery. (3) Primary hypertension Assessment & Plan: Blood pressure is well controlled on losartan which she was taking at home. (4) Morbid obesity Assessment & Plan: She really needs to work on weight loss. This is most likely contributing to her chronic lower extremity and likely venous insufficiency which then results in venous stasis ulcers. THEA GARLAND DO Feb 25, 2021 10:15
--- NOTE | 2021-02-25 11:25 | Occupational Ther Daily Note ---
OT Current Status-Daily Note Subjective Pt. in care of PT. Pt. agrees to therapy. Co-Treat with PT ([id number]). Up ad gila in room during day only, reported to [facility]. Mental Status/Objective Patient Orientation: Person, Place, Time, Situation ADL-Treatment Pt. ambu. with independent using FWW to bathroom. Pt. hiked brief/pants off of hips and to knees to sit on raised toilet. Pt. used LH tongs to cleanse self after toileting. Pt. ambu from toilet to recliner. Readjusted lymphedema wraps. Call light/phone in reach. All needs met in room. Therapy Code Descriptions/Definitions Functional [place] Measure: 0=Not Assessed/NA 4=Minimal Assistance 1=Total Assistance 5=Supervision or Setup 2=Maximal Assistance 6=Modified [place] 3=Moderate Assistance 7=Complete IndependenceSCALE: Activities may be completed with or without assistive devices. 7-Lwjdwvyksk-qwmsled completes the activity by him/herself with no assistance from a helper. 5-Set-up or Clean-up Assistance-helper sets up or cleans up; patient completes activity. [place] assists only prior to or following the activity. 4-Supervision or Touching Assistance-helper provides verbal cues and/or touching/steadying and/or contact guard assistance as patient completes activity. Assistance may be provided throughout the activity or intermittently. 3-Partial/Moderate Assistance-helper does LESS THAN HALF the effort. [place] lifts, holds or supports trunk or limbs, but provides less than half the effort. 2-Substantial/Maximal Assistance-helper does MORE THAN HALF the effort. [place] lifts or holds trunk or limbs and provides more than half the effort. 0-Lkgnpwjvw-ezyoah does ALL the effort. Patient does none of the effort to complete the activity. Or, the assistance of 2 or more helpers is required for the patient to complete the activity. If activity was not attempted, code reason: 7-Patient Refused. 9-Not Applicable-not attempted and the patient did not perform the activity before the current illness, exacerbation or injury. 10-Not Attempted due to Environmental Limitations-(lack of equipment, weather restraints, etc.). 88-Not Attempted due to Medical Conditions or Safety Concerns. Toileting Hygiene (QC): 6 Toilet Transfer (QC): 6 Other Treatment Co-Treat with PT ([id number]) 2 clinicians needed for safety and instruction. PT focusing on dynamic standing balance, gait, manipulation with walker while OT focused on wt. bearing, stamina, environment mobility. Pt. stood at waist high table participating in wt. bearing, higher level dynamic standing balance, and activity tolerance. Pt. required one 4 minute rest break during activity. Pt. ambu. independent from [facility] to room. Pt. is able to demonstrate independence of mobility throughout room. Pt. sat in armed chair and participated in B UE shoulder ex's in all planes with medium resistance 10 reps, 3 sets ea. Skilled instruction necessary for correct positioning and technique for movement during HEP to prevent injury. Education OT Patient Education: Exercise program, Home exercise program Teaching Recipient: Patient Teaching Methods: Demonstration, Discussion Response to Teaching: Verbalize Understanding, Return Demonstration, Reinforcement Needed OT Short Term Goals Short Term Goals Time Frame: Feb 28, 2021 Eatin Oral hygiene: 6 Toileting hygiene: 3 Shower/bathe self: 4 Upper body dressin Lower body dressin Putting on/taking off footwear: 3 OT Loan Service Officer Goals [facility] Goals Time Frame: Mar 12, 2021 Eating (QC): 6 Oral Hygiene (QC): 6 Toileting Hygiene (QC): 5 Shower/Bathe Self (QC): 5 Upper Body Dressing (QC): 5 Lower Body Dressing (QC): 5 On/Off Footwear (QC): 5 1=Demonstrate adherence to instructed precautions during ADL tasks. 2=Patient will verbalize/demonstrate understanding of assistive devices/modifications for ADL. 3=Patient will improve strength/tolerance for activity to enable patient to perform ADL's. OT Education/Plan Problem List/Assessment Assessment: Decreased Activ Tolerance, Decreased UE Strength, Impaired Self- Care Skills Discharge Recommendations Plan/Recommendations: Continue POC Treatment Plan/Plan of Care Patient would benefit from OT for education, treatment and training to promote independence in ADL's, mobility, safety and/or upper extremity function for ADL's. Plan of Care: ADL Retraining, Functional Mobility, Group Exercise/Act as Ind, UE Funct Exercise/Act, W/C Management Training Treatment Duration: Mar 12, 2021 Frequency: At least 5 of 7 days/Wk (IRF) Estimated Hrs Per Day: 1.5 hours per day Agreement: Yes Rehab Potential: Fair Time/GCodes Start Time: 10:00 Stop Time: 11:30 Total Time Billed (hr/min): 90 Billed Treatment Time 1 visit- ADL 1 (10 min), EX 3 (50 min), FA 2 (30 min) Co-Treat with PT ([id number]) (30 min) Individual (1030- 1130) (60 min) NEAL CASIANO Feb 25, 2021 11:25
--- NOTE | 2021-02-25 11:26 | Physical Therapy Daily Note ---
PT Daily Note-Current Subjective Pt in restroom upon arrival. Pt agrees to PT. Pain Location: Right, Left Location Body Site: Knee Pain Description: Ache Comment: Reported but not rated Mental Status Patient Orientation: Person, Place, Time, Situation Transfers SCALE: Activities may be completed with or without assistive devices. 5-Sksbraquxn-ghyibjb completes the activity by him/herself with no assistance from a helper. 5-Set-up or Clean-up Assistance-helper sets up or cleans up; patient completes activity. [place] assists only prior to or following the activity. 4-Supervision or Touching Assistance-helper provides verbal cues and/or touching/steadying and/or contact guard assistance as patient completes activity. Assistance may be provided throughout the activity or intermittently. 3-Partial/Moderate Assistance-helper does LESS THAN HALF the effort. [place] lifts, holds or supports trunk or limbs, but provides less than half the effort. 2-Substantial/Maximal Assistance-helper does MORE THAN HALF the effort. [place] lifts or holds trunk or limbs and provides more than half the effort. 7-Mmtlynbvb-gglpmc does ALL the effort. Patient does none of the effort to complete the activity. Or, the assistance of 2 or more helpers is required for the patient to complete the activity. If activity was not attempted, code reason: 7-Patient Refused. 9-Not Applicable-not attempted and the patient did not perform the activity before the current illness, exacerbation or injury. 10-Not Attempted due to Environmental Limitations-(lack of equipment, weather restraints, etc.). 88-Not Attempted due to Medical Conditions or Safety Concerns. Sit to Stand (QC): 5 Toilet Transfer (QC): 5 Weight Bearing Full Weight Bearing Full Weight Bearing Gait Training Does the Patient Walk?: Yes Distance: 250' Walk 10 feet (QC): 5 Walk 50 ft with 2 Turns(QC): 5 Walk 150 ft (QC): 5 Gait Persons Needed: 1 Gait Assistive Device: FWW RB ~every 75', using FWW. MULTIPLE CUT OFF SAW OPERATOR stays close SBA due to reported pain/discomfort in B knees. Wheelchair Training Does the Pt Use a Wheelchair?: No Exercises Seated Therapy Exercises: Ankle pumps, Long arc quads, Hip flexion Seated Reps: 15 Treatments TF from BR to standing and able to complete pericare as well as wash hands independently. Pt needs RB then amb. in hallway. Pt takes RB and completes Seated Ex before OT joins for short co-treat. Co-Treat with PT ([id number]) 2 clinicians needed for safety and instruction. PT focusing on dynamic standing balance, gait, manipulation with walker while OT focused on wt. bearing, stamina, environment mobility. Pt. stood at waist high table participating in wt. bearing, higher level dynamic standing balance, and activity tolerance. Pt. required one 4 minute rest break during activity. PT departs at end of activity but OT continues tx. Assessment Current Status: Good Progress Pain affects tx but pt does not need assistance to transfer, just RB as needed. PT Short Term Goals Short Term Goals Time Frame: Feb 27, 2021 Roll Left & Right: 3 Sit to lyin Lying to sitting on side of be: 3 Sit to stand: 4 Chair/xyx-zl-krfkp transfer: 4 Walk 10 feet: 4 Walk 50 feet with two turns: 4 Walk 150 feet: 4 PT Engineering Mgr Goals [place] Goals PT Engineering Mgr Goals Time Frame: Mar 13, 2021 Roll Left & Right (QC): 5 Sit to Lying (QC): 3 (Leobardo) Lying-Sitting on Side/Bed(QC): 3 (Leobardo) Sit to Stand (QC): 4 (SBA) Chair/Jty-xn-Uvkqz Xfer(QC): 4 (SBA) Toilet Transfer (QC): 4 (SBA) Car Transfer (QC): 3 (Leobardo) Does the Patient Walk: Yes Walk 10 feet (QC): 4 (SBA) Walk 50ft with 2 Turns (QC): 4 (SBA) Walk 150 ft (QC): 4 (SBA) Walking 10ft on Uneven Surface: 4 (SBA) 1 Step (curb) (QC): 4 (CGA) 4 Steps (QC): 88 12 Steps (QC): 88 Picking up an Object (QC): 88 Wheel 50 feet with 2 turns (QC: 9 Wheel 150 feet: 9 PT Plan Problem List Problem List: Activity Tolerance, Gait Treatment/Plan Treatment Plan: Continue Plan of Care Treatment Plan: Bed Mobility, Education, Functional Activity [place], Functional Strength, Group Therapy, Gait, Safety, Therapeutic Exercise, Transfers Treatment Duration: Mar 13, 2021 Frequency: At least 5 of 7 days/Wk (IRF) Estimated Hrs Per Day: 1.5 hours per day Patient and/or Family Agrees t: Yes Safety Risks/Education Patient Education: Gait Training, Correct Positioning Teaching Recipient: Patient Teaching Methods: Discussion Response to Teaching: Verbalize Understanding Time/GCodes Time In: 900 Time Out: 1030 Total Billed Treatment Time: 90 Total Billed Treatment 1, GT x2 (30m), EX (15m) & FA x2 (45m) Co-treat w/OT for 30m ([id number]). NAHOMY GUILLEN MULTIPLE CUT OFF SAW OPERATOR Feb 25, 2021 11:26
[2021-02-25] MEDS: PATIENT MAY USE OWN MED,SINGLE MED PO SCH (11:42)
[2021-02-25] MEDS: MULTIVIT W/MINERALS TAB (THERAGRAN M) PO SCH (12:43)
[2021-02-25] MEDS: DICLOFENAC 1% GEL 100 GM (VOLTAREN) TUBE TOP PRN (18:05)
[2021-02-25 20:00] VITALS: BP 125/61
[2021-02-26 07:24] VITALS: BP 121/60
[2021-02-26] MEDS: ACETAMINOPHEN 500 MG TAB (TYLENOL) PO PRN ×3 (08:07→20:08)
[2021-02-26] MEDS: MAGNESIUM OXIDE (MAG-OX)400 MG TAB PO SCH (08:07)
[2021-02-26] MEDS: PANTOPRAZOLE 40 MG (PROTONIX) TAB PO SCH (08:07)
[2021-02-26] MEDS: DICLOFENAC 1% GEL 100 GM (VOLTAREN) TUBE TOP PRN (08:08)
[2021-02-26] MEDS: LORATADINE (CLARITIN) 10 MG TAB PO SCH (08:08)
[2021-02-26] MEDS: ENOXAPARIN 60 MG/0.6 ML (LOVENOX) SYR SC SCH ×2 (08:08→20:07)
[2021-02-26] MEDS: OMEGA 3 (FISH OIL) 1000 MG CAP PO SCH ×3 (08:08→17:52)
[2021-02-26] MEDS: LOSARTAN 50 MG (COZAAR) TAB PO SCH (08:08)
[2021-02-26] MEDS: ASPIRIN E.C. 81 MG (ECOTRIN) TAB PO SCH (08:08)
[2021-02-26] MEDS: FUROSEMIDE 20 MG (LASIX) TAB PO SCH (08:09)
[2021-02-26] MEDS: SENNA W/DOCUSATE (SENOKOT S) TABLET PO SCH ×2 (09:10→19:10)
[2021-02-26] MEDS: DOCUSATE SODIUM 100 MG (COLACE) CAP PO SCH ×2 (09:10→19:10)
[2021-02-26] MEDS: polyethylene glycoL POWDER 17 GM (MIRALAX) PACK PO SCH ×2 (09:10→19:10)
--- NOTE | 2021-02-26 09:17 | PM&R Progress Note ---
Subjective HPI/CC On Admission Date Seen by Provider: Feb 26, 2021 Time Seen by Provider: 09:20 Subjective/Events-last exam 02/26/2021: Patient set for discharge tomorrow Regular diet ordered Home health the nurse and PT will be ordered Bowels are a bit loose 02/25/2021: Patient doing really well Diclofenac gel is helpful Multiple bowel movements today Less abdominal pain Ribs are sore 02/24/2021: Patient doing really well Holding BIOflex due to hospital policy Dr. Chino will check hernia repair due to abdominal pain last night but now much improved 02/23/2021: Patient doing really well Bowels moving Times taken Voltaren gel will be tried BIOflex will be restarted her home med 02/22/2021: Patient doing really well Walking pretty well View CPAP last night Became dyspneic with exertion but O2 sat was maintained Wearing her new compression wraps 02/21/2021: Patient is settling in well Using CPAP at night No bowel movement and all laxatives given so may need Dulcolax suppository Getting wound care stockings for her Incontinent at times so we will try to get a bladder schedule Discontinue Hep-Lock in right hand Walking around pretty well Review of Systems General: Fatigue, Malaise Objective Exam Vital Signs Vital Signs Date Time Temp Pulse Resp B/P (MAP) Pulse Ox O2 Delivery O2 Flow Rate FiO2 02/26/21 20:12 98 Room Air 02/26/21 20:11 36.8 72 18 139/64 (89) Capillary Refill : General Appearance: No Apparent Distress, WD/WN, Chronically ill, Obese HEENT: PERRL/EOMI, Normal ENT Inspection, Pharynx Normal Neck: Full Range of Motion, Normal Inspection, Non Tender, Supple, Carotid Bruit Respiratory: Chest Non Tender, Lungs Clear, Normal Breath Sounds, No Accessory Muscle Use, No Respiratory Distress Cardiovascular: Regular Rate, Rhythm, No Edema, No Gallop, No JVD, No Murmur, Normal Peripheral Pulses Gastrointestinal: Normal Bowel Sounds, No Organomegaly, No Pulsatile Mass, Soft, Tenderness Back: Normal Inspection, No CVA Tenderness, No Vertebral Tenderness Extremity: Normal Capillary Refill, Normal Inspection, Normal Range of Motion, Non Tender, No Calf Tenderness, No Pedal Edema Neurologic/Psychiatric: Alert, Oriented x3, Normal Mood/Affect, rv service technician II-XII Norm as Tested, Abnormal Gait, Depressed Affect, Motor Weakness Skin: Normal Color, Warm/Dry Lymphatic: No Adenopathy Results/Procedures Lab Patient resulted labs reviewed. FIM Transfers Therapy Code Descriptions/Definitions Functional [place] Measure: 0=Not Assessed/NA 4=Minimal Assistance 1=Total Assistance 5=Supervision or Setup 2=Maximal Assistance 6=Modified [place] 3=Moderate Assistance 7=Complete IndependenceSCALE: Activities may be completed with or without assistive devices. 4-Egygycpoik-qytusrb completes the activity by him/herself with no assistance from a helper. 5-Set-up or Clean-up Assistance-helper sets up or cleans up; patient completes activity. [place] assists only prior to or following the activity. 4-Supervision or Touching Assistance-helper provides verbal cues and/or touching/steadying and/or contact guard assistance as patient completes activity. Assistance may be provided throughout the activity or intermittently. 3-Partial/Moderate Assistance-helper does LESS THAN HALF the effort. [place] lift s, holds or supports trunk or limbs, but provides less than half the effort. 2-Substantial/Maximal Assistance-helper does MORE THAN HALF the effort. [place] lifts or holds trunk or limbs and provides more than half the effort. 2-Mcnetdpoz-odfkmu does ALL the effort. Patient does none of the effort to complete the activity. Or, the assistance of 2 or more helpers is required for the patient to complete the activity. If activity was not attempted, code reason: 7-Patient Refused. 9-Not Applicable-not attempted and the patient did not perform the activity before the current illness, exacerbation or injury. 10-Not Attempted due to Environmental Limitations-(lack of equipment, weather restraints, etc.). 88-Not Attempted due to Medical Conditions or Safety Concerns. Roll Left to Right (QC): 3 Sit to Lying (QC): 1 Sit to Stand (QC): 5 Chair/Zke-ht-Qygtq Xfer(QC): 4 Car Transfer (QC): 88 Gait Training Does the Patient Walk?: Yes Distance: 250' Walk 10 feet (QC): 5 Walk 50 ft with 2 Turns(QC): 5 Walk 150 ft (QC): 5 Walking 10ft/uneven surface-QC: 4 Gait Persons Needed: 1 Gait Assistive Device: FWW Wheelchair Training Does the Pt Use a Wheelchair?: No Distance: SEE PT NOTES Wheel 50 ft with 2 turns (QC): 1 Wheel 150 ft (QC): 1 Stair Training 1 Step (curb) (QC): 88 4 Steps (QC): 88 12 Steps (QC): 88 Balance Picking up an Object (QC): 88 ADL-Treatment Eating (QC): 6 Oral Hygiene (QC): 6 Bathing Location: L Arm, R Arm, L Upper Leg, R Upper Leg, L Lower Leg (including foot), R Lower Leg (including foot), Chest, Abdomen, Buttocks, Perineal Area Shower/Bathe Self (QC): 6 Upper Body Dressing (QC): 5 Lower Body Dressing (QC): 3 On/Off Footwear (QC): 1 Toileting Hygiene (QC): 6 Toilet Transfer (QC): 6 Assessment/Plan Assessment and Plan Assess & Plan/Chief Complaint Assessment: Debility Ventral hernia repair postop day #2 Morbid obesity BMI 63 LOBITO on CPAP Hypertension Chronic knee pain Chronic debility Plan: Aggressive rehab Increase use of assistive devices Pain control Bowel regimen 02/21/2021: Pain control Bowel regimen 02/22/2021: Continue bowel regimen Pain control Aggressive therapy 02/23/2021: Supportive care Much improved status 02/24/2021: Supportive care Dr. Chino to evaluate hernia repair 02/25/2021: Supportive care Aggressive therapy 02/26/2021: Discharge tomorrow (1) Chest pain Assessment & Plan: Exact etiology unclear. I suspect this may have been related to her gastrointestinal surgery on admission. She had no ischemic changes on her resting electrocardiogram while she was having chest pain. Her echocardiogram shows an overall normal ejection fraction. After having at least several hours of chest pain in the first 24 hours following admission, her troponin level was undetectable. I recommend she continue low strength aspirin which she was taking at home. Her cholesterol level is actually very good on no medication. I recommend she continue on the proton pump inhibitor. After she is discharged, I will plan to see her in the office in about 1 month and at that point in time, I will consider scheduling her for stress test. At this point in time, there do not appear to be any acute, active cardiac issues. As such, cardiology will sign off. Please call if you have other questions or concerns. (2) Abnormal ECG Assessment & Plan: Her electrocardiogram shows a possible old anterior myocardial infarction but without acute ischemic changes. Some of this could be related to lead placement given her morbid obesity. However, in light of the chest discomfort, I will consider an ischemic evaluation after discharge as outlined above. There is no urgent need to do this while she is in the hospital recovering from elective surgery. (3) Primary hypertension Assessment & Plan: Blood pressure is well controlled on losartan which she was taking at home. (4) Morbid obesity Assessment & Plan: She really needs to work on weight loss. This is most likely contributing to her chronic lower extremity and likely venous insufficiency which then results in venous stasis ulcers. THEA GARLAND DO Feb 26, 2021 09:16
--- NOTE | 2021-02-26 10:32 | Physical Therapy Daily Note ---
PT Daily Note-Current Subjective Pt in BR working with OT upon arrival. Pt agrees to PT/Ot short co-treat then continue with PT only. Pain Location: Right, Left Location Body Site: Knee Pain Description: Ache, Tightness Comment: Reports B knee pain but doesn't rate, R side worse today Mental Status Patient Orientation: Person, Place, Time, Situation Attachments: Other-See Comments (Lymphadema wrap) Transfers SCALE: Activities may be completed with or without assistive devices. 7-Ujfwzsvrhq-bpxeyph completes the activity by him/herself with no assistance from a helper. 5-Set-up or Clean-up Assistance-helper sets up or cleans up; patient completes activity. [place] assists only prior to or following the activity. 4-Supervision or Touching Assistance-helper provides verbal cues and/or touching/steadying and/or contact guard assistance as patient completes activity. Assistance may be provided throughout the activity or intermittently. 3-Partial/Moderate Assistance-helper does LESS THAN HALF the effort. [place] lifts, holds or supports trunk or limbs, but provides less than half the effort. 2-Substantial/Maximal Assistance-helper does MORE THAN HALF the effort. [place] lifts or holds trunk or limbs and provides more than half the effort. 5-Jrfucfftp-vrltqx does ALL the effort. Patient does none of the effort to complete the activity. Or, the assistance of 2 or more helpers is required for the patient to complete the activity. If activity was not attempted, code reason: 7-Patient Refused. 9-Not Applicable-not attempted and the patient did not perform the activity before the current illness, exacerbation or injury. 10-Not Attempted due to Environmental Limitations-(lack of equipment, weather restraints, etc.). 88-Not Attempted due to Medical Conditions or Safety Concerns. Sit to Stand (QC): 6 Weight Bearing Full Weight Bearing Full Weight Bearing Gait Training Does the Patient Walk?: Yes Distance: 150', 300' Walk 10 feet (QC): 6 Walk 50 ft with 2 Turns(QC): 6 Walk 150 ft (QC): 6 Gait Persons Needed: 1 Gait Assistive Device: FWW RB after ~75' at a time. Treatments Co-Treat with PT ([id number]) 2 clinicians required for safety and instruction. PT focusing on gait, LE strengthening, walking distance while OT focusing on ADLs, activity tolerance, UE strengthening. Pt. is Mod A with footwear. Pt. amb. using FWW to recliner to have assist with lymphoma wraps can place socks with sock aid. Pt. used grabber to thread feet into pants using FWW to stand and hike over hips. Pt. amb. independently to pulmonary waiting room see PT note for further details, then to therapy gym seated on therapy mat before starting exercises. 930-1030: Pt completes Seated Ex with RB as needed. Pt amb. in hallway before returning to room to rest in recliner. All needs met, call light in hand. Assessment Current Status: Good Progress Pt fatigues and needs RB to recover. Pt continues to remain Ad gila in room during the day and has been moving well. PT Short Term Goals Short Term Goals Time Frame: Feb 27, 2021 Roll Left & Right: 3 Sit to lyin Lying to sitting on side of be: 3 Sit to stand: 4 Chair/dyn-ru-dsljd transfer: 4 Walk 10 feet: 4 Walk 50 feet with two turns: 4 Walk 150 feet: 4 PT Decorating Consultant Goals Decorating Consultant Goals PT Decorating Consultant Goals Time Frame: Mar 13, 2021 Roll Left & Right (QC): 5 Sit to Lying (QC): 3 (Leobardo) Lying-Sitting on Side/Bed(QC): 3 (Leobardo) Sit to Stand (QC): 4 (SBA) Chair/Jqj-gu-Yvcwi Xfer(QC): 4 (SBA) Toilet Transfer (QC): 4 (SBA) Car Transfer (QC): 3 (Leobardo) Does the Patient Walk: Yes Walk 10 feet (QC): 4 (SBA) Walk 50ft with 2 Turns (QC): 4 (SBA) Walk 150 ft (QC): 4 (SBA) Walking 10ft on Uneven Surface: 4 (SBA) 1 Step (curb) (QC): 4 (CGA) 4 Steps (QC): 88 12 Steps (QC): 88 Picking up an Object (QC): 88 Wheel 50 feet with 2 turns (QC: 9 Wheel 150 feet: 9 PT Plan Treatment/Plan Treatment Plan: Continue Plan of Care Treatment Plan: Bed Mobility, Education, Functional Activity Delfino, Functional Strength, Group Therapy, Gait, Safety, Therapeutic Exercise, Transfers Treatment Duration: Mar 13, 2021 Frequency: At least 5 of 7 days/Wk (IRF) Estimated Hrs Per Day: 1.5 hours per day Patient and/or Family Agrees t: Yes Time/GCodes Time In: 900 Time Out: 1030 Total Billed Treatment Time: 90 Total Billed Treatment Co-treat w/OT for 30m (900-570) 1, GT x2 (35m), FA x2 (25m) & EX x2 (30m) NAHOMY GUILLEN STEWARD/STEWARDESS SECOND CLASS Feb 26, 2021 10:32
--- NOTE | 2021-02-26 11:21 | Occupational Ther Daily Note ---
OT Current Status-Daily Note Subjective Pt. alert in recliner upon arrival. Pt. states wanting to wait for nursing to bring meds. in before starting. Pt. agrees to therapy. Mental Status/Objective Patient Orientation: Person, Place, Time, Situation ADL-Treatment Pt. is ad gila during day. Pt. able to ambu. independently using FWW to retrieve clothing from closet then return to recliner prior to therapy. Pt. ambu. indepen dently from recliner to toilet. Pt. able to perform toilet hygiene using LH tongs to cleanse. Pt. able to ambu. using FWW to shower bench to remove hospital gown independently. Pt. cleansed back lower leg, feet, buttocks using LH sponge. Pt. dried feet with towel stepping with one foot and rubbing up lower leg with the other. Pt. independent with UBD. Pt. used cane to thread feet through proper holes of brief. Pt. is Mod A with footwear. Pt. ambu. using FWW to recliner to have assist with lymphedema wraps can place socks with sock aid. Pt. used grabber to thread feet into pants using FWW to stand and hike over hips. Therapy Code Descriptions/Definitions Functional [place] Measure: 0=Not Assessed/NA 4=Minimal Assistance 1=Total Assistance 5=Supervision or Setup 2=Maximal Assistance 6=Modified [place] 3=Moderate Assistance 7=Complete IndependenceSCALE: Activities may be completed with or without assistive devices. 9-Vsywxngwuv-ggcmnlw completes the activity by him/herself with no assistance from a helper. 5-Set-up or Clean-up Assistance-helper sets up or cleans up; patient completes activity. [place] assists only prior to or following the activity. 4-Supervision or Touching Assistance-helper provides verbal cues and/or touching/steadying and/or contact guard assistance as patient completes activity. Assistance may be provided throughout the activity or intermittently. 3-Partial/Moderate Assistance-helper does LESS THAN HALF the effort. [place] lifts, holds or supports trunk or limbs, but provides less than half the effort. 2-Substantial/Maximal Assistance-helper does MORE THAN HALF the effort. [place] lifts or holds trunk or limbs and provides more than half the effort. 3-Jnngcmiwb-umtjpy does ALL the effort. Patient does none of the effort to complete the activity. Or, the assistance of 2 or more helpers is required for the patient to complete the activity. If activity was not attempted, code reason: 7-Patient Refused. 9-Not Applicable-not attempted and the patient did not perform the activity before the current illness, exacerbation or injury. 10-Not Attempted due to Environmental Limitations-(lack of equipment, weather restraints, etc.). 88-Not Attempted due to Medical Conditions or Safety Concerns. Eating (QC): 6 Oral Hygiene (QC): 6 (per clinical judgment.) Bathing Location: L Arm, R Arm, L Upper Leg, R Upper Leg, L Lower Leg (including foot), R Lower Leg (including foot), Chest, Abdomen, Buttocks, Perineal Area Shower/Bathe Self (QC): 6 Upper Body Dressing (QC): 6 Lower Body Dressing (QC): 6 On/Off Footwear: 3 (Mod A with lymphedema wraps, can use sock aid to don socks. ) Toileting Hygiene (QC): 6 Toilet Transfer (QC): 6 Other Treatment Co-Treat with PT ([id number]) 2 clinicians required for safety and instruction. PT focusing on gait, LE strengthening, walking distance while OT focusing on ADLs, activity tolerance, UE strengthening. Pt. ambu. independently to pulmonary waiting room see PT note for further details, then to therapy gym seated on therapy mat before starting exercises. Pt. left in care of PT. All needs met in gym. OT Short Term Goals Short Term Goals Time Frame: Feb 28, 2021 Eatin Oral hygiene: 6 Toileting hygiene: 3 Shower/bathe self: 4 Upper body dressin Lower body dressin Putting on/taking off footwear: 3 OT Shelter Goals Shelter Goals Time Frame: Mar 12, 2021 Eating (QC): 6 (met) Oral Hygiene (QC): 6 (met) Toileting Hygiene (QC): 5 (met) Shower/Bathe Self (QC): 5 (met) Upper Body Dressing (QC): 5 (met) Lower Body Dressing (QC): 5 (met) On/Off Footwear (QC): 5 (not met) 1=Demonstrate adherence to instructed precautions during ADL tasks. 2=Patient will verbalize/demonstrate understanding of assistive devices/modifications for ADL. 3=Patient will improve strength/tolerance for activity to enable patient to perform ADL's. OT Education/Plan Problem List/Assessment Assessment: Decreased Activ Tolerance, Decreased UE Strength, Impaired Self-Ca re Skills Discharge Recommendations Plan/Recommendations: Continue POC Therapy Discharge Recommendati: Post Acute OT Equpiment Recommendations-D/C: Bath Chair, Hip Kit Treatment Plan/Plan of Care Patient would benefit from OT for education, treatment and training to promote independence in ADL's, mobility, safety and/or upper extremity function for ADL's. Plan of Care: ADL Retraining, Functional Mobility, Group Exercise/Act as Ind, UE Funct Exercise/Act, W/C Management Training Treatment Duration: Mar 12, 2021 Frequency: At least 5 of 7 days/Wk (IRF) Estimated Hrs Per Day: 1.5 hours per day Agreement: Yes Rehab Potential: Fair Time/GCodes Start Time: 08:00 Stop Time: 09:30 Total Time Billed (hr/min): 90 Billed Treatment Time 1 visit- ADL 5 (75 min), EX 1 (15 min) Co-Treat with PT ([id number]) (30 mins) Individual ([id number]) (60 min) NEAL CASIANO Feb 26, 2021 11:21
[2021-02-26] MEDS: PATIENT MAY USE OWN MED,SINGLE MED PO SCH (12:00)
[2021-02-26] MEDS: MULTIVIT W/MINERALS TAB (THERAGRAN M) PO SCH (12:54)
[2021-02-26 20:11] VITALS: BP 139/64
[2021-02-27] MEDS ORDERED: ACHD5005 PO (04:47)
[2021-02-27] MEDS ORDERED: PANT40TA52 PO (04:47)
--- NOTE | 2021-02-27 04:49 | D/C HH Face to Face Order ---
D/C Face to Face Orders Reconcile Patient Problems Problems Reviewed?: Yes Instructions for Patient Via [facility], Patient Instructions/FollowUp: PCP 1 week Physician to follow Patient: PCP Discharge Diet for Home: No Restrictions Patient Problems: Ventral hernia repair LOBITO Patient Data-Allergies,Ht & Wt Patient Allergies: Coded Allergies: amoxicillin (Verified Allergy, Severe, Anaphylaxis, 02/12/21) adhesive tape (Verified Allergy, Unknown, Rash, 02/12/21) latex (Verified Allergy, Unknown, 02/12/21) Height (Feet): 5 Height (Inches): 2.00 Weight (Pounds): 305 Weight (Ounces): 0.0 Home Health Need/Face to Face Date of Face to Face: Feb 27, 2021 Clinical Findings: Generalized weakness and fatigue, Instability, Muscle weakness, Pain with ambulation, Unsteady gait I have seen Pt sftm-cl-jkqi: Yes Discharged To: Home Diagnosis/Conditions: Ventral hernia repair LOBITO Patient is Homebound due to: [place] fall risk due to instabilty, Muscle weakness, Pain w/ambulation Homebound Status Due to the above stated illness, injury or surgical procedure (medical condition or diagnosis) and associated clinical findings, the patient is homebound because of his/her inability to leave home except with aid of a supportive device and/or person AND leaving the home requires a considerable and taxing effort or is medically contraindicated. Pt req the following assistanc: Walker Home Health Nursing Orders Home Health Services Order: Nursing Services, Physical Therapy-Evaluate & Treat Certify Stmt I certify that this patient is under my care and that I, a nurse practitioner or a physician; a residential real estate assistant working with me, had a face to face encounter that - meets the physician face to face encounter requirements with this patient as dated. THEA GARLAND DO Feb 27, 2021 04:49
[2021-02-27 07:38] VITALS: BP 116/59
[2021-02-27] MEDS: LOSARTAN 50 MG (COZAAR) TAB PO SCH (08:19)
[2021-02-27] MEDS: ASPIRIN E.C. 81 MG (ECOTRIN) TAB PO SCH (08:19)
[2021-02-27] MEDS: OMEGA 3 (FISH OIL) 1000 MG CAP PO SCH (08:19)
[2021-02-27] MEDS: FUROSEMIDE 20 MG (LASIX) TAB PO SCH (08:19)
[2021-02-27] MEDS: LORATADINE (CLARITIN) 10 MG TAB PO SCH (08:19)
[2021-02-27] MEDS: PANTOPRAZOLE 40 MG (PROTONIX) TAB PO SCH (08:19)
[2021-02-27] MEDS: ENOXAPARIN 60 MG/0.6 ML (LOVENOX) SYR SC SCH (08:19)
[2021-02-27] MEDS: MAGNESIUM OXIDE (MAG-OX)400 MG TAB PO SCH (08:19)
[2021-02-27] MEDS: HYDROcodone/APAP 5 MG/325 MG (LORTAB) TAB PO PRN (08:26)
[2021-02-27] MEDS: polyethylene glycoL POWDER 17 GM (MIRALAX) PACK PO SCH (08:48)
[2021-02-27] MEDS: SENNA W/DOCUSATE (SENOKOT S) TABLET PO SCH (08:48)
[2021-02-27] MEDS: DOCUSATE SODIUM 100 MG (COLACE) CAP PO SCH (08:48)
[2021-02-27 09:40] VITALS: BP 116/59
--- NOTE | 2021-02-27 10:31 | Discharge Summary ---
Diagnosis/Chief Complaint Date of Admission Feb 20, 2021 at 14:10 Date of Discharge Discharge Date: Feb 27, 2021 Discharge Diagnosis Assessment: Debility Ventral hernia repair postop day #2 Morbid obesity BMI 63 LOBITO on CPAP Hypertension Chronic knee pain Chronic debility Plan: Aggressive rehab Increase use of assistive devices Pain control Bowel regimen 02/21/2021: Pain control Bowel regimen 02/22/2021: Continue bowel regimen Pain control Aggressive therapy 02/23/2021: Supportive care Much improved status 02/24/2021: Supportive care Dr. Chino to evaluate hernia repair 02/25/2021: Supportive care Aggressive therapy 02/26/2021: Discharge tomorrow Discharge Summary Discharge Physical Examination Allergies: Coded Allergies: amoxicillin (Verified Allergy, Severe, Anaphylaxis, 02/12/21) adhesive tape (Verified Allergy, Unknown, Rash, 02/12/21) latex (Verified Allergy, Unknown, 02/12/21) Vitals & I&Os Vital Signs Date Time Temp Pulse Resp B/P (MAP) Pulse Ox O2 Delivery O2 Flow Rate FiO2 02/27/21 09:40 36.3 88 18 116/59 98 Room Air General Appearance: Alert, Oriented X3, Cooperative Respiratory: Clear to Auscultation Cardiovascular: Regular Rate Neuro: Normal Gait, Normal Speech, Strength at 5/5 X4 Ext Psych/Mental Status: Mental Status NL Hospital Course Was the Problem List Reviewed?: Yes Hospital course: Patient had an uneventful week hospital course in inpatient rehab following ventral wall hernia repair by Dr. Chino uncomplicated but very debilitated chronically with obstructive sleep apnea and high risk for respiratory compromise during recovery. She had no complications during hospital stay her bowel function returned back to normal pain was well controlled labs remained stable and there was no major events and she was agreeable for discharge considering she was able to participate in all therapy and regain independence. Labs (last 24 hrs) Laboratory Tests 02/21/21 06:00: White Blood Count 13.0H, Red Blood Count 3.33L, Hemoglobin 10.2L, Hematocrit 31L , Mean Corpuscular Volume 94, Mean Corpuscular Hemoglobin 31, Mean Corpuscular Hemoglobin Concent 33, Red Cell Distribution Width 13.2, Platelet Count 243, Mean Platelet Volume 10.4, Immature Granulocyte % (Auto) 0, Neutrophils (%) (Auto) 72, Lymphocytes (%) (Auto) 18, Monocytes (%) (Auto) 9, Eosinophils (%) (Auto) 1, Basophils (%) (Auto) 0, Neutrophils # (Auto) 9.3H, Lymphocytes # (Auto) 2.3, Monocytes # (Auto) 1.1H, Eosinophils # (Auto) 0.2, Basophils # (Auto) 0.0, Immature Granulocyte # (Auto) 0.1, Sodium Level 133L, Potassium Level 4.0, Chloride Level 101, Carbon Dioxide Level 22, Anion Gap 10, Blood Urea Nitrogen 21H, Creatinine 1.24, Estimat Glomerular Filtration Rate 43, BUN/Crea tinine Ratio 17, Glucose Level 116H, Calcium Level 9.0, Corrected Calcium 9.4, Total Bilirubin 1.0, Aspartate Amino Transf (AST/SGOT) 18, Alanine Aminotransferase (ALT/SGPT) 18, Alkaline Phosphatase 80, Total Protein 7.0, Albumin 3.5, Triglycerides Level 101, Cholesterol Level 124, LDL Cholesterol Direct 68, VLDL Cholesterol 20, HDL Cholesterol 48 02/24/21 05:21: White Blood Count 8.3, Red Blood Count 3.08L, Hemoglobin 9.3L, Hematocrit 29L, Mean Corpuscular Volume 94, Mean Corpuscular Hemoglobin 30, Mean Corpuscular Hemoglobin Concent 32, Red Cell Distribution Width 13.2, Platelet Count 277, Mean Platelet Volume 10.7, Immature Granulocyte % (Auto) 0, Neutrophils (%) (Auto) 60, Lymphocytes (%) (Auto) 27, Monocytes (%) (Auto) 10, Eosinophils (%) (Auto) 2, Basophils (%) (Auto) 1, Neutrophils # (Auto) 5.0, Lymphocytes # (Auto) 2.2, Monocytes # (Auto) 0.9, Eosinophils # (Auto) 0.2, Basophils # (Auto) 0.0, Immature Granulocyte # (Auto) 0.0, Sodium Level 138, Potassium Level 4.5, Chloride Level 104, Carbon Dioxide Level 24, Anion Gap 10, Blood Urea Nitrogen 22H, Creatinine 1.14, Estimat Glomerular Filtration Rate 47, BUN/Creatinine Ratio 19, Glucose Level 108H, Calcium Level 9.5, Corrected Calcium 10.3H, Total Bilirubin 0.4, Aspartate Amino Transf (AST/SGOT) 12, Alanine Aminotransferase (ALT/SGPT) 14, Alkaline Phosphatase 71, Total Protein 6.4, Albumin 3.0L Pending Labs Laboratory Tests 02/21/21 06:00: White Blood Count 13.0, Red Blood Count 3.33, Hemoglobin 10.2, Hematocrit 31, Mean Corpuscular Volume 94, Mean Corpuscular Hemoglobin 31, Mean Corpuscular Hemoglobin Concent 33, Red Cell Distribution Width 13.2, Platelet Count 243, Mean Platelet Volume 10.4, Immature Granulocyte % (Auto) 0, Neutrophils (%) (Auto) 72, Lymphocytes (%) (Auto) 18, Monocytes (%) (Auto) 9, Eosinophils (%) (Auto) 1, Basophils (%) (Auto) 0, Neutrophils # (Auto) 9.3, Lymphocytes # (Auto) 2.3, Monocytes # (Auto) 1.1, Eosinophils # (Auto) 0.2, Basophils # (Auto) 0.0, Immature Granulocyte # (Auto) 0.1, Sodium Level 133, Potassium Level 4.0, Chloride Level 101, Carbon Dioxide Level 22, Anion Gap 10, Blood Urea Nitrogen 21, Creatinine 1.24, Estimat Glomerular Filtration Rate 43, BUN/Creatinine Ratio 17, Glucose Level 116, Calcium Level 9.0, Corrected Calcium 9.4, Total Bilirubin 1.0, Aspartate Amino Transf (AST/SGOT) 18, Alanine Aminotransferase (ALT/SGPT) 18, Alkaline Phosphatase 80, Total Protein 7.0, Albumin 3.5, Triglycerides Level 101, Cholesterol Level 124, LDL Cholesterol Direct 68, VLDL Cholesterol 20, HDL Cholesterol 48 02/24/21 05:21: White Blood Count 8.3, Red Blood Count 3.08, Hemoglobin 9.3, Hematocrit 29, Mean Corpuscular Volume 94, Mean Corpuscular Hemoglobin 30, Mean Corpuscular Hemoglobin Concent 32, Red Cell Distribution Width 13.2, Platelet Count 277, Mean Platelet Volume 10.7, Immature Granulocyte % (Auto) 0, Neutrophils (%) (Auto) 60, Lymphocytes (%) (Auto) 27, Monocytes (%) (Auto) 10, Eosinophils (%) (Auto) 2, Basophils (%) (Auto) 1, Neutrophils # (Auto) 5.0, Lymphocytes # (Auto) 2.2, Monocytes # (Auto) 0.9, Eosinophils # (Auto) 0.2, Basophils # (Auto) 0.0, Immature Granulocyte # (Auto) 0.0, Sodium Level 138, Potassium Level 4.5, Chloride Level 104, Carbon Dioxide Level 24, Anion Gap 10, Blood Urea Nitrogen 22, Creatinine 1.14, Estimat Glomerular Filtration Rate 47, BUN/Creatinine Ratio 19, Glucose Level 108, Calcium Level 9.5, Corrected Calcium 10.3, Total Bilirubin 0.4, Aspartate Amino Transf (AST/SGOT) 12, Alanine Aminotransferase (ALT/SGPT) 14, Alkaline Phosphatase 71, Total Protein 6.4, Albumin 3.0 Discharge Home Medications: Active Scripts Active Pantoprazole Sodium 40 Mg Tablet.dr 40 Mg PO DAILY HYDROcodone/APAP 5 MG/325 MG TAB (Acetaminophen/Hydrocodone Bitart) 1 Tab Tab 1 Ea PO Q4H PRN Reported Excedrin Migraine Caplet (Aspirin/Acetaminophen/Caffeine) 1 Each Tablet 2 Each PO Q6-8HR PRN Flonase Allergy Relief (Fluticasone Propionate) 9.9 Ml [place].susp 2 [place] NS DAILY PRN Aspirin EC (Aspirin) 81 Mg Tablet. 324 Mg PO DAILY TAKES 4 (81MG) TABS Furosemide 20 Mg Tablet 20 Mg PO DAILY [facility] WHEN SHE IS AWAY FROM HOME LAST FILLED 09-27-2020 #90/90 DAY SUPPLY Magnesium (Magnesium Oxide) 400 Mg Tablet 400 Mg PO DAILY Tylenol Extra Strength (Acetaminophen) 500 Mg Tablet 500-1,000 Mg PO Q8H PRN Osteo Bi-Flex Caplet (Gluc/Brian-MSM#1/C/Luis/Dmitry/Bor) 1 Each Tablet 2 Tab PO DAILY Fish Oil 1,000 mg Softgel ([place]-3/Dha/Epa/Fish Oil) 1,000 Mg Capsule 1,000 Mg PO TIDWM Multi-Vitamin Daily (Multivitamin) 1 Each Tablet 1 Tab PO 1200 Loratadine 10 Mg Tablet 10 Mg PO DAILY Losartan-Hctz 50-12.5 mg Tab (Losartan/Hydrochlorothiazide) 1 Each Tablet 1 Ea PO DAILY Instructions to patient/family Please see electronic discharge instructions given to patient. Diagnosis/Problems Diagnosis/Problems (1) Debility (2) Primary hypertension Assessment & Plan: I recommend resuming her regular outpatient antihypertensive medications. (3) Morbid obesity Assessment & Plan: She really needs to work on weight loss. This is most likely contributing to her chronic lower extremity venous insufficiency which then results in venous stasis ulcers. (4) Recurrent ventral hernia (5) Ischemic necrosis of small bowel THEA GARLAND DO Feb 27, 2021 10:31
--- NOTE | 2021-02-27 11:33 | Therapy Team Discharge Summary ---
Therapy Discharge Summary Discharge Recommendations Date of Discharge Feb 27, 2021 at 09:40 Physical Therapy Patient came to rehab with incisional ventral hernia. Upon evaluation patient performed bed mobility with mod assist, supine <-> sit dependent (assist of 2), sit <-> stand min assist, transfers CGA, ambulated 80' with a rolling walker with CGA (including 50' with at least 2 turns of 90 degrees and 10' over an uneven surface), dependent for WC mobility. Patient has been performing bed mobility and transfer training, balance and endurance training, functional s trengthening, gait training, and education. Patient has made good progress and has met all of her long term care social worker goals except for stairs (she has a ramp at home). Now, patient performs bed mobility and transfers with independence, car transfer independent, ambulates 300' with a rolling walker with independence (including 50' with at least 2 turns of 90 degrees and 10' over an uneven surface). Patient is being discharged from this facility today and will be discharged from PT at this time. Occupational Therapy Decreased Activ Tolerance, Decreased UE Strength, Impaired Self-Care Skills PT Spinning Room Worker Goals Spinning Room Worker Goals PT Spinning Room Worker Goals Time Frame: Mar 13, 2021 Roll Left to Right (QC): 5 Sit to Lying (QC): 3 (Leobardo) Lying-Sitting on Side/Bed(QC): 3 (Leobardo) Sit to Stand (QC): 4 (SBA) Chair/Ggw-xb-Kgtpy Xfer(QC): 4 (SBA) Car Transfer (QC): 3 (Leobardo) Does the Patient Walk: Yes Walk 10 feet (QC): 4 (SBA) Walk 10ft-Uneven Surface(QC): 4 (SBA) Walk 50ft with 2 Turns (QC): 4 (SBA) Walk 150 ft (QC): 4 (SBA) Wheel 50 feet with 2 turns (QC: 9 1 Step (curb) (QC): 4 (CGA) 4 Steps (QC): 88 12 Steps (QC): 88 Picking up an Object (QC): 88 OT Usp Goals Spinning Room Worker Goals Time Frame: Mar 12, 2021 Eating (QC): 6 (met) Oral Hygiene (QC): 6 (met) Shower/Bathe Self (QC): 5 (met) Upper Body Dressing (QC): 5 (met) Lower Body Dressing (QC): 5 (met) On/Off Footwear (QC): 5 (not met) Toileting Hygiene (QC): 5 (met) Toilet/Commode Transfer (QC): 4 (SBA) 1=Demonstrate adherence to instructed precautions during ADL tasks. 2=Patient will verbalize/demonstrate understanding of assistive devices/modifications for ADL. 3=Patient will improve strength/tolerance for activity to enable patient to perform ADL's. VICENTA ESTES PT Feb 27, 2021 11:33
--- NOTE | 2021-02-28 12:13 | Therapy Team Discharge Summary ---
Therapy Discharge Summary Discharge Recommendations Date of Discharge Feb 27, 2021 at 09:40 Occupational Therapy Patient came to rehab with incisional ventral hernia. Upon evaluation patient performed bathing and toileting with min-mod a, LB dressing/footwear with max a, and oral hygiene with set up. While on rehab, OT focused on improving balance, safety, endurance, compensatory/adaptive techniques, energy conservation strategies and activity tolerance for improved performance in adls and functional transfers. Pt made good progress and met all of her OT goals. She is now mod I with all ADLs except needing assist with lymphedema wraps. Pt has discharged home and will be d/c'ed from OT. Decreased Activ Tolerance, Decreased UE Strength, Impaired Self-Care Skills PT Watch Engineer Goals Watch Engineer Goals PT Halfway Goals Time Frame: Mar 13, 2021 Roll Left to Right (QC): 5 Sit to Lying (QC): 3 (Leobardo) Lying-Sitting on Side/Bed(QC): 3 (Leobardo) Sit to Stand (QC): 4 (SBA) Chair/Xvr-gh-Luxbh Xfer(QC): 4 (SBA) Car Transfer (QC): 3 (Leobardo) Does the Patient Walk: Yes Walk 10 feet (QC): 4 (SBA) Walk 10ft-Uneven Surface(QC): 4 (SBA) Walk 50ft with 2 Turns (QC): 4 (SBA) Walk 150 ft (QC): 4 (SBA) Wheel 50 feet with 2 turns (QC: 9 1 Step (curb) (QC): 4 (CGA) 4 Steps (QC): 88 12 Steps (QC): 88 Picking up an Object (QC): 88 OT Watch Engineer Goals Halfway Goals Time Frame: Mar 12, 2021 Eating (QC): 6 (met) Oral Hygiene (QC): 6 (met) Shower/Bathe Self (QC): 5 (met) Upper Body Dressing (QC): 5 (met) Lower Body Dressing (QC): 5 (met) On/Off Footwear (QC): 5 (not met) Toileting Hygiene (QC): 5 (met) Toilet/Commode Transfer (QC): 4 (SBA) 1=Demonstrate adherence to instructed precautions during ADL tasks. 2=Patient will verbalize/demonstrate understanding of assistive devices/modifications for ADL. 3=Patient will improve strength/tolerance for activity to enable patient to per form ADL's. Suki Riley OT Feb 28, 2021 12:13
== END 2021-02-27 09:40 | disposition home health service (06) | DRG 948 ==
PROVIDERS: ADMIT Internal Medicine; ATTEND Internal Medicine
DX: R53.81 Other malaise (principal); Z68.44 Body mass index [BMI] 60.0-69.9, adult; Z48.815 Encounter for surgical aftercare following surgery on the digestive system; R32 Unspecified urinary incontinence; G47.33 Obstructive sleep apnea (adult) (pediatric); I87.2 Venous insufficiency (chronic) (peripheral); M25.569 Pain in unspecified knee; M19.91 Primary osteoarthritis, unspecified site; E66.01 Morbid (severe) obesity due to excess calories; I10 Essential (primary) hypertension; R01.1 Cardiac murmur, unspecified; Z86.718 Personal history of other venous thrombosis and embolism; Z79.82 Long term (current) use of aspirin; Z88.1 Allergy status to other antibiotic agents; Z91.040 Latex allergy status; Z91.048 Other nonmedicinal substance allergy status; Z82.61 Family history of arthritis; Z82.49 Family history of ischemic heart disease and other diseases of the circulatory system
CPT/HCPCS: 36415; 80053; 80061; 85025

== ENCOUNTER → 2021-03-27 | Outpatient (CLI) | payer MEDICARE, OTHER ==
[~2021-03-27] MED LIST changes: +ASPI-1238 PO; +ASPI-789 PO; +CATHETER FLUSH 10 ML SYR IV PRN; +PANT40TA52 PO; +REGADENOSON 0.4 MG/5 ML SYR (LEXISCAN) IV ONE
[2021-03-27 13:15] VITALS: BP 174/80
--- NOTE | 2021-03-28 19:30 | NUCLEAR STRESS TEST ---
REGADENOSON NUCLEAR STRESS Date of procedure: 03/27/2021. Primary care provider: Ely Baez MD Admitting physician: Malcolm Leon Jr., MD. INDICATION: Abnormal electrocardiogram. BASELINE ELECTROCARDIOGRAM: Sinus rhythm with possible old septal myocardial infarction and nonspecific ST-T wave changes. STRESS TEST PROCEDURE: The patient was administered 0.4 mg of intravenous Regadenoson. The resting heart rate was 78 bpm and the peak heart rate was 95 bpm. The resting blood pressure was 174/80 mmHg and the minimum blood pressure was 131/80 mmHg. This represents a normal heart rate and a normal blood pressure response to Regadenoson with resting hypertension. The test was stopped due to the protocol. There was no chest discomfort during the test. There were no arrhythmias during the test. There were no significant stress induced electrocardiogram changes. NUCLEAR PROCEDURE: The patient was administered 11 mCi of intravenous technetium 99m Tetrofosmin at rest for the rest images. The patient was subsequently administered 30.3 mCi of intravenous technetium 99m Tetrofosmin at peak stress for the stress images. Following an appropriate wait after each injection, imaging was obtained. The images were subsequently processed and reformatted in the usual views. Gated imaging was obtained. The image quality was adequate but with a fair amount of gastrointestinal attenuation artifact. CT attenuation correction was used as a adjunct to standard imaging. Both the corrected and uncorrected images were reviewed for interpretation. NUCLEAR RESULTS: There was a large, severe intensity, predominantly reversible mid to distal anterior and apical defect with a large amount of inducible ischemia with a summed stress score of 21 and a summed difference score of 11. The left ventricle was dilated with an end-diastolic volume of 140 mL and an end-systolic volume of 66 mL. There was no evidence of transient ischemic dilatation. The TID ratio was 1.12. There was mid to distal anterior and apical hypokinesis with an overall calculated ejection fraction of 53%. IMPRESSION: 1. Normal heart rate and blood pressure response to regadenoson with resting hypertension. 2. There was no chest discomfort, arrhythmias, or electrocardiogram changes during the test. 3. The left ventricle was dilated. 4. There was a large, severe intensity, predominantly reversible mid to distal anterior and apical defect with a large amount of inducible ischemia with a summed stress score of 21 and a summed difference score of 11. 5. There was mid to distal anterior and apical hypokinesis. 6. The overall left ventricular systolic function was normal with a calculated ejection fraction of 53%. 7. This is a severely abnormal stress test representing a high risk for possible future ischemic events. Certain portions of this document may have been dictated utilizing voice recognition technology. Inherent to this technology, typographical and grammatical errors may exist. As much as I am diligent to identify and correct these mistakes, some errors may remain in the document. MALCOLM LEON JR, MD Mar 28, 2021 19:30
== END ==
LOC: CARD 12:15
PROVIDERS: ATTEND Internal Medicine Cardiovascular Disease
DX: I25.89 Other forms of chronic ischemic heart disease (principal); I11.9 Hypertensive heart disease without heart failure
CPT/HCPCS: 78452; 93017; A9502

== ENCOUNTER → 2021-04-01 | Outpatient (CLI) | payer MEDICARE, OTHER ==
[~2021-04-01] MED LIST changes: -CATHETER FLUSH 10 ML SYR IV PRN; +CLOP75TA28 PO; +DOCU100T2 PO; +ISOS30TA82 PO; +LORA10TA76 PO; +MTP25TSR PO; +PROP15DR OU; -REGADENOSON 0.4 MG/5 ML SYR (LEXISCAN) IV ONE; +ROSU5TAB13 PO; +SNN187T PO; +meTOprolol TARTRATE 25 MG (LOPRESSOR) TABLET ONE
[2021-04-01 10:22] LABS: BASOPHILS % (AUTO) 1 % (0-10); EOSINOPHILS # (AUTO) 0.1 10^3/uL (0.0-0.3); EOSINOPHILS % (AUTO) 2 % (0-10); HEMATOCRIT 35 % (35-52); HEMOGLOBIN 11.1 g/dL (11.5-16.0); LYMPHOCYTES # (AUTO) 1.7 10^3/uL (1.0-4.0); LYMPHOCYTES % (AUTO) 23 % (12-44); MEAN CORPUSCULAR HEMOGLOBIN 30 pg (25-34); MEAN CORPUSCULAR HGB CONC 32 g/dL (32-36); MEAN CORPUSCULAR VOLUME 95 fL (80-99); MEAN PLATELET VOLUME 10.4 fL (9.0-12.2); MONOCYTES # (AUTO) 0.5 10^3/uL (0.0-1.0); MONOCYTES % (AUTO) 7 % (0-12); NEUTROPHILS % (AUTO) 68 % (42-75); PLATELET COUNT 226 10^3/uL (130-400); WHITE BLOOD COUNT 7.3 10^3/uL (4.3-11.0)
[2021-04-01 10:42] LABS: PROTHROMBIN TIME PATIENT 13.4 SEC (12.2-14.7)
[2021-04-01 10:45] LABS: CALCIUM 9.7 MG/DL (8.5-10.1); CREATININE SERUM 1.15 MG/DL (0.60-1.30); POTASSIUM 3.9 MMOL/L (3.6-5.0)
== END ==
LOC: LAB 09:56
PROVIDERS: ATTEND Internal Medicine Cardiovascular Disease
DX: I25.10 Atherosclerotic heart disease of native coronary artery without angina pectoris (principal)
CPT/HCPCS: 36415; 80048; 85025; 85610

== ENCOUNTER 2021-04-03 10:00 | Day surgery (SDC) | payer MEDICARE, OTHER ==
[~2021-04-03] VITALS: Ht 152 cm; Wt 143.0 kg
[2021-04-03 08:59] VITALS: BP 150/90
--- NOTE | 2021-04-03 09:18 | Pre-Op Note & Conscious Sedat ---
Pre-Operative Progress Note H&P Reviewed The H&P was reviewed, patient examined and no changes noted. Date H&P Reviewed: Apr 03, 2021 Time H&P Reviewed: 09:18 Pre-Op Diagnosis: Abnormal nuclear stress test Conscious Sedation Pre-Proced ASA Score 3 For ASA 3 and 4: Consider anesthesia and medical clearance. Also, for patients with a history of failed moderate sedation consider anesthesia. Airway Lungs Heart ASA score ASA 1: a normal healthy patient ASA 2: a patient with a mild systemic disease (mid diabetes, controlled hypertension, obesity ASA 3: a patient with a severe systemic disease that limits activity (angina, COPD, prior Myocardial infarction) ASA 4: a patient with an incapacitating disease that is a constant threat to life (CHF, renal failure) ASA 5: a moribund patient not expected to survive 24 hrs. (ruptured aneurysm) ASA 6: a declared brain- patient whose organs are being harvested. For emergent operations, add the letter E after the classification Mallampati Classification Grade 3 Sedation Plan Analgesia, Amnesia, Plan communicated to team members, Discussed options with patient/fam, Discussed risks with patient/fam The patient is an appropriate candidate to undergo the planned procedure, sedation, and anesthesia. The patient immediately re-assessed prior to indication. TYREE MENDOZA JR, MD Apr 03, 2021 09:18
[~2021-04-03 10:00] MED LIST changes: +ASPIRIN 325 MG (5 GR) TABLET ONE; +ASPIRIN 81 MG CHEW (CHILDREN'S ASA) PO ONE; +CATHETER FLUSH 10 ML SYR IV PRN; -CLOP75TA28 PO; +HEParin (CATH LAB) 2,000 ML IV ONE; +HEParin 1000 UNIT/ML (10ML VIAL) FOR BOLUS ONE; -ISOS30TA82 PO; +LIDOCAINE 1% INJ 20 ML 20 ML VIAL ONE; +MIDAZOLAM 5 MG/5 ML (VERSED) VIAL ONE; -MTP25TSR PO; +NITRO DRIP 25000 MCG/D5W 250 ML IV ONE; +NS IV 1000 ML 1,000 ML IV ONE; +NS IV 1000 ML 1,000 ML ONE; -ROSU5TAB13 PO; +VERAPAMIL 5 MG/2 ML (CALAN) VIAL IV ONE; +fentaNYL INJ 100 MCG/2 ML AMP ONE; +meTOprolol 5 MG/5 ML (LOPRESSOR) VIAL ONE; -meTOprolol TARTRATE 25 MG (LOPRESSOR) TABLET ONE
[2021-04-03] MEDS ORDERED: CLOPIDOGREL 300 MG (PLAVIX) TABLET PO ONE (11:18)
[2021-04-03] MEDS ORDERED: HEParin 1000 UNIT/ML (10ML VIAL) FOR BOLUS ONE (11:43)
--- NOTE | 2021-04-03 11:57 | Cardiac Cath Report ---
CARDIAC CATHETERIZATION DATE OF PROCEDURE: 04/03/2021 INDICATION: Abnormal nuclear stress test. HISTORY: The patient is a 71 year old female who developed chest pain following an abdominal surgery in January 2021. After she recovered from surgery and was discharged home, I had her undergo a nuclear stress test. This showed a large amount of mid to distal anterior and apical hypokinesis. She has now been having some exertional chest discomfort. As such, she is now referred for further evaluation with a cardiac catheterization. PROCEDURES PERFORMED: 1. Left heart catheterization with hemodynamic measurements. 2. Diagnostic [place] mountain coronary angiography. 3. Attempted percutaneous coronary intervention to first diagonal branch. I was unable to negotiate a coronary guidewire into this branch and no balloons were used. PROCEDURE DESCRIPTION: After informed consent and in the fasting state, left heart catheterization was performed through the right radial artery utilizing a 6 [place] system by percutaneous approach. Standard [place]rah catheters were utilized for the diagnostic portion of the procedure. All catheters were exchanged over a guidewire. Following the procedure, a vascular band was applied to the radial artery access site and the sheath was removed with good hemostasis. RESULTS: HEMODYNAMICS: The aortic pressure was 132/74 mmHg. The left ventricular pressure was 135/0 mmHg with a left ventricular end-diastolic pressure of 20 mmHg. There was no significant pressure gradient upon pullback across the aortic valve. CORONARY ANGIOGRAPHY: The coronary arteries were diffusely large in caliber but not ectatic or aneurysmal. Left main coronary artery: Free of significant disease. Left anterior descending coronary artery: Free of significant disease. There was a moderate sized first diagonal branch which contained a 99% stenosis in its mid segment with EJ-1 flow and delayed flow in the proximal segment which led to what appeared to be dye staining but without thrombus. Left circumflex coronary artery: Free of significant disease. Right coronary artery: Very large in caliber, dominant and free of significant disease. PERCUTANEOUS CORONARY INTERVENTION: Percutaneous coronary intervention was attempted on the first diagonal branch through a 6 [place] CLS 3.5 guide catheter. I attempted to cross the stenosis in the diagonal branch with a Whisper medium support guidewire but I could not get the wire to go into the proximal segment of the branch. After using a fair amount of contrast and fluoroscopy, I elected to abort the procedure. I will need a [place] crossing catheter or a Twin pass catheter to cross the lesion. IMPRESSION: 1. Elevated left ventricular end-diastolic pressure. 2. There was severe disease of a moderate sized first diagonal branch with EJ-1 flow. 3. Status post unsuccessful attempt at percutaneous coronary intervention on th e first diagonal branch. I was not able to get a wire into the vessel. I will need some special crossing catheters ordered and then we can make another attempt in the near future. 4. The patient is known to have normal left ventricular systolic function with a calculated ejection fraction of 53% by nuclear stress test performed on 03/27/2021. Certain portions of this document may have been dictated utilizing voice recognition technology. Inherent to this technology, typographical and grammatical errors may exist. As much as I am diligent to identify and correct these mistakes, some errors may remain in the document. TYREE MENDOZA JR, MD Apr 03, 2021 11:57
[2021-04-03] MEDS ORDERED: PATIENT MAY USE OWN MEDS, ALL PO SCH (12:00)
[2021-04-03] MEDS ORDERED: NS IV 1000 ML 1,000 ML IV SCH (12:00)
[2021-04-03] MEDS ORDERED: ISOS30TA82 PO ×2 (12:01)
[2021-04-03] MEDS ORDERED: MTP25TSR PO ×2 (12:01)
[2021-04-03] MEDS ORDERED: CLOP75TA28 PO ×2 (12:01)
[2021-04-03] MEDS ORDERED: ROSU5TAB13 PO ×2 (12:13)
[2021-04-03] MEDS ORDERED: ROSUVASTATIN 5 MG (CRESTOR) TABLET PO SCH (21:00)
[2021-04-04] MEDS ORDERED: CLOPIDOGREL 75 MG (PLAVIX) TABLET PO SCH (09:00)
[2021-04-04] MEDS ORDERED: ISOSORBIDE MONONITRATE 30 MG (IMDUR) TAB PO SCH (09:00)
== END 2021-04-03 16:40 | disposition home or self-care (01) ==
LOC: CSD 12:12 → CATH 16:40
PROVIDERS: ATTEND Internal Medicine Cardiovascular Disease
DX: R07.89 Other chest pain (principal); I25.10 Atherosclerotic heart disease of native coronary artery without angina pectoris; I12.9 Hypertensive chronic kidney disease with stage 1 through stage 4 chronic kidney disease, or unspecified chronic kidney disease; N18.30 Chronic kidney disease, stage 3 unspecified; K21.9 Gastro-esophageal reflux disease without esophagitis; E66.01 Morbid (severe) obesity due to excess calories; I71.2 Thoracic aortic aneurysm, without rupture; Z79.899 Other long term (current) drug therapy; Z68.44 Body mass index [BMI] 60.0-69.9, adult; Z79.82 Long term (current) use of aspirin; Z91.040 Latex allergy status; Z86.718 Personal history of other venous thrombosis and embolism
CPT/HCPCS: 92920; 93458; C1725; C1769 ×2; C1887; C1894

== ENCOUNTER 2021-05-01 10:00 | Day surgery (SDC) | payer MEDICARE, OTHER ==
[~2021-05-01] VITALS: Ht 157 cm; Wt 140.0 kg
[2021-05-01] VITALS (10 sets, daily range): BP systolic 103–140; BP diastolic 46–87
--- NOTE | 2021-05-01 09:31 | Pre-Op Note & Conscious Sedat ---
Pre-Operative Progress Note H&P Reviewed The H&P was reviewed, patient examined and no changes noted. Date H&P Reviewed: May 01, 2021 Time H&P Reviewed: 09:30 Pre-Op Diagnosis: Coronary artery disease with angina pectoris Conscious Sedation Pre-Proced ASA Score 3 For ASA 3 and 4: Consider anesthesia and medical clearance. Also, for patients with a history of failed moderate sedation consider anesthesia. Airway Lungs Heart ASA score ASA 1: a normal healthy patient ASA 2: a patient with a mild systemic disease (mid diabetes, controlled hypertension, obesity ASA 3: a patient with a severe systemic disease that limits activity (angina, COPD, prior Myocardial infarction) ASA 4: a patient with an incapacitating disease that is a constant threat to life (CHF, renal failure) ASA 5: a moribund patient not expected to survive 24 hrs. (ruptured aneurysm) ASA 6: a declared brain- patient whose organs are being harvested. For emergent operations, add the letter E after the classification Mallampati Classification Grade 3 Sedation Plan Analgesia, Amnesia, Plan communicated to team members, Discussed options with patient/fam, Discussed risks with patient/fam The patient is an appropriate candidate to undergo the planned procedure, sedation, and anesthesia. The patient immediately re-assessed prior to indication. TYREE MENDOZA JR, MD May 01, 2021 09:31
[~2021-05-01 10:00] MED LIST changes: -ASPIRIN 325 MG (5 GR) TABLET ONE; +ASPIRIN 81 MG CHEW (CHILDREN'S ASA) ONE; +CLOP75TA28 PO; +ISOS30TA82 PO; +MTP25TSR PO; +MULT-1029 PO; +RANO500T6 PO; +ROSU5TAB13 PO; -meTOprolol 5 MG/5 ML (LOPRESSOR) VIAL ONE
--- NOTE | 2021-05-01 11:07 | Cardiac Cath Report ---
CARDIAC CATHETERIZATION DATE OF PROCEDURE: 05/01/2021 INDICATION: Coronary artery disease with angina pectoris. HISTORY: The patient is a 71 year old female with a known history of coronary artery disease. She had previously undergone a nuclear stress test on 03/27/2021 that showed a large, severe intensity, predominantly reversible mid to distal anterior and apical defect with a large amount of inducible ischemia with a summed stress score of 21 and a summed difference score of 11. She was placed on metoprolol succinate and subsequently underwent a cardiac catheterization on 04/03/2021 that showed a subtotal occlusion of a moderate sized diagonal branch. I attempted to open this branch but was not successful. The procedure was aborted. The patient was then placed on long-acting nitrates but developed a headache. The long-acting nitrates were changed over to ranolazine. She continues to have chest discomfort. There are some different equipment including Supercross catheters and a Twinpass catheter to help cross the stenosis in this first diagonal branch. In light of her ongoing angina, she is now referred for another attempt at percutaneous coronary intervention to the first diagonal branch. PROCEDURES PERFORMED: 1. Attempted percutaneous coronary intervention of first diagonal branch (left anterior descending coronary artery). The procedure was aborted because the vessel could not be wired. PROCEDURE DESCRIPTION: After informed consent and in the fasting state, left hea rt catheterization was performed through the right radial artery utilizing a 6 Icelandic system by percutaneous approach. A 6 Icelandic CLS 3.5 guide catheter was utilized for the procedure. The catheter was exchanged over a guidewire. Following the procedure, a vascular band was applied to the radial artery access site and the sheath was removed with good hemostasis. RESULTS: HEMODYNAMICS: The aortic pressure was 109/62 mmHg. The aortic valve was not crossed. CORONARY ANGIOGRAPHY: Left main coronary artery: Free of significant disease. Left anterior descending coronary artery: Free of significant disease. There was a moderate sized first diagonal branch which contained a 99% stenosis in its mid segment with EJ-1 flow and delayed flow in the proximal segment. It was very difficult to determine where the ostium of this branch arose from the left anterior descending coronary artery. Left circumflex coronary artery: Free of significant disease. Right coronary artery: The right coronary artery was not evaluated. PERCUTANEOUS CORONARY INTERVENTION: Percutaneous coronary intervention was attempted on the first diagonal branch through a 6 Icelandic CLS 3.5 guide catheter. I first placed a [place] guidewire into the distal left anterior descending coronary artery. I subsequently advanced a long Whisper medium support guidewire into the left anterior descending coronary artery. I was able to negotiate this wire down into a small septal plate former branch close to where the diagonal branch appeared to be arising. I then advanced a Supercross 90 crossing catheter over the long Whisper wire. I then withdrew the wire into the crossing catheter and attempted to locate the ostium of the diagonal branch in multiple planes and in various locations in the midsegment of the left anterior descending coronary artery. However, I was not able to locate the ostium of the diagonal branch which suggests that this could be a chronic total occlusion in the ostium of the branch. Therefore, the procedure was aborted. No balloons were utilized. A follow-up angiogram did not reveal any evidence of coronary dissection or perforation following the procedure. IMPRESSION: 1. Status post second unsuccessful attempt at opening the first diagonal branch. This may be a chronic total occlusion in the ostium of this branch. 2. I will maximize her antianginal medications. If she still has angina on the maximum tolerated dose of antianginal medications, I may refer her to [facility] in [place], [place] for consideration of complex high risk interventional procedure. Certain portions of this document may have been dictated utilizing voice recognition technology. Inherent to this technology, typographical and grammatical errors may exist. As much as I am diligent to identify and correct these mistakes, some errors may remain in the document. TYREE MENDOZA JR, MD May 01, 2021 11:07
== END 2021-05-01 14:15 ==
LOC: CATH 10:00 → SDC 11:23 → CATH 14:15
PROVIDERS: ATTEND Internal Medicine Cardiovascular Disease
DX: I25.119 Atherosclerotic heart disease of native coronary artery with unspecified angina pectoris (principal); I71.2 Thoracic aortic aneurysm, without rupture; I12.9 Hypertensive chronic kidney disease with stage 1 through stage 4 chronic kidney disease, or unspecified chronic kidney disease; N18.30 Chronic kidney disease, stage 3 unspecified; K21.9 Gastro-esophageal reflux disease without esophagitis; E66.01 Morbid (severe) obesity due to excess calories; Z68.43 Body mass index [BMI] 50.0-59.9, adult; Z79.82 Long term (current) use of aspirin; Z79.899 Other long term (current) drug therapy; Z80.9 Family history of malignant neoplasm, unspecified
CPT/HCPCS: 92920; C1887; C1894

== ENCOUNTER → 2021-11-25 | Outpatient (CLI) | payer MEDICARE, OTHER ==
[~2021-11-25] MED LIST changes: -ASPI-789 PO; +ASPI1TAB23 PO; -ASPIRIN 81 MG CHEW (CHILDREN'S ASA) ONE; -ASPIRIN 81 MG CHEW (CHILDREN'S ASA) PO ONE; -CATHETER FLUSH 10 ML SYR IV PRN; -HEParin (CATH LAB) 2,000 ML IV ONE; -HEParin 1000 UNIT/ML (10ML VIAL) FOR BOLUS ONE; -LIDOCAINE 1% INJ 20 ML 20 ML VIAL ONE; -MIDAZOLAM 5 MG/5 ML (VERSED) VIAL ONE; -NITRO DRIP 25000 MCG/D5W 250 ML IV ONE; -NS IV 1000 ML 1,000 ML IV ONE; -NS IV 1000 ML 1,000 ML ONE; -VERAPAMIL 5 MG/2 ML (CALAN) VIAL IV ONE; -fentaNYL INJ 100 MCG/2 ML AMP ONE
--- NOTE | 2021-11-25 13:18 | Diagnostic Imaging Report ---
INDICATION: Routine screening. COMPARISON: 09/26/2018 and 09/24/2017. TECHNIQUE: 2D and 3D bilateral screening mammography was performed with CAD. FINDINGS: Scattered fibroglandular densities are identified bilaterally. Benign-appearing nodules in the right breast are noted. No spiculated mass or malignant-appearing microcalcifications are seen. The axillae are unremarkable. IMPRESSION: No mammographic features suspicious for malignancy are identified. ACR BI-RADS Category 2: Benign findings. Result letter will be mailed to the patient. Note: At least 10% of breast cancer is not imaged by mammography. Dictated by: Dictated on workstation # [id number]
== END ==
LOC: RAD 10:46
PROVIDERS: ATTEND Family Medicine
DX: Z12.31 Encounter for screening mammogram for malignant neoplasm of breast (principal)
CPT/HCPCS: 77063; 77067

== ENCOUNTER → 2022-01-29 | Outpatient (CLI) | payer MEDICARE, OTHER ==
--- NOTE | 2022-01-29 15:37 | Diagnostic Imaging Report ---
PROCEDURE: US renal bilateral. TECHNIQUE: Multiple real-time grayscale images were obtained over the kidneys in various projections, bilaterally. INDICATION: Renal failure. Right kidney measures 10.1 x 5.1 x 4.7 cm. Left kidney measures 10.0 x 5.2 x 4.4 cm. There is no mass, calculus or hydronephrosis seen in either kidney. Urinary bladder appears normal with a prevoid volume of 317 mL and post void of 10 mL. IMPRESSION: Unremarkable renal ultrasound. Dictated by: Dictated on workstation # [id number]
== END ==
LOC: RAD 13:00
PROVIDERS: ATTEND Internal Medicine Nephrology
DX: N18.31 Chronic kidney disease, stage 3a (principal)
CPT/HCPCS: 76770

== ENCOUNTER → 2022-06-17 | Outpatient (CLI) | payer MEDICARE, OTHER | LOC: CARD 13:39 | PROVIDERS: ATTEND Internal Medicine Cardiovascular Disease | DX: I08.0 Rheumatic disorders of both mitral and aortic valves (principal); I71.20 Thoracic aortic aneurysm, without rupture, unspecified | CPT/HCPCS: 93306 ==

== ENCOUNTER → 2022-06-26 | Outpatient (CLI) | payer MEDICARE, OTHER | LOC: WOUNDCARE 09:04 | PROVIDERS: ATTEND Family Medicine | DX: I96 Gangrene, not elsewhere classified (principal); L97.222 Non-pressure chronic ulcer of left calf with fat layer exposed; I89.0 Lymphedema, not elsewhere classified; M62.81 Muscle weakness (generalized); N18.30 Chronic kidney disease, stage 3 unspecified; L03.116 Cellulitis of left lower limb; E66.01 Morbid (severe) obesity due to excess calories; Z68.43 Body mass index [BMI] 50.0-59.9, adult | CPT/HCPCS: A6197; G0463; 99213 ==

== ENCOUNTER → 2022-07-03 | Outpatient (CLI) | payer MEDICARE, OTHER | LOC: WOUNDCARE 10:05 | PROVIDERS: ATTEND Family Medicine | DX: L97.222 Non-pressure chronic ulcer of left calf with fat layer exposed (principal); I89.0 Lymphedema, not elsewhere classified; E66.01 Morbid (severe) obesity due to excess calories; M62.81 Muscle weakness (generalized); N18.30 Chronic kidney disease, stage 3 unspecified; Z91.199 Patient's noncompliance with other medical treatment and regimen due to unspecified reason; I96 Gangrene, not elsewhere classified | CPT/HCPCS: 11042; G0463 ==

== ENCOUNTER → 2022-07-10 | Outpatient (CLI) | payer MEDICARE, OTHER | LOC: WOUNDCARE 10:10 | PROVIDERS: ATTEND Family Medicine | DX: L97.222 Non-pressure chronic ulcer of left calf with fat layer exposed (principal); I89.0 Lymphedema, not elsewhere classified; E66.01 Morbid (severe) obesity due to excess calories; M62.81 Muscle weakness (generalized); N18.30 Chronic kidney disease, stage 3 unspecified; Z91.119 Patient's noncompliance with dietary regimen due to unspecified reason; I96 Gangrene, not elsewhere classified | CPT/HCPCS: 11042; G0463 ==

== ENCOUNTER → 2022-07-17 | Outpatient (CLI) | payer MEDICARE, OTHER | LOC: WOUNDCARE 10:05 | PROVIDERS: ATTEND Family Medicine | DX: I89.0 Lymphedema, not elsewhere classified (principal); L97.222 Non-pressure chronic ulcer of left calf with fat layer exposed; E66.01 Morbid (severe) obesity due to excess calories; M62.81 Muscle weakness (generalized); N18.30 Chronic kidney disease, stage 3 unspecified; Z91.119 Patient's noncompliance with dietary regimen due to unspecified reason; Z68.43 Body mass index [BMI] 50.0-59.9, adult | CPT/HCPCS: 99212 ==

== ENCOUNTER → 2022-11-26 | Outpatient (CLI) | payer MEDICARE, OTHER ==
--- NOTE | 2022-11-27 11:57 | Diagnostic Imaging Report ---
Indication: Routine screening. Comparison is made with prior mammograms from 11/25/2021 and 09/26/2018. 2-D and 3-D bilateral screening mammography was performed with CAD. Scattered fibroglandular densities are identified bilaterally. Benign nodules in the right breast are stable. No spiculated mass or malignant-appearing microcalcifications are seen. Axillae are unremarkable. IMPRESSION: BI-RADS Category 2 No mammographic features suspicious for malignancy are identified. ACR BI-RADS Category 2: Benign findings. Result letter will be mailed to the patient. Note: At least 10% of breast cancer is not imaged by mammography. Dictated by: Dictated on workstation # [id number]
== END ==
LOC: RAD 14:45
PROVIDERS: ATTEND Family Medicine
DX: Z12.31 Encounter for screening mammogram for malignant neoplasm of breast (principal)
CPT/HCPCS: 77063; 77067

== ENCOUNTER → 2022-12-07 | Outpatient (CLI) | payer MEDICARE, OTHER | LOC: WOUNDCARE 13:52 | PROVIDERS: ATTEND Family Medicine | DX: I96 Gangrene, not elsewhere classified (principal); L97.212 Non-pressure chronic ulcer of right calf with fat layer exposed; L97.222 Non-pressure chronic ulcer of left calf with fat layer exposed; I89.0 Lymphedema, not elsewhere classified; E66.01 Morbid (severe) obesity due to excess calories; E55.9 Vitamin D deficiency, unspecified; N18.30 Chronic kidney disease, stage 3 unspecified; Z68.44 Body mass index [BMI] 60.0-69.9, adult | CPT/HCPCS: 11042; 11045; 87070; 87205; A6197; A6454; G0463; 87077 ==

== ENCOUNTER → 2022-12-28 | Outpatient (CLI) | payer MEDICARE, OTHER ==
[~2022-12-28] MED LIST changes: +SENN-341 PO; -SNN187T PO
== END ==
LOC: WOUNDCARE 14:20
PROVIDERS: ATTEND Family Medicine
DX: I96 Gangrene, not elsewhere classified (principal); L97.222 Non-pressure chronic ulcer of left calf with fat layer exposed; L97.212 Non-pressure chronic ulcer of right calf with fat layer exposed; I89.0 Lymphedema, not elsewhere classified; E66.01 Morbid (severe) obesity due to excess calories; E55.9 Vitamin D deficiency, unspecified; N18.30 Chronic kidney disease, stage 3 unspecified; L03.116 Cellulitis of left lower limb; Z68.44 Body mass index [BMI] 60.0-69.9, adult
CPT/HCPCS: 11042; G0463

== ENCOUNTER → 2023-01-04 | Outpatient (CLI) | payer MEDICARE, OTHER | LOC: WOUNDCARE 14:05 | PROVIDERS: ATTEND Family Medicine | DX: L97.222 Non-pressure chronic ulcer of left calf with fat layer exposed (principal); I89.0 Lymphedema, not elsewhere classified; E66.01 Morbid (severe) obesity due to excess calories; Z68.44 Body mass index [BMI] 60.0-69.9, adult; E55.9 Vitamin D deficiency, unspecified; N18.30 Chronic kidney disease, stage 3 unspecified; I96 Gangrene, not elsewhere classified | CPT/HCPCS: 11042; A6454; G0463 ==

== ENCOUNTER → 2023-01-11 | Outpatient (CLI) | payer MEDICARE, OTHER | LOC: WOUNDCARE 14:07 | PROVIDERS: ATTEND Family Medicine | DX: I96 Gangrene, not elsewhere classified (principal); L97.222 Non-pressure chronic ulcer of left calf with fat layer exposed; I89.0 Lymphedema, not elsewhere classified; E66.01 Morbid (severe) obesity due to excess calories; E55.9 Vitamin D deficiency, unspecified; N18.30 Chronic kidney disease, stage 3 unspecified; Z68.44 Body mass index [BMI] 60.0-69.9, adult | CPT/HCPCS: 11042; A6454; G0463 ==

== ENCOUNTER → 2023-01-18 | Outpatient (CLI) | payer MEDICARE, OTHER | LOC: WOUNDCARE 09:49 | PROVIDERS: ATTEND Family Medicine | DX: L97.222 Non-pressure chronic ulcer of left calf with fat layer exposed (principal); I89.0 Lymphedema, not elsewhere classified; E66.01 Morbid (severe) obesity due to excess calories; Z68.44 Body mass index [BMI] 60.0-69.9, adult; E55.9 Vitamin D deficiency, unspecified; N18.30 Chronic kidney disease, stage 3 unspecified; I96 Gangrene, not elsewhere classified | CPT/HCPCS: 11042; A6454; G0463 ==

== ENCOUNTER → 2023-01-18 | Outpatient (CLI) | payer MEDICARE, OTHER ==
--- NOTE | 2023-01-18 17:35 | Diagnostic Imaging Report ---
INDICATION: Vascular disease. Right ankle-brachial index is 0.88. Left ankle-brachial index 0.82, both moderately low. If there is any pain or symptoms of lower extremity ischemia. Given this abnormal study, correlative dedicated arterial Doppler would be appropriate. IMPRESSION: Mild to moderately diminished bilateral resting ankle brachial indices, suspicious for upstream atherosclerotic disease. Focal stenosis could not be excluded. Dictated by: Dictated on workstation # [id number]
== END ==
LOC: RAD 08:34
PROVIDERS: ATTEND Family Medicine
DX: L97.222 Non-pressure chronic ulcer of left calf with fat layer exposed (principal); I89.0 Lymphedema, not elsewhere classified; E66.01 Morbid (severe) obesity due to excess calories; E55.9 Vitamin D deficiency, unspecified; N18.30 Chronic kidney disease, stage 3 unspecified; Z68.44 Body mass index [BMI] 60.0-69.9, adult
CPT/HCPCS: 93923

== ENCOUNTER → 2023-01-25 | Outpatient (CLI) | payer MEDICARE, OTHER | LOC: WOUNDCARE 14:07 | PROVIDERS: ATTEND Family Medicine | DX: I89.0 Lymphedema, not elsewhere classified (principal); L97.222 Non-pressure chronic ulcer of left calf with fat layer exposed; E66.01 Morbid (severe) obesity due to excess calories; E55.9 Vitamin D deficiency, unspecified; N18.30 Chronic kidney disease, stage 3 unspecified; Z68.44 Body mass index [BMI] 60.0-69.9, adult | CPT/HCPCS: 11042; A6454; G0463 ==

== ENCOUNTER → 2023-02-02 | Outpatient (CLI) | payer MEDICARE, OTHER | LOC: WOUNDCARE 14:37 | PROVIDERS: ATTEND Family Medicine | DX: L97.222 Non-pressure chronic ulcer of left calf with fat layer exposed (principal); I89.0 Lymphedema, not elsewhere classified; E66.01 Morbid (severe) obesity due to excess calories; E55.9 Vitamin D deficiency, unspecified; N18.30 Chronic kidney disease, stage 3 unspecified; Z68.44 Body mass index [BMI] 60.0-69.9, adult | CPT/HCPCS: 99212 ==

== ENCOUNTER → 2023-03-08 | Outpatient (CLI) | payer MEDICARE, OTHER | LOC: WOUNDCARE 14:12 | PROVIDERS: ATTEND Family Medicine | DX: I96 Gangrene, not elsewhere classified (principal); L97.222 Non-pressure chronic ulcer of left calf with fat layer exposed; I89.0 Lymphedema, not elsewhere classified; L03.116 Cellulitis of left lower limb; L97.211 Non-pressure chronic ulcer of right calf limited to breakdown of skin; E66.01 Morbid (severe) obesity due to excess calories; N18.30 Chronic kidney disease, stage 3 unspecified; Z68.44 Body mass index [BMI] 60.0-69.9, adult | CPT/HCPCS: 11042; G0463 ==

== ENCOUNTER → 2023-03-15 | Outpatient (CLI) | payer MEDICARE, OTHER | LOC: WOUNDCARE 14:12 | PROVIDERS: ATTEND Family Medicine | DX: L97.922 Non-pressure chronic ulcer of unspecified part of left lower leg with fat layer exposed (principal); L03.116 Cellulitis of left lower limb; I89.0 Lymphedema, not elsewhere classified; L97.211 Non-pressure chronic ulcer of right calf limited to breakdown of skin; E66.01 Morbid (severe) obesity due to excess calories; Z68.44 Body mass index [BMI] 60.0-69.9, adult; N18.30 Chronic kidney disease, stage 3 unspecified; I96 Gangrene, not elsewhere classified | CPT/HCPCS: A6454; G0463; 99212 ==